=== PATIENT | female | born 1950 | race Caucasian/White ===

== ENCOUNTER 2017-07-24 08:18 | Inpatient (IN) | payer MEDICARE ==
[2017-07-24] VITALS (13 sets, daily range): BP systolic 90–169; BP diastolic 48–93; PULSE 117–124; RESP 18–31; TEMP 97.5–97.9; O2SAT 90–97
[~2017-07-24] VITALS: Ht 167.6 cm; Wt 93.0 kg
--- NOTE | 2017-07-24 08:54 | PD ---
HPI Chief Complaint: Respiratory Symptoms Time Seen by Provider: 08:43 Travel History International Travel<30 days: No Contact w/Intl Traveler<30days: No Traveled to known affect area: No History of Present Illness HPI 67-year-old female presents with shortness of breath. She states that she had a cold with cough and congestion last week but those symptoms have gone away and now she feels worsening shortness of breath. She denies any fever or other concurrent complaints. She states she has been around a grandson with similar symptoms Of cough and congestion. Quality is hard to catch breath. Severity is progressive. She feels worse when she moves around. She denies other modifying factors. Duration is about the past week. She denies recurrent history of this. [facility] Past Medical History Kidney Stones: Yes Influenza Vaccination: No ?: Not Past Surgical History Section: Yes (X3) Genitourinary Surgery: Yes (REMOVAL OF KIDNEY STONES) Hysterectomy: Yes Social History Alcohol Use: Yes (OCCAS) Tobacco Use: No (quit 3 days ago) Substance Use: No Allergies-Medications (Allergen,Severity, Reaction): Coded Allergies: morphine (Verified Allergy, Intermediate, HIVES, 07/24/17) Reported Meds & Prescriptions Reported Meds & Active Scripts Active No Active Prescriptions or Reported Medications Review of Systems Except as stated in HPI: all other systems reviewed are Neg Physical Exam Narrative GENERAL: 67-year-old female in no apparent distress SKIN: Focused skin assessment warm/dry. HEAD: Atraumatic. Normocephalic. EYES: No scleral icterus. No injection or drainage. ENT: No nasal bleeding or discharge. Mucous membranes pink and moist. NECK: Trachea midline. CARDIOVASCULAR: Tachycardic rate and regular rhythm RESPIRATORY: No accessory muscle use. Clear to auscultation. Breath sounds equal bilaterally. GASTROINTESTINAL: Abdomen soft, non-tender, nondistended. MUSCULOSKELETAL: No obvious deformities. No clubbing. No cyanosis. No edema. NEUROLOGICAL: Awake and alert. No obvious cranial nerve deficits. Motor grossly within normal limits. Normal speech. Data Data Last Documented VS Vital Signs Date Time Temp Pulse Resp B/P (MAP) Pulse Ox O2 Delivery O2 Flow Rate FiO2 07/24/17 11:13 122 18 108/72 (84) 94 Room Air 07/24/17 08:26 97.6 Orders Orders Complete Blood Count With Diff (07/24/17 08:42) Comprehensive Metabolic Panel (07/24/17 08:42) B-Type Natriuretic Peptide (07/24/17 08:42) Act Partial Throm Time (Ptt) (07/24/17 08:42) Prothrombin Time / Inr (Pt) (07/24/17 08:42) Magnesium (Mg) (07/24/17 08:42) Ckmb (Isoenzyme) Profile (07/24/17 08:42) Troponin I (07/24/17 08:42) Iv Access Insert/Monitor (07/24/17 08:42) Electrocardiogram (07/24/17 08:42) Ecg Monitoring (07/24/17 08:42) Oximetry (07/24/17 08:42) Chest, Single Ap (07/24/17 08:42) Sodium Chloride 0.9% Flush (Ns Flush) (07/24/17 08:45) Lactic Acid (07/24/17 08:42) Influenzae A/B Antigen (07/24/17 08:49) Blood Culture (07/24/17 08:49) Sodium Chlor 0.9% 1000 Ml Inj (Ns 1000 M (07/24/17 09:15) Ceftriaxone Inj (Rocephin Inj) (07/24/17 09:45) Azithromycin Inj (Zithromax Inj) (07/24/17 09:45) Sodium Chlor 0.9% 1000 Ml Inj (Ns 1000 M (07/24/17 09:45) Sodium Chlor 0.9% 1000 Ml Inj (Ns 1000 M (07/24/17 10:15) Acetaminophen (Tylenol) (07/24/17 11:30) Admit Order (Ed Use Only) (07/24/17 11:26) Labs Laboratory Tests Test 07/24/17 09:01 07/24/17 09:05 Lactic Acid Level 5.6 mmol/L White Blood Count 15.7 TH/MM3 Red Blood Count 5.33 MIL/MM3 Hemoglobin 15.4 GM/DL Hematocrit 45.4 % Mean Corpuscular Volume 85.2 FL Mean Corpuscular Hemoglobin 28.9 PG Mean Corpuscular Hemoglobin Concent 33.9 % Red Cell Distribution Width 13.3 % Platelet Count 509 TH/MM3 Mean Platelet Volume 8.3 FL Neutrophils (%) (Auto) 85.5 % Lymphocytes (%) (Auto) 8.1 % Monocytes (%) (Auto) 5.6 % Eosinophils (%) (Auto) 0.3 % Basophils (%) (Auto) 0.5 % Neutrophils # (Auto) 13.4 TH/MM3 Lymphocytes # (Auto) 1.3 TH/MM3 Monocytes # (Auto) 0.9 TH/MM3 Eosinophils # (Auto) 0.0 TH/MM3 Basophils # (Auto) 0.1 TH/MM3 CBC Comment DIFF FINAL Differential Comment Prothrombin Time 11.7 SEC Prothromb Time International Ratio 1.2 RATIO Activated Partial Thromboplast Time 25.9 SEC Blood Urea Nitrogen 19 MG/DL Creatinine 1.10 MG/DL Random Glucose 178 MG/DL Total Protein 7.6 GM/DL Albumin 3.6 GM/DL Calcium Level 9.2 MG/DL Magnesium Level 2.2 MG/DL Alkaline Phosphatase 138 U/L Aspartate Amino Transf (AST/SGOT) 22 U/L Alanine Aminotransferase (ALT/SGPT) 21 U/L Total Bilirubin 0.9 MG/DL Sodium Level 138 MEQ/L Potassium Level 3.6 MEQ/L Chloride Level 102 MEQ/L Carbon Dioxide Level 22.3 MEQ/L Anion Gap 14 MEQ/L Estimat Glomerular Filtration Rate 49 ML/MIN Total Creatine Kinase 35 U/L Troponin I LESS THAN 0.02 NG/ML MDM Medical Decision Making Medical Screen Exam Complete: Yes Emergency Medical Condition: Yes Medical Record Reviewed: Yes (past history confirmed) Interpretation(s) CBC & BMP Diagram 07/24/17 09:05 Total Protein 7.6, Albumin 3.6, Calcium Level 9.2, Magnesium Level 2.2, Alkaline Phosphatase 138 H, Aspartate Amino Transf (AST/SGOT) 22, Alanine Aminotransferase (ALT/SGPT) 21, Total Bilirubin 0.9 Last 24 hours Impressions Chest X-Ray 07/24/17 0842 Signed Impressions: Service Date/Time: Monday, July 24, 2017 08:54 - CONCLUSION: 1. Patchy opacities within the right mid and lower lung field consistent with possible pneumonia. 2. Small right pleural effusion. 3. Cardiomegaly. 4. Minimal scattered increased interstitial markings within the left lung. Ke Valentine MD Differential Diagnosis Pneumonia, URI, anemia, renal failure,, PE Narrative Course Will check blood work, EKG, chest x-ray and reevaluate. ED workup shows significantly elevated lactate and patient's x-ray has concerning findings of pneumonia. She is also flu a positive. She'll need to be watched closely with the importer or exporter. Currently she is on room air and not hypotensive that she has signs of septic shock given her vitals and lactate with concurrent infection. She was updated and agrees to close monitoring in the ICU. Critical Care Narrative Aggregate critical care time was 31 minutes. Time to perform other separately billable procedures was not included in the critical care time. My time did not include minutes spent treating any other patients simultaneously or on activities that did not directly contribute to the patient's treatment. The services I provided to this patient were to treat and/or prevent clinically significant deterioration that could result in: Worsening septic shock, hypotension, I provided critical care services requiring my management, as noted below: Chart data review, documentation time, medication orders and management, vital sign assessments/reviewing monitor data, ordering and reviewing lab tests, ordering and interpreting/reviewing x-rays and diagnostic studies, care of the patient and discussion of the patient with the admitting physicians. Sepsis Criteria SIRS Criteria (2 or more): Heart rate over 90, WBC > 86810, < 4000 or > 10% bands Sepsis Criteria (SIRS+source): Infect source susp/known Severe Sepsis (+one): Lactate >2 Septic Shock Criteria: Lactic acid >=4 Criteria Outcome: Meets septic shock criteria Physician Communication Physician Communication dr ruelas states to admit to [facility] under him, he will order ct chest dr ruelas called back and states can stay in [facility] Diagnosis Primary Impression: Septic shock Additional Impressions: Pneumonia Qualified Codes: J18.9 - Pneumonia, unspecified organism Influenza A Admitting Information Admitting Physician Requests: Admit Scripts No Active Prescriptions or Reported Meds Lakeshia Thomas MD Jul 24, 2017 08:54
[2017-07-24] MEDS ORDERED: SODIUM CHLOR 0.9% 1000 ML INJ 1,000 ML IV ONE ×3 (09:15→10:15)
[2017-07-24 09:21] LABS: AUTOMATED NEUTROPHIL # 13.4 TH/MM3 (1.8-7.7); BASOPHIL # 0.1 TH/MM3 (0-0.2); BASOPHIL % 0.5 % (0.0-2.0); EOSINOPHIL % 0.3 % (0.0-4.0); HEMATOCRIT 45.4 % (35.0-46.0); HEMOGLOBIN 15.4 GM/DL (11.6-15.3); LYMPH % 8.1 % (9.0-44.0); LYMPHOCYTE # 1.3 TH/MM3 (1.0-4.8); MEAN CELL VOLUME 85.2 FL (80.0-100.0); MEAN CORPUSCULAR HEMOGLOBIN 28.9 PG (27.0-34.0); MEAN CORPUSCULAR HGB CONC 33.9 % (32.0-36.0); MEAN PLATELET VOLUME 8.3 FL (7.0-11.0); MONO % 5.6 % (0.0-8.0); MONOCYTE # 0.9 TH/MM3 (0-0.9); NEUT % 85.5 % (16.0-70.0); PLATELET COUNT 509 TH/MM3 (150-450); RED BLOOD COUNT 5.33 MIL/MM3 (4.00-5.30); RED CELL DISTRIBUTION WIDTH 13.3 % (11.6-17.2); WHITE BLOOD COUNT 15.7 TH/MM3 (4.0-11.0)
--- NOTE | 2017-07-24 09:24 | RADRPT ---
EXAM DATE/TIME: 07/24/2017 08:54 [facility] COMPARISON: No previous studies available for comparison. INDICATIONS : Short of breath MEDICAL HISTORY : None. SURGICAL HISTORY : None. ENCOUNTER: Initial ACUITY: 1 day PAIN SCORE: 5/10 LOCATION: Bilateral chest FINDINGS: A small right pleural effusion is noted. Patchy opacities within the right mid and lower lung content s with possible pneumonia. The heart is enlarged. Minimal scattered increased interstitial markings a re noted within the left lung. CONCLUSION: 1. Patchy opacities within the right mid and lower lung field consistent with possible pneumonia. 2. Small right pleural effusion. 3. Cardiomegaly. 4. Minimal scattered increased interstitial markings within the left lung. Ke Valentine MD on July 24, 2017 at 9:20 Board Certified Radiologist. This report was verified electronically.
[2017-07-24 09:30] LABS: INTERNATIONAL NORMALIZED RATIO 1.2 RATIO; PROTHROMBIN TIME - PATIENT 11.7 SEC (9.8-11.6)
[2017-07-24] MEDS ORDERED: AZITHROMYCIN INJ 500 MG in SODIUM CHLOR 0.9% 250 ML INJ 250 ML IV ONE (09:45)
[2017-07-24] MEDS ORDERED: cefTRIAXone INJ 1,000 MG in SODIUM CHLORIDE 0.9% INJ 100 ML IV ONE (09:45)
[2017-07-24 09:53] LABS: CALCIUM 9.2 MG/DL (8.5-10.1)
[2017-07-24 09:54] LABS: ALBUMIN 3.6 GM/DL (3.4-5.0); BICARBONATE 22.3 MEQ/L (21.0-32.0); GLUCOSE,RANDOM 178 MG/DL (74-106)
[2017-07-24 09:55] LABS: MAGNESIUM 2.2 MG/DL (1.5-2.5)
[2017-07-24 09:57] LABS: GLOMERULAR FILTRATION RATE 49 ML/MIN (>89)
[2017-07-24 09:59] LABS: TOTAL PROTEIN 7.6 GM/DL (6.4-8.2)
[2017-07-24 10:01] LABS: ALKALINE PHOSPHATASE 138 U/L (45-117)
[2017-07-24 10:02] LABS: CHLORIDE 102 MEQ/L (98-107); SODIUM (NA) 138 MEQ/L (136-145)
[2017-07-24 10:03] LABS: TROPONIN I LESS THAN 0.02 NG/ML (0.02-0.05)
[2017-07-24 10:05] LABS: ALT (GPT) 21 U/L (10-53)
[2017-07-24 10:11] LABS: AST (GOT) 22 U/L (15-37); BLOOD UREA NITROGEN 19 MG/DL (7-18)
[2017-07-24 10:18] LABS: TOTAL BILIRUBIN ADULT 0.9 MG/DL (0.2-1.0)
--- NOTE | 2017-07-24 11:12 | EKG ---
Date Performed: 07/24/2017 Time Performed: 09:03:05 PTAGE: 67 years EKG: SINUS TACHYCARDIA BORDERLINE RIGHT AXIS DEVIATION ABNORMAL RHYTHM ECG NO PREVIOUS TRACING DOCTOR: Zelalem Mariee Interpretating Date/Time 07/24/2017 11:08:05
[2017-07-24] MEDS ORDERED: ACETAMINOPHEN 325 MG TAB PO ONE (11:30)
[2017-07-24] MEDS ORDERED: RESP: ALBUTEROL 2.5 MG/IPRATROPIUM 0.5 MG NEB (PRN) INH (12:00)
[2017-07-24] MEDS ORDERED: CHLORHEXIDINE GLUCONATE 2 % 1 PACK (2 CLOTHS) TOP PRN (12:00)
[2017-07-24] MEDS ORDERED: GLUCAGON 1 MG/ML VIAL OTHER PRN (12:00)
[2017-07-24] MEDS ORDERED: BISACODYL 10 MG SUPP RECTAL PRN (12:00)
[2017-07-24] MEDS ORDERED: LACTULOSE SYRUP 20 GM/30 ML CUP PO PRN (12:00)
[2017-07-24] MEDS ORDERED: DEXTROSE 50% IN WATER 50 ML VIAL(D50) IV PUSH PRN (12:00)
[2017-07-24] MEDS ORDERED: SENNOSIDES 8.6 MG TAB PO PRN (12:00)
[2017-07-24] MEDS ORDERED: MAGNESIUM HYDROXIDE SUSP 30 ML CUP PO PRN (12:00)
[2017-07-24] MEDS ORDERED: MISCELLANEOUS NURSING INFORMATION XX SCH (12:00)
[2017-07-24] MEDS: RESP: ALBUTEROL 2.5 MG/IPRATROPIUM 0.5 MG NEB (SCH) INH ×4 (12:12→23:37)
[2017-07-24] MEDS ORDERED: HEPARIN SODIUM - SQ 10,000 UNITS/ML VIAL SQ SCH (13:00)
[2017-07-24] MEDS: OSELTAMIVIR PHOSPHATE 75 MG CAP PO SCH ×2 (13:09→22:07)
[2017-07-24] MEDS: SODIUM CHLOR 0.9% 1000 ML INJ 1,000 ML IV SCH ×3 (13:09→22:06)
[2017-07-24] MEDS: PIPERACIL-TAZO 4.5 GM PREMIX 100 ML IV SCH ×3 (13:10→23:29)
[2017-07-24] MEDS: INSULIN NovoLIN REGULAR SUPPLEMENTAL SCALE SQ SCH ×2 (13:19→17:58)
--- NOTE | 2017-07-24 13:24 | RADRPT ---
EXAM DATE/TIME: 07/24/2017 12:52 [facility] COMPARISON: No previous studies available for comparison. INDICATIONS : Cough and congestion. Short of breath. Right chest pain. RADIATION DOSE: 11.78 CTDIvol (mGy) MEDICAL HISTORY : Renal calculi. SURGICAL HISTORY : Hysterectomy. section. ENCOUNTER: Initial ACUITY: 3 days PAIN SCALE: 5/10 LOCATION: Right chest TECHNIQUE: Volumetric scanning of the chest was performed. Using automated exposure control and adjustment of t he mA and/or kV according to patient size, radiation dose was kept as low as reasonably achievable to obtain optimal diagnostic quality images. DICOM format image data is available electronically for r eview and comparison. Follow-up recommendations for detected pulmonary nodules are based at a minimum on nodule size and pa tient risk factors according to Fleischner Society Guidelines. FINDINGS: Imaging through the pulmonary parenchyma demonstrates a moderate size right-sided pleural effusion an d consolidative change/atelectasis in the right middle and lower lobe. Examination of the left lung demonstrates 2 pulmonary nodules. The largest is in the superior segment of the left lower lobe and measures 1.1 x 1.7 CM. The second nodule is in the left lung base and christy sures 0.4 x 1.2 CM. Both of these are nonspecific in appearance. The heart is normal in size however, there is a very large pericardial effusion. The examination demo nstrates a 2.9 x 2.9 cm middle mediastinal node. There are several enlarged nodes identified in the p revascular [place] chain. The largest measures 1.3 x 1.7 cm. There is a 1.6 x 1.8 cm right axillary nod e as well. The limited portions of upper abdomen visualized are unremarkable. The visualized osseous structures are intact. CONCLUSION: 1. Sizable pericardial effusion. 2. Scattered, enlarged nodes evident in the prevascular [place] chain. The largest measures 1.3 x 1.7 c m. The exam also demonstrates a 1.6 x 1.8 cm right axillary node. There is mediastinal adenopathy as well with at least one node measuring 2.9 x 2.9 cm. The exam is concerning for malignancy. 3. Atherosclerotic plaquing in the coronary arteries. 4. There are 2 pulmonary nodules on the left. The largest measures 1.1 x 1.7 cm. 5. Moderate size right pericardial effusion. David Baez MD on July 24, 2017 at 13:17 Board Certified Radiologist. This report was verified electronically.
[2017-07-24] MEDS: VANCOMYCIN INJ 1,000 MG in SODIUM CHLOR 0.9% 250 ML INJ 250 ML IV SCH (14:00)
[2017-07-24] MEDS ORDERED: LIDOCAINE 1%/EPINEPHrine 1:100,000 SOLN 50 ML VIAL ONE (14:34)
[2017-07-24] MEDS ORDERED: MIDAZOLAM HCL 2 MG/2 ML VIAL ONE ×2 (15:16→15:41)
[2017-07-24] MEDS ORDERED: ONDANSETRON HCL 4 MG/2 ML VIAL ONE (16:16)
--- NOTE | 2017-07-24 16:25 | PD.RAD ---
Post Procedure Progress Note Pre Procedure Diagnosis: (1) Pericardial effusion with cardiac tamponade (2) Septic shock (3) Pneumonia Post Procedure Diagnosis: (1) Pericardial effusion with cardiac tamponade (2) Influenza A (3) Pneumonia (4) Septic shock Procedure Date: Jul 24, 2017 Supervising Radiologist: David Baez Estimated blood loss: 2cc Anesthesia: Local, Conscious Sedation Plan of Activity Patient to Unit: Critical Care Patient Condition: Fair Additional Comments: [address] guidance 450-500 cc of hemorrhagic fluid removed. 6 uruguayan drain left in place Pt. responded well pt is now resting comfortably and normotensive See PACS Report for procedural detail/treatment David Baez MD Jul 24, 2017 16:25
--- NOTE | 2017-07-24 17:02 | RADRPT ---
EXAM DATE/TIME: 07/24/2017 15:12 [facility] COMPARISON: CT THORAX W/O CONTRAST, July 24, 2017, 12:52. INDICATIONS : Pericardial effusion. SEDATION TIME: 60 minutes MEDICATION(S): 1.) 2 mg midazolam (Versed) IV 2.) 100 mcg fentanyl (Sublimaze) IV DEVICE(S): 1.) 6 Fr Skater FLUID: Total volume of 400 cc of red fluid was removed. Fluid was sent for laboratory ordered studies. MEDICAL HISTORY : None. SURGICAL HISTORY : Hysterectomy. ENCOUNTER: Initial ACUITY: 1 day PAIN SCORE: 0/10 LOCATION: chest PROCEDURE: 1.) Conscious sedation with continuous EKG and oximetry monitoring. PROCEDURE : CT guided pericardial drain placement.. The risks, benefits and alternatives to the procedure were explained and verbal and written consent w as obtained. Using automated exposure control and adjustment of the mA and/or kV according to patien t size, radiation dose was kept as low as reasonably achievable to obtain optimal diagnostic quality images. The site was prepped in sterile fashion. Full sterile technique was used, including cap, ma sk, sterile gloves and gown and a large sterile sheet. Hand hygiene and 2% chlorhexidine and/or beta dine/alcohol prep was utilized per protocol for cutaneous antisepsis. The skin and subcutaneous tiss ues were infiltrated with local anesthetic solution. DICOM format image data is available electronic ally for review and comparison. A suitable site was localized. The skin was incised with 10 cc 1% lidocaine. 22 gauge needle was adva nced down into the pericardial effusion on the left. A 6 Stateless skater catheter was advanced over the wire. Approximately 100 cc of hemorrhagic fluid was removed. The patient felt significantly better f ollowing this however there was still a large volume of fluid evident along the inferior aspect of th e pericardium. A second site was localized inferiorly along the right side of the pericardium. Using an oblique appr [facility], a 22 gauge needle was advanced into the collection. A 0.035 wire was advanced into the pericard ial sac versus 6 Stateless drain was advanced over this. A total of approximately 400 cc of hemorrhagic fluid was removed. Followup CT imaging demonstrated complete resolution of the pericardial effusion. A 6 Stateless drainage catheter was left in placed to BRANDAN suction. CONCLUSION: Uncomplicated pericardial drainage as above. A total of about 500 cc of hemorrhagic f luid was removed. The patient's vitals stabilized following the pericardial drainage. David Baez MD on July 24, 2017 at 16:57 Board Certified Radiologist. This report was verified electronically.
--- NOTE | 2017-07-24 17:14 | RADRPT ---
EXAM DATE/TIME: 07/24/2017 16:18 [facility] COMPARISON: CHEST EXPIRATION ONLY, July 24, 2017, 16:57. INDICATIONS : Right pleural effusion. MEDICAL HISTORY : Kidney stones. SURGICAL HISTORY : Hysterectomy. section. ENCOUNTER: Initial ACUITY: 1 week PAIN SCORE: 3/10 LOCATION: Right chest FLUID: Total volume of 1100 cc of clear, yellow fluid was removed. Fluid was sent to lab for ordered studies. TECHNIQUE: 1. Ultrasound guidance for thoracentesis. 2. Thoracentesis. The risks, benefits, and alternatives to ultrasound guided thoracentesis were explained to the patien t in lay simple terms, including the risk of bleeding and infection. Written and verbal informed con sent was obtained. Appropriate area for thoracentesis was marked under ultrasound guidance with the patient in the uprig ht position. Overlying skin was prepped and draped in the usual sterile fashion and with local anest hetic, a dermatotomy was made with an 11 blade scalpel. A 6 Austrian thoracentesis catheter was placed in the pleural space and fluid was removed. Catheter was then removed and a sterile dressing applie d. There were no immediate complications. The patient tolerated the procedure well and the left the ultrasound suite in stable condition. Chest radiograph is to be obtained. CONCLUSION: Uncomplicated ultrasound guided thoracentesis. David Baez MD on July 24, 2017 at 17:12 Board Certified Radiologist. This report was verified electronically.
--- NOTE | 2017-07-24 17:16 | RADRPT ---
EXAM DATE/TIME: 07/24/2017 16:57 [facility] COMPARISON: CHEST SINGLE AP, July 24, 2017, 8:54. INDICATIONS : Evaluate for pneumothorax, post thoracentesis. MEDICAL HISTORY : Renal calculi. SURGICAL HISTORY : Hysterectomy. ENCOUNTER: Initial ACUITY: 1 day PAIN SCORE: 0/10 LOCATION: Right chest FINDINGS: The patient is post right-sided thoracentesis. There's been complete removal of the patient's right p leural effusion. The patient's known pulmonary masses are not visible by plain film. The lungs do dem onstrate chronic appearing interstitial changes with a small area of atelectasis at the left base. The heart is now normal in size. There is a small pericardial drain in place. The bony structures are intact. CONCLUSION: 1. Complete removal of the patient's right pleural effusion. There is significant improvement in the chest. There is no pneumothorax. David Baez MD on July 24, 2017 at 17:13 Board Certified Radiologist. This report was verified electronically.
[2017-07-24] MEDS ORDERED: LORazepam 2 MG/ML VIAL IV PUSH ONE (17:30)
[2017-07-24 17:53] LABS: TOTAL PROTEIN,PLEURAL FLUID 3.4 GM/DL
[2017-07-24 18:36] LABS: PLEURAL FLUID LYMPHS 100 %; PLEURAL FLUID POLYS (SEGS) 0 %; PLEURAL FLUID RBC 2486 /MM3 (0-0)
[2017-07-24 18:37] LABS: PLEURAL FLUID WBC 2915 /MM3 (0-10)
[2017-07-24 18:38] LABS: PERICARDIAL WBC 15897 /MM3 (0-10)
[2017-07-24 18:39] LABS: PERICARDIAL EOS 2 %; PERICARDIAL LYMPHS 64 %; PERICARDIAL MESOTHELIAL 3 %; PERICARDIAL POLYS(SEGS) 31 %; PERICARDIAL RBC 1044277 /MM3 (0-0)
--- NOTE | 2017-07-24 18:47 | MH ---
cc: Eunice Dos Santos MD DATE OF ADMISSION: 07/24/2017 HISTORY OF PRESENT ILLNESS: The patient is a 67-year-old female without a past medical history who presented to [place] ED for shortness of breath that gradually worsened in the last 3 days and not feeling well overall. She had cold-like symptoms a month ago. She denies any associated symptoms of chest pain, orthopnea, PND or edema of lower extremities. In addition, she denies any nausea, vomiting, abdominal pain. On arrival to the ED, she was tachycardic and borderline blood pressure with a systolic pressure in the 90s. She received approximately 2 liters of crystalloids in the ED. Her laboratory data was significant for leukocytosis with a WBC of 15.7 and lactic acidemia with a lactic acid level of 5.6. Her nasal aspirate in the ED was positive for flu A antigen. A chest x-ray in the ED showed patchy opacities within the right mid and lower lung ochoa. Subsequently, the patient underwent CT scan of the chest which showed a large pericardial effusion, large right-sided pleural effusion, mediastinal adenopathy with 1 node measuring at least 2.9 x 2.9 cm and enlarged nodes in the prevascular [place] chain, largest measures 1.3 x 1.7 cm. In the ED, she was given ceftriaxone, azithromycin and IV fluids. The patient subsequently was transferred to the Radiology Department at [facility] where she underwent a CT guided pericardiocentesis with removal of 500 mL of hemorrhagic fluid, a pericardial drain in place. Also, she underwent ultrasound-guided thoracentesis with removal of 1100 mL of clear yellow pleural fluid. The patient's hemodynamics overall improved with current blood pressure of 169/80 with a pulse of 119, and saturation 95% on 2 liters oxygen. She feels better overall. The patient states that she has not seen a physician for over 10 years. She is an active smoker with a [id number] history of smoking. She denies any history of pulmonary lung disease or malignancy. PAST MEDICAL HISTORY: Significant for renal stones. PAST SURGICAL HISTORY: x3, previous hysterectomy, bladder uplift, previous surgery for nephrolithiasis. FAMILY HISTORY: No history of malignancy. ALLERGIES: MORPHINE SIDE EFFECTS SWELLING. MEDICATIONS AT HOME: Tylenol p.r.n. REVIEW OF SYSTEMS: As per HPI. Rest of review of systems is unremarkable. PHYSICAL EXAMINATION: GENERAL: A 67-year-old female lying in bed in no acute respiratory distress. VITAL SIGNS: Afebrile, pulse of 119, blood pressure 169/80, saturation 95% on 2 liter oxygen. HEENT: Atraumatic, normocephalic. Pupils are equal, round, reactive to accommodation. Extraocular muscles intact. Conjunctivae pink Nonicteric sclerae. Oral mucosa within normal limits. NECK: Supple. No JVD, adenopathy, thyromegaly. Trachea in the midline. HEART: Tachycardic. Normal S1, S2. No murmurs, rubs or gallops noted. LUNGS: Bilateral equal air entry, diminished in the bases. ABDOMEN: Soft, obese, nontender. No distention. Positive bowel sounds. EXTREMITIES: No cyanosis, clubbing or edema. NEUROLOGIC: No focal sensory deficit. LABORATORY DATA: Sodium 138, potassium 3.6, chloride 102, CO2 22, BUN 19, creatinine 1.19, glucose 178, lactic acid 5.6 and on repeat 7.0. Troponin less than 0.02. BNP 72. WBC 15.7, hemoglobin 15.4, hematocrit 45, platelet count 509. INR 1.2. PT 11.7, PTT 25.9. RADIOGRAPHIC STUDIES: A CT chest showed large pericardial effusion, right-sided pleural effusion, mediastinal adenopathy, pulmonary nodules on the left. The largest measures 1.1 x 1.7 cm. IMPRESSION: 1. Respiratory insufficiency. 2. Positive for influenza. 3. Leukocytosis. 4. Lactic acidemia. 5. Large pericardial effusion status post pericardiocentesis with removal of 500 mL of hemorrhagic pericardial fluid. 6. Right-sided pleural effusion, status post ultrasound-guided thoracentesis with removal of 1100 mL of pleural fluid. 7. Pulmonary nodules with mediastinal adenopathy, rule out malignancy. 8. Active tobacco use. 9. Obesity. RECOMMENDATIONS: 1. Monitor neuro status closely and avoid any sedatives. 2. Continue with oxygen to maintain sats above 92%. 3. Bronchodilators in the form of DuoNeb q. 6 plus q. 2 hours p.r.n. for shortness of breath. 4. Noninvasive positive pressure ventilation p.r.n. for respiratory distress. 5. The patient status post ultrasound CT-guided right thoracentesis with removal of 1100 mL of pleural fluid. Followup on pleural fluid analysis, culture and cytology. 6. Consult pulmonary service. Case discussed with Dr. Reeves. If cytology is negative for malignancy. The patient might be a candidate for endobronchial ultrasound of the mediastinal adenopathy to rule out a bronchogenic carcinoma. 7. Monitor heart rate and blood pressure closely, maintain MAP greater than 65 mmHg. 8. Serial lactic acid monitoring until clear. 9. We will obtain 2D echo to evaluate LV function. She underwent CT guided pericardiocentesis with removal of 500 mL of hemorrhagic fluid. Monitor pericardial drain output. In addition, cardiothoracic surgery was consulted by the ED. 10. Followup on pericardial fluid analysis and cytology. 11. Monitor renal function, I's and O's and electrolyte replacement per protocol. placed NS at 75 mL an hour. 12. Start p.o. heart healthy diet and place on Pepcid for gastrointestinal prophylaxis. 13. Place on broad spectrum antibiotics in the form of vancomycin, Zosyn and Tamiflu 75 mg b.i.d. Monitor for signs of infection which include fever and WBC. Followup on blood cultures. A nasal aspirate was positive for influenza as stated above. 14. Sliding scale insulin with Accu-Cheks for glycemic control. 15. Monitor CBC. 16. Gastrointestinal prophylaxis with Pepcid and DVT prophylaxis with SCDs. We will hold off on chemical anticoagulation prophylaxis for now given the patient just underwent a pericardiocentesis and thoracentesis. Further recommendations will be based on hospital course. MD JAI George/REINA , 05:49 PM , 06:45 PM
[2017-07-24 18:53] LABS: HEMATOCRIT 40.9 % (35.0-46.0); HEMOGLOBIN 14.3 GM/DL (11.6-15.3); MEAN CELL VOLUME 86.2 FL (80.0-100.0); MEAN CORPUSCULAR HEMOGLOBIN 30.2 PG (27.0-34.0); MEAN PLATELET VOLUME 8.1 FL (7.0-11.0); PLATELET COUNT 313 TH/MM3 (150-450); RED BLOOD COUNT 4.75 MIL/MM3 (4.00-5.30); RED CELL DISTRIBUTION WIDTH 13.9 % (11.6-17.2); WHITE BLOOD COUNT 17.3 TH/MM3 (4.0-11.0)
[2017-07-24 19:20] LABS: INTERNATIONAL NORMALIZED RATIO 1.3 RATIO; PROTHROMBIN TIME - PATIENT 12.7 SEC (9.8-11.6)
[2017-07-24] MEDS: ACETAMINOPHEN 325 MG TAB PO PRN (21:35)
[2017-07-24] MEDS: FAMOTIDINE 20 MG/2 ML VIAL IV PUSH SCH (22:06)
[2017-07-24] MEDS: DOCUSATE SODIUM 50 MG/SENNA 8.6 MG TAB PO SCH (22:07)
[2017-07-25] VITALS (15 sets, daily range): BP systolic 89–124; BP diastolic 52–63; PULSE 109–119; RESP 16–44; TEMP 97.7–99.6; O2SAT 92–95
[2017-07-25] MEDS: ACETAMINOPHEN 325 MG TAB PO PRN ×5 (01:45→23:24)
[2017-07-25] MEDS: VANCOMYCIN INJ 1,000 MG in SODIUM CHLOR 0.9% 250 ML INJ 250 ML IV SCH ×2 (02:45→13:38)
[2017-07-25] MEDS: CHLORHEXIDINE GLUCONATE 2 % 1 PACK (2 CLOTHS) TOP SCH (02:46)
[2017-07-25] MEDS: RESP: ALBUTEROL 2.5 MG/IPRATROPIUM 0.5 MG NEB (SCH) INH ×5 (04:00→19:50)
[2017-07-25 04:09] LABS: AUTOMATED NEUTROPHIL # 13.6 TH/MM3 (1.8-7.7); BASOPHIL # 0.1 TH/MM3 (0-0.2); BASOPHIL % 0.4 % (0.0-2.0); EOSINOPHIL % 0.3 % (0.0-4.0); HEMATOCRIT 39.3 % (35.0-46.0); HEMOGLOBIN 13.3 GM/DL (11.6-15.3); LYMPH % 8.4 % (9.0-44.0); LYMPHOCYTE # 1.4 TH/MM3 (1.0-4.8); MEAN CORPUSCULAR HEMOGLOBIN 28.8 PG (27.0-34.0); MEAN CORPUSCULAR HGB CONC 33.9 % (32.0-36.0); MONO % 9.4 % (0.0-8.0); MONOCYTE # 1.6 TH/MM3 (0-0.9); NEUT % 81.5 % (16.0-70.0); PLATELET COUNT 327 TH/MM3 (150-450); RED BLOOD COUNT 4.62 MIL/MM3 (4.00-5.30); RED CELL DISTRIBUTION WIDTH 13.7 % (11.6-17.2); WHITE BLOOD COUNT 16.7 TH/MM3 (4.0-11.0)
[2017-07-25] MEDS: SODIUM CHLOR 0.9% 1000 ML INJ 1,000 ML IV SCH ×5 (04:22→20:25)
[2017-07-25 04:40] LABS: ALBUMIN 2.6 GM/DL (3.4-5.0); ALKALINE PHOSPHATASE 99 U/L (45-117); ALT (GPT) 139 U/L (10-53); AST (GOT) 155 U/L (15-37); BICARBONATE 25.1 MEQ/L (21.0-32.0); BLOOD UREA NITROGEN 14 MG/DL (7-18); CHLORIDE 106 MEQ/L (98-107); CREATININE 0.65 MG/DL (0.50-1.00); GLOMERULAR FILTRATION RATE 91 ML/MIN (>89); GLUCOSE,RANDOM 112 MG/DL (74-106); MAGNESIUM 1.8 MG/DL (1.5-2.5); SODIUM (NA) 140 MEQ/L (136-145); TOTAL BILIRUBIN ADULT 0.9 MG/DL (0.2-1.0); TOTAL PROTEIN 5.5 GM/DL (6.4-8.2)
[2017-07-25] MEDS: PIPERACIL-TAZO 4.5 GM PREMIX 100 ML IV SCH ×4 (05:13→23:24)
[2017-07-25] MEDS: INSULIN NovoLIN REGULAR SUPPLEMENTAL SCALE SQ SCH ×5 (05:13→23:27)
[2017-07-25] MEDS: DOCUSATE SODIUM 50 MG/SENNA 8.6 MG TAB PO SCH ×2 (08:04→20:25)
[2017-07-25] MEDS: OSELTAMIVIR PHOSPHATE 75 MG CAP PO SCH ×2 (08:05→20:26)
[2017-07-25] MEDS: FAMOTIDINE 20 MG/2 ML VIAL IV PUSH SCH ×2 (08:05→20:25)
--- NOTE | 2017-07-25 14:32 | HHI.CCPN ---
Subjective Remarks/Hospital Course The patient is a 67-year-old female without a past medical history who presented to [place] ED for shortness of breath that gradually worsened in the last 3 days and was not feeling well overall. She had cold-like symptoms a month ago she denies any associated symptoms of chest pain, orthopnea, PND or edema of the lower extremities. In addition, she denies any nausea, vomiting, abdominal pain. On arrival to the ED, she was tachycardic M borderline blood pressure with a systolic pressure in the 90s. She received approximately 2 L of crystalloids in the ED. Her laboratory data was significant for leukocytosis with a WBC of 15.7 and lactic acidemia with a lactic acid level of 5.6. Her nasal aspirate in the ED was positive for influenza A antigen. Extreme ED show patchy opacities within the right mid and lower lung ochoa. Subsequently, the patient underwent CT scan of the chest which showed a large pericardial effusion, large right-sided pleural effusion, mediastinal adenopathy with one node measuring at least 2.92.9 cm and enlarged nodes in the pre-vascular [place]ia [place] chain, largest measuring 1.3 x 1.7 cm.. In the ED, she was given ceftriaxone, azithromycin and IV fluids. The patient subsequently was transferred to the radiology Department at [facility] where she underwent a CT-guided pericardiocentesis with removal of 500 cc of hemorrhagic fluid, a pericardial drain in place. Also she underwent ultrasound-guided thoracentesis with removal of 1100 cc of clear yellow pleural fluid. Since hemodynamics overall improved with current blood pressure of 169/80 with a pulse of 119, and saturation 95% on 2 L oxygen. She feels better overall. The patient states that she has not seen a physician for over 10 years. She is an active smoker with a [id number] history of smoking. She denies any history of pulmonary lung disease or malignancy. Subjective: 07/25: No acute events overnight. The patient remains in sinus tachycardia 114- 117. Remains on O2 at 2 L O2 saturation 93-94 %. Leukocytosis slightly improved. Pericardial drain in situ, minimal drainage 20 cc since admission. Objective Vital Signs Date Time Temp Pulse Resp B/P (MAP) Pulse Ox O2 Delivery O2 Flow Rate FiO2 07/25/17 14:00 113 07/25/17 12:00 98.3 44 93/54 (67) 93 07/25/17 09:52 Nasal Cannula 3.00 07/24/17 12:15 21 Intake and Output 07/25/17 07/25/17 07/25/17 07:59 15:59 23:59 Intake Total 590 ml Output Total 20 ml Balance 570 ml Result Diagram: 07/25/17 0342 07/25/17 0342 Other Results Microbiology Date/Time Source Procedure Growth Status 07/24/17 09:01 Nasal Aspirate Influenza Types A,B Antigen (SHILPI) - Final Positive For Flu A Antigen Complete Imaging Last Impressions Pericardiocentesis 07/24/17 1640 Signed Impressions: Service Date/Time: Monday, July 24, 2017 15:12 - CONCLUSION: Uncomplicated pericardial drainage as above. A total of about 500 cc of hemorrhagic fluid was removed. The patient's vitals stabilized following the pericardial drainage. David Baez MD Chest X-Ray 07/24/17 0842 Signed Impressions: Service Date/Time: Monday, July 24, 2017 08:54 - CONCLUSION: 1. Patchy opacities within the right mid and lower lung field consistent with possible pneumonia. 2. Small right pleural effusion. 3. Cardiomegaly. 4. Minimal scattered increased interstitial markings within the left lung. Ke Valentine MD Thoracentesis Ultrasound 07/24/17 0000 Signed Impressions: Service Date/Time: Monday, July 24, 2017 16:18 - CONCLUSION: Uncomplicated ultrasound guided thoracentesis. David Baez MD Chest CT 07/24/17 0000 Signed Impressions: Service Date/Time: Monday, July 24, 2017 12:52 - CONCLUSION: 1. Sizable pericardial effusion. 2. Scattered, enlarged nodes evident in the prevascular [place] chain. The largest measures 1.3 x 1.7 cm. The exam also demonstrates a 1.6 x 1.8 cm right axillary node. There is mediastinal adenopathy as well with at least one node measuring 2.9 x 2.9 cm. The exam is concerning for malignancy. 3. Atherosclerotic plaquing in the coronary arteries. 4. There are 2 pulmonary nodules on the left. The largest measures 1.1 x 1.7 cm. 5. Moderate size right pericardial effusion. David Baez MD Objective Remarks GENERAL: This is a well-developed well-nourished female currently in no apparent distress on nasal cannula SKIN: Warm and dry. HEAD: Atraumatic. Normocephalic. EYES: Pupils equal and round. No scleral icterus. No injection or drainage. ENT: No nasal bleeding or discharge. Mucous membranes pink and moist. NECK: Trachea midline. No JVD. CARDIOVASCULAR: Normal rate, regular rhythm. Pericardial drain secued, dressing C/D/I RESPIRATORY: No accessory muscle use. Clear to auscultation. Breath sounds equal bilaterally. Nasal cannula currently at 2 L/m GASTROINTESTINAL: Abdomen soft, non-tender, nondistended. No guarding. MUSCULOSKELETAL: Extremities without clubbing, cyanosis, or edema. No obvious deformities. NEUROLOGICAL: Awake and alert. RASS 0. No gross focal/sensory deficits. Follows commands in all 4 extremities. A/P Assessment and Plan Assessment 1. Respiratory insufficiency 2. Influenza A antigen positive 3. Leukocytosis 4. Lactic acidemia 5. Large pericardial effusion status post pericardiocentesis with removal of 500 cc of hemorrhagic pericardial fluid 07/24 6. Right-sided pleural effusion status post ultrasound-guided thoracentesis with removal of 1100 cc of pleural fluid 07/24 7. Pulmonary nodules with mediastinal adenopathy, R/O malignancy 8. Tobaccoism 9. Obesity 10. Electrolyte derangement Plan 1. Monitor neuro status avoid any sedatives 2. Continue with oxygen to maintain O2 saturation greater than 92% 3. Bronchodilators duo nebs every 6 hours scheduled plus every 2 hours when necessary for wheezing/shortness of breath 4. BiPAP / NIPPV when necessary 5. Status post ultrasound CT-guided right thoracentesis with removal of 1100 cc of pleural fluid. F/U analysis, culture and cytology 6. Pulmonary following-Dr. piña. If cytology is negative for malignancy she may be a candidate for endobronchial ultrasound of the mediastinal adenopathy to rule out a bronchogenic carcinoma. 7. Maintain MAP greater than 65mmHg 8. Monitor lactic acid until cleared 9. Follow up 2-D echo to evaluate LV function. Patient is status post CT- guided pericardiocentesis with removal of 500 cc of hemorrhagic fluid. Monitor pericardial drain output. Follow up CT surgery recommendations 10. Follow-up pericardial fluid analysis, culture and cytology 11. Strict I&O, monitor BMP. Electrolyte replacement per ICU protocol. Continue normal saline at 75/hour 12. Healthy diet, Pepcid for GI prophylaxis 13. Place and placed on empiric antibiotics vancomycin, Zosyn, and Tamiflu 75 mg twice a day (day 2). Follow-up blood cultures 14. Glucose monitoring, low dose insulin regimen 15. Monitor CBC 16. GI prophylaxis with Pepcid and DVT prophylaxis with SCDs. We will hold off on chemical DVT prophylaxis given the patient just underwent pericardiocentesis and thoracentesis Dispo: Level 3 Discussed with ROLL BUCKER at bedside Physician Georgina Zayas MD Jul 25, 2017 14:32
[2017-07-25] MEDS ORDERED: ICU - POTASSIUM PHOSPHATE 30 MMOL/NS 250 ML IV ONE ×2 (18:00)
[2017-07-26] VITALS (14 sets, daily range): BP systolic 117–144; BP diastolic 59–79; PULSE 105–120; RESP 16–28; TEMP 97.8–98.2; O2SAT 94–99
[2017-07-26] MEDS: RESP: ALBUTEROL 2.5 MG/IPRATROPIUM 0.5 MG NEB (SCH) INH ×6 (00:03→20:29)
[2017-07-26] MEDS: CHLORHEXIDINE GLUCONATE 2 % 1 PACK (2 CLOTHS) TOP SCH (03:17)
[2017-07-26] MEDS: VANCOMYCIN INJ 1,000 MG in SODIUM CHLOR 0.9% 250 ML INJ 250 ML IV SCH ×2 (03:17→13:49)
[2017-07-26] MEDS: SODIUM CHLOR 0.9% 1000 ML INJ 1,000 ML IV SCH ×4 (03:19→22:13)
[2017-07-26] MEDS: PIPERACIL-TAZO 4.5 GM PREMIX 100 ML IV SCH ×3 (05:35→17:43)
[2017-07-26] MEDS: ACETAMINOPHEN 325 MG TAB PO PRN ×2 (05:36→10:48)
[2017-07-26] MEDS: INSULIN NovoLIN REGULAR SUPPLEMENTAL SCALE SQ SCH ×3 (05:44→17:44)
--- NOTE | 2017-07-26 06:16 | RADRPT ---
EXAM DATE/TIME: 07/26/2017 04:15 [facility] COMPARISON: CHEST SINGLE AP, July 24, 2017, 8:54. INDICATIONS : Shortness of breath, possible pulmonary disease. MEDICAL HISTORY : Renal calculi. SURGICAL HISTORY : Hysterectomy. Thoracentesis ENCOUNTER: Subsequent ACUITY: 3 days PAIN SCORE: 0/10 LOCATION: Bilateral chest FINDINGS: A single view of the chest demonstrates stable airspace disease and volume loss in the right hemithor ax. Developing left basilar consolidation/effusion. CONCLUSION: 1. Stable volume loss with airspace disease in the right hemithorax. 2. Developing atelectasis/effusion in the left base. Deion Marin MD on July 26, 2017 at 6:13 Board Certified Radiologist. This report was verified electronically.
[2017-07-26 06:17] LABS: BASOPHIL # 0.1 TH/MM3 (0-0.2); BASOPHIL % 1.2 % (0.0-2.0); EOSINOPHIL # 0.1 TH/MM3 (0-0.4); EOSINOPHIL % 1.2 % (0.0-4.0); HEMATOCRIT 37.6 % (35.0-46.0); HEMOGLOBIN 12.5 GM/DL (11.6-15.3); LYMPH % 9.5 % (9.0-44.0); LYMPHOCYTE # 1.1 TH/MM3 (1.0-4.8); MEAN CELL VOLUME 84.9 FL (80.0-100.0); MEAN CORPUSCULAR HEMOGLOBIN 28.3 PG (27.0-34.0); MEAN CORPUSCULAR HGB CONC 33.4 % (32.0-36.0); MEAN PLATELET VOLUME 8.2 FL (7.0-11.0); MONO % 10.2 % (0.0-8.0); MONOCYTE # 1.2 TH/MM3 (0-0.9); NEUT % 77.9 % (16.0-70.0); PLATELET COUNT 306 TH/MM3 (150-450); RED BLOOD COUNT 4.43 MIL/MM3 (4.00-5.30); RED CELL DISTRIBUTION WIDTH 13.8 % (11.6-17.2); WHITE BLOOD COUNT 11.5 TH/MM3 (4.0-11.0)
[2017-07-26 06:20] LABS: INTERNATIONAL NORMALIZED RATIO 1.1 RATIO; PROTHROMBIN TIME - PATIENT 11.5 SEC (9.8-11.6)
[2017-07-26 06:37] LABS: ALBUMIN 2.6 GM/DL (3.4-5.0); AST (GOT) 42 U/L (15-37); BICARBONATE 24.3 MEQ/L (21.0-32.0); BLOOD UREA NITROGEN 9 MG/DL (7-18); CALCIUM 8.1 MG/DL (8.5-10.1); CHLORIDE 109 MEQ/L (98-107); CREATININE 0.57 MG/DL (0.50-1.00); GLOMERULAR FILTRATION RATE 105 ML/MIN (>89); GLUCOSE,RANDOM 116 MG/DL (74-106); SODIUM (NA) 142 MEQ/L (136-145)
[2017-07-26 06:39] LABS: ALT (GPT) 89 U/L (10-53)
[2017-07-26 06:41] LABS: ALKALINE PHOSPHATASE 105 U/L (45-117); TOTAL BILIRUBIN ADULT 0.7 MG/DL (0.2-1.0); TOTAL PROTEIN 5.5 GM/DL (6.4-8.2)
[2017-07-26] MEDS: FAMOTIDINE 20 MG/2 ML VIAL IV PUSH SCH ×2 (08:56→20:39)
[2017-07-26] MEDS: DOCUSATE SODIUM 50 MG/SENNA 8.6 MG TAB PO SCH ×2 (08:57→20:39)
[2017-07-26] MEDS: OSELTAMIVIR PHOSPHATE 75 MG CAP PO SCH ×2 (08:57→20:39)
--- NOTE | 2017-07-26 10:58 | MB ---
cc: Beatriz Reeves MD DATE OF CONSULT: HISTORY OF PRESENT ILLNESS: Ms. Castorena is a 67-year-old white female, previously in very good health with no chronic medical problems who presented to the ER at [facility] with a 1-2 week history of vague discomfort, shortness of breath, feeling ill. Some of these symptoms may have actually preceded this, but it became more acute at the time of admission. Initial evaluation included a positive assay for influenza A. But in addition to that, she had an abnormal chest x-ray followed by a very abnormal chest CT revealing a sizable pericardial effusion, scattered mediastinal lymph nodes as well as 2 pulmonary nodules roughly 1-2 cm. She also had a pleural effusion. Hemodynamically, she was compromised so she went to interventional radiology where she had a pericardiocentesis of about 500 mL of bloody fluid and then removal of a clear serous fluid from the pleural space on the right. She was admitted to the Intensive Care Unit, received fluids, antibiotics and Tamiflu and when I saw her yesterday, she was feeling considerably better. She was also on aerosol therapy. She has been a chronic smoker her entire adult life about 50 pack years and continued to smoke up to the time of admission. She had no purulent sputum or hemoptysis. She was not aware of fever and has been afebrile in the hospital. There is no significant prior pulmonary history. May have had pneumonia once in the past, not hospitalized, but no recurrent bronchitis. Denies significant shortness of breath or chronic cough. No chronic edema. No prior cardiovascular history. She has had a previous problem with kidney stones, one was removed surgically, she has had a hysterectomy and 2 prior episodes of Lyme disease in the distant past 15 or more years ago while living in [place]. Had rheumatic problems at that time, but apparently no chronic residual that she is aware of. She has also had 3 prior C-sections, bladder surgery. FAMILY HISTORY: Negative for malignancy. ALLERGIES: MORPHINE, WHICH CAUSED SWELLING AND DIFFICULTY BREATHING. REGULAR PRESCRIPTION MEDICATIONS: None. REVIEW OF SYSTEMS: Otherwise, negative. She has had no recent gastrointestinal symptoms. No loss of appetite or weight loss. PHYSICAL EXAMINATION: VITAL SIGNS: 98 degrees, 114/56, pulse is 100 to 110, respirations are 18, nonlabored and sat on 3 liters is 95%. HEENT: Sclerae anicteric. NECK: No adenopathy palpable in the neck or supraclavicular region. CHEST: Diminished but clear. No congestion or wheezing. No basilar rales. HEART: Regular rhythm. No audible S3. She has a catheter in place in the pericardial space. ABDOMEN: Soft, nontender, no palpable organomegaly. EXTREMITIES: No peripheral edema or calf tenderness. LABORATORY DATA: Cultures to date including blood, pleural fluid and pericardial fluid have been negative. Cytologies are pending. White count is down from 17,000 to 11,000. PT/INR is normal. BUN and creatinine are normal. She had an elevated lactic acid on presentation and it has normalized. Liver functions were elevated. They are coming down. ASSESSMENT AND DISCUSSION: Ms. Castorena presents with a flu-like illness. In fact, she is positive for influenza A, but with significant pericardial effusion which is hemorrhagic and a pleural effusion on the right. Question whether or not this was a primary pulmonary event or secondary to the pericardial effusion. She also has mediastinal adenopathy and 2 pulmonary nodules and in light of the prior smoking history malignancy is of great concern. She is currently being treated for her initial infectious process. Once that is stabilized and we have the results of cytologies from both the pericardial fluid and the pleural fluid we can see if further diagnostic studies are warranted. The mediastinal adenopathy could be possibly biopsied with ultrasound if that became necessary. I have reviewed this plan with the patient and her daughter. I will see her back early next week to followup on those results. Current management is being done by critical care medicine. R. Juan Diego Reeves MD RSW/TL , 09:48 AM , 10:57 AM
[2017-07-26] MEDS ORDERED: POTASSIUM CHLORIDE 25 MEQ EFFERVESCENT TAB PO ONE (12:15)
[2017-07-26] MEDS ORDERED: ZOLPIDEM TARTRATE 10 MG TAB PO PRN (12:30)
[2017-07-26] MEDS: ALPRAZolam 0.25 MG TAB PO PRN ×2 (13:53→22:13)
--- NOTE | 2017-07-26 16:29 | RADRPT ---
EXAM DATE/TIME: 07/26/2017 15:58 [facility] COMPARISON: CHEST SINGLE AP, July 26, 2017, 4:15. INDICATIONS : Short of breath. MEDICAL HISTORY : Renal calculi. SURGICAL HISTORY : Hysterectomy. Thoracentesis ENCOUNTER: Subsequent ACUITY: 4 - 6 days PAIN SCORE: 0/10 LOCATION: Bilateral chest FINDINGS: A single view of the chest demonstrates bilateral mostly basilar airspace disease and pleural effusio ns. Heart size mildly enlarged. No pneumothorax. CONCLUSION: 1. Mild edema pattern with bilateral effusions. Findings are similar to exam from earlier today. Fei Ortiz MD on July 26, 2017 at 16:25 Board Certified Radiologist. This report was verified electronically.
--- NOTE | 2017-07-26 18:22 | HHI.CCPN ---
Subjective Remarks/Hospital Course The patient is a 67-year-old female without a past medical history who presented to [facility] ED for shortness of breath that gradually worsened in the last 3 days and was not feeling well overall. She had cold-like symptoms a month ago she denies any associated symptoms of chest pain, orthopnea, PND or edema of the lower extremities. In addition, she denies any nausea, vomiting, abdominal pain. On arrival to the ED, she was tachycardic M borderline blood pressure with a systolic pressure in the 90s. She received approximately 2 L of crystalloids in the ED. Her laboratory data was significant for leukocytosis with a WBC of 15.7 and lactic acidemia with a lactic acid level of 5.6. Her nasal aspirate in the ED was positive for influenza A antigen. [facility] ED show patchy opacities within the right mid and lower lung ochoa. Subsequently, the patient underwent CT scan of the chest which showed a large pericardial effusion, large right-sided pleural effusion, mediastinal adenopathy with one node measuring at least 2.92.9 cm and enlarged nodes in the pre-vascular [place] chain, largest measuring 1.3 x 1.7 cm.. In the ED, she was given ceftriaxone, azithromycin and IV fluids. The patient subsequently was transferred to the radiology Department at [facility] where she underwent a CT-guided pericardiocentesis with removal of 500 cc of hemorrhagic fluid, a pericardial drain in place. Also she underwent ultrasound-guided thoracentesis with removal of 1100 cc of clear yellow pleural fluid. Since hemodynamics overall improved with current blood pressure of 169/80 with a pulse of 119, and saturation 95% on 2 L oxygen. She feels better overall. The patient states that she has not seen a physician for over 10 years. She is an active smoker with a [id number] history of smoking. She denies any history of pulmonary lung disease or malignancy. Subjective: 07/25: No acute events overnight. The patient remains in sinus tachycardia 114- 117. Remains on O2 at 2 L O2 saturation 93-94 %. Leukocytosis slightly improved. Pericardial drain in situ, minimal drainage 20 cc since admission. 07/26: Late entry note. Approximately 30 cc drainage from pericardial drain in the last 24 hours. O2 at 2 L nasal cannula the patient continues to be in sinus tach 112-114. Patient complained of anxiety, Xanax 0.25 q 6 PRN ordered. IV fluids discontinued at 9 AM. Objective Vital Signs Date Time Temp Pulse Resp B/P (MAP) Pulse Ox O2 Delivery O2 Flow Rate FiO2 07/26/17 16:00 97.9 115 26 139/79 (99) 99 07/26/17 10:05 Nasal Cannula 3.00 07/24/17 12:15 21 Intake and Output 07/26/17 07/26/17 07/27/17 08:00 16:00 00:00 Intake Total 690 ml Output Total 0 ml Balance 690 ml Result Diagram: 07/26/17 0547 07/26/17 0547 Other Results Microbiology Date/Time Source Procedure Growth Status 07/24/17 09:01 Nasal Aspirate Influenza Types A,B Antigen (SHILPI) - Final Positive For Flu A Antigen Complete Imaging Last Impressions Pericardiocentesis 07/24/17 1640 Signed Impressions: Service Date/Time: Monday, July 24, 2017 15:12 - CONCLUSION: Uncomplicated pericardial drainage as above. A total of about 500 cc of hemorrhagic fluid was removed. The patient's vitals stabilized following the pericardial drainage. David Baez MD Chest X-Ray 07/24/17 0842 Signed Impressions: Service Date/Time: Monday, July 24, 2017 08:54 - CONCLUSION: 1. Patchy opacities within the right mid and lower lung field consistent with possible pneumonia. 2. Small right pleural effusion. 3. Cardiomegaly. 4. Minimal scattered increased interstitial markings within the left lung. Ke Valentine MD Thoracentesis Ultrasound 07/24/17 0000 Signed Impressions: Service Date/Time: Monday, July 24, 2017 16:18 - CONCLUSION: Uncomplicated ultrasound guided thoracentesis. David Baez MD Chest CT 07/24/17 0000 Signed Impressions: Service Date/Time: Monday, July 24, 2017 12:52 - CONCLUSION: 1. Sizable pericardial effusion. 2. Scattered, enlarged nodes evident in the prevascular [place] chain. The largest measures 1.3 x 1.7 cm. The exam also demonstrates a 1.6 x 1.8 cm right axillary node. There is mediastinal adenopathy as well with at least one node measuring 2.9 x 2.9 cm. The exam is concerning for malignancy. 3. Atherosclerotic plaquing in the coronary arteries. 4. There are 2 pulmonary nodules on the left. The largest measures 1.1 x 1.7 cm. 5. Moderate size right pericardial effusion. David Baez MD Objective Remarks GENERAL: This is a well-developed well-nourished female currently in no apparent distress on nasal cannula SKIN: Warm and dry. HEAD: Atraumatic. Normocephalic. EYES: Pupils equal and round. No scleral icterus. No injection or drainage. ENT: No nasal bleeding or discharge. Mucous membranes pink and moist. NECK: Trachea midline. No JVD. CARDIOVASCULAR: Normal rate, regular rhythm. Pericardial drain secued, dressing C/D/I RESPIRATORY: No accessory muscle use. Clear to auscultation. Breath sounds equal bilaterally. Nasal cannula currently at 2 L/m GASTROINTESTINAL: Abdomen soft, non-tender, nondistended. No guarding. MUSCULOSKELETAL: Extremities without clubbing, cyanosis, or edema. No obvious deformities. NEUROLOGICAL: Awake and alert. RASS 0. No gross focal/sensory deficits. Follows commands in all 4 extremities. A/P Assessment and Plan Assessment 1. Respiratory insufficiency- 2/2 pneumonia and bilateral pleural effusions 2. Influenza A antigen positive 3. Leukocytosis 4. Lactic acidemia 5. Large pericardial effusion status post pericardiocentesis with removal of 500 cc of hemorrhagic pericardial fluid 07/24 6. Right-sided pleural effusion status post ultrasound-guided thoracentesis with removal of 1100 cc of pleural fluid 07/24 7. Pulmonary nodules with mediastinal adenopathy, R/O malignancy 8. Tobaccoism 9. Obesity 10. Electrolyte derangement Plan 1. Monitor neuro status avoid any sedatives 2. Continue with oxygen to maintain O2 saturation greater than 92% 3. Bronchodilators duo nebs every 6 hours scheduled plus every 2 hours when necessary for wheezing/shortness of breath 4. BiPAP / NIPPV when necessary 5. Status post ultrasound CT-guided right thoracentesis with removal of 1100 cc of pleural fluid. F/U analysis, culture and cytology 6. Pulmonary following-Dr. piña. If cytology is negative for malignancy she may be a candidate for endobronchial ultrasound of the mediastinal adenopathy to rule out a bronchogenic carcinoma. 7. Maintain MAP greater than 65mmHg 8. Monitor lactic acid until cleared 9. Follow up 2-D echo to evaluate LV function. Patient is status post CT- guided pericardiocentesis with removal of 500 cc of hemorrhagic fluid. Monitor pericardial drain output. Follow up CT surgery recommendations 10. Follow-up pericardial fluid analysis, culture and cytology 11. Strict I&O, monitor BMP. Electrolyte replacement per ICU protocol. Continue normal saline at 75/hour 12. Healthy diet, Pepcid for GI prophylaxis 13. Place and placed on empiric antibiotics vancomycin, Zosyn, and Tamiflu 75 mg twice a day (day 2). Follow-up blood cultures 14. Glucose monitoring, low dose insulin regimen 15. Monitor CBC 16. GI prophylaxis with Pepcid and DVT prophylaxis with SCDs. We will hold off on chemical DVT prophylaxis given the patient just underwent pericardiocentesis and thoracentesis Dispo: Level 3 Discussed with TERRITORY DEVELOPMENT MANAGER at bedside (Ngozi) Physician Georgina Zayas MD Jul 26, 2017 18:22
[2017-07-27] VITALS (21 sets, daily range): BP systolic 117–146; BP diastolic 64–83; PULSE 104–120; RESP 17–45; TEMP 98.1–98.8; O2SAT 88–99
[2017-07-27] MEDS: RESP: ALBUTEROL 2.5 MG/IPRATROPIUM 0.5 MG NEB (SCH) INH ×6 (01:05→21:01)
[2017-07-27] MEDS: PIPERACIL-TAZO 4.5 GM PREMIX 100 ML IV SCH ×5 (01:51→23:37)
[2017-07-27] MEDS: VANCOMYCIN INJ 1,000 MG in SODIUM CHLOR 0.9% 250 ML INJ 250 ML IV SCH ×2 (03:17→14:44)
[2017-07-27] MEDS: CHLORHEXIDINE GLUCONATE 2 % 1 PACK (2 CLOTHS) TOP SCH ×2 (03:17→22:39)
[2017-07-27 03:44] LABS: HEMATOCRIT 40.2 % (35.0-46.0); HEMOGLOBIN 13.2 GM/DL (11.6-15.3); MEAN CELL VOLUME 86.1 FL (80.0-100.0); MEAN CORPUSCULAR HEMOGLOBIN 28.2 PG (27.0-34.0); MEAN CORPUSCULAR HGB CONC 32.8 % (32.0-36.0); MEAN PLATELET VOLUME 8.1 FL (7.0-11.0); PLATELET COUNT 313 TH/MM3 (150-450); RED BLOOD COUNT 4.68 MIL/MM3 (4.00-5.30); WHITE BLOOD COUNT 13.3 TH/MM3 (4.0-11.0)
[2017-07-27 04:08] LABS: BICARBONATE 25.1 MEQ/L (21.0-32.0); CALCIUM 8.2 MG/DL (8.5-10.1); CREATININE 0.44 MG/DL (0.50-1.00)
[2017-07-27] MEDS: INSULIN NovoLIN REGULAR SUPPLEMENTAL SCALE SQ SCH ×5 (05:40→23:37)
[2017-07-27] MEDS: ACETAMINOPHEN 325 MG TAB PO PRN ×3 (05:42→21:50)
--- NOTE | 2017-07-27 07:14 | RADRPT ---
EXAM DATE/TIME: 07/27/2017 04:31 [facility] COMPARISON: CHEST EXPIRATION ONLY, July 24, 2017, 16:57. CHEST SINGLE AP, July 26, 2017, 15:58. INDICATIONS : Shortness of breath, possible pulmonary disease. MEDICAL HISTORY : Renal calculi. SURGICAL HISTORY : Hysterectomy. Thoracentesis ENCOUNTER: Subsequent ACUITY: 1 week PAIN SCORE: 0/10 LOCATION: Bilateral chest FINDINGS: Bilateral hazy opacities in the mid lower chest characteristic of pleural effusions. There is also p rominent consolidation in the right perihilar and infrahilar region. Heart is upper limits normal si ze. CONCLUSION: Right mid and lower lung consolidation and bilateral pleural effusions, stable. Darrell Ritchie MD on July 27, 2017 at 7:12 Board Certified Radiologist. This report was verified electronically.
[2017-07-27] MEDS: DOCUSATE SODIUM 50 MG/SENNA 8.6 MG TAB PO SCH ×2 (09:00→20:04)
[2017-07-27] MEDS: OSELTAMIVIR PHOSPHATE 75 MG CAP PO SCH ×2 (09:29→20:04)
[2017-07-27] MEDS: FAMOTIDINE 20 MG/2 ML VIAL IV PUSH SCH ×2 (09:30→20:04)
[2017-07-27] MEDS: SODIUM CHLOR 0.9% 1000 ML INJ 1,000 ML IV SCH (12:39)
[2017-07-27] MEDS: methylPREDNISolone SOD SUCC 40 MG/1 ML VIAL IV PUSH SCH ×2 (14:45→21:50)
--- NOTE | 2017-07-27 14:54 | HHI.CCPN ---
Subjective Remarks/Hospital Course The patient is a 67-year-old female without a past medical history who presented to [facility] for shortness of breath that gradually worsened in the last 3 days and was not feeling well overall. She had cold-like symptoms a month ago she denies any associated symptoms of chest pain, orthopnea, PND or edema of the lower extremities. In addition, she denies any nausea, vomiting, abdominal pain. On arrival to the ED, she was tachycardic M borderline blood pressure with a systolic pressure in the 90s. She received approximately 2 L of crystalloids in the ED. Her laboratory data was significant for leukocytosis with a WBC of 15.7 and lactic acidemia with a lactic acid level of 5.6. Her nasal aspirate in the ED was positive for influenza A antigen. Extreme ED show patchy opacities within the right mid and lower lung ochoa. Subsequently, the patient underwent CT scan of the chest which showed a large pericardial effusion, large right-sided pleural effusion, mediastinal adenopathy with one node measuring at least 2.92.9 cm and enlarged nodes in the pre-vascular [place] chain, largest measuring 1.3 x 1.7 cm.. In the ED, she was given ceftriaxone, azithromycin and IV fluids. The patient subsequently was transferred to the radiology Department at [facility] where she underwent a CT-guided pericardiocentesis with removal of 500 cc of hemorrhagic fluid, a pericardial drain in place. Also she underwent ultrasound-guided thoracentesis with removal of 1100 cc of clear yellow pleural fluid. Since hemodynamics overall improved with current blood pressure of 169/80 with a pulse of 119, and saturation 95% on 2 L oxygen. She feels better overall. The patient states that she has not seen a physician for over 10 years. She is an active smoker with a [id number] history of smoking. She denies any history of pulmonary lung disease or malignancy. Subjective: 07/25: No acute events overnight. The patient remains in sinus tachycardia 114- 117. Remains on O2 at 2 L O2 saturation 93-94 %. Leukocytosis slightly improved. Pericardial drain in situ, minimal drainage 20 cc since admission. 07/26: Late entry note. Approximately 30 cc drainage from pericardial drain in the last 24 hours. O2 at 2 L nasal cannula the patient continues to be in sinus tach 112-114. Patient complained of anxiety, Xanax 0.25 q 6 PRN ordered. IV fluids discontinued at 9 AM. 07/27: Afebrile. During the late evening patient received Ambien as well as Xanax and had an idiosyncratic reaction, remained confused for a period of time , pulling out IVs, with subsequent resolution. Pericardial drain approximately 100 cc overnight. Objective Vital Signs Date Time Temp Pulse Resp B/P (MAP) Pulse Ox O2 Delivery O2 Flow Rate FiO2 07/27/17 09:24 95 Nasal Cannula 3.50 07/27/17 06:42 16 07/27/17 06:00 109 07/27/17 04:00 98.4 127/65 (85) 07/24/17 12:15 21 Intake and Output 07/27/17 07/27/17 07/28/17 08:00 16:00 00:00 Intake Total 690 ml Output Total 0 ml Balance 690 ml Result Diagram: 07/27/17 0312 07/27/17 0312 Other Results Microbiology Date/Time Source Procedure Growth Status 07/24/17 16:50 Fluid Pleural Fluid Gram Stain - Final Complete 07/24/17 16:50 Fluid Pleural Fluid Body Fluid Culture - Final NO GROWTH IN 72 HRS.--AEROBICALLY OR ... Complete 07/24/17 15:30 Fluid Pericardial Fluid Gram Stain - Final Complete 07/24/17 15:30 Fluid Pericardial Fluid Body Fluid Culture - Final NO GROWTH IN 72 HRS.--AEROBICALLY OR ... Complete Imaging Last Impressions Chest X-Ray 07/27/17 0600 Signed Impressions: Service Date/Time: Thursday, July 27, 2017 04:31 - CONCLUSION: Right mid and lower lung consolidation and bilateral pleural effusions, stable. Darrell Ritchie MD Pericardiocentesis 07/24/17 1640 Signed Impressions: Service Date/Time: Monday, July 24, 2017 15:12 - CONCLUSION: Uncomplicated pericardial drainage as above. A total of about 500 cc of hemorrhagic fluid was removed. The patient's vitals stabilized following the pericardial drainage. David Baez MD Thoracentesis Ultrasound 07/24/17 0000 Signed Impressions: Service Date/Time: Monday, July 24, 2017 16:18 - CONCLUSION: Uncomplicated ultrasound guided thoracentesis. David Baez MD Chest CT 07/24/17 0000 Signed Impressions: Service Date/Time: Monday, July 24, 2017 12:52 - CONCLUSION: 1. Sizable pericardial effusion. 2. Scattered, enlarged nodes evident in the prevascular [place] chain. The largest measures 1.3 x 1.7 cm. The exam also demonstrates a 1.6 x 1.8 cm right axillary node. There is mediastinal adenopathy as well with at least one node measuring 2.9 x 2.9 cm. The exam is concerning for malignancy. 3. Atherosclerotic plaquing in the coronary arteries. 4. There are 2 pulmonary nodules on the left. The largest measures 1.1 x 1.7 cm. 5. Moderate size right pericardial effusion. David Baez MD Last Impressions Pericardiocentesis 07/24/17 1640 Signed Impressions: Service Date/Time: Monday, July 24, 2017 15:12 - CONCLUSION: Uncomplicated pericardial drainage as above. A total of about 500 cc of hemorrhagic fluid was removed. The patient's vitals stabilized following the pericardial drainage. David Baez MD Chest X-Ray 07/24/17 0842 Signed Impressions: Service Date/Time: Monday, July 24, 2017 08:54 - CONCLUSION: 1. Patchy opacities within the right mid and lower lung field consistent with possible pneumonia. 2. Small right pleural effusion. 3. Cardiomegaly. 4. Minimal scattered increased interstitial markings within the left lung. Ke Valentine MD Thoracentesis Ultrasound 07/24/17 0000 Signed Impressions: Service Date/Time: Monday, July 24, 2017 16:18 - CONCLUSION: Uncomplicated ultrasound guided thoracentesis. David Baez MD Chest CT 07/24/17 0000 Signed Impressions: Service Date/Time: Monday, July 24, 2017 12:52 - CONCLUSION: 1. Sizable pericardial effusion. 2. Scattered, enlarged nodes evident in the prevascular [place]. The largest measures 1.3 x 1.7 cm. The exam also demonstrates a 1.6 x 1.8 cm right axillary node. There is mediastinal adenopathy as well with at least one node measuring 2.9 x 2.9 cm. The exam is concerning for malignancy. 3. Atherosclerotic plaquing in the coronary arteries. 4. There are 2 pulmonary nodules on the left. The largest measures 1.1 x 1.7 cm. 5. Moderate size right pericardial effusion. David Baez MD Objective Remarks GENERAL: This is a well-developed well-nourished female currently in no apparent distress on nasal cannula SKIN: Warm and dry. HEAD: Atraumatic. Normocephalic. EYES: Pupils equal and round. No scleral icterus. No injection or drainage. ENT: No nasal bleeding or discharge. Mucous membranes pink and moist. NECK: Trachea midline. No JVD. CARDIOVASCULAR: Normal rate, regular rhythm. Pericardial drain secued, dressing C/D/I RESPIRATORY: No accessory muscle use. Clear to auscultation. Breath sounds equal bilaterally. Nasal cannula currently at 2 L/m GASTROINTESTINAL: Abdomen soft, non-tender, nondistended. No guarding. MUSCULOSKELETAL: Extremities without clubbing, cyanosis, or edema. No obvious deformities. NEUROLOGICAL: Awake and alert. RASS 0. No gross focal/sensory deficits. Follows commands in all 4 extremities. A/P Assessment and Plan Assessment 1. Respiratory insufficiency 2/2 pneumonia, and pleural effusions 2. Influenza A antigen positive 3. Leukocytosis 4. Lactic acidemia 5. Large pericardial effusion status post pericardiocentesis with removal of 500 cc of hemorrhagic pericardial fluid 07/24 6. Right-sided pleural effusion status post ultrasound-guided thoracentesis with removal of 1100 cc of pleural fluid 07/24 7. Pulmonary nodules with mediastinal adenopathy, R/O malignancy 8. Tobaccoism 9. Obesity 10. Electrolyte derangement Plan 1. Monitor neuro status avoid any sedatives 2. Continue with oxygen to maintain O2 saturation greater than 92% 3. Bronchodilators duo nebs every 6 hours scheduled plus every 2 hours when necessary for wheezing/shortness of breath 4. BiPAP / NIPPV when necessary-07/27-chest x-ray. Right mid and lower lobe lung consolidations stable 5. Status post ultrasound CT-guided right thoracentesis 07/23 with removal of 1100 cc of pleural fluid. F/U analysis, culture and cytology 6. Pulmonary following-Dr. Reeves. If cytology is negative for malignancy she may be a candidate for endobronchial ultrasound of the mediastinal adenopathy to rule out a bronchogenic carcinoma. 7. Maintain MAP greater than 65mmHg 8. Monitor lactic acid until cleared 9. Follow up 2-D echo to evaluate LV function. Patient is status post CT- guided pericardiocentesis with removal of 500 cc of hemorrhagic fluid. Monitor pericardial drain output. Follow up CT surgery recommendations 10. Follow-up pericardial fluid analysis, culture and cytology 11. Strict I&O, monitor BMP. Electrolyte replacement per ICU protocol. NS IVF discontinued 07/26 12. Healthy diet, Pepcid for GI prophylaxis 13. Place and placed on empiric antibiotics vancomycin, Zosyn, and Tamiflu 75 mg twice a day (day 3). Follow-up blood cultures 14. Glucose monitoring, low dose insulin regimen 15. Monitor CBC 16. GI prophylaxis with Pepcid and DVT prophylaxis with SCDs. We will hold off on chemical DVT prophylaxis given the patient just underwent pericardiocentesis and thoracentesis Dispo: Level 3 Discussed with SECOND RIDE FARE COLLECTOR at bedside (Av ) Physician Georgina Zayas MD Jul 27, 2017 14:54
[2017-07-27] MEDS ORDERED: POTASSIUM CHLORIDE 25 MEQ EFFERVESCENT TAB PO ONE (16:15)
[2017-07-27] MEDS: MELATONIN 5 MG TAB PO PRN (21:50)
[2017-07-28] VITALS (15 sets, daily range): BP systolic 140–169; BP diastolic 67–82; PULSE 108–126; RESP 15–48; TEMP 98.6–99; O2SAT 88–95
[2017-07-28] MEDS: RESP: ALBUTEROL 2.5 MG/IPRATROPIUM 0.5 MG NEB (SCH) INH ×6 (00:01→21:59)
[2017-07-28] MEDS: VANCOMYCIN INJ 1,000 MG in SODIUM CHLOR 0.9% 250 ML INJ 250 ML IV SCH ×2 (01:19→12:45)
[2017-07-28] MEDS: INSULIN NovoLIN REGULAR SUPPLEMENTAL SCALE SQ SCH ×3 (06:00→17:28)
[2017-07-28 06:11] LABS: AUTOMATED NEUTROPHIL # 9.1 TH/MM3 (1.8-7.7); BASOPHIL % 0.1 % (0.0-2.0); HEMOGLOBIN 14.6 GM/DL (11.6-15.3); LYMPH % 4.4 % (9.0-44.0); LYMPHOCYTE # 0.4 TH/MM3 (1.0-4.8); MEAN CELL VOLUME 85.5 FL (80.0-100.0); MEAN CORPUSCULAR HEMOGLOBIN 28.9 PG (27.0-34.0); MEAN CORPUSCULAR HGB CONC 33.8 % (32.0-36.0); MEAN PLATELET VOLUME 7.8 FL (7.0-11.0); MONO % 2.1 % (0.0-8.0); MONOCYTE # 0.2 TH/MM3 (0-0.9); NEUT % 93.4 % (16.0-70.0); PLATELET COUNT 379 TH/MM3 (150-450); RED BLOOD COUNT 5.03 MIL/MM3 (4.00-5.30); RED CELL DISTRIBUTION WIDTH 13.9 % (11.6-17.2); WHITE BLOOD COUNT 9.7 TH/MM3 (4.0-11.0)
[2017-07-28] MEDS: methylPREDNISolone SOD SUCC 40 MG/1 ML VIAL IV PUSH SCH ×4 (06:17→22:14)
[2017-07-28] MEDS: PIPERACIL-TAZO 4.5 GM PREMIX 100 ML IV SCH ×4 (06:17→23:28)
[2017-07-28 06:19] LABS: BICARBONATE 29.7 MEQ/L (21.0-32.0); CALCIUM 8.6 MG/DL (8.5-10.1); CREATININE 0.47 MG/DL (0.50-1.00)
[2017-07-28] MEDS: ACETAMINOPHEN 325 MG TAB PO PRN ×2 (07:59→20:29)
[2017-07-28] MEDS: FAMOTIDINE 20 MG/2 ML VIAL IV PUSH SCH ×2 (07:59→20:30)
[2017-07-28] MEDS: DOCUSATE SODIUM 50 MG/SENNA 8.6 MG TAB PO SCH ×2 (07:59→20:30)
[2017-07-28] MEDS: OSELTAMIVIR PHOSPHATE 75 MG CAP PO SCH ×2 (07:59→20:29)
[2017-07-28] MEDS ORDERED: POTASSIUM CHLORIDE 25 MEQ EFFERVESCENT TAB PO ONE (09:30)
--- NOTE | 2017-07-28 12:04 | PD.CONS ---
HPI Travel History International Travel<30 Days: No Contact w/Intl Traveler<30Days: No Known Affected Area: No Allergies-Medications (Allergen,Severity, Reaction): Coded Allergies: morphine (Verified Allergy, Intermediate, HIVES, 07/24/17) Home Meds No Active Prescriptions or Reported Meds Physical Exam Vital Signs Date Time Temp Pulse Resp B/P (MAP) Pulse Ox O2 Delivery O2 Flow Rate FiO2 07/28/17 08:42 90 Nasal Cannula 4.00 07/28/17 04:00 112 07/28/17 04:00 99.0 112 30 169/74 (105) 91 07/28/17 00:00 108 07/28/17 00:00 98.6 108 15 158/78 (104) 92 07/27/17 21:05 94 Nasal Cannula 2.00 07/27/17 20:00 98.8 120 45 146/66 (92) 95 07/27/17 20:00 120 07/27/17 18:00 119 33 136/83 (100) 88 07/27/17 18:00 119 07/27/17 17:00 115 31 97 07/27/17 16:00 109 07/27/17 16:00 98.6 109 18 123/68 (86) 95 07/27/17 15:59 94 Nasal Cannula 4.00 07/27/17 15:18 18 07/27/17 15:00 117 35 94 07/27/17 14:00 115 33 127/64 (85) 95 07/27/17 14:00 115 07/27/17 13:00 115 26 99 Narrative GENERAL: Well-nourished, well-developed patient. SKIN: Warm and dry. HEAD: Normocephalic and atraumatic. EYES: No scleral icterus. No injection or drainage. ENT: No nasal drainage noted. Mucous membranes pink. Airway patent. NECK: Supple, trachea midline. No JVD. CARDIOVASCULAR: Regular rate and rhythm without murmurs, gallops, or rubs. RESPIRATORY: Breath sounds equal bilaterally. No accessory muscle use. BREASTS: Bilateral exam showed no masses , no retractions, no nipple discharge. ABDOMEN/GI: Abdomen soft, non-tender, bowel sounds present, no rebound, no guarding Gravid to [-] weeks size Fundal Height: [-] GENITOURINARY: External Genitalia: intact and normal in appearance BUS glands: [-] Cervix: [-] Dilatation: [-] Effacement: [-] Station: [-] Presentation: [-] Membranes: [intact or ruptured] Uterine Contractions: [-] FHT's: Category: [-] Baseline: [-] Reactive: [-] Variability: [-] Decels: [-] EXTREMITIES: No cyanosis or edema. BACK: Nontender without obvious deformity. No CVA tenderness. NEUROLOGICAL: Awake and alert. Motor and sensory grossly within normal limits. Five out of 5 muscle strength in all muscle groups. Normal speech. Data Data Orders Orders Albuterol-Ipratropium Neb (Duoneb Neb) (07/27/17 16:00) Complete Blood Count With Diff (07/28/17 06:00) Basic Metabolic Panel (Bmp) (07/28/17 06:00) Potassium Chloride Eff (K-Lyte Cl Eff) (07/27/17 16:15) Consult Hospitalist (07/27/17 ) Patient Transfer (07/27/17 ) Consult Gynecology (07/27/17 ) (Hub Use Only)Inp Phy Cons/Ref (07/27/17 ) Physician Name Changes (07/28/17 ) Patient Transfer (07/28/17 ) Potassium Chloride Eff (K-Lyte Cl Eff) (07/28/17 09:30) Labs Laboratory Tests Test 07/28/17 04:51 07/28/17 04:57 Blood Urea Nitrogen 7 Creatinine 0.47 Random Glucose 149 Calcium Level 8.6 Sodium Level 142 Potassium Level 3.4 Chloride Level 103 Carbon Dioxide Level 29.7 Anion Gap 9 Estimat Glomerular Filtration Rate 132 White Blood Count 9.7 Red Blood Count 5.03 Hemoglobin 14.6 Hematocrit 43.0 Mean Corpuscular Volume 85.5 Mean Corpuscular Hemoglobin 28.9 Mean Corpuscular Hemoglobin Concent 33.8 Red Cell Distribution Width 13.9 Platelet Count 379 Mean Platelet Volume 7.8 Neutrophils (%) (Auto) 93.4 Lymphocytes (%) (Auto) 4.4 Monocytes (%) (Auto) 2.1 Eosinophils (%) (Auto) 0.0 Basophils (%) (Auto) 0.1 Neutrophils # (Auto) 9.1 Lymphocytes # (Auto) 0.4 Monocytes # (Auto) 0.2 Eosinophils # (Auto) 0.0 Basophils # (Auto) 0.0 CBC Comment DIFF FINAL Differential Comment Date/Time Source Procedure Growth Status 07/24/17 09:10 Blood Peripheral Aerobic Blood Culture - Preliminary NO GROWTH IN 4 DAYS Resulted 07/24/17 09:10 Blood Peripheral Anaerobic Blood Culture - Preliminary NO GROWTH IN 4 DAYS Resulted 07/24/17 16:50 Fluid Pleural Fluid Fungal Smear - Final NO FUNGAL ELEMENTS SEEN. Resulted 07/24/17 16:50 Fluid Pleural Fluid Fungal Culture Pending Resulted 07/24/17 09:01 Nasal Aspirate Influenza Types A,B Antigen (SHILPI) - Final Positive For Flu A Antigen Complete MDM Admitting diagnosis: sepsis Scripts No Active Prescriptions or Reported Meds Andreina Charles MD Jul 28, 2017 12:04
--- NOTE | 2017-07-28 12:06 | PD.CONS ---
History & Physical H&P The patient is a 67-year-old female with no significant past medical history who is currently being treated for influenza and pneumonia as well as being worked up for lung disease/malignancy. EMISSIONS REPAIR TECHNICIAN consult was called due to vaginal itching. Patient has been on multiple broad-spectrum antibiotics and states that in the last few days, she has been experiencing vaginal dryness and a slight burn when she urinates. She has not seen a physician for over 10 years. She is an active smoker with a [id number] history of smoking. PAST MEDICAL HISTORY: Significant for renal stones. PAST SURGICAL HISTORY: x3, previous hysterectomy, bladder uplift, previous surgery for nephrolithiasis. FAMILY HISTORY: No history of malignancy. SOCIAL HISTORY: 50 pack year of smoking ALLERGIES: Morphine, causes swelling and difficulty with breathing OBJECTIVE Vital Signs Date Time Temp Pulse Resp B/P (MAP) Pulse Ox O2 Delivery O2 Flow Rate FiO2 07/28/17 08:42 90 Nasal Cannula 4.00 07/28/17 04:00 112 07/28/17 04:00 99.0 30 169/74 (105) 07/24/17 12:15 21 Objective Remarks GENERAL: This is a well-developed, well-developed female in NAD SKIN: Erythema of the vestibule, labia majora, labia minora and the surrounding skin of the inner thigh; no abnormal discharge seen HEAD: Atraumatic. Normocephalic. EYES: Pupils equal and round. No scleral icterus. No injection or drainage. ENT: No nasal bleeding or discharge. Mucous membranes pink and moist. NECK: Trachea midline. No JVD. CARDIOVASCULAR: Normal rate, regular rhythm. Pericardial drain removed, dressing C/D/I RESPIRATORY: No accessory muscle use. No increased work of breathing GASTROINTESTINAL: Abdomen soft, nondistended. GENITOURINARY: Unable to tolerate a speculum exam, limited exam did not show any abnormal discharge. Vaginal wall appears intact MUSCULOSKELETAL: Extremities without clubbing, cyanosis, or edema. No obvious deformities. NEUROLOGICAL: Awake and alert. No gross focal/sensory deficits. Moves all 4 extremities. Laboratory Tests Test 07/24/17 09:05 07/24/17 15:30 07/24/17 16:50 07/24/17 18:00 Total Creatine Kinase 35 U/L Troponin I LESS THAN 0.02 NG/ML B-Type Natriuretic Peptide 72 PG/ML Pericardial Fluid WBC 65135 /MM3 Pericardial Fluid RBC 6084739 /MM3 Pericardial Fluid Neutrophils 31 % Pericardial Fluid Lymphocytes 64 % Pericardial Fluid Eosinophils 2 % Pericardial Fluid Mesothelial Cells 3 % Pericardial Fluid LDH 1583 U/L Pericardial Fluid Glucose 76 MG/DL Pleural Fluid pH 7.5 Pleural Fluid WBC 2915 /MM3 Pleural Fluid RBC 2486 /MM3 Pleural Fluid Neutrophils 0 % Pleural Fluid Lymphocytes 100 % Pleural Fluid Total Protein 3.4 GM/DL Pleural Fluid LDH 233 U/L Pleural Fluid Glucose 154 MG/DL Nasal Screen MRSA (PCR) MRSA NOT DETECTED Test 07/24/17 18:32 07/25/17 03:42 07/26/17 05:47 07/28/17 04:51 Activated Partial Thromboplast Time 25.7 SEC Blood Urea Nitrogen 14 MG/DL 9 MG/DL 7 MG/DL Creatinine 0.65 MG/DL 0.57 MG/DL 0.47 MG/DL Random Glucose 112 MG/DL 116 MG/DL 149 MG/DL Total Protein 5.5 GM/DL 5.5 GM/DL Albumin 2.6 GM/DL 2.6 GM/DL Calcium Level 8.0 MG/DL 8.1 MG/DL 8.6 MG/DL Phosphorus Level 2.0 MG/DL Magnesium Level 1.8 MG/DL Alkaline Phosphatase 99 U/L 105 U/L Aspartate Amino Transf (AST/SGOT) 155 U/L 42 U/L Alanine Aminotransferase (ALT/SGPT) 139 U/L 89 U/L Total Bilirubin 0.9 MG/DL 0.7 MG/DL Sodium Level 140 MEQ/L 142 MEQ/L 142 MEQ/L Potassium Level 2.9 MEQ/L 3.1 MEQ/L 3.4 MEQ/L Chloride Level 106 MEQ/L 109 MEQ/L 103 MEQ/L Carbon Dioxide Level 25.1 MEQ/L 24.3 MEQ/L 29.7 MEQ/L Prothrombin Time 11.5 SEC Prothromb Time International Ratio 1.1 RATIO Lactic Acid Level 1.3 mmol/L Anion Gap 9 MEQ/L Estimat Glomerular Filtration Rate 132 ML/MIN Test 07/28/17 04:57 White Blood Count 9.7 TH/MM3 Red Blood Count 5.03 MIL/MM3 Hemoglobin 14.6 GM/DL Hematocrit 43.0 % Mean Corpuscular Volume 85.5 FL Mean Corpuscular Hemoglobin 28.9 PG Mean Corpuscular Hemoglobin Concent 33.8 % Red Cell Distribution Width 13.9 % Platelet Count 379 TH/MM3 Mean Platelet Volume 7.8 FL Neutrophils (%) (Auto) 93.4 % Lymphocytes (%) (Auto) 4.4 % Monocytes (%) (Auto) 2.1 % Eosinophils (%) (Auto) 0.0 % Basophils (%) (Auto) 0.1 % Neutrophils # (Auto) 9.1 TH/MM3 Lymphocytes # (Auto) 0.4 TH/MM3 Monocytes # (Auto) 0.2 TH/MM3 Eosinophils # (Auto) 0.0 TH/MM3 Basophils # (Auto) 0.0 TH/MM3 CBC Comment DIFF FINAL Differential Comment A/P Assessment and Plan Vulvovaginal Candidiasis Plan -Fluconazole 150mg PO x1 -Nystatin powder for external application TID -Will follow Thank you inviting us to see this patient Examined with COMMERCIAL SALES CONSULTANT at bedside (Av) Discussed with OB hospitalist Andreina Jack MD Jul 28, 2017 12:05
--- NOTE | 2017-07-28 12:46 | HHI.PR ---
Subjective Remarks Follow-up respiratory failure/pericardial effusion/influenza A 07/28/17-patient seen and examined him a report some improvement of shortness of breath, positive for heart palpitations and afebrile Objective Vitals Vital Signs Date Time Temp Pulse Resp B/P (MAP) Pulse Ox O2 Delivery O2 Flow Rate FiO2 07/28/17 08:42 90 Nasal Cannula 4.00 07/28/17 04:00 112 07/28/17 04:00 99.0 112 30 169/74 (105) 91 07/28/17 00:00 108 07/28/17 00:00 98.6 108 15 158/78 (104) 92 07/27/17 21:05 94 Nasal Cannula 2.00 07/27/17 20:00 98.8 120 45 146/66 (92) 95 07/27/17 20:00 120 07/27/17 18:00 119 33 136/83 (100) 88 07/27/17 18:00 119 07/27/17 17:00 115 31 97 07/27/17 16:00 109 07/27/17 16:00 98.6 109 18 123/68 (86) 95 07/27/17 15:59 94 Nasal Cannula 4.00 07/27/17 15:18 18 07/27/17 15:00 117 35 94 07/27/17 14:00 115 33 127/64 (85) 95 07/27/17 14:00 115 07/27/17 13:00 115 26 99 I/O 07/27/17 07/27/17 07/27/17 07/28/17 07/28/17 07/28/17 07:00 15:00 23:00 07:00 15:00 23:00 Intake Total 690 ml 450 ml 590 ml 100 ml Output Total 0 ml 350 ml 950 ml Balance 690 ml 100 ml -360 ml 100 ml Intake Oral 240 ml 350 ml 240 ml IV Total 450 ml 100 ml 350 ml 100 ml Output Urine Total 350 ml 950 ml Drainage Total 0 ml # Voids 3 3 # Bowel Movements 0 2 0 Result Diagram: 07/28/17 0457 07/28/17 0451 Imaging Last Impressions Chest X-Ray 07/27/17 0600 Signed Impressions: Service Date/Time: Thursday, July 27, 2017 04:31 - CONCLUSION: Right mid and lower lung consolidation and bilateral pleural effusions, stable. Darrell Ritchie MD Pericardiocentesis 07/24/17 1640 Signed Impressions: Service Date/Time: Monday, July 24, 2017 15:12 - CONCLUSION: Uncomplicated pericardial drainage as above. A total of about 500 cc of hemorrhagic fluid was removed. The patient's vitals stabilized following the pericardial drainage. David Baez MD Thoracentesis Ultrasound 07/24/17 0000 Signed Impressions: Service Date/Time: Monday, July 24, 2017 16:18 - CONCLUSION: Uncomplicated ultrasound guided thoracentesis. David Baez MD Chest CT 07/24/17 0000 Signed Impressions: Service Date/Time: Monday, July 24, 2017 12:52 - CONCLUSION: 1. Sizable pericardial effusion. 2. Scattered, enlarged nodes evident in the prevascular [place]. The largest measures 1.3 x 1.7 cm. The exam also demonstrates a 1.6 x 1.8 cm right axillary node. There is mediastinal adenopathy as well with at least one node measuring 2.9 x 2.9 cm. The exam is concerning for malignancy. 3. Atherosclerotic plaquing in the coronary arteries. 4. There are 2 pulmonary nodules on the left. The largest measures 1.1 x 1.7 cm. 5. Moderate size right pericardial effusion. David Baez MD Objective Remarks GENERAL: NAD SKIN: Warm and dry. HEAD: Normocephalic. EYES: No scleral icterus. No injection or drainage. NECK: Supple, trachea midline. No JVD or lymphadenopathy. CARDIOVASCULAR: Regular rate and rhythm without murmurs, gallops, or rubs. Pericardial drain in place RESPIRATORY: Breath sounds equal bilaterally. No accessory muscle use. GASTROINTESTINAL: Abdomen soft, non-tender, nondistended. MUSCULOSKELETAL: No cyanosis, or edema. BACK: Nontender without obvious deformity. No CVA tenderness. A/P Problem List: (1) Influenza A ICD Code: J10.1 - Influenza due to other identified influenza virus with other respiratory manifestations Status: Acute (2) Septic shock ICD Code: A41.9 - Sepsis, unspecified organism; R65.21 - Severe sepsis with septic shock Status: Acute (3) Pneumonia ICD Code: J18.9 - Pneumonia, unspecified organism Status: Acute (4) Pericardial effusion with cardiac tamponade ICD Code: I31.3 - Pericardial effusion (noninflammatory); I31.4 - Cardiac tamponade Assessment and Plan 67-year-old female with 1. Respiratory insufficiency 2/2 pneumonia, and pleural effusions 2. Influenza A antigen positive 3. Leukocytosis 4. Lactic acidemia-resolved 5. Large pericardial effusion status post pericardiocentesis with removal of 500 cc of hemorrhagic pericardial fluid 07/24 6. Right-sided pleural effusion status post ultrasound-guided thoracentesis with removal of 1100 cc of pleural fluid 07/24 7. Pulmonary nodules with mediastinal adenopathy, R/O malignancy 8. Tobaccoism 9. Obesity 10. Electrolyte derangement Plan 1. Bronchodilators duo nebs every 6 hours scheduled plus every 2 hours when necessary for wheezing/shortness of breath 2. Status post ultrasound CT-guided right thoracentesis 07/23 with removal of 1100 cc of pleural fluid. F/U analysis, culture and cytology 3. Pulmonary following-Dr. Reeves. If cytology is negative for malignancy she may be a candidate for endobronchial ultrasound of the mediastinal adenopathy to rule out a bronchogenic carcinoma. Continue with Solu-Medrol 40 mg IV every 8 hour maintain oxygen saturation above 92% 4. Patient is status post CT-guided pericardiocentesis with removal of 500 cc of hemorrhagic fluid. Plan to d/c pericardial drain 07/28. Follow up CT surgery recommendations 5. On empiric antibiotics vancomycin, Zosyn, and Tamiflu 75 mg twice a day ( day 4). Follow-up blood cultures 6. GI prophylaxis with Pepcid and DVT prophylaxis with SCDs. Problem Qualifiers (1) Pneumonia: Qualified Codes: J18.9 - Pneumonia, unspecified organism Bartolo Soto MD Jul 28, 2017 12:46
[2017-07-28] MEDS ORDERED: POTASSIUM CHLORIDE 10 MEQ CONTROLLED RELEASE TAB PO ONE (13:45)
[2017-07-28] MEDS: NYSTATIN 100,000 U/GM PWD 15 GM BTL TOPICAL SCH ×2 (15:00→22:00)
[2017-07-28] MEDS ORDERED: FLUCONAZOLE 100 MG TAB PO ONE (15:00)
[2017-07-28] MEDS: MELATONIN 5 MG TAB PO PRN (20:29)
[2017-07-28] MEDS ORDERED: NYSTATIN 100,000 U/GM OINT 15 GM TUBE TOPICAL SCH (22:00)
[2017-07-28] MEDS: CHLORHEXIDINE GLUCONATE 2 % 1 PACK (2 CLOTHS) TOP SCH (23:23)
[2017-07-29] VITALS (16 sets, daily range): BP systolic 131–153; BP diastolic 61–91; PULSE 102–133; RESP 17–24; TEMP 97.4–99.3; O2SAT 84–93
[2017-07-29] MEDS: VANCOMYCIN INJ 1,000 MG in SODIUM CHLOR 0.9% 250 ML INJ 250 ML IV SCH ×2 (01:19→13:46)
[2017-07-29] MEDS: ACETAMINOPHEN 325 MG TAB PO PRN ×3 (02:04→22:10)
[2017-07-29] MEDS: RESP: ALBUTEROL 2.5 MG/IPRATROPIUM 0.5 MG NEB (SCH) INH ×2 (02:18→06:09)
[2017-07-29] MEDS: NYSTATIN 100,000 U/GM PWD 15 GM BTL TOPICAL SCH ×3 (05:34→22:05)
[2017-07-29] MEDS: methylPREDNISolone SOD SUCC 40 MG/1 ML VIAL IV PUSH SCH ×2 (05:34→17:00)
[2017-07-29] MEDS: PIPERACIL-TAZO 4.5 GM PREMIX 100 ML IV SCH ×4 (05:34→23:52)
[2017-07-29] MEDS: INSULIN NovoLIN REGULAR SUPPLEMENTAL SCALE SQ SCH ×5 (06:00→23:51)
[2017-07-29] MEDS: OSELTAMIVIR PHOSPHATE 75 MG CAP PO SCH ×2 (07:42→22:05)
[2017-07-29] MEDS: SODIUM CHLORIDE 0.9% FLUSH 10 ML FLUSH IVF PRN (07:42)
[2017-07-29] MEDS: DOCUSATE SODIUM 50 MG/SENNA 8.6 MG TAB PO SCH ×2 (07:43→21:00)
[2017-07-29] MEDS: FAMOTIDINE 20 MG/2 ML VIAL IV PUSH SCH ×2 (07:43→22:04)
[2017-07-29] MEDS: RESP: ALBUTEROL 1.25 MG/3 ML NEB (SCH) NEB ×3 (09:06→21:51)
[2017-07-29] MEDS: RESP: IPRATROPIUM 0.5 MG/2.5 ML NEB NEB SCH ×3 (09:06→21:51)
--- NOTE | 2017-07-29 09:10 | HHI.PR ---
Subjective Remarks [facility] Attending The patient was seen and evaluated with the resident. She reports her vaginal itching and vulvar/intertrigo itching has improved with the vaginal cream/ ointment. Patient should continue the vaginal treatment for 1 week and the intertrigo therapy until resolved. She is pleased with the results. Will sign off, please call for any other medical assistant ob gyn needs. Objective Vital Signs Date Time Temp Pulse Resp B/P (MAP) Pulse Ox O2 Delivery O2 Flow Rate FiO2 07/29/17 08:39 92 Nasal Cannula 4.00 07/29/17 04:00 116 07/29/17 04:00 99.3 116 18 152/73 (99) 93 07/29/17 00:00 99.0 112 146/68 (94) 93 07/29/17 00:00 112 07/28/17 22:00 94 Nasal Cannula 4.00 07/28/17 20:00 122 07/28/17 20:00 98.7 122 30 160/72 (101) 91 07/28/17 17:09 95 Nasal Cannula 3.00 07/28/17 16:00 117 07/28/17 16:00 98.9 117 47 150/70 (96) 91 07/28/17 15:00 126 30 90 07/28/17 14:00 124 29 145/74 (97) 89 07/28/17 14:00 124 07/28/17 13:00 124 44 89 07/28/17 12:00 99.0 125 48 140/67 (91) 88 07/28/17 12:00 125 07/28/17 11:00 122 25 89 07/28/17 10:00 125 07/28/17 10:00 125 40 156/69 (98) 88 I/O 07/28/17 07/28/17 07/28/17 07/29/17 07/29/17 07/29/17 07:00 15:00 23:00 07:00 15:00 23:00 Intake Total 590 ml 100 ml 930 ml Output Total 950 ml 1100 ml 800 ml Balance -360 ml 100 ml -1100 ml 130 ml Intake Oral 240 ml 480 ml IV Total 350 ml 100 ml 450 ml Output Urine Total 950 ml 1100 ml 800 ml # Bowel Movements 0 2 0 Result Diagram: 07/28/17 0457 07/28/17 0451 Mary Jo Valdez MD Jul 29, 2017 09:10
--- NOTE | 2017-07-29 12:01 | HHI.PR ---
Subjective Remarks Follow-up respiratory failure/pericardial effusion/influenza A 07/28/17-patient seen and examined him a report some improvement of shortness of breath, positive for heart palpitations and afebrile 07/29/17-patient seen and examined, pericardial drain was removed yesterday. Patient reports some improvement of shortness of breath. She is requesting a letter be written stating that she will needs help to take care of her sister who has Cerebral Palsy Objective Vitals Vital Signs Date Time Temp Pulse Resp B/P (MAP) Pulse Ox O2 Delivery O2 Flow Rate FiO2 07/29/17 09:07 92 Nasal Cannula 4.00 07/29/17 09:07 18 07/29/17 08:39 92 Nasal Cannula 4.00 07/29/17 04:00 116 07/29/17 04:00 99.3 116 18 152/73 (99) 93 07/29/17 00:00 99.0 112 146/68 (94) 93 07/29/17 00:00 112 07/28/17 22:00 94 Nasal Cannula 4.00 07/28/17 20:00 122 07/28/17 20:00 98.7 122 30 160/72 (101) 91 07/28/17 17:09 95 Nasal Cannula 3.00 07/28/17 16:00 117 07/28/17 16:00 98.9 117 47 150/70 (96) 91 07/28/17 15:00 126 30 90 07/28/17 14:00 124 29 145/74 (97) 89 07/28/17 14:00 124 07/28/17 13:00 124 44 89 07/28/17 12:00 99.0 125 48 140/67 (91) 88 07/28/17 12:00 125 I/O 07/28/17 07/28/17 07/28/17 07/29/17 07/29/17 07/29/17 07:00 15:00 23:00 07:00 15:00 23:00 Intake Total 590 ml 100 ml 930 ml Output Total 950 ml 1100 ml 800 ml Balance -360 ml 100 ml -1100 ml 130 ml Intake Oral 240 ml 480 ml IV Total 350 ml 100 ml 450 ml Output Urine Total 950 ml 1100 ml 800 ml # Bowel Movements 0 2 0 Result Diagram: 07/28/177 07/28/17 0451 Imaging Last Impressions Chest X-Ray 07/27/17 0600 Signed Impressions: Service Date/Time: Thursday, July 27, 2017 04:31 - CONCLUSION: Right mid and lower lung consolidation and bilateral pleural effusions, stable. Darrell Ritchie MD Pericardiocentesis 07/24/17 1640 Signed Impressions: Service Date/Time: Monday, July 24, 2017 15:12 - CONCLUSION: Uncomplicated pericardial drainage as above. A total of about 500 cc of hemorrhagic fluid was removed. The patient's vitals stabilized following the pericardial drainage. David Baez MD Thoracentesis Ultrasound 07/24/17 0000 Signed Impressions: Service Date/Time: Monday, July 24, 2017 16:18 - CONCLUSION: Uncomplicated ultrasound guided thoracentesis. David Baez MD Chest CT 07/24/17 0000 Signed Impressions: Service Date/Time: Monday, July 24, 2017 12:52 - CONCLUSION: 1. Sizable pericardial effusion. 2. Scattered, enlarged nodes evident in the prevascular [place] chain. The largest measures 1.3 x 1.7 cm. The exam also demonstrates a 1.6 x 1.8 cm right axillary node. There is mediastinal adenopathy as well with at least one node measuring 2.9 x 2.9 cm. The exam is concerning for malignancy. 3. Atherosclerotic plaquing in the coronary arteries. 4. There are 2 pulmonary nodules on the left. The largest measures 1.1 x 1.7 cm. 5. Moderate size right pericardial effusion. David Baez MD Objective Remarks GENERAL: NAD SKIN: Warm and dry. HEAD: Normocephalic. EYES: No scleral icterus. No injection or drainage. NECK: Supple, trachea midline. No JVD or lymphadenopathy. CARDIOVASCULAR: Regular rate and rhythm without murmurs, gallops, or rubs. RESPIRATORY: Breath sounds equal bilaterally. No accessory muscle use. GASTROINTESTINAL: Abdomen soft, non-tender, nondistended. MUSCULOSKELETAL: No cyanosis, or edema. BACK: Nontender without obvious deformity. No CVA tenderness. A/P Problem List: (1) Influenza A ICD Code: J10.1 - Influenza due to other identified influenza virus with other respiratory manifestations Status: Acute (2) Septic shock ICD Code: A41.9 - Sepsis, unspecified organism; R65.21 - Severe sepsis with septic shock Status: Acute (3) Pneumonia ICD Code: J18.9 - Pneumonia, unspecified organism Status: Acute (4) Pericardial effusion with cardiac tamponade ICD Code: I31.3 - Pericardial effusion (noninflammatory); I31.4 - Cardiac tamponade (5) Vulvovaginitis due to yeast ICD Code: B37.3 - Candidiasis of vulva and vagina Assessment and Plan 67-year-old female with 1. Respiratory insufficiency 2/2 pneumonia, and pleural effusions 2. Influenza A antigen positive 3. Leukocytosis 4. Lactic acidemia-resolved 5. Large pericardial effusion status post pericardiocentesis with removal of 500 cc of hemorrhagic pericardial fluid 07/24 6. Right-sided pleural effusion status post ultrasound-guided thoracentesis with removal of 1100 cc of pleural fluid 07/24 7. Pulmonary nodules with mediastinal adenopathy, R/O malignancy 8. Tobaccoism 9. Obesity 10. Electrolyte derangement 11. Vulvovaginitis Plan 1. Bronchodilators duo nebs every 6 hours scheduled plus every 2 hours when necessary for wheezing/shortness of breath 2. Status post ultrasound CT-guided right thoracentesis 07/23 with removal of 1100 cc of pleural fluid. F/U analysis, culture and cytology 3. Pulmonary following-Dr. Reeves. If cytology is negative for malignancy she may be a candidate for endobronchial ultrasound of the mediastinal adenopathy to rule out a bronchogenic carcinoma. Continue with Solu-Medrol 40 mg IV every 12 hour and maintain oxygen saturation above 92% 4. Patient is status post CT-guided pericardiocentesis with removal of 500 cc of hemorrhagic fluid. pericardial drain hold 07/28. Follow up CT surgery recommendations 5. On empiric antibiotics vancomycin, Zosyn, and Tamiflu 75 mg twice a day ( day 5). End date of antibiotics 07/30/17. Follow-up blood cultures 6. GI prophylaxis with Pepcid and DVT prophylaxis with SCDs. 7. Appreciate input from gynecology, continue with nystatin Problem Qualifiers (1) Pneumonia: Qualified Codes: J18.9 - Pneumonia, unspecified organism Bartolo Soto MD Jul 29, 2017 12:01
--- NOTE | 2017-07-29 20:53 | EKG ---
Date Performed: 07/28/2017 Time Performed: 14:02:42 PTAGE: 67 years EKG: SINUS TACHYCARDIA ABNORMAL RHYTHM ECG PREVIOUS TRACING : 07/24/2017 09.03 Since the previous tracing, no significant change noted DOCTOR: Luis Underwood Interpretating Date/Time 07/29/2017 20:52:03
[2017-07-29] MEDS: MELATONIN 5 MG TAB PO PRN (22:10)
[2017-07-29] MEDS: CHLORHEXIDINE GLUCONATE 2 % 1 PACK (2 CLOTHS) TOP SCH (23:51)
[2017-07-30] VITALS (9 sets, daily range): BP systolic 144–164; BP diastolic 70–96; PULSE 112–122; RESP 19–20; TEMP 96.2–98.3; O2SAT 90–94
[2017-07-30] MEDS: RESP: IPRATROPIUM 0.5 MG/2.5 ML NEB NEB SCH ×4 (04:00→20:39)
[2017-07-30] MEDS: RESP: ALBUTEROL 1.25 MG/3 ML NEB (SCH) NEB ×4 (04:00→20:39)
[2017-07-30] MEDS: NYSTATIN 100,000 U/GM PWD 15 GM BTL TOPICAL SCH ×3 (05:25→20:19)
[2017-07-30] MEDS: INSULIN NovoLIN REGULAR SUPPLEMENTAL SCALE SQ SCH ×3 (05:25→18:00)
[2017-07-30] MEDS: methylPREDNISolone SOD SUCC 40 MG/1 ML VIAL IV PUSH SCH (05:26)
[2017-07-30] MEDS: FAMOTIDINE 20 MG/2 ML VIAL IV PUSH SCH ×2 (09:00→20:16)
[2017-07-30] MEDS: DOCUSATE SODIUM 50 MG/SENNA 8.6 MG TAB PO SCH ×2 (10:27→20:16)
[2017-07-30] MEDS: OSELTAMIVIR PHOSPHATE 75 MG CAP PO SCH (10:28)
--- NOTE | 2017-07-30 11:35 | HHI.PR ---
Subjective Remarks Follow-up respiratory failure/pericardial effusion/influenza A 07/28/17-patient seen and examined him a report some improvement of shortness of breath, positive for heart palpitations and afebrile 07/29/17-patient seen and examined, pericardial drain was removed yesterday. Patient reports some improvement of shortness of breath. She is requesting a letter be written stating that she will needs help to take care of her sister who has Cerebral Palsy 07/30/17-patient seen and examined, stable and no complaint. Pericardial fluid culture negative Objective Vitals Vital Signs Date Time Temp Pulse Resp B/P (MAP) Pulse Ox O2 Delivery O2 Flow Rate FiO2 07/30/17 08:35 92 Nasal Cannula 3.00 07/30/17 08:00 96.5 120 20 144/85 (104) 90 07/30/17 04:00 98.3 113 19 164/93 (116) 93 07/30/17 00:00 97.1 112 20 146/70 (95) 94 07/29/17 21:54 92 Nasal Cannula 3.00 07/29/17 20:00 116 07/29/17 18:00 97.4 123 24 148/72 (97) 91 07/29/17 16:00 98.9 102 18 153/78 (103) 93 07/29/17 16:00 102 07/29/17 12:00 117 07/29/17 12:00 98.2 117 131/61 (84) 92 I/O 07/29/17 07/29/17 07/29/17 07/30/17 07/30/17 07/30/17 07:00 15:00 23:00 07:00 15:00 23:00 Intake Total 930 ml 250 ml 800 ml 400 ml Output Total 800 ml 800 ml Balance 130 ml 250 ml 0 ml 400 ml Intake Oral 480 ml 800 ml 400 ml IV Total 450 ml 250 ml Output Urine Total 800 ml 800 ml # Voids 2 3 # Bowel Movements 0 Result Diagram: 07/28/17 0457 07/28/17 0451 Imaging Last Impressions Chest X-Ray 07/27/17 0600 Signed Impressions: Service Date/Time: Thursday, July 27, 2017 04:31 - CONCLUSION: Right mid and lower lung consolidation and bilateral pleural effusions, stable. Darrell Ritchie MD Pericardiocentesis 07/24/17 1640 Signed Impressions: Service Date/Time: Monday, July 24, 2017 15:12 - CONCLUSION: Uncomplicated pericardial drainage as above. A total of about 500 cc of hemorrhagic fluid was removed. The patient's vitals stabilized following the pericardial drainage. David Baez MD Thoracentesis Ultrasound 07/24/17 0000 Signed Impressions: Service Date/Time: Monday, July 24, 2017 16:18 - CONCLUSION: Uncomplicated ultrasound guided thoracentesis. David Baez MD Chest CT 07/24/17 0000 Signed Impressions: Service Date/Time: Monday, July 24, 2017 12:52 - CONCLUSION: 1. Sizable pericardial effusion. 2. Scattered, enlarged nodes evident in the prevascular [place]. The largest measures 1.3 x 1.7 cm. The exam also demonstrates a 1.6 x 1.8 cm right axillary node. There is mediastinal adenopathy as well with at least one node measuring 2.9 x 2.9 cm. The exam is concerning for malignancy. 3. Atherosclerotic plaquing in the coronary arteries. 4. There are 2 pulmonary nodules on the left. The largest measures 1.1 x 1.7 cm. 5. Moderate size right pericardial effusion. David Baez MD Objective Remarks GENERAL: NAD SKIN: Warm and dry. HEAD: Normocephalic. EYES: No scleral icterus. No injection or drainage. NECK: Supple, trachea midline. No JVD or lymphadenopathy. CARDIOVASCULAR: Regular rate and rhythm without murmurs, gallops, or rubs. RESPIRATORY: Breath sounds equal bilaterally. No accessory muscle use. GASTROINTESTINAL: Abdomen soft, non-tender, nondistended. MUSCULOSKELETAL: No cyanosis, or edema. BACK: Nontender without obvious deformity. No CVA tenderness. Procedures status post pericardiocentesis status post ultrasound-guided thoracentesis A/P Problem List: (1) Influenza A ICD Code: J10.1 - Influenza due to other identified influenza virus with other respiratory manifestations Status: Acute (2) Septic shock ICD Code: A41.9 - Sepsis, unspecified organism; R65.21 - Severe sepsis with septic shock Status: Acute (3) Pneumonia ICD Code: J18.9 - Pneumonia, unspecified organism Status: Acute (4) Pericardial effusion with cardiac tamponade ICD Code: I31.3 - Pericardial effusion (noninflammatory); I31.4 - Cardiac tamponade (5) Vulvovaginitis due to yeast ICD Code: B37.3 - Candidiasis of vulva and vagina (6) Non-small cell carcinoma of lung ICD Code: C34.90 - Malignant neoplasm of unspecified part of unspecified bronchus or lung Assessment and Plan 67-year-old female with 1. Respiratory insufficiency 2/2 pneumonia, and pleural effusions 2. Influenza A antigen positive 3. Leukocytosis 4. Lactic acidemia-resolved 5. Large pericardial effusion status post pericardiocentesis with removal of 500 cc of hemorrhagic pericardial fluid 07/24 6. Right-sided pleural effusion status post ultrasound-guided thoracentesis with removal of 1100 cc of pleural fluid 07/24 7. Pulmonary nodules with mediastinal adenopathy, R/O malignancy 8. Tobaccoism 9. Obesity 10. Electrolyte derangement 11. Vulvovaginitis 12. Non-small cell carcinoma Plan 1. Bronchodilators duo nebs every 6 hours scheduled plus every 2 hours when necessary for wheezing/shortness of breath 2. Status post ultrasound CT-guided right thoracentesis 07/23 with removal of 1100 cc of pleural fluid. F/U analysis, culture and cytology 3. Pulmonary following-Dr. Reeves. decrease Solu-Medrol to 20 mg IV every 12 hour and maintain oxygen saturation above 92% 4. Patient is status post CT-guided pericardiocentesis with removal of 500 cc of hemorrhagic fluid. pericardial drain hold 07/28. Follow up CT surgery recommendations 5. On empiric antibiotics vancomycin, Zosyn, and Tamiflu 75 mg twice a day ( day 5). End date of antibiotics today 07/30/17. 6. GI prophylaxis with Pepcid and DVT prophylaxis with SCDs. 7. Appreciate input from gynecology, continue with nystatin 8. Cytology of pericardial fluid positive for non-small cell carcinoma, therefore will consult medical oncology 07/30/17 Problem Qualifiers (1) Pneumonia: Qualified Codes: J18.9 - Pneumonia, unspecified organism Bartolo Soto MD Jul 30, 2017 11:35
[2017-07-30 13:34] LABS: CARCINOEMBRYONIC ANTIGEN 37.9 NG/ML (0.2-5.0)
[2017-07-30] MEDS ORDERED: methylPREDNISolone SOD SUCC 40 MG/1 ML VIAL IV PUSH SCH (17:00)
[2017-07-30] MEDS: ACETAMINOPHEN 325 MG TAB PO PRN (20:15)
[2017-07-30] MEDS: MELATONIN 5 MG TAB PO PRN (20:19)
[2017-07-31] VITALS (14 sets, daily range): BP systolic 120–158; BP diastolic 69–85; PULSE 92–115; RESP 16–19; TEMP 96.1–98.2; O2SAT 91–97
[2017-07-31] MEDS: RESP: IPRATROPIUM 0.5 MG/2.5 ML NEB NEB SCH ×4 (03:06→21:55)
[2017-07-31] MEDS: RESP: ALBUTEROL 1.25 MG/3 ML NEB (SCH) NEB ×4 (03:06→21:55)
[2017-07-31] MEDS: ACETAMINOPHEN 325 MG TAB PO PRN ×3 (03:36→21:09)
[2017-07-31] MEDS: CHLORHEXIDINE GLUCONATE 2 % 1 PACK (2 CLOTHS) TOP SCH (03:37)
[2017-07-31] MEDS: NYSTATIN 100,000 U/GM PWD 15 GM BTL TOPICAL SCH ×3 (05:19→22:00)
[2017-07-31] MEDS: INSULIN NovoLIN REGULAR SUPPLEMENTAL SCALE SQ SCH ×4 (05:19→17:55)
[2017-07-31] MEDS: SODIUM CHLOR 0.9% 1000 ML INJ 1,000 ML IV SCH (08:08)
[2017-07-31] MEDS: DOCUSATE SODIUM 50 MG/SENNA 8.6 MG TAB PO SCH ×2 (09:00→21:00)
--- NOTE | 2017-07-31 09:01 | MB ---
cc: Jorge Ruiz MD DATE: 07/31/2017 TIME OF CONSULTATION: 7:15 a.m. CONSULTED REQUESTED BY: The hospitalist service. REASON FOR CONSULTATION: Suspected metastatic lung carcinoma with immunohistochemical staining studies favoring adenocarcinoma. CHIEF COMPLAINT: Ms. Castorena reports a 2-week history of progressive difficulty breathing. She tells me she got to a point where she was unable to walk from one room to the other. She also reports a cough with pleuritic chest pain, mostly on the right side. HISTORY OF PRESENT ILLNESS: Ms. Castorena is a very pleasant 67-year-old female who is originally from [place]. She moved down to [place] about 15 years ago. She has 3 adult daughters and is . She lives at home with her disabled sister. Ms. 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 Ms. Castorena reports having been a 9-njlv-[id number]-day smoker since she was approximately 17 years old ([id number] history of smoking). She smoked right up until this hospitalization. Ms. Castorena reports having been unwell starting 03/2017. She reports having had a series of "respiratory tract infections," from which she never fully recovered. The past 2 weeks have been associated with worsening difficulty breathing, worsening cough and pleuritic chest pain. She presented to [facility] on 07/24/2017 with the above symptoms and underwent a CT of the chest without IV contrast. This revealed abnormal findings including a pericardial effusion, which was described as "sizable." She was also noted to have enlarged axillary lymph nodes, mediastinal lymph nodes, as well as pulmonary nodules on the right side. A right-sided pleural effusion was also identified. The patient underwent an emergent pericardiocentesis and also an emergent right-sided thoracentesis. She was observed in our medical intensive care unit for 3 days and then was transferred to the medical/surgical unit. She remains on oxygen supplementation. Fluid cytology from the pericardial fluid indicates findings consistent with non-small cell carcinoma with features suspicious for adenocarcinoma. The pleural fluid from the right thoracentesis revealed findings consistent with numerous lymphocytes, but no specific diagnostic material was submitted. The oncology service has been asked to see her for further workup and management. PAST MEDICAL HISTORY: 1. A [id number] history of smoking. 2. Renal stones. PAST SURGICAL HISTORY: 1. C-sections x 3. 2. Hysterectomy for endometriosis at the age of 25. GYNECOLOGIC HISTORY: 3, para 3. ALLERGIES: MORPHINE. FAMILY HISTORY: 1. Mother of complications of diabetes. 2. Father at the age of 82 of chronic illnesses. SOCIAL HISTORY: The patient is originally from [place]. 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 She was about 15 years ago. She currently lives at home with her sister. She has adult daughters who live in this area. HEALTH MAINTENANCE: She has not been seeing a PCP since she moved down to [place] close to 15 years ago. The patient had a colonoscopy more than 15 years ago, and her last mammogram was also more than 15 years ago. REVIEW OF SYSTEMS: GENERAL: She reports a general loss of appetite, fatigue, and weakness. She denies weight loss. HEENT: Reports feeling lightheaded and also reports as if her head "feels 100 pounds." She denies sinus complaints at this time but does report scratchiness in the throat and soreness in the throat. RESPIRATORY: Reports difficulty breathing with minimal exertion, cough producing phlegm and pleuritic chest pain with coughing. CARDIOVASCULAR: She reports palpitations. Denies PND, orthopnea and denies lower extremity swelling. GASTROINTESTINAL: No complaints of dysuria, hematuria, urinary incontinence. She denies hematuria. She denies nausea, vomiting, diarrhea, hematochezia, melena, abdominal distention or yellow jaundice. CENTRAL NERVOUS SYSTEM: No focal sensory or motor deficits reported. SKIN: No complaints. HEMATOLOGIC AND LYMPHATIC: She reports swollen "glands" in her neck. PHYSICAL EXAMINATION: VITAL SIGNS: Temperature 96.8 degrees Fahrenheit, heart rate 107 beats per minute. Blood pressure is 134/78, respiratory rate 16. O2 sats are 94% on 3 liters nasal cannula. GENERAL APPEARANCE: Ms. Castorena is a middle-age/elderly lady. She is sitting up in bed. She appears to be in no acute distress. She has a pleasant disposition. She coughs frequently through this interview. HEENT: Head atraumatic, normocephalic. Conjunctivae are mildly pale. Sclerae are anicteric. EOMI, PERRLA. Oral exam, no pharyngeal erythema. NECK: She has bilateral pathologically enlarged cervical lymph nodes. RESPIRATORY: Good air movement bilaterally with slightly decreased right basilar breath sounds. CARDIOVASCULAR: Regular. S1, S2, without any murmurs, rubs or gallops. ABDOMEN: Protuberant belly, soft, nontender, nondistended. No palpable organ enlargement. LOWER EXTREMITIES: No pretibial edema. No calf tenderness. MUSCULOSKELETAL: She has scoliosis of her spine but no other joint effusions or abnormal tender areas noted. CENTRAL NERVOUS SYSTEM: No focal sensory or motor deficits. LABORATORY FINDINGS: Blood work dated 07/28/2017: WBC count 9.7, hemoglobin 14.6 g/dL, hematocrit 43%, MCV 85.5, platelet count 379. Absolute neutrophil count is 9.1. Chemistries: Sodium 142, potassium 3.4, chloride 103, bicarb 29.7, BUN 7, creatinine 0.47. EGFR is 130. Random glucose is 149. Calcium 8.6. LDH is 316. CEA is 37.9. Alpha fetoprotein is 5.7. CA 19-9 is 6. PATHOLOGY: Pericardial fluid cytology dated 07/24/2017 indicates atypical cells consistent with non-small cell carcinoma. Immunohistochemical staining studies are positive for CK7 and Ori-EP4. Malignant cells were negative for CK20, TTF-1 and napsin A. Pleural fluid cytology dated 07/24/2017 reveals numerous lymphocytes and scattered mesothelial cells. IMAGING STUDIES: 1. CT scan of the thorax dated 07/24/2017 performed at 1 p.m. indicates a sizable pericardial effusion. 2. Moderate-sized right pleural effusion. 3. Scattered enlarged lymph nodes involving the mediastinum, with the largest of which measuring at least 2.9 x 2.9 cm. There are 2 pulmonary nodules on the left side, the largest of which measures 1.1 x 1.7 cm. ASSESSMENT: Ms. Castorena is a very pleasant 67-year-old female with a 50+ pack-year history of smoking. She reports having been unwell since March 2017 and describes having had "a series of respiratory tract infections," complicated by cough and difficulty breathing almost on a continuous basis. Her symptoms acutely worsened about 2 weeks ago. This culminated in an inability to walk from one room to another without needing to rest. The patient presented to the [facility] and underwent imaging studies including a CT scan of the thorax. She was found to have a pericardial effusion, right-sided pleural effusion, multiple mediastinal lymph nodes and axillary lymph nodes as well. Pleural nodules were also identified within the lungs. Pleural fluid and pericardial fluid was tapped. Cytology from the pericardial fluid indicated findings consistent with non-small cell carcinoma of the lung; immunohistochemical staining studies favored adenocarcinoma. Pleural fluid cytology was not sufficient to establish diagnosis. RECOMMENDATIONS: New diagnosis of non-small cell carcinoma of lung primary: She appears to have advanced disease. She has clearly palpable lymph nodes involving bilateral cervical lymph node chains. At this point, I would recommend completing the staging process with dedicated CT imaging of the abdomen and pelvis as well as imaging studies of the brain. I have also requested she undergo an image-guided biopsy of one of the representative phlebotomy services cervical lymph nodes. The tissue obtained from this sample will be submitted for molecular testing including PD-L1, EGFR mutation, ROS, ALK and RET as well as BRAF. I would advise our pathologists to first perform the PD-L1 testing, and should that be negative, proceed with additional mutational analyses to identify potential targets. The oncology service will follow along with you. MD BROOKLYNN Stewart/FAB , 08:08 AM , 09:00 AM TANIA
[2017-07-31] MEDS: predniSONE 10 MG TAB PO SCH (10:41)
[2017-07-31] MEDS: FAMOTIDINE 20 MG/2 ML VIAL IV PUSH SCH ×2 (10:42→21:00)
[2017-07-31] MEDS: SODIUM CHLORIDE 0.9% FLUSH 10 ML FLUSH IVF PRN ×2 (10:43→21:09)
--- NOTE | 2017-07-31 13:26 | HHI.PR ---
Subjective Remarks Follow-up respiratory failure/pericardial effusion/influenza A 07/28/17-patient seen and examined him a report some improvement of shortness of breath, positive for heart palpitations and afebrile 07/29/17-patient seen and examined, pericardial drain was removed yesterday. Patient reports some improvement of shortness of breath. She is requesting a letter be written stating that she will needs help to take care of her sister who has Cerebral Palsy 07/30/17-patient seen and examined, stable and no complaint. Pericardial fluid culture negative 07/31/17-patient seen and examined, she was seen by Oncology this AM, no chest pain or heart palpitation Objective Vitals Vital Signs Date Time Temp Pulse Resp B/P (MAP) Pulse Ox O2 Delivery O2 Flow Rate FiO2 07/31/17 12:00 96.7 92 18 158/70 (99) 92 07/31/17 10:54 97 Nasal Cannula 3.00 07/31/17 08:00 96.7 104 19 120/69 (86) 91 07/31/17 04:00 96.8 107 16 134/78 (96) 94 07/31/17 04:00 106 07/31/17 00:51 104 07/31/17 00:00 96.9 112 18 145/77 (99) 94 07/30/17 20:40 92 Nasal Cannula 3.00 07/30/17 20:10 97.8 115 20 161/96 (117) 93 07/30/17 20:00 117 07/30/17 16:00 97.8 115 20 160/88 (112) 94 I/O 07/30/17 07/30/17 07/30/17 07/31/17 07/31/17 07/31/17 07:00 15:00 23:00 07:00 15:00 23:00 Intake Total 400 ml 480 ml 480 ml Balance 400 ml 480 ml 480 ml Intake Oral 400 ml 480 ml 480 ml # Voids 3 2 3 # Bowel Movements 1 Result Diagram: 07/28/17 0457 07/28/17 0451 Imaging Last Impressions Chest X-Ray 07/27/17 0600 Signed Impressions: Service Date/Time: Thursday, July 27, 2017 04:31 - CONCLUSION: Right mid and lower lung consolidation and bilateral pleural effusions, stable. Darrell Ritchie MD Pericardiocentesis 3/16/18 1640 Signed Impressions: Service Date/Time: Monday, July 24, 2017 15:12 - CONCLUSION: Uncomplicated pericardial drainage as above. A total of about 500 cc of hemorrhagic fluid was removed. The patient's vitals stabilized following the pericardial drainage. David Baez MD Thoracentesis Ultrasound 07/24/17 0000 Signed Impressions: Service Date/Time: Monday, July 24, 2017 16:18 - CONCLUSION: Uncomplicated ultrasound guided thoracentesis. David Baez MD Chest CT 07/24/17 0000 Signed Impressions: Service Date/Time: Monday, July 24, 2017 12:52 - CONCLUSION: 1. Sizable pericardial effusion. 2. Scattered, enlarged nodes evident in the prevascular [place]. The largest measures 1.3 x 1.7 cm. The exam also demonstrates a 1.6 x 1.8 cm right axillary node. There is mediastinal adenopathy as well with at least one node measuring 2.9 x 2.9 cm. The exam is concerning for malignancy. 3. Atherosclerotic plaquing in the coronary arteries. 4. There are 2 pulmonary nodules on the left. The largest measures 1.1 x 1.7 cm. 5. Moderate size right pericardial effusion. David Baez MD Objective Remarks GENERAL: NAD SKIN: Warm and dry. HEAD: Normocephalic. EYES: No scleral icterus. No injection or drainage. NECK: Supple, trachea midline. No JVD or lymphadenopathy. CARDIOVASCULAR: Regular rate and rhythm without murmurs, gallops, or rubs. RESPIRATORY: Breath sounds equal bilaterally. No accessory muscle use. GASTROINTESTINAL: Abdomen soft, non-tender, nondistended. MUSCULOSKELETAL: No cyanosis, or edema. BACK: Nontender without obvious deformity. No CVA tenderness. Procedures status post pericardiocentesis status post ultrasound-guided thoracentesis A/P Problem List: (1) Influenza A ICD Code: J10.1 - Influenza due to other identified influenza virus with other respiratory manifestations Status: Acute (2) Septic shock ICD Code: A41.9 - Sepsis, unspecified organism; R65.21 - Severe sepsis with septic shock Status: Acute (3) Pneumonia ICD Code: J18.9 - Pneumonia, unspecified organism Status: Acute (4) Pericardial effusion with cardiac tamponade ICD Code: I31.3 - Pericardial effusion (noninflammatory); I31.4 - Cardiac tamponade (5) Vulvovaginitis due to yeast ICD Code: B37.3 - Candidiasis of vulva and vagina (6) Non-small cell carcinoma of lung ICD Code: C34.90 - Malignant neoplasm of unspecified part of unspecified bronchus or lung Assessment and Plan 67-year-old female with 1. Respiratory insufficiency 2/2 pneumonia, and pleural effusions 2. Influenza A antigen positive 3. Leukocytosis 4. Lactic acidemia-resolved 5. Large pericardial effusion status post pericardiocentesis with removal of 500 cc of hemorrhagic pericardial fluid 07/24 6. Right-sided pleural effusion status post ultrasound-guided thoracentesis with removal of 1100 cc of pleural fluid 07/24 7. Pulmonary nodules with mediastinal adenopathy, R/O malignancy 8. Tobaccoism 9. Obesity 10. Electrolyte derangement 11. Vulvovaginitis 12. Non-small cell carcinoma Plan 1. Bronchodilators duo nebs every 6 hours scheduled plus every 2 hours when necessary for wheezing/shortness of breath 2. Status post ultrasound CT-guided right thoracentesis 07/23 with removal of 1100 cc of pleural fluid. F/U analysis, culture and cytology 3. Pulmonary following-Dr. Reeves. Continue Solu-Medrol 20 mg IV every 12 hour and maintain oxygen saturation above 92% 4. Patient is status post CT-guided pericardiocentesis with removal of 500 cc of hemorrhagic fluid. pericardial drain hold 07/28. Follow up CT surgery recommendations 5. s/p empiric antibiotics vancomycin, Zosyn, and Tamiflu 75 mg twice a day ( day 5).- 07/30/17. 6. GI prophylaxis with Pepcid and DVT prophylaxis with SCDs. 7. Appreciate input from gynecology, continue with nystatin 8. Cytology of pericardial fluid positive for non-small cell carcinoma Appreciate input from medical oncology Plan for CT guided biopsy of cervical lymph node Problem Qualifiers (1) Pneumonia: Qualified Codes: J18.9 - Pneumonia, unspecified organism Bartolo Soto MD Jul 31, 2017 13:26
[2017-07-31] MEDS ORDERED: LIDOCAINE HCL 1% 20 ML VIAL ONE (15:41)
--- NOTE | 2017-07-31 16:24 | RADRPT ---
EXAM DATE/TIME: 07/31/2017 10:24 [facility] COMPARISON: No previous studies available for comparison. INDICATIONS : Enlarged lymph node right neck. Vancomycin within 2 hrs of procedure, Ancef (or alternative) within 1 hr of procedure start. MEDICAL HISTORY : Kidney stones. Lung cancer. SURGICAL HISTORY : Hysterectomy. section. ENCOUNTER: Initial ACUITY: 1 day PAIN SCORE: 2/10 LOCATION: Right neck ORGAN: Right lymph node SPECIMENS: Two core specimen(s) submitted for pathologic evaluation. DEVICE: 18 gauge Temno needle Post procedure scanning reveals no hematoma or other complication. The possibility does exist that the tissue obtained will be non-diagnostic. If the sample is non-amy gnostic a repeat biopsy or surgical biopsy may need to be performed. TECHNIQUE: 1. Ultrasound guidance for needle biopsy. 2. Needle biopsy. The risks, benefits and alternatives to the procedure were explained and verbal and written consent w as obtained. The site was prepped in sterile fashion. Full sterile technique was used, including ca p, mask, sterile gloves and gown and a large sterile sheet. Hand hygiene and 2% chlorhexidine and/or betadine/alcohol prep was utilized per protocol for cutaneous antisepsis. The skin and subcutaneous tissues were infiltrated with local anesthetic solution. Sterile gel and sterile probe cover were u tilized for ultrasound guidance. With the patient on the ultrasound table, images were obtained. A needle was advanced into the identified target and the number of specimens as above obtained and tran bmitted for pathologic evaluation. The patient tolerated the procedure well and left the ultrasound suite in stable condition. CONCLUSION: Uncomplicated ultrasound guided needle biopsy of enlarged lymph node in the right neck. Bartolo Rowland MD on July 31, 2017 at 16:20 Board Certified Radiologist. This report was verified electronically.
[2017-07-31 18:05] LABS: AUTOMATED NEUTROPHIL # 14.9 TH/MM3 (1.8-7.7); BASOPHIL % 0.1 % (0.0-2.0); EOSINOPHIL % 0.3 % (0.0-4.0); HEMOGLOBIN 14.9 GM/DL (11.6-15.3); LYMPH % 4.2 % (9.0-44.0); LYMPHOCYTE # 0.7 TH/MM3 (1.0-4.8); MEAN CELL VOLUME 85.1 FL (80.0-100.0); MEAN CORPUSCULAR HEMOGLOBIN 28.2 PG (27.0-34.0); MEAN CORPUSCULAR HGB CONC 33.1 % (32.0-36.0); MEAN PLATELET VOLUME 8.5 FL (7.0-11.0); MONO % 5.7 % (0.0-8.0); NEUT % 89.7 % (16.0-70.0); PLATELET COUNT 461 TH/MM3 (150-450); RED BLOOD COUNT 5.29 MIL/MM3 (4.00-5.30); RED CELL DISTRIBUTION WIDTH 13.8 % (11.6-17.2); WHITE BLOOD COUNT 16.6 TH/MM3 (4.0-11.0)
[2017-07-31] MEDS: MELATONIN 5 MG TAB PO PRN (21:09)
[2017-08-01] VITALS (11 sets, daily range): BP systolic 108–134; BP diastolic 58–77; PULSE 84–119; RESP 17–19; TEMP 96.6–97.4; O2SAT 93–94
[2017-08-01] MEDS: ACETAMINOPHEN 325 MG TAB PO PRN ×4 (02:47→21:31)
[2017-08-01] MEDS: CHLORHEXIDINE GLUCONATE 2 % 1 PACK (2 CLOTHS) TOP SCH (03:58)
[2017-08-01] MEDS: RESP: IPRATROPIUM 0.5 MG/2.5 ML NEB NEB SCH ×4 (04:38→21:44)
[2017-08-01] MEDS: RESP: ALBUTEROL 1.25 MG/3 ML NEB (SCH) NEB ×4 (04:38→21:44)
[2017-08-01] MEDS: INSULIN NovoLIN REGULAR SUPPLEMENTAL SCALE SQ SCH ×4 (06:00→17:22)
[2017-08-01] MEDS: NYSTATIN 100,000 U/GM PWD 15 GM BTL TOPICAL SCH ×3 (06:00→22:00)
[2017-08-01] MEDS: SODIUM CHLOR 0.9% 1000 ML INJ 1,000 ML IV SCH (08:08)
[2017-08-01] MEDS: DOCUSATE SODIUM 50 MG/SENNA 8.6 MG TAB PO SCH ×2 (09:00→21:00)
[2017-08-01] MEDS: FAMOTIDINE 20 MG/2 ML VIAL IV PUSH SCH ×2 (09:00→21:32)
[2017-08-01] MEDS: predniSONE 10 MG TAB PO SCH (09:17)
--- NOTE | 2017-08-01 12:02 | HHI.PR ---
Subjective Remarks Patient reports she is feeling okay. Breathing status is stable. She wants to shower. Objective Vitals Vital Signs Date Time Temp Pulse Resp B/P (MAP) Pulse Ox O2 Delivery O2 Flow Rate FiO2 08/01/17 11:19 08/01/17 10:45 08/01/17 10:45 84 08/01/17 10:20 94 Nasal Cannula 3.00 08/01/17 08:00 96.6 112 19 108/69 (82) 94 08/01/17 04:39 105 08/01/17 03:38 97.4 104 18 115/65 (82) 94 07/31/17 23:37 96.1 109 17 122/76 (91) 94 07/31/17 21:57 96 Nasal Cannula 3.00 07/31/17 20:00 97.5 115 17 122/75 (91) 93 07/31/17 18:00 97.5 106 19 134/79 (97) 93 07/31/17 16:00 97.4 106 19 129/76 (93) 94 07/31/17 12:22 98.2 113 16 150/77 (101) 93 07/31/17 12:05 97.8 112 16 140/84 (102) 92 I/O 07/31/17 07/31/17 07/31/17 08/01/17 08/01/17 08/01/17 07:00 15:00 23:00 07:00 15:00 23:00 Intake Total 480 ml 480 ml 600 ml Balance 480 ml 480 ml 600 ml Intake Oral 480 ml 480 ml 600 ml # Voids 3 1 5 6 # Bowel Movements 0 0 Result Diagram: 07/31/17 1640 07/28/17 0451 Objective Remarks GENERAL: Elderly female in no acute distress. CARDIOVASCULAR: Normal rate and regular rhythm without murmurs, gallops, or rubs. RESPIRATORY: Diminished breath sounds at the bases bilaterally, otherwise clear to auscultation bilaterally. GASTROINTESTINAL: Abdomen soft, non-tender, non-distended. Normal active bowel sounds MUSCULOSKELETAL: Extremities without cyanosis, or edema. NEURO: Alert & Oriented x4 to person, place, time, situation. Moves all ext x4 PSYCH: Appropriate mood and affect. Procedures status post pericardiocentesis status post ultrasound-guided thoracentesis A/P Problem List: (1) Influenza A ICD Code: J10.1 - Influenza due to other identified influenza virus with other respiratory manifestations Status: Acute (2) Septic shock ICD Code: A41.9 - Sepsis, unspecified organism; R65.21 - Severe sepsis with septic shock Status: Acute (3) Pneumonia ICD Code: J18.9 - Pneumonia, unspecified organism Status: Acute (4) Pericardial effusion with cardiac tamponade ICD Code: I31.3 - Pericardial effusion (noninflammatory); I31.4 - Cardiac tamponade (5) Vulvovaginitis due to yeast ICD Code: B37.3 - Candidiasis of vulva and vagina (6) Non-small cell carcinoma of lung ICD Code: C34.90 - Malignant neoplasm of unspecified part of unspecified bronchus or lung Assessment and Plan 67-year-old female with 1. Respiratory insufficiency 2/2 pneumonia, and pleural effusions 2. Influenza A antigen positive 3. Leukocytosis 4. Lactic acidemia-resolved 5. Large pericardial effusion status post pericardiocentesis with removal of 500 cc of hemorrhagic pericardial fluid 07/24 6. Right-sided pleural effusion status post ultrasound-guided thoracentesis with removal of 1100 cc of pleural fluid 07/24 7. Pulmonary nodules with mediastinal adenopathy, R/O malignancy 8. Tobaccoism 9. Obesity 10. Electrolyte derangement 11. Vulvovaginitis 12. Non-small cell carcinoma Plan 1. Bronchodilators duo nebs every 6 hours scheduled plus every 2 hours when necessary for wheezing/shortness of breath 2. Status post ultrasound CT-guided right thoracentesis 07/23 with removal of 1100 cc of pleural fluid. Cytology consistent with non-small cell carcinoma 3. Pulmonary following-Dr. Reeves. Transition to oral steroids 4. Status post CT-guided biopsy of the cervical lymph node. 5. s/p empiric antibiotics vancomycin, Zosyn, and Tamiflu 75 mg twice a day ( day 5).- 07/30/17. 6. GI prophylaxis with Pepcid and DVT prophylaxis with SCDs. 7. Appreciate input from gynecology, continue with nystatin 8. Cytology of pericardial fluid positive for non-small cell carcinoma Appreciate input from medical oncology Plan for staging with abdominal/pelvis CT scan and brain imaging. Problem Qualifiers (1) Pneumonia: Qualified Codes: J18.9 - Pneumonia, unspecified organism Kameron Mack MD Aug 01, 2017 12:02
--- NOTE | 2017-08-01 18:08 | PD.ONC.PN ---
Subjective Subjective Remarks Afebrile Patient reports her breathing is somewhat improved Is very adamant that her cancer diagnosis is not discussed around her family until lymph node biopsy comes back Objective Data Date Time Temp Pulse Resp B/P (MAP) Pulse Ox O2 Delivery O2 Flow Rate FiO2 08/01/17 16:40 114 08/01/17 15:10 08/01/17 12:06 84 08/01/17 12:00 97.3 114 19 120/58 (78) 94 08/01/17 11:19 08/01/17 10:45 08/01/17 10:45 84 08/01/17 10:20 94 Nasal Cannula 3.00 08/01/17 08:00 96.6 112 19 108/69 (82) 94 08/01/17 04:39 105 08/01/17 03:38 97.4 104 18 115/65 (82) 94 07/31/17 23:37 96.1 109 17 122/76 (91) 94 07/31/17 21:57 96 Nasal Cannula 3.00 07/31/17 20:00 97.5 115 17 122/75 (91) 93 07/31/17 18:00 97.5 106 19 134/79 (97) 93 08/01/17 08/01/17 08/01/17 07:00 15:00 23:00 Intake Total 600 ml Balance 600 ml Result Diagram: 07/31/17 1640 07/28/17 0451 Administered Medications Medications (Trade) Dose Ordered Sig/Jerrell Route PRN Reason Start Time Stop Time Status Last Admin Dose Admin Sodium Chloride (NS Flush) 2 ml UNSCH PRN IVF FLUSH AFTER USING IV ACCESS 07/24/17 08:45 07/31/17 21:09 Famotidine (Pepcid Inj) 20 mg Q12HR IV PUSH 07/24/17 21:00 08/01/17 09:00 Albuterol/ Ipratropium (Duoneb Neb) 1 ampule Q2HR NEB PRN INH WHEEZING 07/24/17 12:00 07/31/17 10:49 Miscellaneous Information 1 Q361D XX 07/24/17 12:00 07/24/17 12:00 Chlorhexidine Gluconate (Chlorhexidine 2% Cloth) Taper DAILY@04 TOP 07/25/17 04:00 07/21/18 03:59 07/28/17 23:23 Senna/Docusate Sodium (Danae-Colace) 1 tab BID PO 07/24/17 21:00 07/30/17 10:27 Insulin Human Regular (NovoLIN R SUPPLEMENTAL SCALE) 1 Q6H SQ 07/24/17 12:00 08/01/17 12:00 Acetaminophen (Tylenol) 650 mg Q4H PRN PO PAIN 07/24/17 21:30 08/01/17 03:57 Melatonin (Melatonin) 5 mg HS PRN PO INSOMNIA 07/26/17 12:30 07/31/17 21:09 Nystatin (Mycostatin Powder) 1 applic Q8HR TOPICAL 07/28/17 15:00 07/31/17 05:19 Albuterol Sulfate (Albuterol Neb) 1.25 mg Q6HR NEB NEB 07/29/17 10:00 08/01/17 16:00 Ipratropium Evans (Atrovent Neb) 0.5 mg Q6HR NEB NEB 07/29/17 10:00 08/01/17 16:00 Prednisone (Deltasone) 30 mg DAILY PO 07/31/17 09:00 08/01/17 09:17 Objective Remarks GENERAL: Older female sitting up in bed in no obvious distress SKIN: Warm and dry. HEAD: Normocephalic. EYES: No injection or drainage. NECK: Supple, trachea midline. Mild puffiness on the right side of the neck around site of biopsy CARDIOVASCULAR: Regular rate and rhythm without murmurs. RESPIRATORY: Lung sounds diminished anteriorly. On 3 L nasal cannula. Breathing unlabored at rest. GASTROINTESTINAL: Abdomen soft, non-tender, nondistended. EXTREMITIES: No cyanosis, or edema. MUSCULOSKELETAL: Adequate muscle tone. NEUROLOGICAL: No obvious focal deficit. Awake, alert, and oriented x3. Assessment/Plan Problem List: (1) Non-small cell carcinoma of lung ICD Codes: C34.90 - Malignant neoplasm of unspecified part of unspecified bronchus or lung Plan: --Patient has a [id number] smoking history --Fluid from pericardial effusion shows Non-small cell carcinoma with features suspicious for adenocarcinoma --CT of the chest shows scattered enlarged nodes in the prevascular [place]. There is also noted mediastinal adenopathy with one node measuring 2.9 x 2.9 cm. --Right neck lymph node biopsy done on 07/31 Assessment 67-year-old female with new diagnosis of non-small cell lung cancer Plan 1. Patient has made it very clear that she does not wish for her cancer diagnosis to be discussed around her family members at this time 2. Await pathology from lymph node biopsy 3. Supportive care Attending Statement The exam, history, and the medical decision-making described in the above note were completed with the assistance of the mid-level provider. I reviewed and agree with the findings presented. I attest that I had a [id number] encounter with the patient on the same day, and personally performed and documented my assessment and findings in the medical record. Findings suspicious for advanced NSCLC with malignant cells present in pericardial fluid and cervical adenopathy--s/p biopsy with results pending. Will order CT abdomen/ pelvis and MRI brain to complete staging. Once results return she will discuss further management and treatment options with Dr. Ruiz. Lilibeth Ramos Aug 01, 2017 18:08 Aicha Robles MD Aug 01, 2017 19:36
[2017-08-01] MEDS ORDERED: DIATRIZOATE MEGLUM/DIATRIZOATE SOD 9 ML CUP PO ONE (20:15)
[2017-08-01] MEDS: MELATONIN 5 MG TAB PO PRN (21:30)
[2017-08-02] VITALS (9 sets, daily range): BP systolic 96–127; BP diastolic 53–66; PULSE 98–115; RESP 16–22; TEMP 96.2–98.3; O2SAT 92–96
[2017-08-02] MEDS: RESP: ALBUTEROL 1.25 MG/3 ML NEB (SCH) NEB ×2 (03:48→09:35)
[2017-08-02] MEDS: RESP: IPRATROPIUM 0.5 MG/2.5 ML NEB NEB SCH ×4 (03:48→21:23)
[2017-08-02] MEDS: CHLORHEXIDINE GLUCONATE 2 % 1 PACK (2 CLOTHS) TOP SCH (04:00)
[2017-08-02] MEDS: ACETAMINOPHEN 325 MG TAB PO PRN ×2 (05:11→21:00)
[2017-08-02] MEDS ORDERED: DIATRIZOATE MEGLUM/DIATRIZOATE SOD 9 ML CUP PO ONE (05:19)
[2017-08-02] MEDS: INSULIN NovoLIN REGULAR SUPPLEMENTAL SCALE SQ SCH ×5 (06:00→23:48)
[2017-08-02] MEDS: NYSTATIN 100,000 U/GM PWD 15 GM BTL TOPICAL SCH ×3 (06:00→20:58)
[2017-08-02] MEDS: DOCUSATE SODIUM 50 MG/SENNA 8.6 MG TAB PO SCH ×2 (09:00→20:57)
[2017-08-02] MEDS: FAMOTIDINE 20 MG/2 ML VIAL IV PUSH SCH ×2 (09:29→21:00)
[2017-08-02] MEDS: predniSONE 10 MG TAB PO SCH (09:29)
[2017-08-02] MEDS ORDERED: IOHEXOL 350 MG/ML 10 ML VIAL (for RAD DIAG) IVCONTRAST ONE (13:06)
--- NOTE | 2017-08-02 13:21 | RADRPT ---
EXAM DATE/TIME: 08/02/2017 12:56 [facility] COMPARISON: No previous studies available for comparison. INDICATIONS : Staging for NSCLC,sepsis. IV CONTRAST: 90 cc Omnipaque 350 (iohexol) IV ORAL CONTRAST: Prescribed oral contrast ingested. RADIATION DOSE: 16.28 CTDIvol (mGy) MEDICAL HISTORY : None SURGICAL HISTORY : Hysterectomy. Kidney stones removed. ENCOUNTER: Initial ACUITY: 2 days PAIN SCALE: 0/10 LOCATION: abdominal TECHNIQUE: Volumetric scanning of the abdomen and pelvis was performed. Using automated exposure control and ad justment of the mA and/or kV according to patient size, radiation dose was kept as low as reasonably achievable to obtain optimal diagnostic quality images. DICOM format image data is available electro nically for review and comparison. FINDINGS: LOWER LUNGS: There are bilateral pleural effusions being moderate on the left and mild on the right. There is acco mpanying atelectasis or consolidation at the posterior lung bases. LIVER: Homogeneous density without lesion. There is no dilation of the biliary tree. There are gallstones p resent. SPLEEN: Normal size without lesion. PANCREAS: Within normal limits. KIDNEYS: There is a staghorn like stone seen in the inferior aspect of the right collecting system and extendi ng into the right renal pelvis measuring approximately 4.1 x 2.9 x 2.8 cm. There is moderate to sever e dilatation of the superior and mid right collecting system. Both kidneys enhance symmetrically. The left kidney appears normal. ADRENAL GLANDS: Within normal limits. VASCULAR: There is no aortic aneurysm. Arterial calcifications are seen. BOWEL/MESENTERY: There are scattered sigmoid colon diverticula. ABDOMINAL WALL: Within normal limits. RETROPERITONEUM: There is no lymphadenopathy. BLADDER: No wall thickening or mass. REPRODUCTIVE: The patient is status post hysterectomy. INGUINAL: There is a prominent 1.8 cm soft tissue density at the medial right inguinal region likely related to a prominent lymph node. This is nonspecific. MUSCULOSKELETAL: There is degenerative change in the lumbar spine. There is a small focal sclerosis of the posterior l eft iliac bone. This is nonspecific. It could represent a bone island versus other causes for a scler otic lesion. CONCLUSION: 1. Staghorn like stone in the inferior right collecting system extending into the right renal pelvis causing moderate to severe dilatation of the superior and mid right collecting system. 2. Gallstones 3. Scattered colonic diverticula without inflammatory change. 4. Bilateral pleural effusions being moderate on the left and mild on the right with accompanying are as of atelectasis or consolidation. 5. Nonspecific 1.8 cm lymph node in the right inguinal region. 6. Solitary small sclerotic area in the left ilium likely related to a bone island although other cau ses for sclerotic lesions cannot be excluded. 7. Degenerative change in the lumbar spine. Anupam Glover MD on August 02, 2017 at 13:05 Board Certified Radiologist. This report was verified electronically.
--- NOTE | 2017-08-02 14:15 | PD.ONC.PN ---
Subjective Subjective Remarks Resting comfortably in bed in no distress. Objective Data Date Time Temp Pulse Resp B/P (MAP) Pulse Ox O2 Delivery O2 Flow Rate FiO2 08/02/17 09:35 94 Nasal Cannula 2.00 08/02/17 08:00 96.4 109 22 127/59 (81) 93 08/02/17 08:00 106 08/02/17 04:00 96.2 103 16 116/62 (80) 92 08/02/17 00:00 97.0 109 16 113/55 (74) 93 08/01/17 21:46 94 Nasal Cannula 2.00 08/01/17 20:00 96.9 119 17 119/64 (82) 93 08/01/17 16:40 114 08/01/17 16:00 97.3 117 19 134/77 (96) 94 08/01/17 15:10 08/02/17 08/02/17 08/02/17 07:00 15:00 23:00 Intake Total 800 ml Balance 800 ml Result Diagram: 07/31/17 1640 Administered Medications Medications (Trade) Dose Ordered Sig/Jerrell Route PRN Reason Start Time Stop Time Status Last Admin Dose Admin Sodium Chloride (NS Flush) 2 ml UNSCH PRN IVF FLUSH AFTER USING IV ACCESS 07/24/17 08:45 07/31/17 21:09 Famotidine (Pepcid Inj) 20 mg Q12HR IV PUSH 07/24/17 21:00 08/02/17 09:29 Albuterol/ Ipratropium (Duoneb Neb) 1 ampule Q2HR NEB PRN INH WHEEZING 07/24/17 12:00 07/31/17 10:49 Miscellaneous Information 1 Q361D XX 07/24/17 12:00 07/24/17 12:00 Chlorhexidine Gluconate (Chlorhexidine 2% Cloth) Taper DAILY@04 TOP 07/25/17 04:00 07/21/18 03:59 07/28/17 23:23 Senna/Docusate Sodium (Danae-Colace) 1 tab BID PO 07/24/17 21:00 07/30/17 10:27 Insulin Human Regular (NovoLIN R SUPPLEMENTAL SCALE) 1 Q6H SQ 07/24/17 12:00 08/01/17 12:00 Acetaminophen (Tylenol) 650 mg Q4H PRN PO PAIN 07/24/17 21:30 08/02/17 05:11 Melatonin (Melatonin) 5 mg HS PRN PO INSOMNIA 07/26/17 12:30 08/01/17 21:30 Nystatin (Mycostatin Powder) 1 applic Q8HR TOPICAL 07/28/17 15:00 07/31/17 05:19 Ipratropium Edmondson (Atrovent Neb) 0.5 mg Q6HR NEB NEB 07/29/17 10:00 08/02/17 09:35 Prednisone (Deltasone) 30 mg DAILY PO 07/31/17 09:00 08/02/17 09:29 Objective Remarks GENERAL: Well-nourished, well-developed patient. SKIN: Warm and dry. HEAD: Normocephalic. EYES: No scleral icterus. RESPIRATORY: No accessory muscle use. NEUROLOGICAL: No obvious focal deficit. Awake, alert, and oriented x3. PSYCHIATRIC: Appropriate mood and affect; insight and judgment normal. Assessment/Plan Problem List: (1) Non-small cell carcinoma of lung ICD Codes: C34.90 - Malignant neoplasm of unspecified part of unspecified bronchus or lung Plan: --Patient has a [id number] smoking history --Fluid from pericardial effusion shows Non-small cell carcinoma with features suspicious for adenocarcinoma --CT of the chest shows scattered enlarged nodes in the prevascular [place]. There is also noted mediastinal adenopathy with one node measuring 2.9 x 2.9 cm. --Right neck lymph node biopsy done on 07/31 Assessment 67-year-old female with new diagnosis of non-small cell lung cancer Plan 1. NSCLC, advanced stage: pathology from cervical lymph node pending. Will have ROS1, ALK, EGFR and PDL1 testing performed on this specimen. Will order MRI brain to complete staging. 2. Right sided staghorn stone with dilation of collecting system: patient with history of nephrolithiasis. Will consult urology for further evaluation and management. Aicha Robles MD Aug 02, 2017 14:15
--- NOTE | 2017-08-02 16:44 | HHI.PR ---
Subjective Remarks Patient seen earlier around noon. She is upset because she is still waiting to have CAT scan. Otherwise no new complaints. Objective Vitals Vital Signs Date Time Temp Pulse Resp B/P (MAP) Pulse Ox O2 Delivery O2 Flow Rate FiO2 08/02/17 16:21 108 08/02/17 12:00 97.2 98 20 120/66 (84) 93 08/02/17 12:00 110 08/02/17 09:35 94 Nasal Cannula 2.00 08/02/17 08:00 96.4 109 22 127/59 (81) 93 08/02/17 08:00 106 08/02/17 04:00 96.2 103 16 116/62 (80) 92 08/02/17 00:00 97.0 109 16 113/55 (74) 93 08/01/17 21:46 94 Nasal Cannula 2.00 08/01/17 20:00 96.9 119 17 119/64 (82) 93 I/O 08/01/17 08/01/17 08/01/17 08/02/17 08/02/17 08/02/17 07:00 15:00 23:00 07:00 15:00 23:00 Intake Total 600 ml 1200 ml 800 ml Balance 600 ml 1200 ml 800 ml Intake Oral 600 ml 1200 ml 800 ml IV Total 0 ml # Voids 6 6 7 # Bowel Movements 0 1 Result Diagram: 07/31/17 1640 Objective Remarks GENERAL: Elderly female in no acute distress. CARDIOVASCULAR: Normal rate and regular rhythm without murmurs, gallops, or rubs. RESPIRATORY: Diminished breath sounds at the bases bilaterally, otherwise clear to auscultation bilaterally. GASTROINTESTINAL: Abdomen soft, non-tender, non-distended. Normal active bowel sounds MUSCULOSKELETAL: Extremities without cyanosis, or edema. NEURO: Alert & Oriented x4 to person, place, time, situation. Moves all ext x4 PSYCH: Appropriate mood and affect. Procedures status post pericardiocentesis status post ultrasound-guided thoracentesis A/P Problem List: (1) Influenza A ICD Code: J10.1 - Influenza due to other identified influenza virus with other respiratory manifestations Status: Acute (2) Septic shock ICD Code: A41.9 - Sepsis, unspecified organism; R65.21 - Severe sepsis with septic shock Status: Acute (3) Pneumonia ICD Code: J18.9 - Pneumonia, unspecified organism Status: Acute (4) Pericardial effusion with cardiac tamponade ICD Code: I31.3 - Pericardial effusion (noninflammatory); I31.4 - Cardiac tamponade (5) Vulvovaginitis due to yeast ICD Code: B37.3 - Candidiasis of vulva and vagina (6) Non-small cell carcinoma of lung ICD Code: C34.90 - Malignant neoplasm of unspecified part of unspecified bronchus or lung Assessment and Plan 67-year-old female with 1. Respiratory insufficiency 2/2 pneumonia, and pleural effusions 2. Influenza A antigen positive 3. Leukocytosis 4. Lactic acidemia-resolved 5. Large pericardial effusion status post pericardiocentesis with removal of 500 cc of hemorrhagic pericardial fluid 07/24 6. Right-sided pleural effusion status post ultrasound-guided thoracentesis with removal of 1100 cc of pleural fluid 07/24 7. Pulmonary nodules with mediastinal adenopathy, R/O malignancy 8. Tobaccoism 9. Obesity 10. Electrolyte derangement 11. Vulvovaginitis 12. Non-small cell carcinoma Plan 1. Bronchodilators duo nebs every 6 hours scheduled plus every 2 hours when necessary for wheezing/shortness of breath 2. Status post ultrasound CT-guided right thoracentesis 07/23 with removal of 1100 cc of pleural fluid. Cytology consistent with non-small cell carcinoma 3. Pulmonary following-Dr. Reeves. Transition to oral steroids 4. Status post CT-guided biopsy of the cervical lymph node. 5. s/p empiric antibiotics vancomycin, Zosyn, and Tamiflu 75 mg twice a day ( day 5).- 07/30/17. 6. GI prophylaxis with Pepcid and DVT prophylaxis with SCDs. 7. Appreciate input from gynecology, continue with nystatin 8. Cytology of pericardial fluid positive for non-small cell carcinoma Appreciate input from medical oncology Plan for staging with abdominal/pelvis CT scan. Order MRI of the brain as recommended by oncology. Problem Qualifiers (1) Pneumonia: Qualified Codes: J18.9 - Pneumonia, unspecified organism Kameron Mack MD Aug 02, 2017 16:43
[2017-08-02] MEDS: MELATONIN 5 MG TAB PO PRN (21:00)
[2017-08-02] MEDS: SODIUM CHLOR 0.9% 1000 ML INJ 1,000 ML IV SCH (21:03)
[2017-08-03] VITALS: BP 129/76; PULSE 110; RESP 16; TEMP 96.7; O2SAT 93
[2017-08-03] MEDS: ACETAMINOPHEN 325 MG TAB PO PRN ×2 (03:26→14:46)
[2017-08-03] MEDS: CHLORHEXIDINE GLUCONATE 2 % 1 PACK (2 CLOTHS) TOP SCH (03:26)
[2017-08-03 04:00] VITALS: BP 136/69; PULSE 106; RESP 16; TEMP 96.4; O2SAT 92
[2017-08-03] MEDS: RESP: IPRATROPIUM 0.5 MG/2.5 ML NEB NEB SCH ×3 (04:19→15:43)
[2017-08-03] MEDS: NYSTATIN 100,000 U/GM PWD 15 GM BTL TOPICAL SCH ×2 (05:40→14:00)
[2017-08-03] MEDS: INSULIN NovoLIN REGULAR SUPPLEMENTAL SCALE SQ SCH ×2 (05:40→12:00)
[2017-08-03 08:00] VITALS: BP 122/58; PULSE 113; RESP 20; TEMP 97.6; O2SAT 95
--- NOTE | 2017-08-03 08:22 | PD.ONC.PN ---
Subjective Subjective Remarks Patient seen and examined, vital signs, labs, medications and imaging studies including CT abdomen and pelvis performed over the weekend were reviewed. Subjectively; the patient reports having tolerated her ultrasound-guided right cervical lymph node biopsy performed on 07/31/2017 without difficulties. She tells me she does have an increase feeling of breathlessness and "drowning" she is beginning to feel much like she did before she came into the hospital. She is concerned she may rapidly progress to the point where she is short of breath with minimal exertion. She was also evaluated earlier today by Dr. Brooke of urology who recommended the patient undergo workup for lung carcinoma before he performs any interventions for her staghorn right kidney calculus identified on CT abdomen and pelvis. Objective Data Date Time Temp Pulse Resp B/P (MAP) Pulse Ox O2 Delivery O2 Flow Rate FiO2 08/03/17 04:00 96.4 106 16 136/69 (91) 92 08/03/17 00:00 96.7 110 16 129/76 (93) 93 08/02/17 21:23 96 Nasal Cannula 3.00 08/02/17 20:00 98.3 115 16 101/58 (72) 92 08/02/17 20:00 111 08/02/17 16:21 108 08/02/17 16:00 97.7 98 20 96/53 (67) 93 08/02/17 12:00 97.2 98 20 120/66 (84) 93 08/02/17 12:00 110 08/02/17 09:35 94 Nasal Cannula 2.00 08/03/17 08/03/17 08/03/17 07:00 15:00 23:00 Intake Total 740 ml Balance 740 ml Result Diagram: 07/31/17 1640 Administered Medications Medications (Trade) Dose Ordered Sig/Jerrell Route PRN Reason Start Time Stop Time Status Last Admin Dose Admin Sodium Chloride (NS Flush) 2 ml UNSCH PRN IVF FLUSH AFTER USING IV ACCESS 07/24/17 08:45 07/31/17 21:09 Famotidine (Pepcid Inj) 20 mg Q12HR IV PUSH 07/24/17 21:00 08/02/17 21:00 Albuterol/ Ipratropium (Duoneb Neb) 1 ampule Q2HR NEB PRN INH WHEEZING 07/24/17 12:00 07/31/17 10:49 Miscellaneous Information 1 Q361D XX 07/24/17 12:00 07/24/17 12:00 Chlorhexidine Gluconate (Chlorhexidine 2% Cloth) Taper DAILY@04 TOP 07/25/17 04:00 07/21/18 03:59 07/28/17 23:23 Senna/Docusate Sodium (Danae-Colace) 1 tab BID PO 07/24/17 21:00 07/30/17 10:27 Insulin Human Regular (NovoLIN R SUPPLEMENTAL SCALE) 1 Q6H SQ 07/24/17 12:00 08/02/17 18:00 Acetaminophen (Tylenol) 650 mg Q4H PRN PO PAIN 07/24/17 21:30 08/03/17 03:26 Melatonin (Melatonin) 5 mg HS PRN PO INSOMNIA 07/26/17 12:30 08/02/17 21:00 Nystatin (Mycostatin Powder) 1 applic Q8HR TOPICAL 07/28/17 15:00 07/31/17 05:19 Ipratropium [place] (Atrovent Neb) 0.5 mg Q6HR NEB NEB 07/29/17 10:00 08/03/17 04:19 Prednisone (Deltasone) 30 mg DAILY PO 07/31/17 09:00 08/02/17 09:29 Objective Remarks GENERAL APPEARANCE: Ms. Castorena is a middle-age/elderly lady. She is sitting up in bed. She appears to be in no acute distress. She has a pleasant disposition. She coughs frequently through this interview. HEENT: Head atraumatic, normocephalic. Conjunctivae are mildly pale. Sclerae are anicteric. EOMI, PERRLA. Oral exam, no pharyngeal erythema. NECK: She has bilateral pathologically enlarged cervical lymph nodes. RESPIRATORY: Good air movement bilaterally over the upper and middle lung zones. Decreased bibasilar breath sounds and bibasilar dullness to percussion noted. CARDIOVASCULAR: Regular. S1, S2, without any murmurs, rubs or gallops. ABDOMEN: Protuberant belly, soft, nontender, nondistended. No palpable organ enlargement. LOWER EXTREMITIES: No pretibial edema. No calf tenderness. MUSCULOSKELETAL: She has scoliosis of her spine but no other joint effusions or abnormal tender areas noted. CENTRAL NERVOUS SYSTEM: No focal sensory or motor deficits. Assessment/Plan Problem List: (1) Non-small cell carcinoma of lung ICD Codes: C34.90 - Malignant neoplasm of unspecified part of unspecified bronchus or lung Plan: --Patient has a [id number] smoking history --Fluid from pericardial effusion shows Non-small cell carcinoma with features suspicious for adenocarcinoma --CT of the chest shows scattered enlarged nodes in the prevascular [employer] [place] [employer]. There is also noted mediastinal adenopathy with one node measuring 2.9 x 2.9 cm. --Right neck lymph node biopsy done on 07/31 Assessment 67-year-old female with new diagnosis of non-small cell lung cancer Plan 1. NSCLC, advanced stage: pathology from cervical lymph node pending. Will have ROS1, ALK, EGFR and PDL1 testing performed on this specimen. Will order MRI brain to complete staging. 2. Right sided staghorn stone with dilation of collecting system: patient with history of nephrolithiasis. Will consult urology for further evaluation and management. 3. Bilateral pleural effusion; now with a new left-sided pleural effusion which was not present on initial CT imaging. I will request ultrasound guided left-sided thoracentesis. Fluid does not need to be sent for cytology. This will be purely therapeutic. Jorge Ruiz MD Aug 03, 2017 08:22
[2017-08-03 08:56] VITALS: O2SAT 95
[2017-08-03] MEDS: DOCUSATE SODIUM 50 MG/SENNA 8.6 MG TAB PO SCH (09:00)
--- NOTE | 2017-08-03 09:20 | MB ---
cc: Ward Santana MD DATE: 08/03/2017 REASON FOR CONSULTATION: Right staghorn renal calculus. HISTORY OF PRESENT ILLNESS: The patient is a 67-year-old female with a longstanding history of kidney stones, who presented to [facility] approximately 10 days ago with shortness of breath over the last 3 days. In the ED, she was found to be hypotensive with a white count of 15,000 and a lactic acid of 5.6. Chest x-ray at that time showed patchy opacities within the right mid lower lung ochoa. She subsequently underwent a CT scan of the chest that showed a large pericardial effusion, mediastinal adenopathy with the node measuring 3 cm. She subsequently underwent a CT guided pericardiocentesis with removal of 500 mL of hemorrhagic fluid and a drain was placed. She also underwent ultrasound-guided thoracentesis with over 1 liter of clear urine returned. During that time, she was also found to have a lung mass. During this admission, she was subsequently diagnosed with non-small cell cancer of the lung. She underwent a staging CT of the abdomen and pelvis without contrast done which showed retroperitoneal lymphadenopathy, but also a 4.6 cm staghorn renal calculus of her right kidney. Urology was consulted for these findings. Currently, the patient denies any right flank pain, nausea, vomiting, fevers or chills. She did have a percutaneous nephrolithotomy in the past, back in 1982 in [place] on the right side. Her last stone episode was approximately 10 years ago. She denies hematuria or a family history of kidney stones. She currently would like to have these issues treated first prior to treating her kidney stone. PAST MEDICAL HISTORY: Significant for kidney stones. PAST SURGICAL HISTORY: x 3, hysterectomy, right percutaneous nephrolithotomy. ALLERGIES: MORPHINE. FAMILY HISTORY: Denies urolithiasis or genitourinary malignancies. Mother of complications of diabetes. SOCIAL HISTORY: The patient is originally from [place]. She has been a for about 15 years. She lives at home with her sister. She has a 50 pack year history of smoking. Occasional alcohol. Denies illicit drugs. HOME MEDICATIONS: None. REVIEW OF SYSTEMS: See HPI, otherwise all systems reviewed are otherwise negative. PHYSICAL EXAM: VITAL SIGNS: Temperature 96.4, pulse 106, respiratory rate 16, blood pressure 136/69, saturating 92% on 3 liters nasal cannula. GENERAL: She is alert and oriented x 3, in no apparent distress, pleasant and cooperative lady who appears her stated age. HEAD: Head is normocephalic, atraumatic. LUNGS: Clear to auscultation bilaterally. No wheeze, rales or rhonchi. HEART: Regular rate and rhythm. No murmurs, gallops, or rubs. ABDOMEN: Soft, nontender, nondistended, positive bowel sounds. GENITOURINARY: No CVA tenderness bilaterally. PELVIC: Exam not indicated at this time. EXTREMITIES: Nontender. No clubbing, cyanosis or edema. NECK: Supple. Trachea is midline. No JVD. EYES: No scleral icterus. Extraocular muscles intact. EARS: External auditory canals normal. NOSE: External nares normal. NEUROLOGIC: Cranial nerves 2-12 intact. Strength 5/5 all 4 extremities. LABORATORY DATA: White count 16.6, hemoglobin 15.9, hematocrit 45.0, platelet count 461. Chemistry: Sodium 142, potassium 3.4, chloride 103, bicarbonate 29.7, creatinine 0.7, BUN 7, glucose 149. IMAGING STUDIES: CT abdomen and pelvis with and without contrast images reviewed. Agree with radiologist report, the patient has a staghorn calculus approximately 4.5 cm in her right lower pole extending to her renal pelvis. ASSESSMENT AND PLAN: The patient is a 67-year-old female with newly diagnosed, non-small cell carcinoma of the lung, possible metastatic non-small cell carcinoma of the lung with a right renal staghorn calculus. PLAN: The patient will eventually need a right percutaneous nephrolithotomy due to the size of that stone which can be done as an outpatient, For now, I would just recommend conservative treatment. The patient understands the above plan. She agrees that she will eventually need treatment of this stone which can be done on an outpatient basis. Thank you for this consult. Please call with any questions. I will be available as needed. Ward Santana MD EMF/DL , 08:26 AM , 09:19 AM
[2017-08-03 09:22] VITALS: PULSE 110
[2017-08-03] MEDS: predniSONE 10 MG TAB PO SCH (09:24)
[2017-08-03] MEDS: FAMOTIDINE 20 MG/2 ML VIAL IV PUSH SCH (09:25)
--- NOTE | 2017-08-03 11:17 | PD.RAD ---
Post US Procedure Prog Note Pre Procedure Diagnosis: (1) Recurrent right pleural effusion (2) Pneumonia (3) Non-small cell carcinoma of lung Post Procedure Diagnosis: (1) Recurrent right pleural effusion (2) Pneumonia (3) Non-small cell carcinoma of lung Procedure Date: Aug 03, 2017 Supervising Radiologist: Mich Clarke Anesthesia: Local Plan of Activity Patient to Unit: Nursing Unit Patient Condition: Good See PACS Report for procedural detail/treatment Drainage Procedure Procedure 1 Imaging Guidance: Ultrasound Side: Right Procedure Type: Thoracentesis Procedure: Removal Drainage: Suction Fluid Description: Mich Pelayo MD Aug 03, 2017 11:17
--- NOTE | 2017-08-03 11:30 | RADRPT ---
EXAM DATE/TIME: 08/03/2017 11:01 [facility] COMPARISON: CHEST EXPIRATION ONLY, July 24, 2017, 16:57. INDICATIONS : Post left thoracentesis. MEDICAL HISTORY : Kidney stones. Lung cancer SURGICAL HISTORY : section. Hysterectomy. Kidney stones removed. ENCOUNTER: Subsequent ACUITY: 1 day PAIN SCORE: 0/10 LOCATION: Left chest FINDINGS: A single frontal expiratory view of the chest was performed. The left lung remains well-expanded without pneumothorax. Subsegmental airspace disease is seen in th e left base. Patchy airspace disease is seen in the right lung. Heart and mediastinal structures are stable. CONCLUSION: No evidence of pneumothorax following thoracentesis. Mild bilateral airspace disease. Mich Clarke MD on August 03, 2017 at 11:24 Board Certified Radiologist. This report was verified electronically.
[2017-08-03] MEDS ORDERED: LIDOCAINE HCL 1% 20 ML VIAL ONE (11:57)
--- NOTE | 2017-08-03 12:04 | RADRPT ---
EXAM DATE/TIME: 08/03/2017 11:05 [facility] COMPARISON: No previous studies available for comparison. INDICATIONS : Left pleural effusion. MEDICAL HISTORY : Renal calculi. Pleural effusion. SURGICAL HISTORY : Hysterectomy. section. ENCOUNTER: Initial ACUITY: 3 days PAIN SCORE: 3/10 LOCATION: Left chest FLUID: Total volume of 800 cc of clear, red fluid was removed. Fluid was discarded. Thoracentesis was therapeutic only. TECHNIQUE: 1. Ultrasound guidance for thoracentesis. 2. Thoracentesis. The risks, benefits, and alternatives to ultrasound guided thoracentesis were explained to the patien t in lay simple terms, including the risk of bleeding and infection. Written and verbal informed con sent was obtained. Appropriate area for thoracentesis was marked under ultrasound guidance with the patient in the uprig ht position. Overlying skin was prepped and draped in the usual sterile fashion and with local anest hetic, a dermatotomy was made with an 11 blade scalpel. A 6 [place] thoracentesis catheter was placed in the pleural space and fluid was removed. Catheter was then removed and a sterile dressing applie d. There were no immediate complications. The patient tolerated the procedure well and the left the ultrasound suite in stable condition. Chest radiograph is to be obtained. CONCLUSION: Uncomplicated ultrasound guided thoracentesis. Mich Clarke MD on August 03, 2017 at 12:01 Board Certified Radiologist. This report was verified electronically.
[2017-08-03] MEDS ORDERED: GADODIAMIDE PF 287 MG/ML 5 ML VIAL (for RAD MRI) IVCONTRAST ONE (13:52)
--- NOTE | 2017-08-03 14:51 | HHI.FF ---
Face to Face Verification Diagnosis: (1) Bilateral pleural effusion (2) Non-small cell carcinoma of lung (3) Influenza A Physical Therapy Order: Evaluate and Treat Home Health Nursing Order: Signs/symptoms of disease process Oxygen administration education Nursing assessment with vital signs I have seen patient Sameera Castorena on 08/03/17. My clinical findings support the need for the requested home health care services because: Patient has SOB I certify that my clinical findings support that this patient is homebound because: Unsafe to leave home unassisted Enrrique Stewart MD Aug 03, 2017 14:51
[2017-08-03] MEDS ORDERED: Nystatin Powder TOPICAL (14:55)
[2017-08-03] MEDS ORDERED: PRED10 PO (14:55)
[2017-08-03] MEDS ORDERED: ALBUAER3 INH (14:57)
--- NOTE | 2017-08-03 14:58 | RADRPT ---
EXAM DATE/TIME: 08/03/2017 13:41 [facility] COMPARISON: No previous studies available for comparison. INDICATIONS : Metastatic disease. CONTRAST: 19 cc Omniscan (gadodiamide) IV MEDICAL HISTORY : Renal calculi. SURGICAL HISTORY : section. Hysterectomy. ENCOUNTER: Initial ACUITY: 4-6 days PAIN SCORE: 0/10 LOCATION: Head TECHNIQUE: Multiplanar, multisequence MRI of the brain was performed both prior to and following the administrat ion of paramagnetic contrast. FINDINGS: CEREBRUM: The ventricles are normal for age. No evidence of midline shift, mass lesion, hemorrhage or acute in farction. No extraaxial fluid collections are seen. The pituitary gland and suprasellar cistern are normal in configuration. WHITE MATTER: Scattered punctate areas of white matter T2 prolongation which may be microvascular ischemic. POSTERIOR FOSSA: The cerebellum and brainstem are intact. The 4th ventricle is midline. The cerebellopontine angle is unremarkable. The cerebellar tonsils are normal in position. DIFFUSION IMAGING: No focal areas of restricted diffusion are seen. No evidence of acute infarction. EXTRACRANIAL: The visualized portions of the orbits and paranasal sinuses are unremarkable. POST-CONTRAST: No abnormal areas of parenchymal or dural enhancement. No evidence of blood-brain barrier breakdown. CONCLUSION: Mild patchy white matter disease. Nothing to suggest metastatic disease. Aunpam Dee MD on August 03, 2017 at 14:49 Board Certified Radiologist. This report was verified electronically.
[2017-08-03 16:00] VITALS: BP 134/63; PULSE 105; RESP 20; TEMP 97.5; O2SAT 93
--- NOTE | 2017-08-03 16:47 | HHI.DS ---
Discharge Summary Admission Date Jul 24, 2017 at 11:27 Discharge Date: Aug 03, 2017 Admitting Diagnosis sepsis (1) Influenza A ICD Code: J10.1 - Influenza due to other identified influenza virus with other respiratory manifestations Status: Acute (2) Septic shock ICD Code: A41.9 - Sepsis, unspecified organism; R65.21 - Severe sepsis with septic shock Status: Acute (3) Pneumonia ICD Code: J18.9 - Pneumonia, unspecified organism Status: Acute (4) Pericardial effusion with cardiac tamponade ICD Code: I31.3 - Pericardial effusion (noninflammatory); I31.4 - Cardiac tamponade (5) Vulvovaginitis due to yeast ICD Code: B37.3 - Candidiasis of vulva and vagina (6) Non-small cell carcinoma of lung ICD Code: C34.90 - Malignant neoplasm of unspecified part of unspecified bronchus or lung Procedures pericardiocentesis ultrasound-guided thoracentesis right neck lymph node bx Brief History - From Admission The patient is a 67-year-old female without a past medical history who presented to [place] ED for shortness of breath that gradually worsened in the last 3 days and not feeling well overall. She had cold-like symptoms a month ago. She denies any associated symptoms of chest pain, orthopnea, PND or edema of lower extremities. In addition, she denies any nausea, vomiting, abdominal pain. On arrival to the ED, she was tachycardic and borderline blood pressure with a systolic pressure in the 90s. She received approximately 2 liters of crystalloids in the ED. Her laboratory data was significant for leukocytosis with a WBC of 15.7 and lactic acidemia with a lactic acid level of 5.6. Her nasal aspirate in the ED was positive for flu A antigen. A chest x-ray in the ED showed patchy opacities within the right mid and lower lung ochoa. Subsequently, the patient underwent CT scan of the chest which showed a large pericardial effusion, large right-sided pleural effusion, mediastinal adenopathy with 1 node measuring at least 2.9 x 2.9 cm and enlarged nodes in the prevascular [place], largest measures 1.3 x 1.7 cm. In the ED, she was given ceftriaxone, azithromycin and IV fluids. The patient subsequently was transferred to the Radiology Department at [facility] where she underwent a CT guided pericardiocentesis with removal of 500 mL of hemorrhagic fluid, a pericardial drain in place. Also, she underwent ultrasound-guided thoracentesis with removal of 1100 mL of clear yellow pleural fluid. The patient's hemodynamics overall improved with current blood pressure of 169/80 with a pulse of 119, and saturation 95% on 2 liters oxygen. She feels better overall. The patient states that she has not seen a physician for over 10 years. She is an active smoker with a [id number] history of smoking. She denies any history of pulmonary lung disease or malignancy. CBC/BMP: 07/31/17 1640 Imaging Last Impressions Abdomen/Pelvis CT 08/02/17 0000 Signed Impressions: Service Date/Time: Wednesday, August 02, 2017 12:56 - CONCLUSION: 1. Staghorn like stone in the inferior right collecting system extending into the right renal pelvis causing moderate to severe dilatation of the superior and mid right collecting system. 2. Gallstones 3. Scattered colonic diverticula without inflammatory change. 4. Bilateral pleural effusions being moderate on the left and mild on the right with accompanying areas of atelectasis or consolidation. 5. Nonspecific 1.8 cm lymph node in the right inguinal region. 6. Solitary small sclerotic area in the left ilium likely related to a bone island although other causes for sclerotic lesions cannot be excluded. 7. Degenerative change in the lumbar spine. Anupam Glover MD Lymph Node Biopsy Ultrasound 07/31/17 0000 Signed Impressions: Service Date/Time: Monday, July 31, 2017 10:24 - CONCLUSION: Uncomplicated ultrasound guided needle biopsy of enlarged lymph node in the right neck. Bartolo Rowland MD Chest X-Ray 07/27/17 0600 Signed Impressions: Service Date/Time: Thursday, July 27, 2017 04:31 - CONCLUSION: Right mid and lower lung consolidation and bilateral pleural effusions, stable. Darrell Ritchie MD Pericardiocentesis 07/24/17 1640 Signed Impressions: Service Date/Time: Monday, July 24, 2017 15:12 - CONCLUSION: Uncomplicated pericardial drainage as above. A total of about 500 cc of hemorrhagic fluid was removed. The patient's vitals stabilized following the pericardial drainage. David Baez MD Thoracentesis Ultrasound 07/24/17 0000 Signed Impressions: Service Date/Time: Monday, July 24, 2017 16:18 - CONCLUSION: Uncomplicated ultrasound guided thoracentesis. David Baez MD Chest CT 07/24/17 0000 Signed Impressions: Service Date/Time: Monday, July 24, 2017 12:52 - CONCLUSION: 1. Sizable pericardial effusion. 2. Scattered, enlarged nodes evident in the prevascular [place]. The largest measures 1.3 x 1.7 cm. The exam also demonstrates a 1.6 x 1.8 cm right axillary node. There is mediastinal adenopathy as well with at least one node measuring 2.9 x 2.9 cm. The exam is concerning for malignancy. 3. Atherosclerotic plaquing in the coronary arteries. 4. There are 2 pulmonary nodules on the left. The largest measures 1.1 x 1.7 cm. 5. Moderate size right pericardial effusion. David Baez MD PE at Discharge Very mild crackles in bilateral bases, slightly diminished breath sounds at the bases, greater aeration on the left compared to the right, very minimally labored breathing with no cyanosis, doing well on room air ambulating down the hallway with aspiratory therapy Pt update on day of discharge Patient has significantly improved shortness of breath after her thoracentesis. Hospital Course Patient was admitted with respiratory distress, started on antibiotics Tamiflu. She had a pericardial drain placed with significant improvement in her symptoms and blood pressure. Oncology was consulted given the patient's history of suspected cancer. Patient underwent left-sided thoracentesis with significant improvement. Her pericardial effusion studies showed cells concerning for adenocarcinoma. 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 She remained afebrile throughout the latter half of her hospitalization and blood cultures were negative. Urology had also been consulted for a right staghorn calculi which they deemed more appropriate for outpatient management given her acute issues. Patient passed her walk test and was deemed stable for discharge per oncology with close follow-up. Patient has met maximal benefit from hospitalization is clinically stable for discharge with a steroid taper. Patient was informed that she could have possible reaccumulation of her pleural fluid and that she should consider being evaluated for a chest tube and pleurodesis procedure in future. Pt Condition on Discharge: Stable Discharge Disposition: Disch w/ Home Health Serv Discharge Time: <= 30 minutes Discharge Instructions DIET: Follow Instructions for: As Tolerated, No Restrictions Activities you can perform: Weight Bearing as Osmani Follow up Referrals: Oncology - 10 Days with Jorge Ruiz MD PCP Follow-up - 1 Week Pulmonology - 2 Weeks with Beatriz Reeves MD New Medications: Albuterol 8.5 GM Inh (Proair Hfa 8.5 GM Inh) 90 Mcg/Act Aer 2 PUFF INH Q4-6H PRN for SHORTNESS OF BREATH, #1 INHALER 0 Refills 108 mcg/actuation Prednisone (Prednisone) 10 Mg Tab 10 MG PO DIRECTED for copd, #30 TAB 0 Refills 30 mg for 4 d, then 20 mg for 4 d, then 10 mg daily [Nystatin Powder] () 15 APPLIC/15 GM POWD 1 APPLIC TOPICAL Q8HR, #1 BOTTLE Enrrique Stewart MD Aug 03, 2017 16:46
[2017-08-03] MEDS ORDERED: FAMOTIDINE 20 MG TAB PO SCH (21:00)
== END 2017-08-03 16:55 | disposition home or self-care (01) | DRG 853 ==
LOC: PHED 08:18 → PHEDA 11:27 → HIMW 17:20 → HOCA 07-29 12:35
PROVIDERS: ADMIT Hospitalist; ATTEND Hospitalist
PROC: 0W9D30Z Drainage of Pericardial Cavity with Drainage Device, Percutaneous Approach (ICD-10-PCS; 2017-07-24)
PROC: 0W993ZX Drainage of Right Pleural Cavity, Percutaneous Approach, Diagnostic (ICD-10-PCS; 2017-07-24)
PROC: 07B13ZX Excision of Right Neck Lymphatic, Percutaneous Approach, Diagnostic (ICD-10-PCS; principal; 2017-07-31)
PROC: 0W9B3ZZ Drainage of Left Pleural Cavity, Percutaneous Approach (ICD-10-PCS; 2017-08-03)
DX: A41.9 Sepsis, unspecified organism (principal); J10.00 Influenza due to other identified influenza virus with unspecified type of pneumonia; I31.4 Cardiac tamponade; R65.21 Severe sepsis with septic shock; I31.2 Hemopericardium, not elsewhere classified; E87.2 Acidosis; J90 Pleural effusion, not elsewhere classified; C34.90 Malignant neoplasm of unspecified part of unspecified bronchus or lung; C77.0 Secondary and unspecified malignant neoplasm of lymph nodes of head, face and neck; B37.3 Candidiasis of vulva and vagina; C79.89 Secondary malignant neoplasm of other specified sites; Z87.442 Personal history of urinary calculi; R00.0 Tachycardia, unspecified; R59.0 Localized enlarged lymph nodes; R06.89 Other abnormalities of breathing; E66.9 Obesity, unspecified; Z68.33 Body mass index [BMI] 33.0-33.9, adult; F41.9 Anxiety disorder, unspecified; F17.210 Nicotine dependence, cigarettes, uncomplicated; Z86.19 Personal history of other infectious and parasitic diseases; Z83.3 Family history of diabetes mellitus; N20.0 Calculus of kidney
CPT/HCPCS: 32555; 33010; 38505; 70553; 71045; 71250; 74177; 76937; 76942; 77012; 80048; 80053; 82105; 82378; 82550; 82945; 82948; 83605; 83615; 83735; 83880; 83986; 84100; 84157; 84484; 85025; 85027; 85610; 85730; 86301; 87040; 87070; 87102; 87205; 87206; 87641; 87804; 88112; 88184; 88185; 88305; 88341; 88342; 89051; 93005; 94150; 94618; 94640; 94664; 94667; 94668; 96361; 96365; A9579; C1729; C1769; J0456; J0696; J1644; J2250; J2405; J2543; J2920; J3010; J3370; J7030; J7050; J7512; J7613; J7644; Q9963; Q9967

== ENCOUNTER 2017-08-09 08:57 | Inpatient (IN) | payer MEDICARE ==
[~2017-08-09] VITALS: Ht 167.6 cm; Wt 106.5 kg
[2017-08-09] VITALS (16 sets, daily range): BP systolic 104–163; BP diastolic 53–84; PULSE 110–119; RESP 16–26; TEMP 97.5–98.3; O2SAT 0–100
[~2017-08-09 08:57] MED LIST: ALBUAER3 INH; Nystatin Powder TOPICAL; PRED10 PO
[2017-08-09] MEDS ORDERED: SODIUM CHLOR 0.9% 1000 ML INJ 1,000 ML IV ONE (09:27)
[2017-08-09] MEDS ORDERED: SODIUM CHLORIDE 0.9% FLUSH 10 ML FLUSH IVF PRN (09:30)
--- NOTE | 2017-08-09 10:04 | PD ---
HPI Chief Complaint: Respiratory Symptoms Time Seen by Provider: 09:13 Travel History International Travel<30 days: No Contact w/Intl Traveler<30days: No Traveled to known affect area: No History of Present Illness HPI 67-year-old female admitted to the hospital in July for sepsis, was found to have bilateral pleural effusions and had thoracentesis as well as a pleural effusion requiring pericardiocentesis, cytology showed nonspecific adenocarcinoma, here for evaluation of shortness of breath. Patient reports feeling short of breath at rest for the last 2 days which has been worsening, and is worse with exertion. She feels that her symptoms are similar to when she was admitted in July. She has had subjective fevers. She has also had a nonproductive cough. No hemoptysis. PFSH Past Medical History Arthritis: No Cancer: Yes (ADENOCARCINOMA ) Cardiovascular Problems: Yes (pericardial effusion ) Cerebrovascular Accident: No Diminished Hearing: No Endocrine: No Immune Disorder: No Kidney Stones: Yes Musculoskeletal: No Neurologic: No Psychiatric: No Reproductive: No Respiratory: Yes (Pleural Effusion ) Immunizations Current: Yes Migraines: No Seizures: No Tetanus Vaccination: Never Vaccinated Influenza Vaccination: No Past Surgical History Abdominal Surgery: No Cardiac Surgery: No Section: Yes (X3) Ear Surgery: No Endocrine Surgery: No Eye Surgery: No Genitourinary Surgery: Yes (REMOVAL OF KIDNEY STONES) Gynecologic Surgery: Yes (C-sections ) Hysterectomy: Yes Oral Surgery: No Thoracic Surgery: No Social History Alcohol Use: Yes (OCCAS) Tobacco Use: No (quit 2 weeks ago ) Substance Use: No Allergies-Medications (Allergen,Severity, Reaction): Coded Allergies: morphine (Verified Allergy, Intermediate, HIVES, 08/09/17) Reported Meds & Prescriptions Reported Meds & Active Scripts Active Proair Hfa 8.5 GM Inh (Albuterol Sulfate) 90 Mcg/Act Aer 2 Puff INH Q4-6H PRN 108 mcg/actuation [Nystatin Powder] 15 APPLIC/15 GM Powd 1 Applic TOPICAL Q8HR Prednisone 10 Mg Tab 10 Mg PO DIRECTED 30 mg for 4 d, then 20 mg for 4 d, then 10 mg daily Review of Systems Except as stated in HPI: all other systems reviewed are Neg Physical Exam Narrative GENERAL: Pleasant, well-developed, well-nourished, comfortable, no apparent distress. SKIN: Focused skin assessment warm/dry. HEAD: Atraumatic. Normocephalic. EYES: Pupils equal and round. No scleral icterus. No injection or drainage. ENT: Mucous membranes pink and moist. NECK: Trachea midline. No JVD. CARDIOVASCULAR: Tachycardic, rate 120, regular. RESPIRATORY: No accessory muscle use. Clear to auscultation. Breath sounds equal bilaterally. GASTROINTESTINAL: Abdomen soft, non-tender, nondistended. MUSCULOSKELETAL: No obvious deformities. No clubbing. No cyanosis. No edema. NEUROLOGICAL: Awake and alert. No obvious cranial nerve deficits. Motor grossly within normal limits. Normal speech. PSYCHIATRIC: Appropriate mood and affect; insight and judgment normal. Data Data Last Documented VS Vital Signs Date Time Temp Pulse Resp B/P (MAP) Pulse Ox O2 Delivery O2 Flow Rate FiO2 08/09/17 12:00 114 26 96 Room Air 08/09/17 11:00 2.00 08/09/17 09:02 98.3 Orders Orders Complete Blood Count With Diff (08/09/17:) Comprehensive Metabolic Panel (08/09/17:27) Act Partial Throm Time (Ptt) (08/09/17 09:27) Prothrombin Time / Inr (Pt) (08/09/17 09:27) Ckmb (Isoenzyme) Profile (08/09/17:27) Troponin I (08/09/17:27) Iv Access Insert/Monitor (08/09/17 09:27) Electrocardiogram (08/09/17:27) Ecg Monitoring (08/09/17:27) Oximetry (08/09/17 09:27) Oxygen Administration (08/09/17 09:27) Chest, Single Ap (08/09/17 09:27) Sodium Chloride 0.9% Flush (Ns Flush) (08/09/17 09:30) Lactic Acid Sepsis Protocol (08/09/17 09:27) Blood Culture (08/09/17 09:27) Sodium Chlor 0.9% 1000 Ml Inj (Ns 1000 M (08/09/17 09:27) Cefepime Inj (Maxipime Inj) (08/09/17 10:45) Azithromycin Inj (Zithromax Inj) (08/09/17 10:45) Ct Pulmonary Angiogram (08/09/17 ) Iohexol 350 Inj (Omnipaque 350 Inj) (08/09/17 11:23) Labs Laboratory Tests Test 08/09/17 09:20 08/09/17 09:49 White Blood Count 21.5 TH/MM3 Red Blood Count 5.23 MIL/MM3 Hemoglobin 15.0 GM/DL Hematocrit 45.2 % Mean Corpuscular Volume 86.3 FL Mean Corpuscular Hemoglobin 28.6 PG Mean Corpuscular Hemoglobin Concent 33.2 % Red Cell Distribution Width 14.3 % Platelet Count 408 TH/MM3 Mean Platelet Volume 8.8 FL Neutrophils (%) (Auto) 84.9 % Lymphocytes (%) (Auto) 7.8 % Monocytes (%) (Auto) 6.8 % Eosinophils (%) (Auto) 0.2 % Basophils (%) (Auto) 0.3 % Neutrophils # (Auto) 18.3 TH/MM3 Lymphocytes # (Auto) 1.7 TH/MM3 Monocytes # (Auto) 1.5 TH/MM3 Eosinophils # (Auto) 0.0 TH/MM3 Basophils # (Auto) 0.1 TH/MM3 CBC Comment DIFF FINAL Differential Comment Prothrombin Time 11.1 SEC Prothromb Time International Ratio 1.1 RATIO Activated Partial Thromboplast Time 23.6 SEC Blood Urea Nitrogen 19 MG/DL Creatinine 0.79 MG/DL Random Glucose 133 MG/DL Total Protein 7.0 GM/DL Albumin 2.8 GM/DL Calcium Level 8.8 MG/DL Alkaline Phosphatase 105 U/L Aspartate Amino Transf (AST/SGOT) 18 U/L Alanine Aminotransferase (ALT/SGPT) 15 U/L Total Bilirubin 1.0 MG/DL Sodium Level 141 MEQ/L Potassium Level 3.4 MEQ/L Chloride Level 104 MEQ/L Carbon Dioxide Level 25.9 MEQ/L Anion Gap 11 MEQ/L Estimat Glomerular Filtration Rate 72 ML/MIN Total Creatine Kinase 45 U/L Troponin I LESS THAN 0.02 NG/ML Lactic Acid Level 3.4 mmol/L MDM Medical Decision Making Medical Screen Exam Complete: Yes Emergency Medical Condition: Yes Differential Diagnosis Pericardial effusion, pleural effusion, PE, ACS, pneumonia Narrative Course Vital signs reviewed. CBC is remarkable for WBC 21.5 with 85% neutrophils. CMP is essentially unremarkable. Lactic acid is 3.4. Cardiac enzymes are negative. CT pulmonary angiogram: CONCLUSION: 1. No evidence of pulmonary emboli. 2. Moderate bilateral pleural effusions which are increased from the prior study. 3. Mediastinal adenopathy without significant change. 4. Consolidation in the right anterior lung base. 5. Multiple pulmonary nodules and nodular area of consolidative opacity in the left lower lobe. 6. Prominent lymph nodes in both axillary regions right greater than left. There are postsurgical changes noted on the left. 7. Small pericardial effusion which is decreased from the prior study. Patient was made aware of all findings. She was started on cefepime and azithromycin as well as given normal saline IV. She remains tachycardic with a heart rate of 119. She feels short of breath, however does not appear to be any respiratory distress. Her shortness of breath is definitely made worse with exertion. She will be admitted for further treatment and evaluation of sepsis, pneumonia, bilateral pleural effusions, dyspnea. Case discussed with the medical residents and the patient will be admitted to their service under Dr. Rg. Diagnosis Primary Impression: Sepsis Qualified Codes: A41.9 - Sepsis, unspecified organism Additional Impressions: Pneumonia Qualified Codes: J18.1 - Lobar pneumonia, unspecified organism Bilateral pleural effusion Respiratory distress Admitting Information Admitting Physician Requests: Admit Kiko Pennington MD Aug 09, 2017 10:04
[2017-08-09 10:11] LABS: AUTOMATED NEUTROPHIL # 18.3 TH/MM3 (1.8-7.7); BASOPHIL # 0.1 TH/MM3 (0-0.2); BASOPHIL % 0.3 % (0.0-2.0); EOSINOPHIL % 0.2 % (0.0-4.0); HEMATOCRIT 45.2 % (35.0-46.0); LYMPH % 7.8 % (9.0-44.0); LYMPHOCYTE # 1.7 TH/MM3 (1.0-4.8); MEAN CELL VOLUME 86.3 FL (80.0-100.0); MEAN CORPUSCULAR HEMOGLOBIN 28.6 PG (27.0-34.0); MEAN CORPUSCULAR HGB CONC 33.2 % (32.0-36.0); MEAN PLATELET VOLUME 8.8 FL (7.0-11.0); MONO % 6.8 % (0.0-8.0); MONOCYTE # 1.5 TH/MM3 (0-0.9); NEUT % 84.9 % (16.0-70.0); PLATELET COUNT 408 TH/MM3 (150-450); RED BLOOD COUNT 5.23 MIL/MM3 (4.00-5.30); RED CELL DISTRIBUTION WIDTH 14.3 % (11.6-17.2); WHITE BLOOD COUNT 21.5 TH/MM3 (4.0-11.0)
[2017-08-09 10:14] LABS: INTERNATIONAL NORMALIZED RATIO 1.1 RATIO; PROTHROMBIN TIME - PATIENT 11.1 SEC (9.8-11.6)
--- NOTE | 2017-08-09 10:17 | RADRPT ---
EXAM DATE/TIME: 08/09/2017 09:53 [facility] COMPARISON: CHEST SINGLE AP, July 27, 2017, 4:31. INDICATIONS : Short of Breath pleural effusions. Status post thoracentesis MEDICAL HISTORY : Kidney stones. Lung cancer SURGICAL HISTORY : section. Hysterectomy. Kidney stones removed. ENCOUNTER: Initial ACUITY: 1 day PAIN SCORE: 0/10 LOCATION: chest FINDINGS: 2 AP erect views of the chest were obtained and demonstrate blunting of the right costophrenic angle. There is mild volume loss right hemithorax with mediastinal shift to the right. Hazy opacity remains in both lung bases. There is moderate cardiomegaly. The patient is mildly rotated to the right. Mult iple overlying retrocardiac region present. There is no evidence of pneumothorax. CONCLUSION: 1. The right costophrenic angle is now blunted and there is hazy opacity in both lung bases most cons istent with infiltrates and effusions. 2. The patient is mildly rotated to the right however there is volume loss in the right hemithorax wi th shift to the right. 3. Moderate cardiomegaly. Gerson Juárez MD on August 09, 2017 at 10:13 Board Certified Radiologist. This report was verified electronically.
[2017-08-09 10:37] LABS: ALBUMIN 2.8 GM/DL (3.4-5.0); AST (GOT) 18 U/L (15-37); BICARBONATE 25.9 MEQ/L (21.0-32.0); BLOOD UREA NITROGEN 19 MG/DL (7-18); CALCIUM 8.8 MG/DL (8.5-10.1); CHLORIDE 104 MEQ/L (98-107); CREATININE 0.79 MG/DL (0.50-1.00); GLOMERULAR FILTRATION RATE 72 ML/MIN (>89); GLUCOSE,RANDOM 133 MG/DL (74-106); SODIUM (NA) 141 MEQ/L (136-145)
[2017-08-09 10:43] LABS: ALKALINE PHOSPHATASE 105 U/L (45-117); ALT (GPT) 15 U/L (10-53); TROPONIN I LESS THAN 0.02 NG/ML (0.02-0.05)
[2017-08-09 10:44] LABS: LACTIC ACID SEPSIS PROTOCOL 3.4 mmol/L (0.4-2.0)
[2017-08-09] MEDS ORDERED: AZITHROMYCIN INJ 500 MG in SODIUM CHLOR 0.9% 250 ML INJ 250 ML IV ONE (10:45)
[2017-08-09] MEDS ORDERED: CEFEPIME INJ 2,000 MG in SODIUM CHLORIDE 0.9% INJ 100 ML IV ONE (10:45)
[2017-08-09] MEDS ORDERED: IOHEXOL 350 MG/ML 10 ML VIAL (for RAD DIAG) IVCONTRAST ONE (11:23)
--- NOTE | 2017-08-09 11:52 | RADRPT ---
EXAM DATE/TIME: 08/09/2017 11:11 [facility] COMPARISON: CT THORAX W/O CONTRAST, July 24, 2017, 12:52. CHEST SINGLE AP, August 09, 2017, 9:53. INDICATIONS : Shortness of breath for three days. Abnormal chest x-ray exam with minimal opacity and volume loss in the right hemithorax. IV CONTRAST: 66 cc Omnipaque 350 (iohexol) IV RADIATION DOSE: 17.17 CTDIvol (mGy) MEDICAL HISTORY : adenocarcinoma SURGICAL HISTORY : Hysterectomy. ENCOUNTER: Initial ACUITY: 1 day PAIN SCALE: 0/10 LOCATION: Bilateral chest TECHNIQUE: Volumetric scanning of the chest was performed using a pulmonary embolism protocol MIP images were re constructed. Using automated exposure control and adjustment of the mA and/or kV according to patien t size, radiation dose was kept as low as reasonably achievable to obtain optimal diagnostic quality images. DICOM format image data is available electronically for review and comparison. Follow-up recommendations for detected pulmonary nodules are based at a minimum on nodule size and pa tient risk factors according to Fleischner Society Guidelines. FINDINGS: PULMONARY ARTERIES: No filling defects are seen in the pulmonary arteries through the segmental level. LUNGS: There is no pneumothorax . Consolidation is noted in the anterior right lung base. There are several small ill-defined pulmonary nodules again noted in the right lower lobe. There is a nodular area of o pacity again noted left lower lobe which is not significantly changed and best visualized on image #5 3. No concerning pulmonary nodule is visualized. PLEURAE: Moderate-sized bilateral pleural effusions are noted which are increased in size from the prior study . MEDIASTINUM: Mediastinal adenopathy is again noted in the trachea. Regions. Not significantly changed right. There is a small amount of pericardial fluid present which is decreased from the prior study. There is bor derline adenopathy in both axillary regions right greater than left. Postsurgical changes are noted i n the right axilla. MUSCULOSKELETAL: Within normal limits for patient age. MISCELLANEOUS: The visualized upper abdominal organs demonstrate no acute abnormality. CONCLUSION: 1. No evidence of pulmonary emboli. 2. Moderate bilateral pleural effusions which are increased from the prior study. 3. Mediastinal adenopathy without significant change. 4. Consolidation in the right anterior lung base. 5. Multiple pulmonary nodules and nodular area of consolidative opacity in the left lower lobe. 6. Prominent lymph nodes in both axillary regions right greater than left. There are postsurgical eriberto nges noted on the left. 7. Small pericardial effusion which is decreased from the prior study. Gerson Juárez MD on August 09, 2017 at 11:43 Board Certified Radiologist. This report was verified electronically.
--- NOTE | 2017-08-09 12:12 | HHI.HP ---
[facility] Service Family Medicine Primary Care Physician Diane Srivastava MD Admission Diagnosis Diagnoses: International Travel<30 Days: No Contact w/Intl Traveler<30days: No Known Affected Area: No History of Present Illness 67 y/o F, comes in with chief complaint of shortness of breath. She came into the hospital in July for pneumonia and septic shock, and was diagnosed with cancer. She left the hospital Thursday and she began to feel the SOB by Thursday. She was given steroids and an inhaler for her sx, but her breathing has been progressively worse since her day of discharge. Over the day today her breathing is getting progressively worse and it is getting hard for her to speak. She is also breaking out in sweats intermittently over the last 2 weeks. She denies any chest pain or chest pressure. She denies any dizzyness. She has not seen any of her doctors since her discharge on Thursday. Review of Systems Constitutional: DENIES: Fatigue, Fever, Chills Endocrine: DENIES: Polydipsia, Polyuria Ears, nose, mouth, throat: DENIES: Vertigo, Nasal discharge Respiratory: DENIES: Sputum production Cardiovascular: COMPLAINS OF: Palpitations, DENIES: Chest pain, Orthopnea Gastrointestinal: DENIES: Constipation, Diarrhea, Nausea, Vomiting Integumentary: DENIES: Pruritus, Rash Hematologic/lymphatic: DENIES: Bruising Neurologic: DENIES: Localized weakness, Seizures Psychiatric: DENIES: Mood changes, Depression Past Family Social History Past Medical History renal stones Past Surgical History x3, previous hysterectomy, bladder uplift, previous surgery for nephrolithiasis. Allergies: Coded Allergies: morphine (Verified Allergy, Intermediate, HIVES, 08/09/17) Family History Brother - Leukemia Social History Smoking x 50 years, 2packs/day Denies alcohol Physical Exam Vital Signs Vital Signs Date Time Temp Pulse Resp B/P (MAP) Pulse Ox O2 Delivery O2 Flow Rate FiO2 08/09/17 12:00 114 26 96 Room Air 08/09/17 11:00 112 104/53 (70) 0 Nasal Cannula 2.00 08/09/17 10:00 116 24 114/70 (85) 95 Nasal Cannula 2.00 08/09/17 09:18 121 23 114/70 (85) 94 Room Air 08/09/17 09:18 94 Nasal Cannula 2.00 08/09/17 09:16 Nasal Cannula 08/09/17 09:02 98.3 119 18 163/60 (94 94 Physical Exam GENERAL: This is a well-nourished, well-developed patient, mildly labored breathing, uncomfortable when sitting up SKIN: No rashes, ecchymoses or lesions. Cool and dry. HEAD: Atraumatic. Normocephalic. No temporal or scalp tenderness. EYES: Pupils equal round and reactive. Extraocular motions intact. No scleral icterus. No injection or drainage. ENT: Nose without bleeding, purulent drainage or septal hematoma. Throat without erythema, tonsillar hypertrophy or exudate. Uvula midline. Airway patent. NECK: Trachea midline. No JVD or lymphadenopathy. Supple, nontender, no meningeal signs. CARDIOVASCULAR: Regular rate and rhythm without murmurs, gallops, or rubs. RESPIRATORY: Clear to auscultation. Breath sounds equal bilaterally. No wheezes , rales, or rhonchi. GASTROINTESTINAL: Abdomen soft, non-tender, nondistended. No hepato-splenomegaly , or palpable masses. No guarding. MUSCULOSKELETAL: Extremities without clubbing, cyanosis, or edema. No joint tenderness, effusion, or edema noted. No calf tenderness. Negative Homans sign bilaterally. NEUROLOGICAL: Awake and alert. Cranial nerves II through XII intact. Motor and sensory grossly within normal limits. Five out of 5 muscle strength in all muscle groups. Normal speech. Laboratory Laboratory Tests Test 08/09/17 09:20 08/09/17 09:49 White Blood Count 21.5 Red Blood Count 5.23 Hemoglobin 15.0 Hematocrit 45.2 Mean Corpuscular Volume 86.3 Mean Corpuscular Hemoglobin 28.6 Mean Corpuscular Hemoglobin Concent 33.2 Red Cell Distribution Width 14.3 Platelet Count 408 Mean Platelet Volume 8.8 Neutrophils (%) (Auto) 84.9 Lymphocytes (%) (Auto) 7.8 Monocytes (%) (Auto) 6.8 Eosinophils (%) (Auto) 0.2 Basophils (%) (Auto) 0.3 Neutrophils # (Auto) 18.3 Lymphocytes # (Auto) 1.7 Monocytes # (Auto) 1.5 Eosinophils # (Auto) 0.0 Basophils # (Auto) 0.1 CBC Comment DIFF FINAL Differential Comment Prothrombin Time 11.1 Prothromb Time International Ratio 1.1 Activated Partial Thromboplast Time 23.6 Blood Urea Nitrogen 19 Creatinine 0.79 Random Glucose 133 Total Protein 7.0 Albumin 2.8 Calcium Level 8.8 Alkaline Phosphatase 105 Aspartate Amino Transf (AST/SGOT) 18 Alanine Aminotransferase (ALT/SGPT) 15 Total Bilirubin 1.0 Sodium Level 141 Potassium Level 3.4 Chloride Level 104 Carbon Dioxide Level 25.9 Anion Gap 11 Estimat Glomerular Filtration Rate 72 Total Creatine Kinase 45 Troponin I LESS THAN 0.02 Lactic Acid Level 3.4 Date/Time Source Procedure Growth Status 08/09/17 09:45 Blood Peripheral Aerobic Blood Culture Pending Received 08/09/17 09:45 Blood Peripheral Anaerobic Blood Culture Pending Received Result Diagram: 08/09/1791908/09/17919 Caprinyaneth VTE Risk Assessment Garcia VTE Risk Assessment: No/Low Risk (score <= 1) Emanuelrini Risk Assessment Model Point Value = 1 Point Value = 2 Point Value = 3 Point Value = 5 Age 41-60 Minor surgery BMI > 25 kg/m2 Swollen legs Varicose veins or History of unexplained or recurrent spontaneous Oral contraceptives or hormone replacement Sepsis (< 1 month) Serious lung disease, including pneumonia (< 1 month) Abnormal pulmonary function Acute myocardial infarction Congestive heart failure (< 1 month) History of inflammatory bowel disease Medical patient at bed rest Age 61-74 Arthroscopic surgery Major open surgery (> 45 min) Laparoscopic surgery (> 45 min) Malignancy Confined to bed (> 72 hours) Immobilizing plaster cast Central venous access Age >= 75 History of VTE Family history of VTE Factor V Leiden Prothrombin [id number] Lupus anticoagulant Anticardiolipin antibodies Elevated serum homocysteine Heparin-induced thrombocytopenia Other congenital or acquired thrombophilia Stroke (< 1 month) Elective arthroplasty Hip, pelvis, or leg fracture Acute spinal cord injury (< 1 month) Prophylaxis Regimen Total Risk Factor Score Risk Level Prophylaxis Regimen 0-1 Low Early ambulation 2 Moderate Order ONE of the following: *Sequential Compression Device (SCD) *Heparin 5000 units SQ BID 3-4 Higher Order ONE of the following medications: *Heparin 5000 units SQ TID *Enoxaparin/Lovenox 40 mg SQ daily (WT < 150 kg, CrCl > 30 mL/min) *Enoxaparin/Lovenox 30 mg SQ daily (WT < 150 kg, CrCl > 10-29 mL/min) *Enoxaparin/Lovenox 30 mg SQ BID (WT < 150 kg, CrCl > 30 mL/min) AND/OR *Sequential Compression Device (SCD) 5 or more Highest Order ONE of the following medications: *Heparin 5000 units SQ TID (Preferred with Epidurals) *Enoxaparin/Lovenox 40 mg SQ daily (WT < 150 kg, CrCl > 30 mL/min) *Enoxaparin/Lovenox 30 mg SQ daily (WT < 150 kg, CrCl > 10-29 mL/min) *Enoxaparin/Lovenox 30 mg SQ BID (WT < 150 kg, CrCl > 30 mL/min) AND *Sequential Compression Device (SCD) Assessment and Plan Assessment and Plan 67 y/o F, recent diagnosis of metastatic non-small cell lung cancer and metastatic adenopathy, comes in with chief complaint of shortness of breath. History from prior admission as follows: Patient was admitted with respiratory distress, started on antibiotics Tamiflu. She had a pericardial drain placed with significant improvement in her symptoms and blood pressure. Oncology was consulted given the patient's history of suspected cancer. Patient underwent left-sided thoracentesis with significant improvement. Her pericardial effusion studies showed cells concerning for adenocarcinoma. 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 She remained afebrile throughout the latter half of her hospitalization and blood cultures were negative. Urology had also been consulted for a right staghorn calculi which they deemed more appropriate for outpatient management given her acute issues. Patient passed her walk test and was deemed stable for discharge per oncology with close follow-up. Patient has met maximal benefit from hospitalization is clinically stable for discharge with a steroid taper. Patient was informed that she could have possible reaccumulation of her pleural fluid and that she should consider being evaluated for a chest tube and pleurodesis procedure in future. Problem List: (1) Pneumonia ICD Codes: J18.9 - Pneumonia, unspecified organism Status: Acute Plan: Possible nosocomial pneumonia, meets SIRS criteria with tachycardia, tachypnea, high WBC count Chest x-ray revealing consolidations and lung bases as below, tachycardia with pulse 112-121, 2 With respiratory rate of 26, afebrile, WBC 21, Lactic acid 3.4 on admission Status post cefepime and azithromycin in the ED Continue cefepime, azithromycin, vancomycin (started 08/09) for empirical rx of nosocomial pneumonia f/u VS f/u CBC, BMP in AM No IV fluids at this time due to pleural effusions Ultrasound-guided thoracentesis ordered for her moderate pleural effusions Chest x-ray: Right costophrenic angle blunted, hazy opacity in both lung bases most consistent with infiltrates and effusions, moderate cardiomegaly (2) Non-small cell carcinoma of lung ICD Codes: C34.90 - Malignant neoplasm of unspecified part of unspecified bronchus or lung Status: Acute Plan: Metastatic non-small cell lung carcinoma with adenopathy, malignant pleural effusion and pericardial effusions Right thoracentesis on 07/24, 08/03 Oral fluid positive for adenocarcinoma Node biopsy positive for poorly differentiated adenocarcinoma as above Patient scheduled for follow-up appointments with oncology Follow-up with inpatient oncology consult Ultrasound-guided thoracentesis ordered (3) Bilateral pleural effusion ICD Codes: J90 - Pleural effusion, not elsewhere classified Status: Chronic Plan: Effusions causing respiratory difficulties Pain management with Tylenol, [place], morphine when necessary Solu-Medrol 20 mg IV push every 12 DuoNeb treatments every 6 hours with albuterol every 2 hours when necessary Ultrasound-guided thoracentesis ordered CTA: Negative for PE, moderate bilateral pleural effusions increased from prior study, mediastinal adenopathy, consolidation at right anterior lung base, multiple pulmonary nodules and area of consolidative opacity in left lower lobe , prominent lymph nodes, small pericardial effusion (4) Right kidney stone ICD Codes: N20.0 - Calculus of kidney Status: Chronic Plan: Staghorn calculus diagnosed, no current pain or concerns per the patient Outpatient follow-up with urology was recommended once current conditions have resolved (5) fen/ppx Status: Chronic Plan: Fluids: By mouth fluids Electrolytes: BMP within normal limits, replete as needed Nutrition: Due to severe tachypnea, swallow eval ordered, clear liquids after passed swallowing eval DVT prophylaxis: Held for now due to procedure tomorrow Prophylaxis: IV Pepcid due to recent ICU stay, and steroid addition Physician Certification 2 Midnight Certification Type: Admission for Inpatient Services Order for Inpatient Services The services are ordered in accordance with Medicare regulations or non- Medicare payer requirements, as applicable. In the case of services not specified as inpatient-only, they are appropriately provided as inpatient services in accordance with the 2-midnight benchmark. Estimated LOS (days): 2 days is the estimated time the patient will need to remain in the hospital, assuming treatment plan goals are met and no additional complications. Post-Hospital Plan: Home Problem Qualifiers (1) Pneumonia: Qualified Codes: J18.1 - Lobar pneumonia, unspecified organism Caity Gibson MD R2 Aug 09, 2017 12:12
--- NOTE | 2017-08-09 12:35 | EKG ---
Date Performed: 08/09/2017 Time Performed: 09:12:42 PTAGE: 67 years EKG: SINUS TACHYCARDIA ST DEVIATION AND MODERATE T-WAVE ABNORMALITY, CONSIDER ANTERIOR ISCHEMIA ABNORMAL ECG Compared to PREVIOUS TRACING , T-wave changes in the anterior leads are new. PREVIOUS TRACIN2017 14.02 DOCTOR: Charles Vivas Interpretating Date/Time 08/09/2017 12:34:16
[2017-08-09] MEDS ORDERED: RESP: ALBUTEROL 2.5 MG/3 ML NEB (PRN) INH (12:45)
[2017-08-09] MEDS: NYSTATIN 100,000 U/GM PWD 15 GM BTL TOPICAL SCH ×2 (14:00→20:32)
[2017-08-09 14:03] LABS: LACTIC ACID SEPSIS PROTOCOL 2.7 mmol/L (0.4-2.0)
[2017-08-09] MEDS: RESP: ALBUTEROL 2.5 MG/IPRATROPIUM 0.5 MG NEB (SCH) INH ×2 (15:47→21:44)
[2017-08-09] MEDS ORDERED: NALOXONE HCL 0.4 MG/ML AMP IV PUSH PRN (16:15)
[2017-08-09] MEDS ORDERED: MORPHINE SULFATE 2 MG/ML SYRINGE IV PUSH PRN (16:15)
[2017-08-09] MEDS ORDERED: ACETAMINOPHEN 325 MG TAB PO PRN (16:15)
--- NOTE | 2017-08-09 16:15 | MB ---
cc: Kale Vela MD DATE: 08/09/2017 CONSULTING PHYSICIAN: REASON FOR CONSULTATION: Oncology was consulted to render opinion regarding a patient with newly diagnosed lung cancer, presented with increased shortness of breath. HISTORY OF PRESENT ILLNESS: The patient is a very pleasant 67-year-old female, admitted to the hospital about 10 days ago with shortness of breath. She was found to have bilateral pleural effusion and pericardial effusion. She underwent pericardiocentesis and bilateral thoracentesis. Fluid cytology was positive for adenocarcinoma. She also had a biopsy of the right neck lymph node which showed moderate to poorly differentiated adenocarcinoma consistent with lung primary. She was just discharged from the hospital this past Thursday. She was supposed to see Dr. Ruiz in the clinic. She said that since she left the hospital, she has been having increasing shortness of breath that is progressively getting worse. She also has more chest pressure. Up to the point now she has become uncomfortable and she came back to the emergency room. She has decreased appetite. She is not sure if she is losing any weight. She denies significant cough or hemoptysis. Denies any nausea, vomiting, diarrhea, abdominal pain. Denies any headache, denies any visual changes, denies focal numbness or weakness. Denies any bone pain. PAST MEDICAL HISTORY: Metastatic non-small cell lung cancer, right renal stone, metastatic adenopathy. PAST SURGICAL HISTORY: , hysterectomy for endometriosis, pericardiocentesis, bilateral thoracentesis, biopsy of right neck lymph node. FAMILY HISTORY: Brother of leukemia. One sister had uterine cancer. Three daughters are healthy. SOCIAL HISTORY: A 85-ygkp-pron smoking history, recently quit. Denies alcohol use. ALLERGIES: MORPHINE. MEDICATIONS: DuoNeb. REVIEW OF SYSTEMS: CONSTITUTIONAL: As above. EYES: Negative. ENT: Negative. CARDIOVASCULAR: As stated above. RESPIRATORY: As above. GASTROINTESTINAL: Negative. GENITOURINARY: Negative. MUSCULOSKELETAL: Denies back pain or bone pain. HEMATOLOGIC: Negative. ENDOCRINE: Negative. HEMATOLOGIC: Negative. PSYCHIATRIC: Negative. NEUROLOGIC: Negative. PHYSICAL EXAMINATION: VITAL SIGNS: Temperature 98.3, blood pressure 104/53, O2 saturation 96% on 3 liter nasal cannula. GENERAL: She is alert, oriented x 3, in no acute distress. HEENT: Atraumatic, normocephalic. Pupils are equal, round, reactive to light. Extraocular muscles intact. No scleral icterus. Oropharynx dry mucosa. No lesion, No thrush or mucositis. NECK: No thyromegaly. There is a palpable right supraclavicular adenopathy. LYMPHATIC: Bilateral palpable axillary lymph node, more prominent on the left side. CARDIOVASCULAR: Regular S1, S2. No murmur. LUNGS: Decreased breath sounds bilaterally. No significant wheezing. ABDOMEN: Soft, nontender. Cannot palpate liver or spleen. EXTREMITIES: No cyanosis, no clubbing, no edema. BACK: No paravertebral tenderness. SKIN: No rash or petechiae. NEUROLOGIC: Nonfocal. LABORATORY DATA: Dated 08/09/2017 was reviewed. ASSESSMENT: 1. Metastatic non-small cell lung carcinoma with diffuse thoracic adenopathy, malignant pleural effusion and pericardial effusion. She first presented with shortness of breath about 10 days ago, she was found to have bilateral pleural effusion and pericardial effusion. She also had mediastinal adenopathy, axillary adenopathy as well as right supraclavicular adenopathy. She had a right thoracentesis 07/24/2017 with removal of 1100 mL of fluid. On 08/03/2017 she had left thoracentesis with removal of 800 mL of fluid. Fluid cytology was positive for adenocarcinoma. She also had a pericardiocentesis. She had a biopsy of the right supraclavicular lymph node which showed moderately to poorly differentiated adenocarcinoma consistent with lung primary. Mutation study is still pending. She is supposed to followup with Dr. Ruiz for treatment. She re-presented with shortness of breath. A CT angiogram did not show any pulmonary embolism; however, she had moderate sized bilateral pleural effusion, which has increased compared to her last scan. The mediastinal adenopathy and axillary adenopathy appeared to be stable. There is a consolidation in the right anterior lung base with multiple pulmonary nodules. There is only a small pericardial effusion noted at this time. She seems comfortable once started on oxygen. Arterial blood gas showed a pO2 of 61. I think she is going to need a thoracentesis again. Will consult radiology for ultrasound-guided therapeutic thoracentesis tomorrow. 2. Right-sided staghorn kidney stone. Renal function is normal. She has no symptoms at this time. RECOMMENDATIONS: 1. Consult radiology for ultrasound-guided therapeutic thoracentesis. 2. Continue supportive care. Thank you for asking me to see this patient. MD SIDDHARTHA Simons/KATHLEEN/maria luisa , 02:10 PM , 02:54 PM TANIA
[2017-08-09] MEDS ORDERED: Vancomycin Consult Pharmacy 1 EA OTHER SCH (16:30)
[2017-08-09] MEDS: FAMOTIDINE 20 MG/2 ML VIAL IV PUSH SCH (16:40)
[2017-08-09] MEDS: SODIUM CHLOR 0.9% 1000 ML INJ 1,000 ML IV SCH (17:03)
[2017-08-09] MEDS ORDERED: VANCOMYCIN INJ 2,000 MG in SODIUM CHLORID 0.9% 500 ML INJ 500 ML IV ONE (18:00)
[2017-08-09] MEDS: SODIUM CHLORIDE 0.9% FLUSH 10 ML FLUSH IV FLUSH SCH (20:29)
[2017-08-09] MEDS: ACETAMINOPHEN 325 MG TAB PO PRN (20:31)
[2017-08-09] MEDS: methylPREDNISolone SOD SUCC 40 MG/1 ML VIAL IV PUSH SCH (20:31)
[2017-08-09] MEDS: MELATONIN 5 MG TAB PO PRN (20:32)
[2017-08-09] MEDS: CEFEPIME INJ 2,000 MG in SODIUM CHLORIDE 0.9% INJ 100 ML IV SCH (23:05)
[2017-08-10] VITALS (17 sets, daily range): BP systolic 105–136; BP diastolic 68–88; PULSE 100–122; RESP 18–22; TEMP 97.6–97.9; O2SAT 91–98
[2017-08-10] MEDS: ACETAMINOPHEN 325 MG TAB PO PRN (00:31)
[2017-08-10 02:26] LABS: AUTOMATED NEUTROPHIL # 17.8 TH/MM3 (1.8-7.7); BASOPHIL # 0.2 TH/MM3 (0-0.2); LYMPH % 2.6 % (9.0-44.0); LYMPHOCYTE # 0.5 TH/MM3 (1.0-4.8); MEAN CELL VOLUME 85.9 FL (80.0-100.0); MEAN CORPUSCULAR HGB CONC 32.6 % (32.0-36.0); MEAN PLATELET VOLUME 8.5 FL (7.0-11.0); MONO % 2.2 % (0.0-8.0); MONOCYTE # 0.4 TH/MM3 (0-0.9); NEUT % 94.2 % (16.0-70.0); PLATELET COUNT 359 TH/MM3 (150-450); RED BLOOD COUNT 5.01 MIL/MM3 (4.00-5.30); RED CELL DISTRIBUTION WIDTH 14.4 % (11.6-17.2); WHITE BLOOD COUNT 18.9 TH/MM3 (4.0-11.0)
[2017-08-10 02:58] LABS: TROPONIN I LESS THAN 0.02 NG/ML (0.02-0.05)
[2017-08-10 03:02] LABS: BICARBONATE 24.8 MEQ/L (21.0-32.0); BLOOD UREA NITROGEN 18 MG/DL (7-18); CALCIUM 8.7 MG/DL (8.5-10.1); CHLORIDE 108 MEQ/L (98-107); GLOMERULAR FILTRATION RATE 99 ML/MIN (>89); GLUCOSE,RANDOM 152 MG/DL (74-106); SODIUM (NA) 143 MEQ/L (136-145)
[2017-08-10] MEDS: RESP: ALBUTEROL 2.5 MG/IPRATROPIUM 0.5 MG NEB (SCH) INH ×5 (03:36→21:03)
[2017-08-10] MEDS: SODIUM CHLOR 0.9% 1000 ML INJ 1,000 ML IV SCH ×2 (04:09→22:01)
[2017-08-10] MEDS: ACETAMINOPHEN/HYDROcodone 325 MG/5 MG TAB PO PRN (04:52)
[2017-08-10] MEDS: FAMOTIDINE 20 MG/2 ML VIAL IV PUSH SCH ×2 (04:58→16:06)
[2017-08-10] MEDS: NYSTATIN 100,000 U/GM PWD 15 GM BTL TOPICAL SCH ×3 (06:00→21:39)
[2017-08-10] MEDS: VANCOMYCIN INJ 1,250 MG in SODIUM CHLOR 0.9% 250 ML INJ 250 ML IV SCH ×2 (06:03→18:16)
[2017-08-10] MEDS ORDERED: DEXTROSE 50% IN WATER 50 ML VIAL(D50) IV PUSH PRN (06:45)
[2017-08-10] MEDS ORDERED: GLUCAGON 1 MG/ML VIAL OTHER PRN (06:45)
[2017-08-10] MEDS: INSULIN ASPART SUPPLEMENTAL SCALE SQ SCH ×4 (08:00→21:00)
--- NOTE | 2017-08-10 08:47 | EKG ---
Date Performed: 08/09/2017 Time Performed: 21:29:31 PTAGE: 67 years EKG: SINUS TACHYCARDIA NONSPECIFIC ST & T-WAVE ABNORMALITY ABNORMAL RHYTHM ECG PREVIOUS TRACING : 08/09/2017 15.34 Since the previous tracing, no significant change noted DOCTOR: Sully Spears Interpretating Date/Time 08/10/2017 08:46:29
[2017-08-10] MEDS: ACETAMINOPHEN/HYDROcodone 325 MG/7.5 MG TAB PO PRN ×3 (08:48→21:38)
[2017-08-10] MEDS: SODIUM CHLORIDE 0.9% FLUSH 10 ML FLUSH IV FLUSH SCH ×2 (08:48→21:39)
[2017-08-10] MEDS: methylPREDNISolone SOD SUCC 40 MG/1 ML VIAL IV PUSH SCH ×2 (08:49→21:39)
--- NOTE | 2017-08-10 09:01 | EKG ---
Date Performed: 08/09/2017 Time Performed: 15:34:17 PTAGE: 67 years EKG: SINUS TACHYCARDIA ST DEVIATION AND MODERATE T-WAVE ABNORMALITY, CONSIDER ANTERIOR ISCHEMIA ABNORMAL ECG PREVIOUS TRACING : 08/09/2017 09.12 Since the previous tracing, no significant change noted DOCTOR: Sully Spears Interpretating Date/Time 08/10/2017 09:00:41
[2017-08-10] MEDS ORDERED: LORazepam 2 MG/ML VIAL IV PUSH ONE (11:30)
[2017-08-10] MEDS: CEFEPIME INJ 2,000 MG in SODIUM CHLORIDE 0.9% INJ 100 ML IV SCH ×2 (11:49→22:10)
--- NOTE | 2017-08-10 12:07 | RADRPT ---
EXAM DATE/TIME: 08/10/2017 10:57 [facility] COMPARISON: CT PULMONARY ANGIOGRAM, August 09, 2017, 11:11. CHEST SINGLE AP, August 09, 2017, 9:53. INDICATIONS : Short of breath. MEDICAL HISTORY : Carcinoma, lung. adenocarcinoma, kidney stones SURGICAL HISTORY : section. Hysterectomy. ENCOUNTER: Subsequent ACUITY: 2 days PAIN SCORE: 0/10 LOCATION: Bilateral chest FINDINGS: The heart is enlarged, larger than on prior chest x-ray. On the lateral view, there is layering bila teral pleural effusions, moderate in size. There also some patchy areas of consolidation in the left lower lung and adjacent to the right minor fissure in the upper lobe. Moderate degenerative changes in the thoracic spine. CONCLUSION: Moderate-sized bilateral pleural effusions. Partially consolidated infiltrates left lower and right upper lobes. Darrell Ritchie MD on August 10, 2017 at 12:04 Board Certified Radiologist. This report was verified electronically.
[2017-08-10] MEDS: AZITHROMYCIN INJ 500 MG in SODIUM CHLOR 0.9% 250 ML INJ 250 ML IV SCH (13:14)
--- NOTE | 2017-08-10 14:48 | HHI.FPPN ---
Subjective Remarks Mrs. Castorena did not have a good night. She continued to have shortness of breath , and diffuse night sweats. She also is requesting a regular diet. He reports that her breathing has remained unchanged since being hospitalized. She currently denies any chest pain. (Ihsan Barrow MD, R3) Objective Vitals Vital Signs Date Time Temp Pulse Resp B/P (MAP) Pulse Ox O2 Delivery O2 Flow Rate FiO2 08/10/17 09:08 Nasal Cannula 2.00 08/10/17 08:55 97.6 114 22 136/75 (95) 94 08/10/17 06:00 110 08/10/17 05:52 16 08/10/17 05:02 97.6 113 18 136/74 (94) 95 08/10/17 05:00 100 08/10/17 04:03 114 08/10/17 03:00 110 08/10/17 02:00 112 08/10/17 01:30 16 08/10/17 01:00 112 08/09/17 23:54 110 08/09/17 23:07 98.1 112 16 134/84 (101) 95 08/09/17 23:00 110 08/09/17 22:00 110 08/09/17 21:44 100 Nasal Cannula 2.00 08/09/17 21:00 112 08/09/17 20:10 97.6 114 20 126/70 (88) 96 08/09/17 20:00 112 08/09/17 19:00 114 08/09/17 16:00 97.5 115 20 137/62 (87) 96 08/09/17 15:48 95 Nasal Cannula 2.00 I/O 08/09/17 08/09/17 08/09/17 08/10/17 08/10/17 08/10/17 06:59 14:59 22:59 06:59 14:59 22:59 Intake Total 100 ml 600 ml 480 ml Output Total 325 ml 200 ml Balance 100 ml 275 ml 280 ml Intake Oral 600 ml 480 ml IV Total 100 ml Output Urine Total 325 ml 200 ml (Ihsan Barrow MD, R3) Result Diagram: 08/10/17 0203 08/10/17 0203 Imaging Last 72 hours Impressions Chest X-Ray 08/10/17 0600 Signed Impressions: Service Date/Time: Thursday, August 10, 2017 10:57 - CONCLUSION: Moderate-sized bilateral pleural effusions. Partially consolidated infiltrates left lower and right upper lobes. Darrell Ritchie MD Chest X-Ray 08/09/17 0927 Signed Impressions: Service Date/Time: Wednesday, August 09, 2017 09:53 - CONCLUSION: 1. The right costophrenic angle is now blunted and there is hazy opacity in both lung bases most consistent with infiltrates and effusions. 2. The patient is mildly rotated to the right however there is volume loss in the right hemithorax with shift to the right. 3. Moderate cardiomegaly. Gerson Juárez MD CT Angiography 08/09/17 0000 Signed Impressions: Service Date/Time: Wednesday, August 09, 2017 11:11 - CONCLUSION: 1. No evidence of pulmonary emboli. 2. Moderate bilateral pleural effusions which are increased from the prior study. 3. Mediastinal adenopathy without significant change. 4. Consolidation in the right anterior lung base. 5. Multiple pulmonary nodules and nodular area of consolidative opacity in the left lower lobe. 6. Prominent lymph nodes in both axillary regions right greater than left. There are postsurgical changes noted on the left. 7. Small pericardial effusion which is decreased from the prior study. Gerson Juárez MD Objective Remarks GENERAL: Somewhat labored breathing, short fragmented entrances. Accessory muscle use including intercostals. SKIN: Cool, diaphoretic. EYES: No scleral icterus. No injection or drainage. PERRLA. EOMI. HENT: Normocephalic. Atraumatic. MMM. NECK: No visible JVD or lymphadenopathy. CARDIOVASCULAR: Warm and well perfused. Regular rate and rhythm, no murmurs appreciated. RESPIRATORY: As above, coarse breath sounds throughout all lung ochoa. GASTROINTESTINAL: Abdomen nondistended. MUSCULOSKELETAL: Strength grossly WNL. BACK: Without obvious deformity. NEURO/PSYCH: Afocal. Awake, alert, and oriented x3. (Sandy HookIhsan guadarrama MD, R3) A/P Assessment and Plan 67 y/o F, recent diagnosis of metastatic non-small cell lung cancer and metastatic adenopathy, comes in with chief complaint of shortness of breath. History from prior admission as follows: Patient was admitted with respiratory distress, started on antibiotics Tamiflu. She had a pericardial drain placed with significant improvement in her symptoms and blood pressure. Oncology was consulted given the patient's history of suspected cancer. Patient underwent left-sided thoracentesis with significant improvement. Her pericardial effusion studies showed cells concerning for adenocarcinoma. 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 She remained afebrile throughout the latter half of her hospitalization and blood cultures were negative. Urology had also been consulted for a right staghorn calculi which they deemed more appropriate for outpatient management given her acute issues. Patient passed her walk test and was deemed stable for discharge per oncology with close follow-up. Patient has met maximal benefit from hospitalization is clinically stable for discharge with a steroid taper. Patient was informed that she could have possible reaccumulation of her pleural fluid and that she should consider being evaluated for a chest tube and pleurodesis procedure in future. (Ihsan Barrow MD, R3) Attending Attestation A detailed discussion regarding patients admission was held this morning with Dr Barrow, Dr Gibson, Dr Velazquez and Dr munguia EMR reviewed Patient seen and examined with team Agree with above documentation See Orders (Sudhir Rg MD) Problem List: (1) Pneumonia ICD Codes: J18.9 - Pneumonia, unspecified organism Status: Acute Plan: Possible nosocomial pneumonia, meets SIRS criteria with tachycardia, tachypnea, high WBC count. Chest x-ray revealing consolidations and lung bases as below, tachycardia with pulse 112-121, 2 With respiratory rate of 26, afebrile, WBC 21, Lactic acid 3.4 on admission Status post cefepime and azithromycin in the ED Continue cefepime, azithromycin, vancomycin (started 08/09) for empirical rx of nosocomial pneumonia f/u VS f/u CBC, BMP in AM No IV fluids at this time due to pleural effusions Ultrasound-guided thoracentesis ordered for her moderate pleural effusions Chest x-ray: Right costophrenic angle blunted, hazy opacity in both lung bases most consistent with infiltrates and effusions, moderate cardiomegaly (2) Non-small cell carcinoma of lung ICD Codes: C34.90 - Malignant neoplasm of unspecified part of unspecified bronchus or lung Status: Acute Plan: Right thoracentesis on 07/24, 08/03 Node biopsy positive for poorly differentiated adenocarcinoma as above Ultrasound-guided thoracentesis be performed today 08/10/2017. Will monitor clinical status after this procedure. Anticipate marked improvement in her respiratory status. Continue with DuoNeb's every 6 hours, methylprednisolone 20 mg every 12, and broad-spectrum antibiotics as above. (3) Bilateral pleural effusion ICD Codes: J90 - Pleural effusion, not elsewhere classified Status: Chronic Plan: Effusions causing respiratory difficulties. Pain management with Tylenol, [place], morphine when necessary Solu-Medrol 20 mg IV push every 12 DuoNeb treatments every 6 hours with albuterol every 2 hours when necessary CTA: Negative for PE, moderate bilateral pleural effusions increased from prior study, mediastinal adenopathy, consolidation at right anterior lung base, multiple pulmonary nodules and area of consolidative opacity in left lower lobe , prominent lymph nodes, small pericardial effusion (4) Right kidney stone ICD Codes: N20.0 - Calculus of kidney Status: Chronic Plan: Staghorn calculus diagnosed, no current pain or concerns per the patient Outpatient follow-up with urology was recommended once current conditions have resolved (5) fen/ppx Status: Chronic Plan: Fluids: By mouth fluids Electrolytes: BMP within normal limits, replete as needed Nutrition: Passed bedside swallow eval per nursing, can advance to regular diet at this time after her pleuracentesis. DVT prophylaxis: Resume after pleuracentesis. High risk of the VTE given underlying malignancy. Prophylaxis: IV Pepcid due to recent ICU stay, and steroid addition. Seen and discussed with Dr. Rg, Dr. Gibson, Dr. Estrella. (Ihsan Barrow MD, R3) Problem Qualifiers (1) Pneumonia: Qualified Codes: J18.1 - Lobar pneumonia, unspecified organism Ihsan Barrow MD, R3 Aug 10, 2017 14:48 Sudhir Rg MD Aug 11, 2017 08:27
--- NOTE | 2017-08-10 15:05 | RADRPT ---
EXAM DATE/TIME: 08/10/2017 14:41 [facility] COMPARISON: CT PULMONARY ANGIOGRAM, August 09, 2017, 11:11. CHEST EXPIRATION ONLY, August 03, 2017, 11:01. INDICATIONS : Evaluate for pneumothorax. MEDICAL HISTORY : Carcinoma, lung. adenocarcinoma, kidney stones SURGICAL HISTORY : section. Hysterectomy ENCOUNTER: Subsequent ACUITY: 1 day PAIN SCORE: 0/10 LOCATION: Bilateral chest FINDINGS: Upright portable expiratory view of the chest demonstrates no evidence of pneumothorax. There is lynn vation of the left hemidiaphragm and patchy areas of consolidation in the left perihilar and infrahil ar region. A few patchy areas of infiltrate in the right lower lung. The heart is enlarged. CONCLUSION: No evidence of pneumothorax status post thoracentesis. Darrell Ritchie MD on August 10, 2017 at 15:02 Board Certified Radiologist. This report was verified electronically.
--- NOTE | 2017-08-10 15:25 | RADRPT ---
EXAM DATE/TIME: 08/10/2017 13:54 [facility] COMPARISON: US GUIDED THORACENTESIS RIGHT, July 24, 2017, 16:18. INDICATIONS : Right pleural effusion. MEDICAL HISTORY : Renal calculi. Pericardial effusion. Pleural effusions. Palpitations. Adenocarcinoma. SURGICAL HISTORY : section. Hysterectomy. Kidney stones removal. Blood transfusions. Thoracentesis. ENCOUNTER: Subsequent ACUITY: 2 weeks PAIN SCORE: 6/10 LOCATION: Right chest FLUID: Total volume of 900 cc of clear al. fluid was removed. Fluid was discarded. Thoracentesis was therapeutic only. TECHNIQUE: 1. Ultrasound guidance for thoracentesis. 2. Thoracentesis. The risks, benefits, and alternatives to ultrasound guided thoracentesis were explained to the patien t in lay simple terms, including the risk of bleeding and infection. Written and verbal informed con sent was obtained. Appropriate area for thoracentesis was marked under ultrasound guidance with the patient in the uprig ht position. Overlying skin was prepped and draped in the usual sterile fashion and with local anest hetic, a dermatotomy was made with an 11 blade scalpel. A 6 [place] thoracentesis catheter was placed in the pleural space and fluid was removed. Catheter was then removed and a sterile dressing applie d. There were no immediate complications. The patient tolerated the procedure well and the left the ultrasound suite in stable condition. Chest radiograph is to be obtained. CONCLUSION: Uncomplicated ultrasound guided thoracentesis. Deion Marin MD on August 10, 2017 at 15:23 Board Certified Radiologist. This report was verified electronically.
--- NOTE | 2017-08-10 16:07 | PD.ONC.PN ---
Subjective Subjective Remarks Afebrile Patient has just returned from having thoracentesis on the right Reports her breathing is much improved Daughter at bedside Objective Data Date Time Temp Pulse Resp B/P (MAP) Pulse Ox O2 Delivery O2 Flow Rate FiO2 08/10/17 15:15 111 20 133/88 (103) 92 08/10/17 15:00 97.8 115 20 127/79 (95) 91 08/10/17 14:13 97.6 122 18 135/79 (97) 96 08/10/17 09:08 Nasal Cannula 2.00 08/10/17 08:55 97.6 114 22 136/75 (95) 94 08/10/17 06:00 110 08/10/17 05:52 16 08/10/17 05:02 97.6 113 18 136/74 (94) 95 08/10/17 05:00 100 08/10/17 04:03 114 08/10/17 03:00 110 08/10/17 02:00 112 08/10/17 01:30 16 08/10/17 01:00 112 08/09/17 23:54 110 08/09/17 23:07 98.1 112 16 134/84 (101) 95 08/09/17 23:00 110 08/09/17 22:00 110 08/09/17 21:44 100 Nasal Cannula 2.00 08/09/17 21:00 112 08/09/17 20:10 97.6 114 20 126/70 (88) 96 08/09/17 20:00 112 08/09/17 19:00 114 08/09/17 16:00 97.5 115 20 137/62 (87) 96 08/10/17 08/10/17 08/10/17 07:00 15:00 23:00 Intake Total 480 ml Output Total 200 ml Balance 280 ml Result Diagram: 08/10/1720208/10/17 020 Laboratory Results Laboratory Tests Test 08/09/17 19:49 08/10/17 02:03 Lactic Acid Level 3.0 mmol/L Troponin I LESS THAN 0.02 NG/ML LESS THAN 0.02 NG/ML White Blood Count 18.9 TH/MM3 Red Blood Count 5.01 MIL/MM3 Hemoglobin 14.0 GM/DL Hematocrit 43.0 % Mean Corpuscular Volume 85.9 FL Mean Corpuscular Hemoglobin 28.0 PG Mean Corpuscular Hemoglobin Concent 32.6 % Red Cell Distribution Width 14.4 % Platelet Count 359 TH/MM3 Mean Platelet Volume 8.5 FL Neutrophils (%) (Auto) 94.2 % Lymphocytes (%) (Auto) 2.6 % Monocytes (%) (Auto) 2.2 % Eosinophils (%) (Auto) 0.0 % Basophils (%) (Auto) 1.0 % Neutrophils # (Auto) 17.8 TH/MM3 Lymphocytes # (Auto) 0.5 TH/MM3 Monocytes # (Auto) 0.4 TH/MM3 Eosinophils # (Auto) 0.0 TH/MM3 Basophils # (Auto) 0.2 TH/MM3 CBC Comment DIFF FINAL Differential Comment Blood Urea Nitrogen 18 MG/DL Creatinine 0.60 MG/DL Random Glucose 152 MG/DL Calcium Level 8.7 MG/DL Sodium Level 143 MEQ/L Potassium Level 3.8 MEQ/L Chloride Level 108 MEQ/L Carbon Dioxide Level 24.8 MEQ/L Anion Gap 10 MEQ/L Estimat Glomerular Filtration Rate 99 ML/MIN Culture Results Microbiology Date/Time Source Procedure Growth Status 08/09/17 09:45 Blood Peripheral Aerobic Blood Culture - Preliminary NO GROWTH IN 1 DAY Resulted 08/09/17 09:45 Blood Peripheral Anaerobic Blood Culture - Preliminary NO GROWTH IN 1 DAY Resulted 08/09/17 09:35 Blood Peripheral Aerobic Blood Culture - Preliminary NO GROWTH IN 1 DAY Resulted 08/09/17 09:35 Blood Peripheral Anaerobic Blood Culture - Preliminary NO GROWTH IN 1 DAY Resulted Imaging Studies Last 24 hours Impressions Thoracentesis Ultrasound 08/10/17 0600 Signed Impressions: Service Date/Time: Thursday, August 10, 2017 13:54 - CONCLUSION: Uncomplicated ultrasound guided thoracentesis. Deion Marin MD Chest X-Ray 08/10/17 0600 Signed Impressions: Service Date/Time: Thursday, August 10, 2017 10:57 - CONCLUSION: Moderate-sized bilateral pleural effusions. Partially consolidated infiltrates left lower and right upper lobes. Darrell Ritchie MD Chest X-Ray 08/10/17 0000 Signed Impressions: Service Date/Time: Thursday, August 10, 2017 14:41 - CONCLUSION: No evidence of pneumothorax status post thoracentesis. Darrell Ritchie MD Administered Medications Medications (Trade) Dose Ordered Sig/Jerrell Route PRN Reason Start Time Stop Time Status Last Admin Dose Admin Sodium Chloride (NS Flush) 2 ml BID IV FLUSH 08/09/17 21:00 08/10/17 08:48 Albuterol/ Ipratropium (Duoneb Neb) 1 ampule Q6HR NEB INH 08/09/17 12:45 08/10/17 08:59 Acetaminophen/ Hydrocodone Bitart ([place] 5-325 Mg) 1 tab Q4H PRN PO PAIN SCALE 3 TO 5 08/09/17 16:15 08/10/17 04:52 Acetaminophen/ Hydrocodone Bitart ([place] 7.5-325 Mg) 1 tab Q4H PRN PO PAIN SCALE 6 TO 10 08/09/17 16:15 08/10/17 08:48 Melatonin (Melatonin) 5 mg HS PRN PO INSOMNIA 08/09/17 16:15 08/09/17 20:32 Famotidine (Pepcid Inj) 20 mg Q12H IV PUSH 08/09/17 16:15 08/10/17 04:58 Methylprednisolone Sodium Succinate (SoluMEDROL INJ) 20 mg Q12HR IV PUSH 08/09/17 21:00 08/10/17 08:49 Sodium Chloride 1,000 ml @ 75 mls/hr [id number] IV 08/09/17 16:30 08/10/17 04:09 Azithromycin 500 mg/Sodium Chloride 250 ml @ 250 mls/hr Q24H IV 08/10/17 11:00 08/10/17 13:14 Cefepime HCl 2000 mg/Sodium Chloride 100 ml @ 200 mls/hr Q12H IV 08/09/17 23:00 08/10/17 11:49 Vancomycin HCl 1250 mg/Sodium Chloride 262.5 ml @ 250 mls/hr Q12H IV 08/10/17 06:00 08/10/17 06:03 Acetaminophen (Tylenol) 650 mg Q4HR PRN PO PAIN SCALE 1 TO 2 08/09/17 20:30 08/10/17 00:31 Objective Remarks GENERAL: Older female resting in bed in no obvious distress. Breathing somewhat labored with talking SKIN: Warm and dry. HEAD: Normocephalic. EYES: No injection or drainage. NECK: Supple, trachea midline. CARDIOVASCULAR: Regular rate and rhythm without murmurs. RESPIRATORY: Scattered rhonchi anteriorly. On 2 L nasal cannula. GASTROINTESTINAL: Abdomen soft, non-tender, nondistended. EXTREMITIES: No cyanosis, or edema. MUSCULOSKELETAL: Adequate muscle tone. NEUROLOGICAL: No obvious focal deficit. Awake, alert, and oriented x3. Assessment/Plan Problem List: (1) Non-small cell carcinoma of lung ICD Codes: C34.90 - Malignant neoplasm of unspecified part of unspecified bronchus or lung Status: Acute Plan: --Plan for follow-up as outpatient Hx/Workup: Patient originally presented approximately 11 days ago with shortness of breath was found to have bilateral pleural effusion with pericardial effusion. She was also found to have mediastinal adenopathy, axillary adenopathy as well as right supraclavicular adenopathy. Thoracentesis with fluid cytology was positive for adenocarcinoma. A biopsy of the right supraclavicular lymph node showed moderately to poorly differentiated adenocarcinoma consistent with lung primary. Mutation studies are pending. She was originally supposed to follow-up as outpatient however she presented with progressive shortness of breath. Chest x-ray showed reaccumulated pleural effusions Assessment 67-year-old female with newly diagnosed non-small cell lung cancer admitted for recurrent pleural effusions Plan 1. Plan for thoracentesis on the left side tomorrow 2. Continue antibiotics for pulmonary consolidation noted in the left lung base 3. Once discharged follow-up as outpatient; patient will likely need PET scan. 4. Patient will be given palliative intent chemotherapy. Await mutational studies to evaluate for possible targeted therapy Lilibeth Ramos Aug 10, 2017 16:07
[2017-08-10] MEDS ORDERED: LIDOCAINE HCL 1% PF 30 ML VIAL ONE (16:10)
[2017-08-10] MEDS: ENOXAPARIN SODIUM 40 MG/0.4 ML SYRINGE SQ SCH (20:00)
[2017-08-11] VITALS (16 sets, daily range): BP systolic 107–140; BP diastolic 60–78; PULSE 78–121; RESP 17–20; TEMP 97.2–98.2; O2SAT 92–97
[2017-08-11] MEDS: ACETAMINOPHEN/HYDROcodone 325 MG/7.5 MG TAB PO PRN ×5 (02:07→20:46)
[2017-08-11] MEDS: RESP: ALBUTEROL 2.5 MG/IPRATROPIUM 0.5 MG NEB (SCH) INH ×4 (04:27→21:27)
[2017-08-11] MEDS: FAMOTIDINE 20 MG/2 ML VIAL IV PUSH SCH (05:17)
[2017-08-11] MEDS ORDERED: PHARMACY ORDERED LAB ONE (05:45)
[2017-08-11 05:49] LABS: HEMATOCRIT 40.1 % (35.0-46.0); HEMOGLOBIN 13.1 GM/DL (11.6-15.3); MEAN CELL VOLUME 86.5 FL (80.0-100.0); MEAN CORPUSCULAR HEMOGLOBIN 28.2 PG (27.0-34.0); MEAN CORPUSCULAR HGB CONC 32.6 % (32.0-36.0); MEAN PLATELET VOLUME 8.5 FL (7.0-11.0); NEUT % 92.3 % (16.0-70.0); PLATELET COUNT 344 TH/MM3 (150-450); RED BLOOD COUNT 4.63 MIL/MM3 (4.00-5.30); RED CELL DISTRIBUTION WIDTH 14.2 % (11.6-17.2); WHITE BLOOD COUNT 24.5 TH/MM3 (4.0-11.0)
[2017-08-11 05:50] LABS: AUTOMATED NEUTROPHIL # 22.6 TH/MM3 (1.8-7.7); BASOPHIL % 0.2 % (0.0-2.0); LYMPH % 3.1 % (9.0-44.0); LYMPHOCYTE # 0.8 TH/MM3 (1.0-4.8); MONO % 4.4 % (0.0-8.0); MONOCYTE # 1.1 TH/MM3 (0-0.9)
[2017-08-11] MEDS: NYSTATIN 100,000 U/GM PWD 15 GM BTL TOPICAL SCH ×3 (06:00→20:47)
[2017-08-11] MEDS: VANCOMYCIN INJ 1,250 MG in SODIUM CHLOR 0.9% 250 ML INJ 250 ML IV SCH (06:07)
[2017-08-11 06:23] LABS: ALBUMIN 2.4 GM/DL (3.4-5.0); ALT (GPT) 12 U/L (10-53); AST (GOT) 11 U/L (15-37); BICARBONATE 23.8 MEQ/L (21.0-32.0); BLOOD UREA NITROGEN 18 MG/DL (7-18); CALCIUM 8.6 MG/DL (8.5-10.1); CHLORIDE 108 MEQ/L (98-107); CREATININE 0.57 MG/DL (0.50-1.00); GLOMERULAR FILTRATION RATE 105 ML/MIN (>89); GLUCOSE,RANDOM 138 MG/DL (74-106); SODIUM (NA) 142 MEQ/L (136-145)
[2017-08-11 06:26] LABS: ALKALINE PHOSPHATASE 95 U/L (45-117); TOTAL BILIRUBIN ADULT 0.7 MG/DL (0.2-1.0); TOTAL PROTEIN 6.3 GM/DL (6.4-8.2)
[2017-08-11] MEDS: INSULIN ASPART SUPPLEMENTAL SCALE SQ SCH ×4 (08:00→20:37)
--- NOTE | 2017-08-11 08:29 | PD.ONC.PN ---
Subjective Subjective Remarks Pt seen and examined, she reports difficulty breathing and feels her heart racing. She reports her breathing was slightly improved after right-sided thoracentesis yesterday. She tells me she feels pain in the substernal area and also anxiety especially when she gets short of breath. Her daughter is at that site today. Objective Data Date Time Temp Pulse Resp B/P (MAP) Pulse Ox O2 Delivery O2 Flow Rate FiO2 08/11/17 05:06 98.2 112 17 108/67 (81) 94 08/11/17 04:00 110 08/11/17 00:50 97.4 114 17 135/78 (97) 92 08/11/17 00:00 120 08/10/17 21:30 97.9 117 18 105/68 (80) 95 08/10/17 21:05 98 Nasal Cannula 2.00 08/10/17 20:00 119 08/10/17 17:35 112 08/10/17 15:15 111 20 133/88 (103) 92 08/10/17 15:00 97.8 115 20 127/79 (95) 91 08/10/17 14:13 97.6 122 18 135/79 (97) 96 08/10/17 12:40 117 08/10/17 09:08 Nasal Cannula 2.00 08/10/17 08:55 97.6 114 22 136/75 (95) 94 08/10/17 08:30 114 Result Diagram: 08/11/17 0520 08/11/17 0520 Laboratory Results Laboratory Tests Test 08/11/17 05:20 White Blood Count 24.5 TH/MM3 Red Blood Count 4.63 MIL/MM3 Hemoglobin 13.1 GM/DL Hematocrit 40.1 % Mean Corpuscular Volume 86.5 FL Mean Corpuscular Hemoglobin 28.2 PG Mean Corpuscular Hemoglobin Concent 32.6 % Red Cell Distribution Width 14.2 % Platelet Count 344 TH/MM3 Mean Platelet Volume 8.5 FL Neutrophils (%) (Auto) 92.3 % Lymphocytes (%) (Auto) 3.1 % Monocytes (%) (Auto) 4.4 % Eosinophils (%) (Auto) 0.0 % Basophils (%) (Auto) 0.2 % Neutrophils # (Auto) 22.6 TH/MM3 Lymphocytes # (Auto) 0.8 TH/MM3 Monocytes # (Auto) 1.1 TH/MM3 Eosinophils # (Auto) 0.0 TH/MM3 Basophils # (Auto) 0.0 TH/MM3 CBC Comment DIFF FINAL Differential Comment Blood Urea Nitrogen 18 MG/DL Creatinine 0.57 MG/DL Random Glucose 138 MG/DL Total Protein 6.3 GM/DL Albumin 2.4 GM/DL Calcium Level 8.6 MG/DL Alkaline Phosphatase 95 U/L Aspartate Amino Transf (AST/SGOT) 11 U/L Alanine Aminotransferase (ALT/SGPT) 12 U/L Total Bilirubin 0.7 MG/DL Sodium Level 142 MEQ/L Potassium Level 3.8 MEQ/L Chloride Level 108 MEQ/L Carbon Dioxide Level 23.8 MEQ/L Anion Gap 10 MEQ/L Estimat Glomerular Filtration Rate 105 ML/MIN Vancomycin Level Trough 13.1 MCG/ML Culture Results Microbiology Date/Time Source Procedure Growth Status 08/09/17 09:45 Blood Peripheral Aerobic Blood Culture - Preliminary NO GROWTH IN 1 DAY Resulted 08/09/17 09:45 Blood Peripheral Anaerobic Blood Culture - Preliminary NO GROWTH IN 1 DAY Resulted 08/09/17 09:35 Blood Peripheral Aerobic Blood Culture - Preliminary NO GROWTH IN 1 DAY Resulted 08/09/17 09:35 Blood Peripheral Anaerobic Blood Culture - Preliminary NO GROWTH IN 1 DAY Resulted Administered Medications Medications (Trade) Dose Ordered Sig/Jerrell Route PRN Reason Start Time Stop Time Status Last Admin Dose Admin Sodium Chloride (NS Flush) 2 ml BID IV FLUSH 08/09/17 21:00 08/10/17 21:39 Albuterol/ Ipratropium (Duoneb Neb) 1 ampule Q6HR NEB INH 08/09/17 12:45 08/10/17 21:03 Acetaminophen/ Hydrocodone Bitart ([place] 5-325 Mg) 1 tab Q4H PRN PO PAIN SCALE 3 TO 5 08/09/17 16:15 08/10/17 04:52 Acetaminophen/ Hydrocodone Bitart ([place] 7.5-325 Mg) 1 tab Q4H PRN PO PAIN SCALE 6 TO 10 08/09/17 16:15 08/11/17 07:52 Melatonin (Melatonin) 5 mg HS PRN PO INSOMNIA 08/09/17 16:15 08/09/17 20:32 Famotidine (Pepcid Inj) 20 mg Q12H IV PUSH 08/09/17 16:15 08/11/17 05:17 Methylprednisolone Sodium Succinate (SoluMEDROL INJ) 20 mg Q12HR IV PUSH 08/09/17 21:00 08/10/17 21:39 Sodium Chloride 1,000 ml @ 75 mls/hr [id number] IV 08/09/17 16:30 08/10/17 22:01 Azithromycin 500 mg/Sodium Chloride 250 ml @ 250 mls/hr Q24H IV 08/10/17 11:00 08/10/17 13:14 Cefepime HCl 2000 mg/Sodium Chloride 100 ml @ 200 mls/hr Q12H IV 08/09/17 23:00 08/10/17 22:10 Vancomycin HCl 1250 mg/Sodium Chloride 262.5 ml @ 250 mls/hr Q12H IV 08/10/17 06:00 08/11/17 06:07 Acetaminophen (Tylenol) 650 mg Q4HR PRN PO PAIN SCALE 1 TO 2 08/09/17 20:30 08/10/17 00:31 Objective Remarks GENERAL: Middle-aged female sitting up in bed, she has a towel on her for head skin is moist and clammy. She appears moderately short of breath, she is able to speak almost full sentences. But she is in apparent respiratory difficulty. SKIN: Warm and dry. HEAD: Normocephalic. EYES: No scleral icterus. No injection or drainage. NECK: Supple, trachea midline. No JVD right supraclavicular lymphadenopathy. LYMPHATIC: No adenopathy. Right supraclavicular lymphadenopathy. CARDIOVASCULAR: Regular, tachycardic. RESPIRATORY: Tachypneic, shallow breathing, decreased bibasilar breath sounds breath sounds more decreased on the left side as compared to the right. Dullness to percussion on the left side/base. GASTROINTESTINAL: Abdomen soft, non-tender, nondistended. EXTREMITIES: No cyanosis, or edema. MUSCULOSKELETAL: Adequate muscle mass and tone. NEUROLOGICAL: No obvious focal deficit. Awake, alert, and oriented x3. PSYCHIATRIC: Appropriate mood and affect; insight and judgment normal. Appears somewhat anxious. Assessment/Plan Problem List: (1) Non-small cell carcinoma of lung ICD Codes: C34.90 - Malignant neoplasm of unspecified part of unspecified bronchus or lung Status: Acute Plan: --Plan for follow-up as outpatient Hx/Workup: Patient originally presented approximately 11 days ago with shortness of breath was found to have bilateral pleural effusion with pericardial effusion. She was also found to have mediastinal adenopathy, axillary adenopathy as well as right supraclavicular adenopathy. Thoracentesis with fluid cytology was positive for adenocarcinoma. A biopsy of the right supraclavicular lymph node showed moderately to poorly differentiated adenocarcinoma consistent with lung primary. Mutation studies are pending. She was originally supposed to follow-up as outpatient however she presented with progressive shortness of breath. Chest x-ray showed reaccumulated pleural effusions Assessment 67-year-old female with newly diagnosed non-small cell lung cancer admitted for recurrent pleural effusions, also with pericardial effusion. Persistent difficulty breathing and tachycardia. Plan 1. Malignant pleural effusions: Awake left-sided thoracentesis today. In my opinion her difficulty breathing and tachycardia is out of proportion to the volume of her pleural effusions. I'm concerned she may have cardiac tamonade due to the pericardial effusion. If there is recurrent/reaccumulated pericardial effusion she may require thoracic surgery evaluation for pericardial window creation. 2. Continue antibiotics for pulmonary consolidation noted in the left lung base 3. Once discharged follow-up as outpatient; patient will likely need PET scan. 4. Initiate Ativan 0.5 mg by mouth every 6 hours needed for anxiety, patient tells me this helps her breathing. 5. I talked to the patient briefly about the possibility of starting her on inpatient chemotherapy as we await the results of the mutational analysis on the biopsy. Jorge Ruiz MD Aug 11, 2017 08:29
[2017-08-11] MEDS ORDERED: LORazepam 2 MG/ML VIAL IV PUSH ONE (08:30)
[2017-08-11] MEDS: SODIUM CHLORIDE 0.9% FLUSH 10 ML FLUSH IV FLUSH SCH ×2 (08:32→20:45)
[2017-08-11] MEDS ORDERED: LIDOCAINE HCL 1% PF 10 ML VIAL ONE (09:52)
--- NOTE | 2017-08-11 10:40 | RADRPT ---
EXAM DATE/TIME: 08/11/2017 09:56 [facility] COMPARISON: CHEST EXPIRATION ONLY, August 10, 2017, 14:41. INDICATIONS : Status post left thoracentesis. MEDICAL HISTORY : Carcinoma, lung. SURGICAL HISTORY : Hysterectomy. section. Percutaneous kidney stone removal. ENCOUNTER: Initial ACUITY: 3 days PAIN SCORE: 8/10 LOCATION: Left chest FINDINGS: The heart is mildly enlarged. There are bilateral effusions. There is diffuse bibasilar infiltrate mo re significant on the left than the right. The overall appearance of the chest is similar to the prev ious dated 08/10/17. The visualized bony structures are grossly intact. CONCLUSION: 1. Cardiomegaly. 2. Small bilateral effusions and by basilar infiltrate/consolidation similar to previous of 08/10/17 David Baez MD on August 11, 2017 at 10:27 Board Certified Radiologist. This report was verified electronically.
[2017-08-11] MEDS: methylPREDNISolone SOD SUCC 40 MG/1 ML VIAL IV PUSH SCH ×2 (11:21→20:45)
[2017-08-11] MEDS: LORazepam 0.5 MG TAB PO PRN ×2 (12:01→17:57)
[2017-08-11] MEDS: CEFEPIME INJ 2,000 MG in SODIUM CHLORIDE 0.9% INJ 100 ML IV SCH ×2 (12:02→23:24)
[2017-08-11] MEDS: AZITHROMYCIN INJ 500 MG in SODIUM CHLOR 0.9% 250 ML INJ 250 ML IV SCH (13:15)
--- NOTE | 2017-08-11 16:03 | RADRPT ---
EXAM DATE/TIME: 08/11/2017 10:22 [facility] COMPARISON: US GUIDED THORACENTESIS LEFT, August 03, 2017, 11:05. INDICATIONS : Left pleural effusion. MEDICAL HISTORY : Renal calculi. Pericardial effusion. Blood transfusions. Pleural effusions. Palpitations. Adenocarcin rodrigue. SURGICAL HISTORY : section. Hysterectomy. Kidney stones removal. Thoracentesis. ENCOUNTER: [facility]ela ACUITY: 1 day PAIN SCORE: 3/10 LOCATION: Left chest FLUID: Total volume of 1300 cc of clear, red fluid was removed. Fluid was discarded. Thoracentesis was therapeutic only. Post procedure scanning reveals no hematoma or other complication. TECHNIQUE: 1. Ultrasound guidance for thoracentesis. 2. Thoracentesis. The risks, benefits, and alternatives to ultrasound guided thoracentesis were explained to the patien t in lay simple terms, including the risk of bleeding and infection. Written and verbal informed con sent was obtained. Appropriate area for thoracentesis was marked under ultrasound guidance with the patient in the uprig ht position. Overlying skin was prepped and draped in the usual sterile fashion and with local anest hetic, a dermatotomy was made with an 11 blade scalpel. A 6 Arabic thoracentesis catheter was placed in the pleural space and fluid was removed. Catheter was then removed and a sterile dressing applie d. There were no immediate complications. The patient tolerated the procedure well and the left the ultrasound suite in stable condition. Chest radiograph is to be obtained. CONCLUSION: Uncomplicated ultrasound guided thoracentesis. Bartolo Lopez MD on August 11, 2017 at 10:11 Board Certified Radiologist. This report was verified electronically.
--- NOTE | 2017-08-11 16:41 | ECHRPT ---
Indication: Shortness of Breath CONCLUSIONS Very technically difficult study. The left ventricular systolic function is normal with an estimated ejection fraction in the range of 55-60%. Doppler parameters are consistent with impaired left ventricular relaxtion (grade 1 diastolic dysfun ction). Trace mitral valve regurgitation. There is mild tricuspid valve regurgitation. There is a moderate pericardial effusion present. No hemodynamically significant echocardiographic features were observed (no pre-tamponade physiology). BP: 108 / 67 HR: 112 Rhythm: Sinus MEASUREMENTS (Male / Female) Normal Values Technical Quality:Very technically difficult study 2D ECHO LV Diastolic Diameter PLAX 4.4 cm 4.2 - 5.9 / 3.9 - 5.3 cm LV Systolic Diameter PLAX 3.3 cm IVS Diastolic Thickness 1.1 cm 0.6 - 1.0 / 0.6 - 0.9 cm LVPW Diastolic Thickness 1.1 cm 0.6 - 1.0 / 0.6 - 0.9 cm LV Relative Wall Thickness 0.5 RV Internal Dim ED PLAX 3.2 cm LA Systolic Diameter LX 2.5 cm 3.0 - 4.0 / 2.7 - 3.8 cm M-MODE Aortic Root Diameter MM 2.6 cm LA Systolic Diameter MM 3.5 cm LA Ao Ratio MM 1.3 AV Cusp Separation MM 1.9 cm DOPPLER AV Peak Velocity 146.0 cm/s AV Peak Gradient 8.5 mmHg LVOT Peak Velocity 81.0 cm/s LVOT Peak Gradient 2.6 mmHg MV Area PHT 4.1 cm Mitral E Point Velocity 58.3 cm/s Mitral A Point Velocity 73.7 cm/s Mitral E to A Ratio 0.8 TR Peak Velocity 270.0 cm/s TR Peak Gradient 29.2 mmHg Right Atrial Pressure 10.0 mmHg Pulmonary Artery Systolic Pressu 39.2 mmHg Right Ventricular Systolic Press 39.2 mmHg FINDINGS LEFT VENTRICLE The left ventricular systolic function is normal with an estimated ejection fraction in the range of 55-60%. There was limited left ventricular wall motion assessment due to poor endocardial visualization. Doppler parameters are consistent with impaired left ventricular relaxtion (grade 1 diastolic dysfun ction). RIGHT VENTRICLE The right ventricle was not well visualized. LEFT ATRIUM The left atrium was not well visualized. RIGHT ATRIUM The right atrium is not well visualized. ATRIAL SEPTUM Normal atrial septal thickness AORTA The aortic root and proximal ascending aorta are not well visualized. MITRAL VALVE Grossly normal mitral valve No mitral valve stenosis. Trace mitral valve regurgitation. AORTIC VALVE The aortic valve is not well visualized. No aortic valve regurgitation. No aortic valve stenosis. TRICUSPID VALVE Grossly normal tricuspid valve. There is mild tricuspid valve regurgitation. The estimated pulmonary arterial pressure is 39 mmHg. PULMONARY VALVE The pulmonary valve is not well visualized. VESSELS The inferior vena cava is normal in size. PERICARDIUM There is a moderate pericardial effusion present. No hemodynamically significant echocardiographic features were observed (no pre-tamponade physiology). Raymundo Hernandez DO (Electronically Signed) Final Date:11 August 2017 16:40
--- NOTE | 2017-08-11 17:46 | HHI.FPPN ---
Subjective Remarks Patient was seen and evaluated this afternoon, following a left-sided thoracentesis. She feels much better; her shortness of breath and chest pain have subsided. She reports some moderate discomfort at the thoracentesis site. Patient denies nausea, vomiting, diarrhea and constipation. Patient's code status was discussed at length. She desires chest compressions and medication but does not desire prolonged resuscitation and does not want to be intubated. All questions were answered. Objective Vitals Vital Signs Date Time Temp Pulse Resp B/P (MAP) Pulse Ox O2 Delivery O2 Flow Rate FiO2 08/11/17 12:00 97.5 111 18 113/76 (88) 96 08/11/17 11:50 97 Nasal Cannula 3.00 08/11/17 10:36 95 19 115/74 (88) 94 08/11/17 10:21 97.7 113 20 132/73 (92) 93 08/11/17 08:00 97.5 112 18 140/77 (98) 94 08/11/17 05:06 98.2 112 17 108/67 (81) 94 08/11/17 04:00 110 08/11/17 00:50 97.4 114 17 135/78 (97) 92 08/11/17 00:00 120 08/10/17 21:30 97.9 117 18 105/68 (80) 95 08/10/17 21:05 98 Nasal Cannula 2.00 08/10/17 20:00 119 08/10/17 17:35 112 I/O 08/10/17 08/10/17 08/10/17 08/11/17 08/11/17 08/11/17 07:00 15:00 23:00 07:00 15:00 23:00 Intake Total 480 ml 100 ml 800 ml Output Total 200 ml 250 ml Balance 280 ml 100 ml 550 ml Intake Oral 480 ml 200 ml IV Total 100 ml 600 ml Output Urine Total 200 ml 250 ml Result Diagram: 08/11/17 0520 08/11/17 0520 Imaging Last 72 hours Impressions Thoracentesis Ultrasound 08/11/17 0000 Signed Impressions: Service Date/Time: Friday, August 11, 2017 10:22 - CONCLUSION: Uncomplicated ultrasound guided thoracentesis. Bartolo Lopez MD Chest X-Ray 08/11/17 0000 Signed Impressions: Service Date/Time: Friday, August 11, 2017 09:56 - CONCLUSION: 1. Cardiomegaly. 2. Small bilateral effusions and by basilar infiltrate/consolidation similar to previous of 08/10/17 David Baez MD Thoracentesis Ultrasound 08/10/17 0600 Signed Impressions: Service Date/Time: Thursday, August 10, 2017 13:54 - CONCLUSION: Uncomplicated ultrasound guided thoracentesis. Deion Marin MD Chest X-Ray 08/10/17 06 Signed Impressions: Service Date/Time: Thursday, August 10, 2017 10:57 - CONCLUSION: Moderate-sized bilateral pleural effusions. Partially consolidated infiltrates left lower and right upper lobes. Darrell Ritchie MD Chest X-Ray 08/10/17 0000 Signed Impressions: Service Date/Time: Thursday, August 10, 2017 14:41 - CONCLUSION: No evidence of pneumothorax status post thoracentesis. Darrell Ritchie MD Chest X-Ray [id number] Signed Impressions: Service Date/Time: Wednesday, August 09, 2017 09:53 - CONCLUSION: 1. The right costophrenic angle is now blunted and there is hazy opacity in both lung bases most consistent with infiltrates and effusions. 2. The patient is mildly rotated to the right however there is volume loss in the right hemithorax with shift to the right. 3. Moderate cardiomegaly. Gerson Juárez MD CT Angiography 08/09/17 0000 Signed Impressions: Service Date/Time: Wednesday, August 09, 2017 11:11 - CONCLUSION: 1. No evidence of pulmonary emboli. 2. Moderate bilateral pleural effusions which are increased from the prior study. 3. Mediastinal adenopathy without significant change. 4. Consolidation in the right anterior lung base. 5. Multiple pulmonary nodules and nodular area of consolidative opacity in the left lower lobe. 6. Prominent lymph nodes in both axillary regions right greater than left. There are postsurgical changes noted on the left. 7. Small pericardial effusion which is decreased from the prior study. Gerson Juárez MD Objective Remarks GENERAL: Well-nourished, well-developed, obese female. Breathing comfortably. SKIN: Warm and dry. EYES: No scleral icterus. No injection or drainage. EOMI. HENT: Normocephalic. Atraumatic. NECK: No visible JVD or lymphadenopathy. CARDIOVASCULAR: Warm and well perfused. Regular rate and rhythm, no murmurs appreciated. RESPIRATORY: Clear to auscultation in anterior lung ochoa. GASTROINTESTINAL: Positive bowel sounds. Abdomen nondistended. MUSCULOSKELETAL: Strength grossly WNL. BACK: Without obvious deformity. NEURO/PSYCH: Afocal. Awake, alert, and oriented x3. Procedures ECHO 2D COMP with Doppler FINDINGS: LEFT VENTRICLE The left ventricular systolic function is normal with an estimated ejection fraction in the range of 55-60%. There was limited left ventricular wall motion assessment due to poor endocardial visualization. Doppler parameters are consistent with impaired left ventricular relaxation ( grade 1 diastolic dysfunction). RIGHT VENTRICLE The right ventricle was not well visualized. LEFT ATRIUM The left atrium was not well visualized. RIGHT ATRIUM The right atrium is not well visualized. ATRIAL SEPTUM Normal atrial septal thickness AORTA The aortic root and proximal ascending aorta are not well visualized. MITRAL VALVE Grossly normal mitral valve No mitral valve stenosis. Trace mitral valve regurgitation. AORTIC VALVE The aortic valve is not well visualized. No aortic valve regurgitation. No aortic valve stenosis. TRICUSPID VALVE Grossly normal tricuspid valve. There is mild tricuspid valve regurgitation. The estimated pulmonary arterial pressure is 39 mmHg. PULMONARY VALVE The pulmonary valve is not well visualized. VESSELS The inferior vena cava is normal in size. PERICARDIUM There is a moderate pericardial effusion present. No hemodynamically significant echocardiographic features were observed (no pre -tamponade physiology). Medications and IVs Current Medications Medications (Trade) Dose Ordered Sig/Jerrell Route Start Time Stop Time Status Last Admin (Mycostatin Powder) 1 applic Q8HR TOPICAL 08/09/17 14:00 (NS Flush) 2 ml BID IV FLUSH 08/09/17 21:00 08/11/17 08:32 (NS Flush) 2 ml UNSCH PRN IV FLUSH 08/09/17 12:45 (Duoneb Neb) 1 ampule Q6HR NEB INH 08/09/17 12:45 08/11/17 15:08 (Albuterol Neb) 2.5 mg Q2HR NEB PRN INH 08/09/17 12:45 ([place] 5-325 Mg) 1 tab Q4H PRN PO 08/09/17 16:15 08/10/17 04:52 ([place] 7.5-325 Mg) 1 tab Q4H PRN PO 08/09/17 16:15 08/11/17 16:20 (Morphine Inj) 2 mg Q3H PRN IV PUSH 08/09/17 16:15 (Narcan Inj) 0.4 mg UNSCH PRN IV PUSH 08/09/17 16:15 (Melatonin) 5 mg HS PRN PO 08/09/17 16:15 08/09/17 20:32 (SoluMEDROL INJ) 20 mg Q12HR IV PUSH 08/09/17 21:00 08/11/17 11:21 Sodium Chloride 1,000 ml @ 75 mls/hr [id number] IV 08/09/17 16:30 08/10/17 22:01 Azithromycin 500 mg/Sodium Chloride 250 ml @ 250 mls/hr Q24H IV 08/10/17 11:00 08/11/17 13:15 Cefepime HCl 2000 mg/Sodium Chloride 100 ml @ 200 mls/hr Q12H IV 08/09/17 23:00 08/11/17 12:02 Pharmacy Profile Note 0 ml @ 0 mls/hr UNSCH OTHER 08/09/17 16:30 (Tylenol) 650 mg Q4HR PRN PO 08/09/17 20:30 08/10/17 00:31 (D50w (Vial) Inj) 50 ml UNSCH PRN IV PUSH 08/10/17 06:45 (Glucagon Inj) 1 mg UNSCH PRN OTHER 08/10/17 06:45 (NovoLOG SUPPLEMENTAL SCALE) 1 ACHS SLIDING SCALE SQ 08/10/17 08:00 (Lovenox Inj) 40 mg Q24H SQ 08/10/17 20:00 (Ativan) 0.5 mg Q6H PRN PO 08/11/17 08:30 08/11/17 12:01 Vancomycin HCl 1500 mg/Sodium Chloride 515 ml @ 250 mls/hr Q12H IV 08/11/17 18:00 Miscellaneous Information SPECIFIC LAB TO BE DRAWN:VANCOMYCIN TROUGH DATE TO... ONCE ONCE .XX 08/13/17 05:45 08/13/17 05:46 (Pepcid) 20 mg BID PO 08/11/17 21:00 Urinary Catheter: No Vascular Central Line Catheter: No A/P Assessment and Plan 67 y/o female with a recent diagnosis of metastatic non-small cell lung cancer and metastatic adenopathy, who presents to the ED with shortness of breath. Admitted for evaluation and management of the respiratory distress. History from prior admission as follows: Patient was admitted with respiratory distress, started on antibiotics and Tamiflu. She had a pericardial drain placed with significant improvement in her symptoms and blood pressure. Oncology was consulted given the patient's history of suspected cancer. Patient underwent left-sided thoracentesis with significant improvement. Her pericardial effusion studies showed cells concerning for adenocarcinoma. 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 She remained afebrile throughout the latter half of her hospitalization and blood cultures were negative. Urology had also been consulted for a right staghorn calculi, which they deemed more appropriate for outpatient management given her acute issues. Patient passed her walk test and was deemed stable for discharge per oncology with close follow-up. Problem List: (1) Pneumonia ICD Codes: J18.9 - Pneumonia, unspecified organism Status: Acute Plan: Possible nosocomial pneumonia. On admission: * Met SIRS criteria with tachycardia, tachypnea, high WBC count. * Afebrile. * Tachycardia with pulse 112-121. * Respiratory rate of 26. * WBC 21, Lactic acid 3.4. * Chest x-ray: Right costophrenic angle blunted, hazy opacity in both lung bases most consistent with infiltrates and effusions, moderate cardiomegaly. Status post cefepime and azithromycin in the ED. Continue cefepime, azithromycin, vancomycin (started 08/09) for empirical treatment of nosocomial pneumonia. No IV fluids at this time due to pleural effusions. Ultrasound-guided thoracentesis ordered for moderate pleural effusions. Right- sided thoracentesis performed 4/2; left-sided thoracentesis performed 4/3. Respiratory status much improved. (2) Non-small cell carcinoma of lung ICD Codes: C34.90 - Malignant neoplasm of unspecified part of unspecified bronchus or lung Status: Acute Plan: Patient with recent diagnosis of non-small cell carcinoma of lung with metastasis. Oncology following. Ultrasound-guided thoracentesis ordered for moderate pleural effusions. Right- sided thoracentesis performed 4/2; left-sided thoracentesis performed 4/3. Respiratory status much improved. Continue with DuoNeb q6hr and albuterol q2hr as needed, methylprednisolone 20 mg q12hr, and broad-spectrum antibiotics as above. (3) Bilateral pleural effusion ICD Codes: J90 - Pleural effusion, not elsewhere classified Status: Chronic Plan: Effusions causing respiratory difficulties. On admission: * CTA: Negative for PE, moderate bilateral pleural effusions increased from prior study, mediastinal adenopathy, consolidation at right anterior lung base, multiple pulmonary nodules and area of consolidative opacity in left lower lobe , prominent lymph nodes, small pericardial effusion. Solu-Medrol 20 mg IV push q12hr. DuoNeb q6hr with albuterol q2hr as needed. Pain management with Tylenol, norco, morphine as needed. (4) Right kidney stone ICD Codes: N20.0 - Calculus of kidney Status: Chronic Plan: Staghorn calculus diagnosed, no current pain or concerns per the patient. Outpatient follow-up with urology was recommended once current conditions have resolved. (5) fen/ppx Status: Chronic Plan: Fluids: By mouth fluids. Electrolytes: BMP within normal limits, replete as needed. Nutrition: Passed bedside swallow eval per nursing, can advance to regular diet. DVT prophylaxis: SCDs. Resume chemical prophylaxis after thoracentesis. High risk of the VTE given underlying malignancy. Prophylaxis: IV Pepcid due to recent ICU stay, and steroid addition. Problem Qualifiers (1) Pneumonia: Qualified Codes: J18.1 - Lobar pneumonia, unspecified organism Corrina Reynolds MD R1 Aug 11, 2017 17:46
[2017-08-11] MEDS: VANCOMYCIN INJ 1,500 MG in SODIUM CHLORID 0.9% 500 ML INJ 500 ML IV SCH (17:57)
[2017-08-11] MEDS: SODIUM CHLOR 0.9% 1000 ML INJ 1,000 ML IV SCH (20:38)
[2017-08-11] MEDS: FAMOTIDINE 20 MG TAB PO SCH (20:44)
[2017-08-11] MEDS: ENOXAPARIN SODIUM 40 MG/0.4 ML SYRINGE SQ SCH (20:45)
[2017-08-12] VITALS (16 sets, daily range): BP systolic 112–154; BP diastolic 69–80; PULSE 94–123; RESP 18–20; TEMP 97.4–98.4; O2SAT 92–97
[2017-08-12] MEDS: ACETAMINOPHEN/HYDROcodone 325 MG/7.5 MG TAB PO PRN ×4 (02:14→16:20)
[2017-08-12] MEDS: RESP: ALBUTEROL 2.5 MG/IPRATROPIUM 0.5 MG NEB (SCH) INH ×3 (03:08→20:00)
[2017-08-12] MEDS: VANCOMYCIN INJ 1,500 MG in SODIUM CHLORID 0.9% 500 ML INJ 500 ML IV SCH ×2 (06:12→23:00)
[2017-08-12] MEDS: NYSTATIN 100,000 U/GM PWD 15 GM BTL TOPICAL SCH ×3 (06:12→21:01)
--- NOTE | 2017-08-12 07:39 | PD.ONC.PN ---
Subjective Subjective Remarks Pt seen and examined. VS, Labs, medications, procedure notes reviewed. Subjectively, the pt reports her breathing is much improved following L sided thoracentesis performed on 08/11 (1300cc removed). ECHO results reviewed, there was no evidence of cardiac tamponade physiology noted, a moderate sized pericardial effusion was noted. I spoke to the pt about palliative chemotherapy this AM, she understands and is willing to proceed. She is concerned about the rapidly enlarging masses on both sides of her neck and the rapidly reaccumulating pleural effusions. Objective Data Date Time Temp Pulse Resp B/P (MAP) Pulse Ox O2 Delivery O2 Flow Rate FiO2 08/12/17 04:43 97.4 122 18 112/69 (83) 94 08/12/17 04:00 114 08/12/17 00:08 112 08/11/17 23:23 97.6 114 19 107/71 (83) 94 08/11/17 21:30 97 Nasal Cannula 3.00 08/11/17 20:31 98.0 121 19 126/60 (82) 94 08/11/17 20:00 114 08/11/17 16:00 97.2 115 18 109/74 (86) 96 08/11/17 15:00 78 08/11/17 12:00 97.5 111 18 113/76 (88) 96 08/11/17 11:50 97 Nasal Cannula 3.00 08/11/17 10:36 95 19 115/74 (88) 94 08/11/17 10:21 97.7 113 20 132/73 (92) 93 08/11/17 08:00 97.5 112 18 140/77 (98) 94 08/12/17 08/12/17 08/12/17 07:00 15:00 23:00 Output Total 200 ml Balance -200 ml Result Diagram: 08/11/17 0520 08/11/17 0520 Culture Results Microbiology Date/Time Source Procedure Growth Status 08/09/17 09:45 Blood Peripheral Aerobic Blood Culture - Preliminary NO GROWTH IN 2 DAYS Resulted 08/09/17 09:45 Blood Peripheral Anaerobic Blood Culture - Preliminary NO GROWTH IN 2 DAYS Resulted 08/09/17 09:35 Blood Peripheral Aerobic Blood Culture - Preliminary NO GROWTH IN 2 DAYS Resulted 08/09/17 09:35 Blood Peripheral Anaerobic Blood Culture - Preliminary NO GROWTH IN 2 DAYS Resulted Administered Medications Medications (Trade) Dose Ordered Sig/Jerrell Route PRN Reason Start Time Stop Time Status Last Admin Dose Admin Sodium Chloride (NS Flush) 2 ml BID IV FLUSH 08/09/17 21:00 08/11/17 08:32 Albuterol/ Ipratropium (Duoneb Neb) 1 ampule Q6HR NEB INH 08/09/17 12:45 08/12/17 03:08 Acetaminophen/ Hydrocodone Bitart ([place] 5-325 Mg) 1 tab Q4H PRN PO PAIN SCALE 3 TO 5 08/09/17 16:15 08/10/17 04:52 Acetaminophen/ Hydrocodone Bitart ([place] 7.5-325 Mg) 1 tab Q4H PRN PO PAIN SCALE 6 TO 10 08/09/17 16:15 08/12/17 06:17 Melatonin (Melatonin) 5 mg HS PRN PO INSOMNIA 08/09/17 16:15 08/09/17 20:32 Methylprednisolone Sodium Succinate (SoluMEDROL INJ) 20 mg Q12HR IV PUSH 08/09/17 21:00 08/11/17 20:45 Sodium Chloride 1,000 ml @ 75 mls/hr [id number] IV 08/09/17 16:30 08/11/17 20:38 Azithromycin 500 mg/Sodium Chloride 250 ml @ 250 mls/hr Q24H IV 08/10/17 11:00 08/11/17 13:15 Cefepime HCl 2000 mg/Sodium Chloride 100 ml @ 200 mls/hr Q12H IV 08/09/17 23:00 08/11/17 23:24 Acetaminophen (Tylenol) 650 mg Q4HR PRN PO PAIN SCALE 1 TO 2 08/09/17 20:30 08/10/17 00:31 Enoxaparin Sodium (Lovenox Inj) 40 mg Q24H SQ 08/10/17 20:00 08/11/17 20:45 Lorazepam (Ativan) 0.5 mg Q6H PRN PO ANXIETY 08/11/17 08:30 08/11/17 17:57 Vancomycin HCl 1500 mg/Sodium Chloride 515 ml @ 250 mls/hr Q12H IV 08/11/17 18:00 08/12/17 06:12 Famotidine (Pepcid) 20 mg BID PO 08/11/17 21:00 08/11/17 20:44 Objective Remarks GENERAL: Middle-aged female sitting up in bed, she has a towel on her for head skin is moist and clammy. She appears moderately short of breath, she is able to speak almost full sentences. But she is in apparent respiratory difficulty. She appears more comfortable and calm today. SKIN: Warm and dry. HEAD: Normocephalic. EYES: No scleral icterus. No injection or drainage. NECK: Supple, trachea midline. No JVD right supraclavicular lymphadenopathy and enlarging bilateral cervical LAD. LYMPHATIC: No adenopathy. Right supraclavicular lymphadenopathy. CARDIOVASCULAR: Regular, tachycardic. RESPIRATORY: Improved breath sounds over bilateral bases. GASTROINTESTINAL: Abdomen soft, non-tender, nondistended. EXTREMITIES: No cyanosis, or edema. MUSCULOSKELETAL: Adequate muscle mass and tone. NEUROLOGICAL: No obvious focal deficit. Awake, alert, and oriented x3. PSYCHIATRIC: Appropriate mood and affect; insight and judgment normal. Appears somewhat anxious. Assessment/Plan Problem List: (1) Non-small cell carcinoma of lung ICD Codes: C34.90 - Malignant neoplasm of unspecified part of unspecified bronchus or lung Status: Acute Plan: --Plan for follow-up as outpatient Hx/Workup: Patient originally presented approximately 11 days ago with shortness of breath was found to have bilateral pleural effusion with pericardial effusion. She was also found to have mediastinal adenopathy, axillary adenopathy as well as right supraclavicular adenopathy. Thoracentesis with fluid cytology was positive for adenocarcinoma. A biopsy of the right supraclavicular lymph node showed moderately to poorly differentiated adenocarcinoma consistent with lung primary. Mutation studies are pending. She was originally supposed to follow-up as outpatient however she presented with progressive shortness of breath. Chest x-ray showed reaccumulated pleural effusions Assessment 67-year-old female with newly diagnosed non-small cell lung cancer admitted for recurrent pleural effusions, also with pericardial effusion. Persistent difficulty breathing and tachycardia. Plan 1. Metastatic adenocarcinoma of lung primary associated with bilateral pleural effusions and a malignant pericardial effusion, metastatic supraclavicular and cervical LAD: Initiate palliative systemic chemotherapy with Carboplatin/Taxol today. We are awaiting the results of PDL-1 testing and EGFR mutation analysis. 2. Pleural effusions: If she rapidly re-accumulates she will need evaluation for a pleurodesis. 3. Anxiety / panic attacks: Continue Ativan 0.5 mg by mouth every 6 hours needed for anxiety, patient tells me this helps her breathing. Jorge Ruiz MD Aug 12, 2017 07:39
[2017-08-12] MEDS: INSULIN ASPART SUPPLEMENTAL SCALE SQ SCH ×4 (08:00→21:13)
[2017-08-12] MEDS: methylPREDNISolone SOD SUCC 40 MG/1 ML VIAL IV PUSH SCH (08:58)
[2017-08-12] MEDS: FAMOTIDINE 20 MG TAB PO SCH ×2 (09:01→20:59)
[2017-08-12] MEDS: SODIUM CHLORIDE 0.9% FLUSH 10 ML FLUSH IV FLUSH SCH ×2 (09:01→20:58)
--- NOTE | 2017-08-12 09:04 | PD.CONS ---
Consult Service Palliative Care . Consult Requested By Dr. Velazquez . Primary Care Physician Diane Srivastava MD . Reason for Consultation a. To assist with evaluation and management of symptoms including: pain, dyspnea, anxiety b. To assist medical decision maker(s) with: better understanding of current medical conditions; weighing benefits/burdens of medical treatment options; making medical treatment decisions. . (Melissa Soliman) HPI History of Present Illness Ms. Castorena is a 67 yo female who was hospitalized in July, for pneumonia and septic shock, and was diagnosed metastatic non-small cell lung cancer with adenopathy. Ms. Castorena presented to [facility] ED on 08/09/2017 with complaints of progressively increased dyspnea that is exacerbated with minimal exertion. Patient reported her symptoms were similar to those she experienced during her recent hospitalization. She endorsed subjective fevers and nonproductive cough. Denied hemoptysis. Additional diagnostic data while in the ED: * Vital signs: Pulse 119, respirations 18, BP 163/60, oxygen saturation 94% on room air, oral temperature 98.3 * WBC: 21.5, hemoglobin 15.0, hematocrit 45.2, platelets 408, neutrophils 84.9% * Sodium: 141, potassium 3.4, chloride 104, carbon dioxide 25.9, glucose 133, calcium 8.8 * Lactic acid: 3.4 * BUN: 19, creatinine 0.79, GFR 72 * Total bilirubin: 1.0, AST 18, ALT 15, alkaline phosphatase 105 * Total creatine kinase: 45 * Troponin <0.02 * Total protein: 7.0, albumin 2.8 * PT: 11.1, INR 1.1, APTT 23.6 * Blood cultures showing no growth in 2 days * On chest x-ray, the right costophrenic angle is now blunted and there is hazy opacity in both lung bases most consistent with infiltrates and effusions. The patient is mildly rotated to the right however there is volume loss in the right hemithorax with shift to the right. Moderate cardiomegaly. * CTA showed no evidence of PE; moderate bilateral pleural effusions which are increased from prior to study; mediastinal adenopathy without significant change ; consolidation of the right anterior lung base; multiple pulmonary nodules and nodular area of consolidation opacity in the left lower lobe; prominent lymph nodes in both axillary regions right > left; small pericardial effusion which is decreased from the prior study. Patient was started on cefepime and azithromycin as well as IVF. She remained tachycardic with heart rate of 119. Patient did not appear to be in respiratory distress. However, she endorsed feeling short of breath which was exacerbated by minimal exertion. Patient was admitted for further treatment and further evaluation of sepsis, pneumonia, bilateral pleural effusions and dyspnea. Oncology was consulted. Patient was previously admitted on 07/24/2017 with similar complaints. She was found to have bilateral pleural effusions and a pericardial effusion. She also had mediastinal adenopathy, axillary adenopathy as well as right supraclavicular adenopathy. Patient underwent pericardiocentesis. Bilateral thoracentesis. Fluid cytology was positive for adenocarcinoma. Patient subsequently underwent a biopsy of the right lymph node which showed moderate to poorly differentiated adeno carcinoma consistent with lung primary. Mutation study is still pending. Patient was discharged on 08/03/2017 and was instructed to follow-up with Dr. Ruiz (oncology) outpatient. However, her symptoms progressively worsened and she came back to the ED for evaluation. Respiratory status improved s/p thoracentesis on 08/10/2017 for right-sided pleural effusion with 900ml clear, al fluid removed, and left-sided thoracentesis was completed yesterday 08/11/2017 with 1300ml of clear, red fluid removed. Patient remain on scheduled Duonebs, albuterol nebulizers PRN, Solu- Medrol and broad-spectrum antibiotics. Echocardiogram revealed a moderate pericardial effusion but no evidence of cardiac tamponade physiology. EF 55-60% . Patient was reporting tachycardia, some substernal pain and anxiety associated with her shortness of breath She was started lorazepam 0.5 mg PO q6 hours PRN which has also improved her symptom management. Plan to initiate palliative systemic chemotherapy with carboplatin/Taxol today . Awaiting results of mutational analysis on biopsy. Upon discharge, patient will follow up with oncology outpatient; she will likely need a PET scan. discussed CODE STATUS with patient at length. Patient desires chest compressions and medications but does not desire prolonged or less resuscitation and does not want to be intubated. CODE STATUS changed to ALTERNATE CODE with compressions and medications (NO SHOCK; NO INTUBATION). Palliative Care was consulted to assist with symptom management and to discuss with the patient/family the benefits and burdens of her current illnesses and the options regarding future care. Patient confirmed her status as and ALTERNATE CODE-compression/medications only during conversations with palliative care. Patient's daughter, brother and palliative care [employer] (Wanda Hedrick) were present during these conversations. . Function/Cognitive Trajectory Patient was diagnosed with metastatic non-small cell carcinoma with diffuse thoracic adenopathy July,. She has since had worsening shortness of breath with minimal exertion, some pain and anxiety. She reports her appetite has decreased, but she is unsure if she has lost any weight. Prior to her hospitalization in 07/2017 the patient was independent and helping to care for another family member. . (Melissa Soliman) Review of Systems Constitutional: COMPLAINS OF: Fever (Subjective), Change in appetite ( Decreased appetite), Pain Respiratory: COMPLAINS OF: Shortness of breath, DENIES: Hemoptysis Cardiovascular: COMPLAINS OF: Dyspnea on Exertion Gastrointestinal: DENIES: Constipation, Diarrhea, Nausea, Vomiting Hematologic/Lymphatics: COMPLAINS OF: Bruising Psychiatric: COMPLAINS OF: Anxiety (Melissa Soliman) Past Family Social History Coded Allergies: morphine (Verified Allergy, Intermediate, HIVES, 08/09/17) Past Medical History Metastatic non-small cell lung cancer Nephrolithiasis Metastatic adenopathy Endometriosis Recent hospitalization for influenza A, septic shock and pneumonia (07/2017) . Past Surgical History x 3 Hysterectomy Bladder lift Pericardiocentesis Bilateral thoracentesis Biopsy of the right neck lymph node . Reported Medications Proair Hfa 2 Puff INH Q4-6H PRN Nystatin Powder topical q8 hours15 Prednisone PO DIRECTED-titrating downward . Current Medications Medications (Trade) Dose Ordered Sig/Jerrell Route Start Time Stop Time Status Last Admin (Mycostatin Powder) 1 applic Q8HR TOPICAL 08/09/17 14:00 (NS Flush) 2 ml BID IV FLUSH 08/09/17 21:00 08/11/17 08:32 (NS Flush) 2 ml UNSCH PRN IV FLUSH 08/09/17 12:45 (Duoneb Neb) 1 ampule Q6HR NEB INH 08/09/17 12:45 08/12/17 03:08 (Albuterol Neb) 2.5 mg Q2HR NEB PRN INH 08/09/17 12:45 ([place] 5-325 Mg) 1 tab Q4H PRN PO 08/09/17 16:15 08/10/17 04:52 ([place] 7.5-325 Mg) 1 tab Q4H PRN PO 08/09/17 16:15 08/12/17 06:17 (Morphine Inj) 2 mg Q3H PRN IV PUSH 08/09/17 16:15 (Narcan Inj) 0.4 mg UNSCH PRN IV PUSH 08/09/17 16:15 (Melatonin) 5 mg HS PRN PO 08/09/17 16:15 08/09/17 20:32 (SoluMEDROL INJ) 20 mg Q12HR IV PUSH 08/09/17 21:00 08/11/17 20:45 Sodium Chloride 1,000 ml @ 75 mls/hr [id number] IV 08/09/17 16:30 08/11/17 20:38 Azithromycin 500 mg/Sodium Chloride 250 ml @ 250 mls/hr Q24H IV 08/10/17 11:00 08/11/17 13:15 Cefepime HCl 2000 mg/Sodium Chloride 100 ml @ 200 mls/hr Q12H IV 08/09/17 23:00 08/11/17 23:24 Pharmacy Profile Note 0 ml @ 0 mls/hr UNSCH OTHER 08/09/17 16:30 (Tylenol) 650 mg Q4HR PRN PO 08/09/17 20:30 08/10/17 00:31 (D50w (Vial) Inj) 50 ml UNSCH PRN IV PUSH 08/10/17 06:45 (Glucagon Inj) 1 mg UNSCH PRN OTHER 08/10/17 06:45 (NovoLOG SUPPLEMENTAL SCALE) 1 ACHS SLIDING SCALE SQ 08/10/17 08:00 (Lovenox Inj) 40 mg Q24H SQ 08/10/17 20:00 08/11/17 20:45 (Ativan) 0.5 mg Q6H PRN PO 08/11/17 08:30 08/11/17 17:57 Vancomycin HCl 1500 mg/Sodium Chloride 515 ml @ 250 mls/hr Q12H IV 08/11/17 18:00 08/12/17 06:12 Miscellaneous Information SPECIFIC LAB TO BE DRAWN:VANCOMYCIN TROUGH DATE TO... ONCE ONCE .XX 4/5/18 05:45 08/13/17 05:46 (Pepcid) 20 mg BID PO 08/11/17 21:00 08/11/17 20:44 , Family History Patient's brother from leukemia; sister had uterine cancer. . Substance Use Tobacco: Recently quit smoking; [id number] smoking history Alcohol: Patient denies alcohol consumption Prescription med abuse: None known Illicits: None known . Psychosocial History Patient is originally from [place]. 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 Patient moved to [place] approximately 15 years ago. Patient is . She has 3 adult children (Queenie, Carlita and Violeta) with him she is very close. She is also a grandmother and a great grandmother. Patient has one brother who from brain cancer. She has 2 brothers and one sister who are alive and well. . Spiritual/Cultural Factors [employer]reg[employer] davina . (Melissa Soliman) Documented care wishes: No written advanced directives have been completed; discussed with the patient and her family why completing written advanced directives may be beneficial. Palliative care will drop of "5 wishes" information at our next visit. . Today's verbally stated goals: Patient states she would want her 3 daughters to be her healthcare decision makers in the event that she was incapacitated or unable to verbalize her medical treatment goals. She states, "I need to sit down and talk to my girls altogether, but they know what I want. I don't like all that artificial stuff. " Patient states that she does not want extraordinary measures if they would only serve to prolong her suffering. . Family/friends goals: Patient's daughter, Queenie, was at bedside. She states that she loves and respects her mother and she will support all her decisions, even if she did not agree with those decisions. . (Melissa Soliman) Physical Exam Vital Signs Date Time Temp Pulse Resp B/P (MAP) Pulse Ox O2 Delivery O2 Flow Rate FiO2 08/12/17 04:43 97.4 122 18 112/69 (83) 94 08/12/17 04:00 114 08/12/17 00:08 112 08/11/17 23:23 97.6 114 19 107/71 (83) 94 08/11/17 21:30 97 Nasal Cannula 3.00 08/11/17 20:31 98.0 121 19 126/60 (82) 94 08/11/17 20:00 114 08/11/17 16:00 97.2 115 18 109/74 (86) 96 08/11/17 15:00 78 08/11/17 12:00 97.5 111 18 113/76 (88) 96 08/11/17 11:50 97 Nasal Cannula 3.00 08/11/17 10:36 95 19 115/74 (88) 94 08/11/17 10:21 97.7 113 20 132/73 (92) 93 Exam CONSTITUTIONAL/GENERAL: This is an adequately nourished patient, in no apparent distress. TUBES/LINES/DRAINS: PIV SKIN: No jaundice, rashes, or lesions. Ecchymoses on upper extremities. Skin temperature appropriate. Not diaphoretic. HEAD: Atraumatic. Normocephalic. EYES: Pupils equal and round and reactive. Extraocular motions intact. No scleral icterus. No injection or drainage. Fundi not examined. ENT: Hearing grossly normal. Nose without bleeding or purulent drainage. NECK: Trachea midline. Supple, nontender. No palpable thyroid enlargement or nodularity. CARDIOVASCULAR: Regular rate and rhythm without murmurs, gallops, or rubs. No JVD. Peripheral pulses symmetric. RESPIRATORY/CHEST: Symmetric, unlabored respirations. Clear to auscultation. Breath sounds equal bilaterally. No wheezes, rales, or rhonchi. GASTROINTESTINAL: Abdomen soft, non-tender, nondistended. No hepato-splenomegaly , or palpable masses. No guarding. Bowel sounds present. GENITOURINARY: Without palpable bladder distension. MUSCULOSKELETAL: Extremities without clubbing, cyanosis, or edema. No mottling or clubbing. LYMPHATICS: No palpable cervical or supraclavicular adenopathy. NEUROLOGICAL: Awake and alert. Follows commands. Cognitively sharp. Moves all extremities. PSYCHIATRIC: Anxious.. No apparent hallucinations or other psychotic thought process. . (Melissa Soliman) Diagnostic Tests Laboratory Laboratory Tests Test 08/09/17 09:20 08/09/17 09:49 08/09/17 13:13 08/09/17 13:37 White Blood Count 21.5 TH/MM3 (4.0-11.0) Red Blood Count 5.23 MIL/MM3 (4.00-5.30) Hemoglobin 15.0 GM/DL (11.6-15.3) Hematocrit 45.2 % (35.0-46.0) Mean Corpuscular Volume 86.3 FL (80.0-100.0) Mean Corpuscular Hemoglobin 28.6 PG (27.0-34.0) Mean Corpuscular Hemoglobin Concent 33.2 % (32.0-36.0) Red Cell Distribution Width 14.3 % (11.6-17.2) Platelet Count 408 TH/MM3 (150-450) Mean Platelet Volume 8.8 FL (7.0-11.0) Neutrophils (%) (Auto) 84.9 % (16.0-70.0) Lymphocytes (%) (Auto) 7.8 % (9.0-44.0) Monocytes (%) (Auto) 6.8 % (0.0-8.0) Eosinophils (%) (Auto) 0.2 % (0.0-4.0) Basophils (%) (Auto) 0.3 % (0.0-2.0) Neutrophils # (Auto) 18.3 TH/MM3 (1.8-7.7) Lymphocytes # (Auto) 1.7 TH/MM3 (1.0-4.8) Monocytes # (Auto) 1.5 TH/MM3 (0-0.9) Eosinophils # (Auto) 0.0 TH/MM3 (0-0.4) Basophils # (Auto) 0.1 TH/MM3 (0-0.2) CBC Comment DIFF FINAL Differential Comment Prothrombin Time 11.1 SEC (9.8-11.6) Prothromb Time International Ratio 1.1 RATIO Activated Partial Thromboplast Time 23.6 SEC (24.3-30.1) Blood Urea Nitrogen 19 MG/DL (7-18) Creatinine 0.79 MG/DL (0.50-1.00) Random Glucose 133 MG/DL (74-106) Total Protein 7.0 GM/DL (6.4-8.2) Albumin 2.8 GM/DL (3.4-5.0) Calcium Level 8.8 MG/DL (8.5-10.1) Alkaline Phosphatase 105 U/L (45-117) Aspartate Amino Transf (AST/SGOT) 18 U/L (15-37) Alanine Aminotransferase (ALT/SGPT) 15 U/L (10-53) Total Bilirubin 1.0 MG/DL (0.2-1.0) Sodium Level 141 MEQ/L (136-145) Potassium Level 3.4 MEQ/L (3.5-5.1) Chloride Level 104 MEQ/L (98-107) Carbon Dioxide Level 25.9 MEQ/L (21.0-32.0) Anion Gap 11 MEQ/L (5-15) Estimat Glomerular Filtration Rate 72 ML/MIN (>89) Total Creatine Kinase 45 U/L (26-192) Troponin I LESS THAN 0.02 NG/ML Lactic Acid Level 3.4 mmol/L (0.4-2.0) 2.7 mmol/L (0.4-2.0) Blood Gas Puncture Site RT RADIAL Blood Gas Patient Temperature 98.6 Blood Gas HCO3 25 mmol/L (22-26) Blood Gas Base Excess 1.8 mmol/L (-2-2) Blood Gas Oxygen Saturation 90 % (90-100) Arterial Blood pH 7.46 (7.380-7.420) Arterial Blood Partial Pressure CO2 36 mmHg (38-42) Arterial Blood Partial Pressure O2 61 mmHG (61-120) Arterial Blood Oxygen Content 18.4 Vol % (12.0-20.0) Arterial Blood Carboxyhemoglobin 1.5 % (0-4) Arterial Blood Methemoglobin 0.7 % (0-2) Blood Gas Hemoglobin 14.6 G/DL (12.0-16.0) Blood Gas Inspired Oxygen 21 % Test 08/09/17 19:49 08/10/17 02:03 08/11/17 05:20 Lactic Acid Level 3.0 mmol/L (0.4-2.0) Troponin I LESS THAN 0.02 NG/ML LESS THAN 0.02 NG/ML White Blood Count 18.9 TH/MM3 (4.0-11.0) 24.5 TH/MM3 (4.0-11.0) Red Blood Count 5.01 MIL/MM3 (4.00-5.30) 4.63 MIL/MM3 (4.00-5.30) Hemoglobin 14.0 GM/DL (11.6-15.3) 13.1 GM/DL (11.6-15.3) Hematocrit 43.0 % (35.0-46.0) 40.1 % (35.0-46.0) Mean Corpuscular Volume 85.9 FL (80.0-100.0) 86.5 FL (80.0-100.0) Mean Corpuscular Hemoglobin 28.0 PG (27.0-34.0) 28.2 PG (27.0-34.0) Mean Corpuscular Hemoglobin Concent 32.6 % (32.0-36.0) 32.6 % (32.0-36.0) Red Cell Distribution Width 14.4 % (11.6-17.2) 14.2 % (11.6-17.2) Platelet Count 359 TH/MM3 (150-450) 344 TH/MM3 (150-450) Mean Platelet Volume 8.5 FL (7.0-11.0) 8.5 FL (7.0-11.0) Neutrophils (%) (Auto) 94.2 % (16.0-70.0) 92.3 % (16.0-70.0) Lymphocytes (%) (Auto) 2.6 % (9.0-44.0) 3.1 % (9.0-44.0) Monocytes (%) (Auto) 2.2 % (0.0-8.0) 4.4 % (0.0-8.0) Eosinophils (%) (Auto) 0.0 % (0.0-4.0) 0.0 % (0.0-4.0) Basophils (%) (Auto) 1.0 % (0.0-2.0) 0.2 % (0.0-2.0) Neutrophils # (Auto) 17.8 TH/MM3 (1.8-7.7) 22.6 TH/MM3 (1.8-7.7) Lymphocytes # (Auto) 0.5 TH/MM3 (1.0-4.8) 0.8 TH/MM3 (1.0-4.8) Monocytes # (Auto) 0.4 TH/MM3 (0-0.9) 1.1 TH/MM3 (0-0.9) Eosinophils # (Auto) 0.0 TH/MM3 (0-0.4) 0.0 TH/MM3 (0-0.4) Basophils # (Auto) 0.2 TH/MM3 (0-0.2) 0.0 TH/MM3 (0-0.2) CBC Comment DIFF FINAL DIFF FINAL Differential Comment Blood Urea Nitrogen 18 MG/DL (7-18) 18 MG/DL (7-18) Creatinine 0.60 MG/DL (0.50-1.00) 0.57 MG/DL (0.50-1.00) Random Glucose 152 MG/DL (74-106) 138 MG/DL (74-106) Calcium Level 8.7 MG/DL (8.5-10.1) 8.6 MG/DL (8.5-10.1) Sodium Level 143 MEQ/L (136-145) 142 MEQ/L (136-145) Potassium Level 3.8 MEQ/L (3.5-5.1) 3.8 MEQ/L (3.5-5.1) Chloride Level 108 MEQ/L (98-107) 108 MEQ/L (98-107) Carbon Dioxide Level 24.8 MEQ/L (21.0-32.0) 23.8 MEQ/L (21.0-32.0) Anion Gap 10 MEQ/L (5-15) 10 MEQ/L (5-15) Estimat Glomerular Filtration Rate 99 ML/MIN (>89) 105 ML/MIN (>89) Total Protein 6.3 GM/DL (6.4-8.2) Albumin 2.4 GM/DL (3.4-5.0) Alkaline Phosphatase 95 U/L (45-117) Aspartate Amino Transf (AST/SGOT) 11 U/L (15-37) Alanine Aminotransferase (ALT/SGPT) 12 U/L (10-53) Total Bilirubin 0.7 MG/DL (0.2-1.0) Vancomycin Level Trough 13.1 MCG/ML (5.0-10.0) . (Melissa Soliman) Result Diagram: 08/11/1720 08/11/1720 Microbiology Microbiology Date/Time Source Procedure Growth Status 08/09/17 09:45 Blood Peripheral Aerobic Blood Culture - Preliminary NO GROWTH IN 2 DAYS Resulted 08/09/17 09:45 Blood Peripheral Anaerobic Blood Culture - Preliminary NO GROWTH IN 2 DAYS Resulted 08/09/17 09:35 Blood Peripheral Aerobic Blood Culture - Preliminary NO GROWTH IN 2 DAYS Resulted 08/09/17 09:35 Blood Peripheral Anaerobic Blood Culture - Preliminary NO GROWTH IN 2 DAYS Resulted Imaging Last 72 hours Impressions Thoracentesis Ultrasound 08/11/17 0000 Signed Impressions: Service Date/Time: Friday, August 11, 2017 10:22 - CONCLUSION: Uncomplicated ultrasound guided thoracentesis. Bartolo Lopez MD Chest X-Ray 08/11/17 0000 Signed Impressions: Service Date/Time: Friday, August 11, 2017 09:56 - CONCLUSION: 1. Cardiomegaly. 2. Small bilateral effusions and by basilar infiltrate/consolidation similar to previous of 08/10/17 David Baez MD . Procedures 08/10/17: right-sided thoracentesis 08/11/17: Left-sided thoracentesis . (Melissa Soliman) Patient/Family Conference Present at Family Conference: Met with patient, daughter (Queenie) and brother at bedside. . Family Conference Location: Bedside Issues Discussed: * Palliative care role, purpose, approach * Additional medical, psychosocial, and spiritual history * Patients general health, functional status, and cognitive changes in the months leading up to the current hospitalization * Patient/family understanding of the current medical problems * Patient/family understanding of prognosis * Patients goals of care as best understood from advance directives and/or conversations and/or values * Current medical treatment options and benefits/burdens of those options * Likely scenarios comparing ongoing aggressive care with a transition to comfort measures only * Questions answered to the best of my ability * Palliative care contact information provided . (Melissa Soliman) Assessment and Plan Disease Oriented Problem List: (1) Pneumonia (2) Right kidney stone (3) fen/ppx (4) Non-small cell carcinoma of lung (5) Recurrent right pleural effusion Symptom Scale: (1) Dyspnea (2) Pain (3) Anxiety Pertinent Non-Medical Issues Psychosocial:Patient is originally from [place]. 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 Patient moved to [place] approximately 15 years ago. Patient is . She has 3 adult children (Queenie, Carlita and Violeta) with him she is very close. She is also a grandmother and a great grandmother. Patient has one brother who from brain cancer. She has 2 brothers and one sister who are alive and well. Spiritual: [employer]regational davina Legal: Per [place] statutes, in the absence of written advanced directives healthcare proxy decision making would fall to the patient's 3 adult daughters. Patient confirms that in the event that she were incapacitated or unable to verbalize her medical treatment goals, she would want her 3 daughters (Carlita Jerome and Violeta) to act has her medical decision makers. Ethical issues impacting care: No known ethical is impacting care at this time. . Important Contacts Queenie Escamilla, daughter: [phone] or [phone] Debzita Gee, daughter: [phone] Violeta Castorena, daughter [phone] Blake Castorena, brother: [phone] Eryn Milan, sister: [phone] . Prognosis Patient recently diagnosed with metastatic non-small cell lung cancer in July,. She was discharged on 08/03/2017 and return to the ED on 08/09/2017 with worsening symptoms and recurrent pleural effusions and pericardial effusions. Plan to initiate palliative systemic chemotherapy with carboplatin/Taxol today . Patient is terminally ill. Currently medical treatment goals are aggressive but when/if the patient wishes to transition to comfort focused care , she would be hospice appropriate. . Code Status: Alternative Code (Compressions and medications only) Plan * ALTERNATE CODE-compressions and medications only. Patient does not desire shock or intubation. * Per [place] statutes, in the absence of written advanced directives healthcare proxy decision making would fall to the patient's 3 adult daughters ( Carlita Jerome and Violeta). * Plan to initiate palliative systemic chemotherapy with carboplatin/Taxol today 08/12/2017. Patient states she would want her 3 daughters to be her healthcare decision makers in the event that she was incapacitated or unable to verbalize her medical treatment goals. She states, "I need to sit down and talk to my girls altogether, but they know what I want. I don't like all that artificial stuff." Patient states that she does not want extraordinary measures if they would only serve to prolong her suffering. * No written advanced directives have been completed; discussed with the patient and her family why completing written advanced directives may be beneficial. Palliative care will drop of "5 wishes" information at our next visit. * Discussed patient with bedside nurse and [facility] (oncology) * Palliative care contact information provided to both patient and her daughter , Queenie. * SYMPTOM MANAGEMENT: = Pain: Multifactoral. Reporting pain in her chest and the left side of her abdomen status post recent thoracentesis. Pain is rated 6-8 out of 10 and described as aching/sore. Contributing factors include recently diagnosed metastatic non-small cell lung cancer, pneumonia, infiltrated IV sites, invasive lines, invasive procedures etc. Current orders for PRN acetaminophen, [place] 5-325 or 7-325mg q4 hours PRN and morphine 2mg IV for breakthrough pain. 24 hour PRN requirements = [place] 7.5-325mg x 5. Palliative care will monitor PRN and make recommendations as indicated. Patient may benefit from long acting medications at some point in the future. = Anxiety: Multifactoral. Contributing factors include newly diagnosed metastatic carcinoma, pain and progressively increased dyspnea. She was started lorazepam 0.5 mg PO q6 hours PRN which has also improved her symptom management. No recommendations at this time. = Dyspnea: Multifactoral. Contributing factors include newly diagnosed metastatic carcinoma, recurrent pleural effusions and pneumonia. s/p thoracentesis on 08/10/2017 for right-sided pleural effusion with 900ml clear, al fluid removed, and left-sided thoracentesis was completed yesterday 08/11/2017 with 1300ml of clear, red fluid removed. Patient remain on scheduled Duonebs, albuterol nebulizers PRN, Solu-Medrol and broad- spectrum antibiotics. * . (Melissa Soliman) Thank you for the opportunity to participate in the care of Ms. Castorena. . (Melissa Soliman) Collaborating MD Comments To help prompt me to consider important information that might be impacting today's encounter and assessment, information from prior notes written by myself or my colleagues may have been "brought forward" into today's note. My signature on this note, however, is an attestation that I personally performed the exam, history, and/or decision-making noted today, and, unless otherwise indicated, the interactions with patient, family, and staff as well as the review of records all occurred today. I also attest that the listed assessment and stated plan reflect my best clinical judgment today based on the combination of historical information, prior notes, and today's exam/ interactions. When time spent is documented, it refers only to time spent today by the signer, or if indicated, combined time spent today by collaborating physician/nurse practitioner. . (Melissa Soliman) Collaborating MD Comments Chart reviewed. Case discussed with palliative care DEPUTY CHIEF COUNSEL. Above DEPUTY CHIEF COUNSEL note reviewed and I concur. . (Konstantin Myers MD) Melissa Soliman Aug 12, 2017 09:04 Konstantin Myers MD Aug 17, 2017 05:49
[2017-08-12] MEDS: AZITHROMYCIN INJ 500 MG in SODIUM CHLOR 0.9% 250 ML INJ 250 ML IV SCH (10:25)
[2017-08-12] MEDS: SODIUM CHLOR 0.9% 1000 ML INJ 1,000 ML IV SCH (11:10)
[2017-08-12 11:56] LABS: AUTOMATED NEUTROPHIL # 24.9 TH/MM3 (1.8-7.7); BASOPHIL % 0.1 % (0.0-2.0); HEMATOCRIT 38.1 % (35.0-46.0); HEMOGLOBIN 12.5 GM/DL (11.6-15.3); LYMPH % 1.5 % (9.0-44.0); LYMPHOCYTE # 0.4 TH/MM3 (1.0-4.8); MEAN CELL VOLUME 86.1 FL (80.0-100.0); MEAN CORPUSCULAR HEMOGLOBIN 28.3 PG (27.0-34.0); MEAN CORPUSCULAR HGB CONC 32.8 % (32.0-36.0); MEAN PLATELET VOLUME 8.6 FL (7.0-11.0); MONO % 5.1 % (0.0-8.0); MONOCYTE # 1.4 TH/MM3 (0-0.9); NEUT % 93.3 % (16.0-70.0); PLATELET COUNT 291 TH/MM3 (150-450); RED BLOOD COUNT 4.42 MIL/MM3 (4.00-5.30); RED CELL DISTRIBUTION WIDTH 14.4 % (11.6-17.2); WHITE BLOOD COUNT 26.8 TH/MM3 (4.0-11.0)
[2017-08-12 12:20] LABS: ALBUMIN 2.4 GM/DL (3.4-5.0); AST (GOT) 13 U/L (15-37); BICARBONATE 23.1 MEQ/L (21.0-32.0); BLOOD UREA NITROGEN 16 MG/DL (7-18); CALCIUM 8.2 MG/DL (8.5-10.1); CHLORIDE 108 MEQ/L (98-107); CREATININE 0.61 MG/DL (0.50-1.00); GLOMERULAR FILTRATION RATE 98 ML/MIN (>89); GLUCOSE,RANDOM 162 MG/DL (74-106); SODIUM (NA) 140 MEQ/L (136-145)
[2017-08-12 12:22] LABS: ALT (GPT) 12 U/L (10-53)
[2017-08-12 12:24] LABS: ALKALINE PHOSPHATASE 93 U/L (45-117); TOTAL BILIRUBIN ADULT 0.6 MG/DL (0.2-1.0); TOTAL PROTEIN 5.7 GM/DL (6.4-8.2)
--- NOTE | 2017-08-12 12:40 | HHI.FPPN ---
Subjective Remarks Patient seen and examined bedside this morning. Patient has had improved shortness of breath since her second thoracentesis yesterday. She can feel the fluid starting to accumulate again. She is having her first treatment today. No fever/chills overnight. No acute events overnight. Objective Vitals Vital Signs Date Time Temp Pulse Resp B/P (MAP) Pulse Ox O2 Delivery O2 Flow Rate FiO2 08/12/17 09:35 93 Nasal Cannula 2.50 08/12/17 04:43 97.4 122 18 112/69 (83) 94 08/12/17 04:00 114 08/12/17 00:08 112 08/11/17 23:23 97.6 114 19 107/71 (83) 94 08/11/17 21:30 97 Nasal Cannula 3.00 08/11/17 20:31 98.0 121 19 126/60 (82) 94 08/11/17 20:00 114 08/11/17 16:00 97.2 115 18 109/74 (86) 96 08/11/17 15:00 78 I/O 08/11/17 08/11/17 08/11/17 08/12/17 08/12/17 08/12/17 07:00 15:00 23:00 07:00 15:00 23:00 Intake Total 800 ml 480 ml 1090 ml Output Total 250 ml 550 ml 200 ml Balance 550 ml -70 ml 890 ml Intake Oral 200 ml 480 ml 240 ml IV Total 600 ml 850 ml Output Urine Total 250 ml 550 ml 200 ml Result Diagram: 08/12/17 1126 08/12/17 1126 Objective Remarks GENERAL: Well-nourished, well-developed, obese female. Breathing comfortably. SKIN: Warm and dry. EYES: No scleral icterus. No injection or drainage. EOMI. HENT: Normocephalic. Atraumatic. NECK: No visible JVD or lymphadenopathy. CARDIOVASCULAR: Warm and well perfused. Regular rate and rhythm, no murmurs appreciated. RESPIRATORY: Clear to auscultation in anterior lung ochoa. GASTROINTESTINAL: Positive bowel sounds. Abdomen nondistended. MUSCULOSKELETAL: Strength grossly WNL. BACK: Without obvious deformity. NEURO/PSYCH: Afocal. Awake, alert, and oriented x3. Procedures ECHO 2D COMP with Doppler FINDINGS: LEFT VENTRICLE The left ventricular systolic function is normal with an estimated ejection fraction in the range of 55-60%. There was limited left ventricular wall motion assessment due to poor endocardial visualization. Doppler parameters are consistent with impaired left ventricular relaxation ( grade 1 diastolic dysfunction). RIGHT VENTRICLE The right ventricle was not well visualized. LEFT ATRIUM The left atrium was not well visualized. RIGHT ATRIUM The right atrium is not well visualized. ATRIAL SEPTUM Normal atrial septal thickness AORTA The aortic root and proximal ascending aorta are not well visualized. MITRAL VALVE Grossly normal mitral valve No mitral valve stenosis. Trace mitral valve regurgitation. AORTIC VALVE The aortic valve is not well visualized. No aortic valve regurgitation. No aortic valve stenosis. TRICUSPID VALVE Grossly normal tricuspid valve. There is mild tricuspid valve regurgitation. The estimated pulmonary arterial pressure is 39 mmHg. PULMONARY VALVE The pulmonary valve is not well visualized. VESSELS The inferior vena cava is normal in size. PERICARDIUM There is a moderate pericardial effusion present. No hemodynamically significant echocardiographic features were observed (no pre -tamponade physiology). A/P Assessment and Plan 67 y/o female with a recent diagnosis of metastatic non-small cell lung cancer and metastatic adenopathy, who presents to the ED with shortness of breath. Admitted for evaluation and management of the respiratory distress. History from prior admission as follows: Patient was admitted with respiratory distress, started on antibiotics and Tamiflu. She had a pericardial drain placed with significant improvement in her symptoms and blood pressure. Oncology was consulted given the patient's history of suspected cancer. Patient underwent left-sided thoracentesis with significant improvement. Her pericardial effusion studies showed cells concerning for adenocarcinoma. 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 She remained afebrile throughout the latter half of her hospitalization and blood cultures were negative. Urology had also been consulted for a right staghorn calculi, which they deemed more appropriate for outpatient management given her acute issues. Patient passed her walk test and was deemed stable for discharge per oncology with close follow-up. Problem List: (1) Pneumonia ICD Codes: J18.9 - Pneumonia, unspecified organism Status: Acute Plan: Possible nosocomial pneumonia, metastatic pleural effusions. On admission: * Met SIRS criteria with tachycardia, tachypnea, high WBC count. * Chest x-ray: Right costophrenic angle blunted, hazy opacity in both lung bases most consistent with infiltrates and effusions, moderate cardiomegaly. Continue cefepime, azithromycin, vancomycin (started 08/09) for empirical treatment of nosocomial pneumonia. No IV fluids at this time due to pleural effusions. Ultrasound-guided thoracentesis ordered for moderate pleural effusions. Right- sided thoracentesis performed 08/10; left-sided thoracentesis performed 08/11. Respiratory status much improved. Onc Plan as follows: Initiate palliative systemic chemotherapy with carboplatin/Taxol today. Pending results of PDL1 testing and EGFR mutation analysis Patient may need pleurodesis (2) Non-small cell carcinoma of lung ICD Codes: C34.90 - Malignant neoplasm of unspecified part of unspecified bronchus or lung Status: Acute Plan: Patient with recent diagnosis of non-small cell carcinoma of lung with metastasis. Oncology following. See plan above Follow-up with palliative care (3) Bilateral pleural effusion ICD Codes: J90 - Pleural effusion, not elsewhere classified Status: Chronic Plan: Effusions causing respiratory difficulties. On admission: * CTA: Negative for PE, moderate bilateral pleural effusions increased from prior study, mediastinal adenopathy, consolidation at right anterior lung base, multiple pulmonary nodules and area of consolidative opacity in left lower lobe , prominent lymph nodes, small pericardial effusion. Solu-Medrol 20 mg IV push q12hr. - we'll start weaning steroids to prednisone 40 mg by mouth daily due to chemotherapy treatment DuoNeb q6hr with albuterol q2hr as needed. Pain management with Tylenol, norco, morphine as needed. (4) Right kidney stone ICD Codes: N20.0 - Calculus of kidney Status: Chronic Plan: Staghorn calculus diagnosed, no current pain or concerns per the patient. Outpatient follow-up with urology was recommended once current conditions have resolved. (5) fen/ppx Status: Chronic Plan: Fluids: By mouth fluids. Electrolytes: BMP within normal limits, replete as needed. Nutrition: Passed bedside swallow eval per nursing, can advance to regular diet. DVT prophylaxis: SCDs. Resume chemical prophylaxis after thoracentesis. High risk of the VTE given underlying malignancy. Prophylaxis: IV Pepcid due to recent ICU stay, and steroid addition. Problem Qualifiers (1) Pneumonia: Qualified Codes: J18.1 - Lobar pneumonia, unspecified organism Caity Gibson MD R2 Aug 12, 2017 12:40
[2017-08-12] MEDS: LORazepam 0.5 MG TAB PO PRN ×2 (13:36→20:59)
[2017-08-12] MEDS: CEFEPIME INJ 2,000 MG in SODIUM CHLORIDE 0.9% INJ 100 ML IV SCH ×2 (13:36→22:37)
[2017-08-12] MEDS ORDERED: diphenhydrAMINE HCL 25 MG CAP PO ONE (17:00)
[2017-08-12] MEDS ORDERED: GRANISETRON HCL 1 MG/ML VIAL IV PUSH ONE (17:00)
[2017-08-12] MEDS ORDERED: DEXAMETHASONE INJ 20 MG in SODIUM CHLORIDE 0.9% INJ 50 ML IV ONE (17:00)
[2017-08-12] MEDS ORDERED: FAMOTIDINE 20 MG TAB PO ONE (17:00)
[2017-08-12] MEDS ORDERED: CARBOPLATIN IV ONE (18:00)
[2017-08-12] MEDS ORDERED: PACLITAXEL IV ONE (18:00)
[2017-08-12] MEDS ORDERED: SODIUM CHLOR 0.9% 250 ML INJ 250 ML IV ONE (18:00)
[2017-08-12] MEDS ORDERED: NS IV ONE (18:00)
[2017-08-12] MEDS ORDERED: SODIUM CHLOR 0.9% IV ONE (18:00)
[2017-08-12] MEDS: predniSONE 20 MG TAB PO SCH (20:59)
[2017-08-12] MEDS: ENOXAPARIN SODIUM 40 MG/0.4 ML SYRINGE SQ SCH (21:00)
[2017-08-12] MEDS: ACETAMINOPHEN 325 MG TAB PO PRN (23:18)
[2017-08-12] MEDS: MELATONIN 5 MG TAB PO PRN (23:18)
[2017-08-13] VITALS (26 sets, daily range): BP systolic 114–160; BP diastolic 76–90; PULSE 112–121; RESP 14–22; TEMP 96.2–98.1; O2SAT 92–95
[2017-08-13] MEDS: SODIUM CHLOR 0.9% 1000 ML INJ 1,000 ML IV SCH ×2 (00:30→13:50)
[2017-08-13] MEDS: NYSTATIN 100,000 U/GM PWD 15 GM BTL TOPICAL SCH ×3 (00:49→20:19)
[2017-08-13] MEDS: LORazepam 0.5 MG TAB PO PRN ×3 (02:06→15:26)
[2017-08-13 07:00] LABS: AUTOMATED NEUTROPHIL # 15.4 TH/MM3 (1.8-7.7); BASOPHIL % 0.1 % (0.0-2.0); HEMATOCRIT 39.8 % (35.0-46.0); HEMOGLOBIN 13.1 GM/DL (11.6-15.3); LYMPH % 1.9 % (9.0-44.0); LYMPHOCYTE # 0.3 TH/MM3 (1.0-4.8); MEAN CORPUSCULAR HEMOGLOBIN 28.3 PG (27.0-34.0); MEAN CORPUSCULAR HGB CONC 32.9 % (32.0-36.0); MONOCYTE # 0.7 TH/MM3 (0-0.9); PLATELET COUNT 294 TH/MM3 (150-450); RED BLOOD COUNT 4.63 MIL/MM3 (4.00-5.30); RED CELL DISTRIBUTION WIDTH 14.3 % (11.6-17.2); WHITE BLOOD COUNT 16.4 TH/MM3 (4.0-11.0)
[2017-08-13 07:26] LABS: ALBUMIN 2.5 GM/DL (3.4-5.0); AST (GOT) 17 U/L (15-37); BICARBONATE 23.1 MEQ/L (21.0-32.0); BLOOD UREA NITROGEN 15 MG/DL (7-18); CALCIUM 8.3 MG/DL (8.5-10.1); CHLORIDE 106 MEQ/L (98-107); CREATININE 0.46 MG/DL (0.50-1.00); GLOMERULAR FILTRATION RATE 135 ML/MIN (>89); GLUCOSE,RANDOM 133 MG/DL (74-106); SODIUM (NA) 139 MEQ/L (136-145)
[2017-08-13 07:29] LABS: ALKALINE PHOSPHATASE 103 U/L (45-117); ALT (GPT) 18 U/L (10-53); TOTAL BILIRUBIN ADULT 0.8 MG/DL (0.2-1.0); TOTAL PROTEIN 6.4 GM/DL (6.4-8.2)
[2017-08-13] MEDS: INSULIN ASPART SUPPLEMENTAL SCALE SQ SCH ×4 (07:42→20:25)
[2017-08-13] MEDS: SODIUM CHLORIDE 0.9% FLUSH 10 ML FLUSH IV FLUSH SCH ×2 (07:45→20:19)
[2017-08-13] MEDS: predniSONE 20 MG TAB PO SCH ×2 (07:45→20:19)
[2017-08-13] MEDS: FAMOTIDINE 20 MG TAB PO SCH ×2 (07:45→20:19)
--- NOTE | 2017-08-13 08:28 | PD.ONC.PN ---
Subjective Subjective Remarks Patient seen and examined, vital signs, labs, medications and chemotherapy administration orders reviewed. Subjectively she reports having some pain across the center of her chest and shortness of breath. She reports anxiety and double vision as well. Overall she tolerated chemotherapy without significant difficulty last night. Objective Data Date Time Temp Pulse Resp B/P (MAP) Pulse Ox O2 Delivery O2 Flow Rate FiO2 08/13/17 07:48 97.8 117 20 142/79 (100) 95 08/13/17 07:30 112 08/13/17 06:00 118 08/13/17 05:00 114 08/13/17 04:00 115 08/13/17 04:00 96.2 118 22 142/86 (104) 93 08/13/17 03:00 114 08/13/17 02:00 116 08/13/17 01:00 112 08/13/17 00:00 98.1 116 20 160/90 (113) 92 Automatic Cuff 08/13/17 00:00 116 08/12/17 23:00 116 08/12/17 22:00 120 08/12/17 21:14 97 Nasal Cannula 2.50 08/12/17 21:00 122 08/12/17 20:00 122 08/12/17 20:00 97.8 120 20 154/74 (100) 92 08/12/17 20:00 123 08/12/17 19:00 120 08/12/17 18:07 114 08/12/17 17:11 98.4 94 18 122/80 (94) 94 08/12/17 12:15 116 08/12/17 12:00 97.8 112 20 94 08/12/17 09:35 93 Nasal Cannula 2.50 08/13/17 08/13/17 08/13/17 06:59 14:59 22:59 Intake Total 300 ml Output Total 200 ml Balance 100 ml Result Diagram: 08/13/17 0608/13/17 06 Laboratory Results Laboratory Tests Test 08/12/17 11:26 08/13/17 06:01 White Blood Count 26.8 TH/MM3 16.4 TH/MM3 Red Blood Count 4.42 MIL/MM3 4.63 MIL/MM3 Hemoglobin 12.5 GM/DL 13.1 GM/DL Hematocrit 38.1 % 39.8 % Mean Corpuscular Volume 86.1 FL 86.0 FL Mean Corpuscular Hemoglobin 28.3 PG 28.3 PG Mean Corpuscular Hemoglobin Concent 32.8 % 32.9 % Red Cell Distribution Width 14.4 % 14.3 % Platelet Count 291 TH/MM3 294 TH/MM3 Mean Platelet Volume 8.6 FL 9.0 FL Neutrophils (%) (Auto) 93.3 % 94.0 % Lymphocytes (%) (Auto) 1.5 % 1.9 % Monocytes (%) (Auto) 5.1 % 4.0 % Eosinophils (%) (Auto) 0.0 % 0.0 % Basophils (%) (Auto) 0.1 % 0.1 % Neutrophils # (Auto) 24.9 TH/MM3 15.4 TH/MM3 Lymphocytes # (Auto) 0.4 TH/MM3 0.3 TH/MM3 Monocytes # (Auto) 1.4 TH/MM3 0.7 TH/MM3 Eosinophils # (Auto) 0.0 TH/MM3 0.0 TH/MM3 Basophils # (Auto) 0.0 TH/MM3 0.0 TH/MM3 CBC Comment DIFF FINAL DIFF FINAL Differential Comment Blood Urea Nitrogen 16 MG/DL 15 MG/DL Creatinine 0.61 MG/DL 0.46 MG/DL Random Glucose 162 MG/DL 133 MG/DL Total Protein 5.7 GM/DL 6.4 GM/DL Albumin 2.4 GM/DL 2.5 GM/DL Calcium Level 8.2 MG/DL 8.3 MG/DL Alkaline Phosphatase 93 U/L 103 U/L Aspartate Amino Transf (AST/SGOT) 13 U/L 17 U/L Alanine Aminotransferase (ALT/SGPT) 12 U/L 18 U/L Total Bilirubin 0.6 MG/DL 0.8 MG/DL Sodium Level 140 MEQ/L 139 MEQ/L Potassium Level 3.6 MEQ/L 4.0 MEQ/L Chloride Level 108 MEQ/L 106 MEQ/L Carbon Dioxide Level 23.1 MEQ/L 23.1 MEQ/L Anion Gap 9 MEQ/L 10 MEQ/L Estimat Glomerular Filtration Rate 98 ML/MIN 135 ML/MIN Administered Medications Medications (Trade) Dose Ordered Sig/Jerrell Route PRN Reason Start Time Stop Time Status Last Admin Dose Admin Nystatin (Mycostatin Powder) 1 applic Q8HR TOPICAL 08/09/17 14:00 08/12/17 13:36 Sodium Chloride (NS Flush) 2 ml BID IV FLUSH 4/1/18 21:00 08/13/17 07:45 Albuterol Sulfate (Albuterol Neb) 2.5 mg Q2HR NEB PRN INH SHORTNESS OF BREATH 08/09/17 12:45 08/13/17 04:03 Acetaminophen/ Hydrocodone Bitart ([place] 5-325 Mg) 1 tab Q4H PRN PO PAIN SCALE 3 TO 5 08/09/17 16:15 08/10/17 04:52 Acetaminophen/ Hydrocodone Bitart ([place] 7.5-325 Mg) 1 tab Q4H PRN PO PAIN SCALE 6 TO 10 08/09/17 16:15 08/12/17 16:20 Melatonin (Melatonin) 5 mg HS PRN PO INSOMNIA 08/09/17 16:15 08/12/17 23:18 Sodium Chloride 1,000 ml @ 75 mls/hr [id number] IV 08/09/17 16:30 08/11/17 20:38 Azithromycin 500 mg/Sodium Chloride 250 ml @ 250 mls/hr Q24H IV 08/10/17 11:00 08/12/17 10:25 Cefepime HCl 2000 mg/Sodium Chloride 100 ml @ 200 mls/hr Q12H IV 08/09/17 23:00 08/12/17 22:37 Acetaminophen (Tylenol) 650 mg Q4HR PRN PO PAIN SCALE 1 TO 2 08/09/17 20:30 08/12/17 23:18 Insulin Aspart (NovoLOG SUPPLEMENTAL SCALE) 1 ACHS SLIDING SCALE SQ 08/10/17 08:00 08/12/17 21:13 Enoxaparin Sodium (Lovenox Inj) 40 mg Q24H SQ 08/10/17 20:00 08/12/17 21:00 Lorazepam (Ativan) 0.5 mg Q6H PRN PO ANXIETY 08/11/17 08:30 08/13/17 08:07 Famotidine (Pepcid) 20 mg BID PO 08/11/17 21:00 08/13/17 07:45 Prednisone (Deltasone) 20 mg BID PO 08/12/17 21:00 08/13/17 07:45 Vancomycin HCl 1500 mg/Sodium Chloride 515 ml @ 250 mls/hr Q12H IV 08/12/17 23:00 4/4/18 23:00 Objective Remarks GENERAL: Middle-aged female sitting up in bed, she has a towel on her for head skin is moist and clammy. She appears moderately short of breath, she is able to speak almost full sentences. But she is in apparent respiratory difficulty. She appears more comfortable and calm today. SKIN: Warm and dry. HEAD: Normocephalic. EYES: No scleral icterus. No injection or drainage. NECK: Supple, trachea midline. No JVD right supraclavicular lymphadenopathy and enlarging bilateral cervical LAD. LYMPHATIC: No adenopathy. Right supraclavicular lymphadenopathy. CARDIOVASCULAR: Regular, tachycardic. RESPIRATORY: Improved breath sounds over bilateral bases. GASTROINTESTINAL: Abdomen soft, non-tender, nondistended. EXTREMITIES: No cyanosis, or edema. MUSCULOSKELETAL: Adequate muscle mass and tone. NEUROLOGICAL: No obvious focal deficit. Awake, alert, and oriented x3. PSYCHIATRIC: Appropriate mood and affect; insight and judgment normal. Appears somewhat anxious. Assessment/Plan Problem List: (1) Non-small cell carcinoma of lung ICD Codes: C34.90 - Malignant neoplasm of unspecified part of unspecified bronchus or lung Status: Acute Plan: --Plan for follow-up as outpatient Hx/Workup: Patient originally presented approximately 11 days ago with shortness of breath was found to have bilateral pleural effusion with pericardial effusion. She was also found to have mediastinal adenopathy, axillary adenopathy as well as right supraclavicular adenopathy. Thoracentesis with fluid cytology was positive for adenocarcinoma. A biopsy of the right supraclavicular lymph node showed moderately to poorly differentiated adenocarcinoma consistent with lung primary. Mutation studies are pending. She was originally supposed to follow-up as outpatient however she presented with progressive shortness of breath. Chest x-ray showed reaccumulated pleural effusions Assessment 67-year-old female with newly diagnosed non-small cell lung cancer admitted for recurrent pleural effusions, also with pericardial effusion. Persistent difficulty breathing and tachycardia. Plan 1. Metastatic adenocarcinoma of lung primary associated with bilateral pleural effusions and a malignant pericardial effusion, metastatic supraclavicular and cervical LAD: She was treated with Carboplatin and taxol on 08/12. Await PDL-1 studies. 2. Pleural effusions: If she rapidly re-accumulates she will need evaluation for a pleurodesis. CXR ordered for tomorrow AM. 3. Anxiety / panic attacks: Continue Ativan 0.5 mg by mouth every 6 hours needed for anxiety, patient tells me this helps her breathing. 4. Zofran 4mg po QID prn for nausea. Jorge Ruiz MD Aug 13, 2017 08:27
[2017-08-13] MEDS ORDERED: ONDANSETRON ODT 4 MG TAB PO PRN (08:30)
[2017-08-13] MEDS: RESP: ALBUTEROL 2.5 MG/IPRATROPIUM 0.5 MG NEB (SCH) INH ×3 (10:10→19:22)
[2017-08-13] MEDS ORDERED: PHARMACY ORDERED LAB ONE (10:45)
[2017-08-13] MEDS: ACETAMINOPHEN/HYDROcodone 325 MG/5 MG TAB PO PRN ×2 (11:19→17:14)
[2017-08-13] MEDS: CEFEPIME INJ 2,000 MG in SODIUM CHLORIDE 0.9% INJ 100 ML IV SCH ×2 (11:19→23:07)
[2017-08-13] MEDS: AZITHROMYCIN INJ 500 MG in SODIUM CHLOR 0.9% 250 ML INJ 250 ML IV SCH (12:21)
[2017-08-13] MEDS ORDERED: LORazepam 0.5 MG TAB PO PRN (13:30)
[2017-08-13] MEDS: VANCOMYCIN INJ 1,500 MG in SODIUM CHLORID 0.9% 500 ML INJ 500 ML IV SCH (13:31)
--- NOTE | 2017-08-13 15:24 | HHI.HCPN ---
Reason for visit a. To assist with evaluation and management of symptoms including: pain, dyspnea, anxiety b. To assist medical decision maker(s) with: better understanding of current medical conditions; weighing benefits/burdens of medical treatment options; making medical treatment decisions. . (Melissa Soliman) Subjective/Interval History Ms. Castorena originally presented to [facility] ED on 07/24/2017 with shortness of breath. She was found to have bilateral pleural effusion with pericardial effusion. She was also found to have mediastinal adenopathy, axillary adenopathy as well as right supraclavicular adenopathy. Thoracentesis with fluid cytology was positive for adenocarcinoma. A biopsy of the right supraclavicular lymph node showed moderately to poorly differentiated adenocarcinoma consistent with lung primary. Mutation studies are pending. She was originally supposed to follow-up as outpatient however she return to the ED on 08/09/17 with increased symptom burden of dyspnea. Chest x-ray showed reaccumulated pleural effusions and possible nosocomial pneumonia. Follow-up visit for symptom management and clarification of medical treatment goals. Patient seen and assessed in room 242. Wanda Hedrick (palliative JAVA PERFORMANCE ENGINEER) as well as the patient's daughter (Violeta) and other members of the family were at bedside. Patient began palliative chemotherapy on 08/12/2017, treated with Carboplatin and Taxol. Shortness of breath improved status post right and then left-sided thoracentesis Patient feels the fluid is already reaccumulating. She verbalizes concern that if her symptoms increase over the weekend she may be unable to have further procedures done. Plan for follow up chest x-ray tomorrow morning; may need to evaluate patient for pleurodesis. Patient is alert and oriented on exam. She reports ongoing intermittent pain and dyspnea but states her anxiety is most troublesome. PRN acetaminophen, [place] 5-325mg and 7.5-325mg as well as IV morphine are available for management of pain. 24 hour PRN requirements=[place] 7.5 - 325mg 1; [place] 5-325mg x 1. Patient tells me the PRN lorazepam also helps her breathing and pain, but she feels like she has to watch the clock to make sure she asks for the medication before her symptoms are exacerbated and states that makes her feel even more anxiety. Patient has used PRN Lorazepam to max over the past 24 hours. Changed PRN Lorazepam to scheduled around the clock - 5mg PO q6 hours. Discussed with Dr. Santos who was amenable to medication changes and requested that palliative care manage patient's symptoms moving forward. . Family/friend interactions See interval history . (Melissa Soliman) Advance Directives Advance Directive Specifics Documented care wishes: No written advanced directives have been completed at this time. "5 wishes" booklet given to patient/family yesterday 08/12/17 . (Melissa Soliman) Objective Vital Signs Date Time Temp Pulse Resp B/P (MAP) Pulse Ox O2 Delivery O2 Flow Rate FiO2 08/13/17 11:55 121 08/13/17 11:25 97.8 117 20 114/76 (89) 95 08/13/17 07:48 97.8 117 20 142/79 (100) 95 08/13/17 07:30 112 08/13/17 06:00 118 08/13/17 05:00 114 08/13/17 04:00 115 08/13/17 04:00 96.2 118 22 142/86 (104) 93 08/13/17 03:00 114 08/13/17 02:00 116 08/13/17 01:00 112 08/13/17 00:00 98.1 116 20 160/90 (113) 92 Automatic Cuff 08/13/17 00:00 116 08/12/17 23:00 116 08/12/17 22:00 120 08/12/17 21:14 97 Nasal Cannula 2.50 08/12/17 21:00 122 08/12/17 20:00 122 08/12/17 20:00 97.8 120 20 154/74 (100) 92 08/12/17 20:00 123 08/12/17 19:00 120 08/12/17 18:07 114 08/12/17 17:11 98.4 94 18 122/80 (94) 94 Intake & Output 08/13/17 08/13/17 07:00 19:00 Intake Total 1633.3333 ml Output Total 500 ml Balance 1133.3333 ml Intake Oral 440 ml IV Total 1193.3333 ml Output Urine Total 500 ml . Physical Exam CONSTITUTIONAL/GENERAL: This is an adequately nourished patient, in no apparent distress. TUBES/LINES/DRAINS: PIV SKIN: No jaundice, rashes, or lesions. Ecchymoses on upper extremities. No wounds seen anteriorly. Skin temperature appropriate. Not diaphoretic. HEAD: Atraumatic. Normocephalic. EYES: Pupils equal and round and reactive. Extraocular motions intact. No scleral icterus. No injection or drainage. Fundi not examined. ENT: Hearing grossly normal. Nose without bleeding or purulent drainage. Throat without visible erythema, exudates, masses, or lesions. NECK: Trachea midline. Supple, nontender. No palpable thyroid enlargement or nodularity. CARDIOVASCULAR: Regular rate and rhythm without murmurs, gallops, or rubs. No JVD. Peripheral pulses symmetric. RESPIRATORY/CHEST: Symmetric, unlabored respirations. Clear to auscultation. Breath sounds equal bilaterally. No wheezes, rales, or rhonchi. GASTROINTESTINAL: Abdomen soft, non-tender, nondistended. No hepato-splenomegaly , or palpable masses. No guarding. Bowel sounds present. GENITOURINARY: Without palpable bladder distension. MUSCULOSKELETAL: Extremities without clubbing, cyanosis, or edema. No mottling or clubbing. LYMPHATICS: No palpable cervical or supraclavicular adenopathy. NEUROLOGICAL: Awake and alert. Follows commands. Cognitively sharp. Moves all extremities. PSYCHIATRIC: + Anxiety. No apparent hallucinations or other psychotic thought process. . (Melissa Soliman) Diagnostic Tests Laboratory Laboratory Tests Test 08/11/17 05:20 08/12/17 06:00 08/12/17 11:26 08/13/17 06:01 White Blood Count 24.5 TH/MM3 (4.0-11.0) 26.8 TH/MM3 (4.0-11.0) 16.4 TH/MM3 (4.0-11.0) Red Blood Count 4.63 MIL/MM3 (4.00-5.30) 4.42 MIL/MM3 (4.00-5.30) 4.63 MIL/MM3 (4.00-5.30) Hemoglobin 13.1 GM/DL (11.6-15.3) 12.5 GM/DL (11.6-15.3) 13.1 GM/DL (11.6-15.3) Hematocrit 40.1 % (35.0-46.0) 38.1 % (35.0-46.0) 39.8 % (35.0-46.0) Mean Corpuscular Volume 86.5 FL (80.0-100.0) 86.1 FL (80.0-100.0) 86.0 FL (80.0-100.0) Mean Corpuscular Hemoglobin 28.2 PG (27.0-34.0) 28.3 PG (27.0-34.0) 28.3 PG (27.0-34.0) Mean Corpuscular Hemoglobin Concent 32.6 % (32.0-36.0) 32.8 % (32.0-36.0) 32.9 % (32.0-36.0) Red Cell Distribution Width 14.2 % (11.6-17.2) 14.4 % (11.6-17.2) 14.3 % (11.6-17.2) Platelet Count 344 TH/MM3 (150-450) 291 TH/MM3 (150-450) 294 TH/MM3 (150-450) Mean Platelet Volume 8.5 FL (7.0-11.0) 8.6 FL (7.0-11.0) 9.0 FL (7.0-11.0) Neutrophils (%) (Auto) 92.3 % (16.0-70.0) 93.3 % (16.0-70.0) 94.0 % (16.0-70.0) Lymphocytes (%) (Auto) 3.1 % (9.0-44.0) 1.5 % (9.0-44.0) 1.9 % (9.0-44.0) Monocytes (%) (Auto) 4.4 % (0.0-8.0) 5.1 % (0.0-8.0) 4.0 % (0.0-8.0) Eosinophils (%) (Auto) 0.0 % (0.0-4.0) 0.0 % (0.0-4.0) 0.0 % (0.0-4.0) Basophils (%) (Auto) 0.2 % (0.0-2.0) 0.1 % (0.0-2.0) 0.1 % (0.0-2.0) Neutrophils # (Auto) 22.6 TH/MM3 (1.8-7.7) 24.9 TH/MM3 (1.8-7.7) 15.4 TH/MM3 (1.8-7.7) Lymphocytes # (Auto) 0.8 TH/MM3 (1.0-4.8) 0.4 TH/MM3 (1.0-4.8) 0.3 TH/MM3 (1.0-4.8) Monocytes # (Auto) 1.1 TH/MM3 (0-0.9) 1.4 TH/MM3 (0-0.9) 0.7 TH/MM3 (0-0.9) Eosinophils # (Auto) 0.0 TH/MM3 (0-0.4) 0.0 TH/MM3 (0-0.4) 0.0 TH/MM3 (0-0.4) Basophils # (Auto) 0.0 TH/MM3 (0-0.2) 0.0 TH/MM3 (0-0.2) 0.0 TH/MM3 (0-0.2) CBC Comment DIFF FINAL DIFF FINAL DIFF FINAL Differential Comment Blood Urea Nitrogen 18 MG/DL (7-18) 16 MG/DL (7-18) 15 MG/DL (7-18) Creatinine 0.57 MG/DL (0.50-1.00) 0.61 MG/DL (0.50-1.00) 0.46 MG/DL (0.50-1.00) Random Glucose 138 MG/DL (74-106) 162 MG/DL (74-106) 133 MG/DL (74-106) Total Protein 6.3 GM/DL (6.4-8.2) 5.7 GM/DL (6.4-8.2) 6.4 GM/DL (6.4-8.2) Albumin 2.4 GM/DL (3.4-5.0) 2.4 GM/DL (3.4-5.0) 2.5 GM/DL (3.4-5.0) Calcium Level 8.6 MG/DL (8.5-10.1) 8.2 MG/DL (8.5-10.1) 8.3 MG/DL (8.5-10.1) Alkaline Phosphatase 95 U/L (45-117) 93 U/L (45-117) 103 U/L (45-117) Aspartate Amino Transf (AST/SGOT) 11 U/L (15-37) 13 U/L (15-37) 17 U/L (15-37) Alanine Aminotransferase (ALT/SGPT) 12 U/L (10-53) 12 U/L (10-53) 18 U/L (10-53) Total Bilirubin 0.7 MG/DL (0.2-1.0) 0.6 MG/DL (0.2-1.0) 0.8 MG/DL (0.2-1.0) Sodium Level 142 MEQ/L (136-145) 140 MEQ/L (136-145) 139 MEQ/L (136-145) Potassium Level 3.8 MEQ/L (3.5-5.1) 3.6 MEQ/L (3.5-5.1) 4.0 MEQ/L (3.5-5.1) Chloride Level 108 MEQ/L (98-107) 108 MEQ/L (98-107) 106 MEQ/L (98-107) Carbon Dioxide Level 23.8 MEQ/L (21.0-32.0) 23.1 MEQ/L (21.0-32.0) 23.1 MEQ/L (21.0-32.0) Anion Gap 10 MEQ/L (5-15) 9 MEQ/L (5-15) 10 MEQ/L (5-15) Estimat Glomerular Filtration Rate 105 ML/MIN (>89) 98 ML/MIN (>89) 135 ML/MIN (>89) Vancomycin Level Trough 13.1 MCG/ML (5.0-10.0) 18.4 MCG/ML (5.0-10.0) Lactic Acid Level 3.2 mmol/L (0.4-2.0) . (Melissa Soliman) Result Diagram: 08/13/17 0601 08/13/17 0601 Imaging Last 72 hours Impressions Thoracentesis Ultrasound 08/11/17 0000 Signed Impressions: Service Date/Time: Friday, August 11, 2017 10:22 - CONCLUSION: Uncomplicated ultrasound guided thoracentesis. Bartolo Lopez MD Chest X-Ray 4/3/18 0000 Signed Impressions: Service Date/Time: Friday, August 11, 2017 09:56 - CONCLUSION: 1. Cardiomegaly. 2. Small bilateral effusions and by basilar infiltrate/consolidation similar to previous of 08/10/17 David Baez MD . Procedures 08/10/17: Right-sided thoracentesis 08/11/17: Left-sided thoracentesis 08/12/17: Palliative chemotherapy treatment initiated with carboplatin and Taxol. . (Melissa Soliman) Assessment and Plan Disease Oriented Problem List: (1) Pneumonia (2) Right kidney stone (3) fen/ppx (4) Non-small cell carcinoma of lung (5) Recurrent right pleural effusion Symptom Scale: (1) Dyspnea (2) Pain (3) Anxiety Pertinent Non-Medical Issues Psychosocial:Patient is originally from [place]. 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 Patient moved to [place] approximately 15 years ago. Patient is . She has 3 adult children (Queenie, Carlita and Violeta) with him she is very close. She is also a grandmother and a great grandmother. Patient has one brother who from brain cancer. She has 2 brothers and one sister who are alive and well. Spiritual: Baptism davina Legal: Per [place] statutes, in the absence of written advanced directives healthcare proxy decision making would fall to the patient's 3 adult daughters. Patient confirms that in the event that she were incapacitated or unable to verbalize her medical treatment goals, she would want her 3 daughters (Queenie, Carlita and Violeta) to act has her medical decision makers. Ethical issues impacting care: No known ethical is impacting care at this time. . Important Contacts Queenie Andi, daughter: [phone] or [phone] Deb Gee, daughter: [phone] Violeta Castorena, daughter [phone] Blake Castorena, brother: [phone] Eryn Milan, sister: [phone] . Prognosis Patient recently diagnosed with metastatic non-small cell lung cancer in July,. She was discharged on 08/03/2017 and return to the ED on 08/09/2017 with worsening symptoms and recurrent pleural effusions and pericardial effusions. Plan to initiate palliative systemic chemotherapy with carboplatin/Taxol today . Patient is terminally ill. Currently medical treatment goals are aggressive but when/if the patient wishes to transition to comfort focused care , she would be hospice appropriate. . Code Status: Alternative Code (Compressions and medications only) Plan * ALTERNATE CODE-compressions and medications only. Patient does not desire shock or intubation. * Per [place] statutes, in the absence of written advanced directives healthcare proxy decision making would fall to the patient's 3 adult daughters ( Queenie, Carlita and Violeta). * "5 wishes" booklet given to patient/family yesterday 08/12/17 * Discussed patient with bedside nurse (Mariaelena). Discussed recommended medication changes with Dr. Santos who was in agreement; she requested that palliative care manage patient's symptoms moving forward. * SYMPTOM MANAGEMENT: = Pain: Multifactoral. Reporting pain in her chest and the left side of her abdomen status post recent thoracentesis. Pain is rated 6-8 out of 10 and described as aching/sore. Contributing factors include recently diagnosed metastatic non-small cell lung cancer, pneumonia, infiltrated IV sites, invasive lines, invasive procedures etc. PRN acetaminophen, [place] 5-325mg and 7.5-325mg as well as IV morphine are available for management of pain. 24 hour PRN requirements=[place] 7.5 - 325mg 1; [place] 5-325mg x 1. Patient tells me the PRN lorazepam also helps pain Palliative care will monitor PRN and make recommendations as indicated. Patient may benefit from long acting medications at some point in the future. = Anxiety: Multifactoral. Contributing factors include newly diagnosed metastatic carcinoma, pain and progressively increased dyspnea. She was started lorazepam 0.5 mg PO q6 hours PRN which has also improved her symptom management. Patient reports anxiety is most troubling symptom at this time; she feels like she has to watch the clock to make sure she asks for the medication before her symptoms are exacerbated and states that makes her feel even more anxiety. Patient has used PRN Lorazepam to max over the past 24 hours. Changed PRN Lorazepam to scheduled around the clock - 5mg PO q6 hours. = Dyspnea: Multifactoral. Contributing factors include newly diagnosed metastatic carcinoma, recurrent pleural effusions and pneumonia. s/p thoracentesis on 08/10/2017 for right-sided pleural effusion with 900ml clear, al fluid removed, and left-sided thoracentesis was completed yesterday 08/11/2017 with 1300ml of clear, red fluid removed. Patient remain on scheduled Duonebs, albuterol nebulizers PRN, Solu-Medrol and broad- spectrum antibiotics. Patient tells me Lorazepam helps with her breathing. * Palliative care will follow this patient throughout her hospitalization to establish trust, assist with symptom management and clarification of medical treatment goals. . (Melissa Soliman) Attestation To help prompt me to consider important information that might be impacting today's encounter and assessment, information from prior notes written by myself or my colleagues may have been "brought forward" into today's note. My signature on this note, however, is an attestation that I personally performed the exam, history, and/or decision-making noted today, and, unless otherwise indicated, the interactions with patient, family, and staff as well as the review of records all occurred today. I also attest that the listed assessment and stated plan reflect my best clinical judgment today based on the combination of historical information, prior notes, and today's exam/ interactions. When time spent is documented, it refers only to time spent today by the signer, or if indicated, combined time spent today by collaborating physician/nurse practitioner. . (Melissa Soliman) Collaborating MD Comments Chart reviewed. Case discussed with palliative care FREIGHT SORTER. Above FREIGHT SORTER note reviewed and I concur. . (Konstantin Myers MD) Melissa Soliman Aug 13, 2017 15:24 Konstantin Myers MD Aug 17, 2017 05:49
[2017-08-13] MEDS: LORazepam 0.5 MG TAB PO SCH ×2 (17:00→23:07)
[2017-08-13] MEDS: ENOXAPARIN SODIUM 40 MG/0.4 ML SYRINGE SQ SCH (20:18)
[2017-08-13] MEDS: MELATONIN 5 MG TAB PO PRN (20:19)
[2017-08-14] VITALS (18 sets, daily range): BP systolic 124–153; BP diastolic 65–95; PULSE 106–122; RESP 18–24; TEMP 97.8–98.4; O2SAT 90–94
[2017-08-14] MEDS: ACETAMINOPHEN/HYDROcodone 325 MG/7.5 MG TAB PO PRN ×2 (00:37→05:02)
[2017-08-14] MEDS: VANCOMYCIN INJ 1,500 MG in SODIUM CHLORID 0.9% 500 ML INJ 500 ML IV SCH ×3 (00:38→22:37)
--- NOTE | 2017-08-14 01:08 | HHI.FPPN ---
Subjective Remarks NOTE IN ERROR, THIS IS NOTE FOR 4 Patient seen and examined bedside today. Patient continues to complain of shortness of breath. She continues to say she is concerned that she will not get a thoracentesis over the weekend when people are gone. She is happy with her anxiety and pain medication. (Caity Gibson MD R2) Objective Vitals Vital Signs Date Time Temp Pulse Resp B/P (MAP) Pulse Ox O2 Delivery O2 Flow Rate FiO2 08/14/17 00:34 97.9 119 20 153/95 (114) 93 Manual Cuff/Auscultation 08/13/17 20:11 97.9 117 14 145/80 (101) 93 08/13/17 20:05 116 08/13/17 19:24 94 Nasal Cannula 3.00 08/13/17 16:37 98.0 118 20 143/89 (107) 94 08/13/17 16:27 119 08/13/17 16:23 119 08/13/17 16:00 116 08/13/17 15:00 114 08/13/17 14:00 116 08/13/17 13:00 116 08/13/17 11:55 121 08/13/17 11:25 97.8 117 20 114/76 (89) 95 08/13/17 10:00 120 08/13/17 09:00 114 08/13/17 07:48 97.8 117 20 142/79 (100) 95 08/13/17 07:30 112 08/13/17 06:00 118 08/13/17 05:00 114 08/13/17 04:00 115 08/13/17 04:00 96.2 118 22 142/86 (104) 93 08/13/17 03:00 114 08/13/17 02:00 116 I/O 08/13/17 08/13/17 08/13/17 08/14/17 08/14/17 08/14/17 07:00 15:00 23:00 07:00 15:00 23:00 Intake Total 300 ml 1090 ml Output Total 200 ml 600 ml Balance 100 ml 490 ml Intake Oral 200 ml 240 ml IV Total 100 ml 850 ml Output Urine Total 200 ml 600 ml (Caity Gibson MD R2) Result Diagram: 08/13/17 0601 08/13/17 06 Objective Remarks GENERAL: Well-nourished, well-developed, obese female. Breathing comfortably. SKIN: Warm and dry. EYES: No scleral icterus. No injection or drainage. EOMI. HENT: Normocephalic. Atraumatic. NECK: No visible JVD or lymphadenopathy. CARDIOVASCULAR: Warm and well perfused. Regular rate and rhythm, no murmurs appreciated. RESPIRATORY: Clear to auscultation in anterior lung ochoa. GASTROINTESTINAL: Positive bowel sounds. Abdomen nondistended. MUSCULOSKELETAL: Strength grossly WNL. BACK: Without obvious deformity. NEURO/PSYCH: Afocal. Awake, alert, and oriented x3. Procedures ECHO 2D COMP with Doppler FINDINGS: LEFT VENTRICLE The left ventricular systolic function is normal with an estimated ejection fraction in the range of 55-60%. There was limited left ventricular wall motion assessment due to poor endocardial visualization. Doppler parameters are consistent with impaired left ventricular relaxation ( grade 1 diastolic dysfunction). RIGHT VENTRICLE The right ventricle was not well visualized. LEFT ATRIUM The left atrium was not well visualized. RIGHT ATRIUM The right atrium is not well visualized. ATRIAL SEPTUM Normal atrial septal thickness AORTA The aortic root and proximal ascending aorta are not well visualized. MITRAL VALVE Grossly normal mitral valve No mitral valve stenosis. Trace mitral valve regurgitation. AORTIC VALVE The aortic valve is not well visualized. No aortic valve regurgitation. No aortic valve stenosis. TRICUSPID VALVE Grossly normal tricuspid valve. There is mild tricuspid valve regurgitation. The estimated pulmonary arterial pressure is 39 mmHg. PULMONARY VALVE The pulmonary valve is not well visualized. VESSELS The inferior vena cava is normal in size. PERICARDIUM There is a moderate pericardial effusion present. No hemodynamically significant echocardiographic features were observed (no pre -tamponade physiology). (Caity Gibson MD R2) A/P Assessment and Plan 67 y/o female with a recent diagnosis of metastatic non-small cell lung cancer and metastatic adenopathy, who presents to the ED with shortness of breath. Admitted for evaluation and management of the respiratory distress, under care of oncology for malignant pleural effusions. Began chemotherapy. History from prior admission as follows: Patient was admitted with respiratory distress, started on antibiotics and Tamiflu. She had a pericardial drain placed with significant improvement in her symptoms and blood pressure. Oncology was consulted given the patient's history of suspected cancer. Patient underwent left-sided thoracentesis with significant improvement. Her pericardial effusion studies showed cells concerning for adenocarcinoma. 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 She remained afebrile throughout the latter half of her hospitalization and blood cultures were negative. Urology had also been consulted for a right staghorn calculi, which they deemed more appropriate for outpatient management given her acute issues. Patient passed her walk test and was deemed stable for discharge per oncology with close follow-up. Discharge Planning Pending oncology plan (Caity Gibson MD R2) Attending Attestation Patient seen and examined, discussed with resident team. I agree with assessment and management as documented and discussed with me. Pt reports SOB, anxiety, and pain are under control today. She has family at bedside and all questions answered to the best of my abilities. Appreciate specialists involved in this complicated patient's care. (Elsie Abrams MD) Problem List: (1) Pneumonia ICD Codes: J18.9 - Pneumonia, unspecified organism Status: Acute Plan: Possible nosocomial pneumonia, metastatic pleural effusions. On admission: * Met SIRS criteria with tachycardia, tachypnea, high WBC count. * Chest x-ray: Right costophrenic angle blunted, hazy opacity in both lung bases most consistent with infiltrates and effusions, moderate cardiomegaly. Continue cefepime, azithromycin, vancomycin (started 08/09) for empirical treatment of nosocomial pneumonia. No IV fluids at this time due to pleural effusions. Ultrasound-guided thoracentesis ordered for moderate pleural effusions. Right- sided thoracentesis performed 08/10; left-sided thoracentesis performed 08/11. Respiratory status much improved. Onc Plan as follows: InitiateD palliative systemic chemotherapy with carboplatin/Taxol 08/12. Pending results of PDL1 testing and EGFR mutation analysis Patient may need pleurodesis (2) Non-small cell carcinoma of lung ICD Codes: C34.90 - Malignant neoplasm of unspecified part of unspecified bronchus or lung Status: Acute Plan: Patient with recent diagnosis of non-small cell carcinoma of lung with metastasis. Oncology following. See plan above Follow-up with palliative care (3) Bilateral pleural effusion ICD Codes: J90 - Pleural effusion, not elsewhere classified Status: Chronic Plan: Effusions causing respiratory difficulties. On admission: * CTA: Negative for PE, moderate bilateral pleural effusions increased from prior study, mediastinal adenopathy, consolidation at right anterior lung base, multiple pulmonary nodules and area of consolidative opacity in left lower lobe , prominent lymph nodes, small pericardial effusion. prednisone 40 mg by mouth daily DuoNeb q6hr with albuterol q2hr as needed. Pain management with Tylenol, norco, morphine as needed. (4) Right kidney stone ICD Codes: N20.0 - Calculus of kidney Status: Chronic Plan: Staghorn calculus diagnosed, no current pain or concerns per the patient. Outpatient follow-up with urology was recommended once current conditions have resolved. (5) fen/ppx Status: Chronic Plan: Fluids: By mouth fluids. Electrolytes: BMP within normal limits, replete as needed. Nutrition: Passed bedside swallow eval per nursing, can advance to regular diet. DVT prophylaxis: SCDs. Resume chemical prophylaxis after thoracentesis. High risk of the VTE given underlying malignancy. Prophylaxis: IV Pepcid due to recent ICU stay, and steroid addition. (Caity Gibson MD R2) Problem Qualifiers (1) Pneumonia: Qualified Codes: J18.1 - Lobar pneumonia, unspecified organism Caity Gibson MD R2 Aug 14, 2017 01:08 Elsie Abrams MD Aug 14, 2017 20:14
[2017-08-14] MEDS ORDERED: RESP: LEVALBUTEROL HYDROCHLORIDE 1.25 MG/3 ML NEB (PRN) NEB (01:30)
[2017-08-14] MEDS: SODIUM CHLOR 0.9% 1000 ML INJ 1,000 ML IV SCH (03:10)
[2017-08-14] MEDS: LORazepam 0.5 MG TAB PO PRN (03:13)
[2017-08-14] MEDS: NYSTATIN 100,000 U/GM PWD 15 GM BTL TOPICAL SCH ×3 (06:00→22:00)
[2017-08-14 06:55] LABS: HEMATOCRIT 39.8 % (35.0-46.0); HEMOGLOBIN 13.2 GM/DL (11.6-15.3); MEAN CELL VOLUME 85.8 FL (80.0-100.0); MEAN CORPUSCULAR HEMOGLOBIN 28.5 PG (27.0-34.0); MEAN CORPUSCULAR HGB CONC 33.2 % (32.0-36.0); MEAN PLATELET VOLUME 9.4 FL (7.0-11.0); PLATELET COUNT 249 TH/MM3 (150-450); RED BLOOD COUNT 4.64 MIL/MM3 (4.00-5.30); RED CELL DISTRIBUTION WIDTH 14.7 % (11.6-17.2); WHITE BLOOD COUNT 19.4 TH/MM3 (4.0-11.0)
[2017-08-14 07:22] LABS: ALBUMIN 2.4 GM/DL (3.4-5.0); AST (GOT) 18 U/L (15-37); BLOOD UREA NITROGEN 20 MG/DL (7-18); CALCIUM 8.4 MG/DL (8.5-10.1); CHLORIDE 104 MEQ/L (98-107); GLOMERULAR FILTRATION RATE 123 ML/MIN (>89); GLUCOSE,RANDOM 139 MG/DL (74-106); SODIUM (NA) 138 MEQ/L (136-145)
[2017-08-14 07:27] LABS: ALKALINE PHOSPHATASE 91 U/L (45-117); ALT (GPT) 17 U/L (10-53); TOTAL PROTEIN 5.9 GM/DL (6.4-8.2)
[2017-08-14] MEDS: INSULIN ASPART SUPPLEMENTAL SCALE SQ SCH ×4 (08:00→20:16)
[2017-08-14] MEDS: SODIUM CHLORIDE 0.9% FLUSH 10 ML FLUSH IV FLUSH SCH ×3 (08:16→20:17)
[2017-08-14] MEDS: FAMOTIDINE 20 MG TAB PO SCH ×2 (08:17→22:09)
[2017-08-14] MEDS: LORazepam 0.5 MG TAB PO SCH ×3 (08:17→18:00)
[2017-08-14] MEDS: predniSONE 20 MG TAB PO SCH ×2 (08:17→22:09)
[2017-08-14] MEDS: RESP: LEVALBUTEROL HYDROCHLORIDE 1.25 MG/3 ML NEB (SCH) NEB ×3 (10:18→22:39)
[2017-08-14] MEDS: CEFEPIME INJ 2,000 MG in SODIUM CHLORIDE 0.9% INJ 100 ML IV SCH ×2 (10:41→22:37)
[2017-08-14] MEDS ORDERED: PHARMACY ORDERED LAB ONE (10:45)
[2017-08-14] MEDS ORDERED: PHENYLEPHRINE HCL 10 MG/ML VIAL IV ONE (12:00)
[2017-08-14] MEDS ORDERED: LIDOCAINE HCL 1% PF 5 ML SYRINGE OTHER ONE (12:00)
[2017-08-14] MEDS ORDERED: PROPOFOL 200 MG/20 ML AMP IV ONE (12:00)
[2017-08-14] MEDS ORDERED: ROCURONIUM INJ 50 MG/5 ML SYRINGE IV PUSH ONE (12:00)
[2017-08-14] MEDS ORDERED: DEXAMETHASONE SOD PHOS 4 MG/ML VIAL IV ONE (12:00)
[2017-08-14] MEDS ORDERED: PHENYLEPH/NS 1000 MCG/10 ML SYR IV ONE (12:00)
[2017-08-14] MEDS ORDERED: SUCCINYLCHOLINE CHLORIDE 100 MG/5 ML SYRINGE IV PUSH ONE (12:00)
[2017-08-14] MEDS ORDERED: ePHEDrine/NS 25 MG/5 ML SYRINGE IV ONE (12:00)
[2017-08-14] MEDS ORDERED: ONDANSETRON HCL 4 MG/2 ML VIAL IV ONE (12:00)
[2017-08-14] MEDS ORDERED: LACTATED RINGER'S 1000 ML INJ 1,000 ML IV ONE ×2 (12:00→20:15)
--- NOTE | 2017-08-14 12:14 | RADRPT ---
EXAM DATE/TIME: 08/14/2017 09:39 [facility] COMPARISON: CHEST PA & LAT, August 10, 2017, 10:57. INDICATIONS : Short of breath. MEDICAL HISTORY : Carcinoma, lung. Recurrent pleural effusion. Thoracentesis. SURGICAL HISTORY : Hysterectomy. section. Percutaneous kidney stone removal. ENCOUNTER: Subsequent ACUITY: 4 - 6 days PAIN SCORE: 1/10 LOCATION: Bilateral chest FINDINGS: PA and lateral views of the chest shows significant cardiomegaly. Bilateral pleural effusions left la rger than right are stable. Increased density in the left hemithorax felt to be a combination of cons olidation and effusion. This is stable. Linear atelectasis within the right upper lobe. CONCLUSION: 1. Stable exam with combination of pleural fluid and consolidation generating an increased density of the left hemithorax. 2. Tiny right effusion. 3. Significant cardiomegaly. Darrell Hedrick Jr., MD on August 14, 2017 at 12:11 Board Certified Radiologist. This report was verified electronically.
--- NOTE | 2017-08-14 12:56 | PD.ONC.PN ---
Subjective Subjective Remarks Patient was seen and examined, vital signs, labs, medications including imaging studies were reviewed. Subjectively; she reports feeling short of breath and very anxious. Overnight her oxygen supplementation had to be increased from 3 L/min to 5 L/min. The patient was found to have stable appearing pleural effusions bilaterally left greater than right on chest x-ray performed earlier today. She tells me she has difficulty swallowing as well and her neck feels more swollen to. Objective Data Date Time Temp Pulse Resp B/P (MAP) Pulse Ox O2 Delivery O2 Flow Rate FiO2 08/14/17 10:18 92 Nasal Cannula 4.00 08/14/17 07:00 97.9 118 22 142/65 (90) 92 08/14/17 07:00 122 08/14/17 06:00 114 08/14/17 05:03 98.4 120 24 134/79 (97) 90 08/14/17 05:00 122 08/14/17 04:04 114 08/14/17 04:00 112 08/14/17 03:00 116 08/14/17 02:00 114 08/14/17 01:00 112 08/14/17 00:34 97.9 119 20 153/95 (114) 93 Manual Cuff/Auscultation 08/14/17 00:00 115 08/13/17 23:00 118 08/13/17 22:00 114 08/13/17 21:00 116 08/13/17 20:11 97.9 117 14 145/80 (101) 93 08/13/17 20:05 116 08/13/17 19:24 94 Nasal Cannula 3.00 08/13/17 16:37 98.0 118 20 143/89 (107) 94 08/13/17 16:27 119 08/13/17 16:23 119 08/13/17 16:00 116 08/13/17 15:00 114 08/13/17 14:00 116 08/13/17 13:00 116 08/14/17 08/14/17 08/14/17 07:00 15:00 23:00 Intake Total 1095 ml Output Total 550 ml Balance 545 ml Result Diagram: 08/14/17 0529 08/14/17 0529 Laboratory Results Laboratory Tests Test 08/14/17 05:29 White Blood Count 19.4 TH/MM3 Red Blood Count 4.64 MIL/MM3 Hemoglobin 13.2 GM/DL Hematocrit 39.8 % Mean Corpuscular Volume 85.8 FL Mean Corpuscular Hemoglobin 28.5 PG Mean Corpuscular Hemoglobin Concent 33.2 % Red Cell Distribution Width 14.7 % Platelet Count 249 TH/MM3 Mean Platelet Volume 9.4 FL Blood Urea Nitrogen 20 MG/DL Creatinine 0.50 MG/DL Random Glucose 139 MG/DL Total Protein 5.9 GM/DL Albumin 2.4 GM/DL Calcium Level 8.4 MG/DL Alkaline Phosphatase 91 U/L Aspartate Amino Transf (AST/SGOT) 18 U/L Alanine Aminotransferase (ALT/SGPT) 17 U/L Total Bilirubin 1.0 MG/DL Sodium Level 138 MEQ/L Potassium Level 3.6 MEQ/L Chloride Level 104 MEQ/L Carbon Dioxide Level 24.0 MEQ/L Anion Gap 10 MEQ/L Estimat Glomerular Filtration Rate 123 ML/MIN Imaging Studies Last 24 hours Impressions Chest X-Ray 08/14/17 0600 Signed Impressions: Service Date/Time: Monday, August 14, 2017 09:39 - CONCLUSION: 1. Stable exam with combination of pleural fluid and consolidation generating an increased density of the left hemithorax. 2. Tiny right effusion. 3. Significant cardiomegaly. Darrell Hedrick Jr., MD Administered Medications Medications (Trade) Dose Ordered Sig/Jerrell Route PRN Reason Start Time Stop Time Status Last Admin Dose Admin Nystatin (Mycostatin Powder) 1 applic Q8HR TOPICAL 08/09/17 14:00 08/12/17 13:36 Sodium Chloride (NS Flush) 2 ml BID IV FLUSH 08/09/17 21:00 08/13/17 20:19 Acetaminophen/ Hydrocodone Bitart ([place] 5-325 Mg) 1 tab Q4H PRN PO PAIN SCALE 3 TO 5 08/09/17 16:15 08/13/17 17:14 Acetaminophen/ Hydrocodone Bitart ([place] 7.5-325 Mg) 1 tab Q4H PRN PO PAIN SCALE 6 TO 10 08/09/17 16:15 08/14/17 05:02 Melatonin (Melatonin) 5 mg HS PRN PO INSOMNIA 08/09/17 16:15 08/13/17 20:19 Sodium Chloride 1,000 ml @ 75 mls/hr [id number] IV 08/09/17 16:30 4//18 20:38 Cefepime HCl 2000 mg/Sodium Chloride 100 ml @ 200 mls/hr Q12H IV 08/09/17 23:00 08/14/17 10:41 Acetaminophen (Tylenol) 650 mg Q4HR PRN PO PAIN SCALE 1 TO 2 08/09/17 20:30 08/12/17 23:18 Insulin Aspart (NovoLOG SUPPLEMENTAL SCALE) 1 ACHS SLIDING SCALE SQ 08/10/17 08:00 08/12/17 21:13 Enoxaparin Sodium (Lovenox Inj) 40 mg Q24H SQ 08/10/17 20:00 08/13/17 20:18 Famotidine (Pepcid) 20 mg BID PO 08/11/17 21:00 08/14/17 08:17 Prednisone (Deltasone) 20 mg BID PO 08/12/17 21:00 08/14/17 08:17 Vancomycin HCl 1500 mg/Sodium Chloride 515 ml @ 250 mls/hr Q12H IV 08/12/17 23:00 08/14/17 10:41 Ondansetron HCl (Zofran Odt) 4 mg Q6H PRN PO NAUSEA OR VOMITING 08/13/17 08:30 08/13/17 08:53 Azithromycin 500 mg/Sodium Chloride 250 ml @ 250 mls/hr Q24H IV 08/13/17 12:00 08/13/17 12:21 Lorazepam (Ativan) 0.5 mg Q6HR PO 08/13/17 18:00 08/14/17 08:17 Lorazepam (Ativan) 0.5 mg BID PRN PO ANXIETY 08/13/17 13:30 08/14/17 03:13 Levalbuterol HCl (Xopenex Neb) 1.25 mg Q6HR WHILE AWAKE NEB NEB 08/14/17 08:00 08/14/17 10:18 Objective Remarks GENERAL: Middle-aged female Laying in bed, she appears to be anxious, clearly tachypneic. Is able to speak full sentences. Daughter at bedside. SKIN: Warm and dry. HEAD: Normocephalic. EYES: No scleral icterus. No injection or drainage. NECK: Edema, large bilateral cervical lymph nodes are noted. These are unchanged compared to examination over the past 2 or 3 days. LYMPHATIC: No adenopathy. Right supraclavicular lymphadenopathy. CARDIOVASCULAR: Regular, tachycardic. RESPIRATORY: Tachypneic, mild respiratory distress, decreased bibasilar breath sounds and dullness to percussion over the lower one third on each side. GASTROINTESTINAL: Abdomen soft, non-tender, nondistended. EXTREMITIES: No cyanosis, or edema. MUSCULOSKELETAL: Adequate muscle mass and tone. NEUROLOGICAL: No obvious focal deficit. Awake, alert, and oriented x3. PSYCHIATRIC: Appropriate mood and affect; insight and judgment normal. Appears somewhat anxious. Assessment/Plan Problem List: (1) Non-small cell carcinoma of lung ICD Codes: C34.90 - Malignant neoplasm of unspecified part of unspecified bronchus or lung Status: Acute Plan: --Plan for follow-up as outpatient Hx/Workup: Patient originally presented approximately 11 days ago with shortness of breath was found to have bilateral pleural effusion with pericardial effusion. She was also found to have mediastinal adenopathy, axillary adenopathy as well as right supraclavicular adenopathy. Thoracentesis with fluid cytology was positive for adenocarcinoma. A biopsy of the right supraclavicular lymph node showed moderately to poorly differentiated adenocarcinoma consistent with lung primary. Mutation studies are pending. She was originally supposed to follow-up as outpatient however she presented with progressive shortness of breath. Chest x-ray showed reaccumulated pleural effusions Assessment 67-year-old female with newly diagnosed non-small cell lung cancer admitted for recurrent pleural effusions, also with pericardial effusion. Persistent difficulty breathing and tachycardia. Plan 1. Metastatic adenocarcinoma of lung primary associated with bilateral pleural effusions and a malignant pericardial effusion, metastatic supraclavicular and cervical LAD: She was treated with Carboplatin and taxol on 08/12. Await PDL-1 studies; pending as of the time of this note entry. 2. Pleural effusions and pericardial effusions: She continues to re- accumulate rapidly. She will likely need an indwelling drainage catheter vs. pleurodesis. Given the presence of the malignant pericardial effusion and re- accumulating pleural effusions, tachycardia, tachypnea and subjective dyspnea this lady in my assessment has cardiac tamponade. Because she has already undergone pericardiocentesis, I will request CT surgery evaluation for a pericardial window creation with possible placement of a L sided pleurex catheter at the same time. 3. Anxiety / panic attacks: Continue Ativan 0.5 mg by mouth every 6 hours needed for anxiety, patient tells me this helps her breathing. 4. Zofran 4mg po QID prn for nausea. Disposition: Request CT surgery evaluation for Pericardial Window creation and L pleurex catheter placement. Jorge Ruiz MD Aug 14, 2017 12:56
[2017-08-14] MEDS: AZITHROMYCIN INJ 500 MG in SODIUM CHLOR 0.9% 250 ML INJ 250 ML IV SCH (13:48)
[2017-08-14] MEDS ORDERED: EXPAREL PERI-ARTICULAR INJECTION (TOTAL VOL. 60 ML) P-ARTICULR SCH ×3 (15:00)
[2017-08-14 15:10] LABS: INTERNATIONAL NORMALIZED RATIO 1.2 RATIO; PROTHROMBIN TIME - PATIENT 11.9 SEC (9.8-11.6)
--- NOTE | 2017-08-14 15:45 | HHI.HCPN ---
F/u visit attempted but the patient was not in her room. Per review of notes patient was complaining of increasing shortness of breath and anxiety earlier today. Supplemental oxygen requirements increased from 3 L/min to 5 L/min overnight. Follow-up chest x-ray this morning showed stable appearing pleural effusions bilaterally left > right. Nursing reports CT surgery was consulted and the patient was taken to the OR for pericardial window creation and left Pleurx catheter placement. Palliative care will continue to follow this patient for symptom management and clarification of medical treatment goals. If anxiety persists over the weekend, may want to increase patient's PRN Lorazepam. . (Melissa Soliman) Chart reviewed. Case discussed with palliative care PANEL ASSEMBLER. Above PANEL ASSEMBLER note reviewed and I concur. . (Konstantin Myers MD) Melissa Soliman Aug 14, 2017 15:45 Konstantin Myers MD Aug 17, 2017 05:55
[2017-08-14] MEDS ORDERED: SUGAMMADEX SODIUM 200 MG/2 ML VIAL IV PUSH ONE (16:13)
[2017-08-14] MEDS ORDERED: ACETAMINOPHEN 1000 MG/100 ML 100 ML IV ONE (16:13)
[2017-08-14] MEDS ORDERED: SODIUM CHLORIDE 0.9% FLUSH 10 ML FLUSH IV FLUSH PRN (16:30)
[2017-08-14] MEDS ORDERED: Post-op Orders (for Pharmacy) OTHER ONE (16:30)
--- NOTE | 2017-08-14 16:35 | PD.OP ---
cc: Abril Mcarthur MD; Jorge Ruiz MD Operative Report Date of Surgery: Aug 14, 2017 Preoperative Diagnosis: Postoperative Diagnosis: Procedure: 1. Emergent Subxiphoid Pericardial Window. 2. Left Pleur X Catheter Placement 3. Drainage of Pleural Effusion. Surgeon: Abril Mcarthur Throw Out Clerk(s): Myah Duarte Operation and Findings: PREOPERATIVE DIAGNOSES 1. Moderate Pericardial Effusion . 2. Metastatic Lung Cancer 3. Recurrent Left Pleural Effusion 4. Respiratory Insufficiency POSTOPERATIVE DIAGNOSES 1. Moderate Pericardial Calcification and Thickening Without Effusion . 2. Metastatic Lung Cancer 3. Recurrent Left Pleural Effusion 4. Respiratory Insufficiency PROCEDURE 1. Emergent Subxiphoid Pericardial Window. 2. Left Pleur X Catheter Placement 3. Drainage of Pleural Effusion. KETTLE CLEANER Kourtney Duarte PA-C ANESTHESIA General endotracheal. ANESTHETISTS NOAM Wray MD PREPARATION ChloraPrep. NEEDLE, SPONGE, AND INSTRUMENT COUNTS Correct. DRAINS PleurX catheter COMPLICATIONS None. INDICATIONS The patient is a 67 year-old with metastatic lung cancer presenting with shortness of breath and recurrent effusions. The patient is being brought to the operating room for emergent drainage procedure. DESCRIPTION OF PROCEDURE The patient was brought to the operating room and placed supine on the OR table. Following the induction of adequate general endotracheal anesthesia and placement of appropriate monitoring devices, the chest and abdomen were then prepped and draped in a standard sterile fashion. Through an approximately 4 cm subxiphoid incision, the incision was carried down to the level of the endothoracic fascia which was divided, and the xiphoid process lifted off the pericardium. The prepericardial fat was dissected free, and the anterior surface of the pericardium identified. The pericardium was very scarred and calcified. The anterior pericardial space was entered, but no fluid was encountered. Instead, it was noted that the pericardium was densely adherent to the myocardium. With the chance of perforating the RV wall, no further dissection was performed. Intraoperative HÉCTOR did reveal no evidence of pericardial fluid with very thickened RV wall and possibly tumor or clot densely adherent to the wall. Strict hemostasis was assured. Incision was anesthetized with 0.5% Marcaine with epinephrine and the incision closed in 3 layers. Dermabond and sterile dressing were applied. Attention was then turned to the left chest wall. Percutaneous access to the left pleural effusion was obtained using a seeker needle in the 5th ICS, anterior axillary line. Using Sedlinger technique a PleurX catheter was tunnelled subcutaneously and advanced into the pleural space. Approximately 1600 mls of serosanguineous fluid was evacuated and the PleurX capped and anchored. Sterile dressing was applied and the patient was transferred to ICU in stable condition. Abril Mcarthur MD Aug 14, 2017 16:35
--- NOTE | 2017-08-14 16:49 | HHI.FPPN ---
Subjective Remarks Patient was seen and evaluated this morning. She was being prepped for transportation to radiology for a chest x-ray. She complained of worsening shortness of breath. She reports neck swelling, further hindering her breathing. Patient denies nausea, vomiting, diarrhea and constipation. All questions were answered. (Corrina Reynolds MD R1) Objective Vitals Vital Signs Date Time Temp Pulse Resp B/P (MAP) Pulse Ox O2 Delivery O2 Flow Rate FiO2 08/14/17 12:00 97.8 122 22 133/73 (93) 92 08/14/17 10:18 92 Nasal Cannula 4.00 08/14/17 07:00 97.9 118 22 142/65 (90) 92 08/14/17 07:00 122 08/14/17 06:00 114 08/14/17 05:03 98.4 120 24 134/79 (97) 90 08/14/17 05:00 122 08/14/17 04:04 114 08/14/17 04:00 112 08/14/17 03:00 116 08/14/17 02:00 114 08/14/17 01:00 112 08/14/17 00:34 97.9 119 20 153/95 (114) 93 Manual Cuff/Auscultation 08/14/17 00:00 115 08/13/17 23:00 118 08/13/17 22:00 114 08/13/17 21:00 116 08/13/17 20:11 97.9 117 14 145/80 (101) 93 08/13/17 20:05 116 08/13/17 19:24 94 Nasal Cannula 3.00 08/13/17 16:37 98.0 118 20 143/89 (107) 94 I/O 08/13/17 08/13/17 08/13/17 08/14/17 08/14/17 08/14/17 07:00 15:00 23:00 07:00 15:00 23:00 Intake Total 300 ml 1340 ml 1095 ml Output Total 200 ml 600 ml 550 ml Balance 100 ml 740 ml 545 ml Intake Oral 200 ml 240 ml 480 ml IV Total 100 ml 1100 ml 615 ml Output Urine Total 200 ml 600 ml 550 ml (Corrina Reynolds MD R1) Result Diagram: 08/14/17 0529 08/14/17 0529 Imaging Last 72 hours Impressions Chest X-Ray 08/14/17 0600 Signed Impressions: Service Date/Time: Monday, August 14, 2017 09:39 - CONCLUSION: 1. Stable exam with combination of pleural fluid and consolidation generating an increased density of the left hemithorax. 2. Tiny right effusion. 3. Significant cardiomegaly. Darrell Hedrick Jr., MD Objective Remarks GENERAL: Well-nourished, well-developed, obese female in respiratory distress. SKIN: Warm and dry. EYES: No scleral icterus. No injection or drainage. EOMI. HENT: Normocephalic. Atraumatic. NECK: Significant swelling; symmetric. CARDIOVASCULAR: Warm and well perfused. Regular rate and rhythm, no murmurs appreciated. RESPIRATORY: Coarse lung sounds in anterior lung ochoa. GASTROINTESTINAL: Positive bowel sounds. Abdomen nondistended. MUSCULOSKELETAL: Strength grossly within normal limits. NEURO/PSYCH: Awake, alert, and oriented x3. Procedures ECHO 2D COMP with Doppler FINDINGS: LEFT VENTRICLE The left ventricular systolic function is normal with an estimated ejection fraction in the range of 55-60%. There was limited left ventricular wall motion assessment due to poor endocardial visualization. Doppler parameters are consistent with impaired left ventricular relaxation ( grade 1 diastolic dysfunction). RIGHT VENTRICLE The right ventricle was not well visualized. LEFT ATRIUM The left atrium was not well visualized. RIGHT ATRIUM The right atrium is not well visualized. ATRIAL SEPTUM Normal atrial septal thickness AORTA The aortic root and proximal ascending aorta are not well visualized. MITRAL VALVE Grossly normal mitral valve No mitral valve stenosis. Trace mitral valve regurgitation. AORTIC VALVE The aortic valve is not well visualized. No aortic valve regurgitation. No aortic valve stenosis. TRICUSPID VALVE Grossly normal tricuspid valve. There is mild tricuspid valve regurgitation. The estimated pulmonary arterial pressure is 39 mmHg. PULMONARY VALVE The pulmonary valve is not well visualized. VESSELS The inferior vena cava is normal in size. PERICARDIUM There is a moderate pericardial effusion present. No hemodynamically significant echocardiographic features were observed (no pre -tamponade physiology). Medications and IVs Current Medications Medications (Trade) Dose Ordered Sig/Jerrell Route Start Time Stop Time Status Last Admin (Mycostatin Powder) 1 applic Q8HR TOPICAL 08/09/17 14:00 08/12/17 13:36 (NS Flush) 2 ml BID IV FLUSH 08/09/17 21:00 08/13/17 20:19 (NS Flush) 2 ml UNSCH PRN IV FLUSH 08/09/17 12:45 ([place] 5-325 Mg) 1 tab Q4H PRN PO 08/09/17 16:15 08/13/17 17:14 ([place] 7.5-325 Mg) 1 tab Q4H PRN PO 08/09/17 16:15 08/14/17 05:02 (Morphine Inj) 2 mg Q3H PRN IV PUSH 08/09/17 16:15 (Narcan Inj) 0.4 mg UNSCH PRN IV PUSH 08/09/17 16:15 (Melatonin) 5 mg HS PRN PO 08/09/17 16:15 08/13/17 20:19 Cefepime HCl 2000 mg/Sodium Chloride 100 ml @ 200 mls/hr Q12H IV 08/09/17 23:00 08/14/17 10:41 Pharmacy Profile Note 0 ml @ 0 mls/hr UNSCH OTHER 08/09/17 16:30 (Tylenol) 650 mg Q4HR PRN PO 08/09/17 20:30 08/12/17 23:18 (D50w (Vial) Inj) 50 ml UNSCH PRN IV PUSH 08/10/17 06:45 (Glucagon Inj) 1 mg UNSCH PRN OTHER 08/10/17 06:45 (NovoLOG SUPPLEMENTAL SCALE) 1 ACHS SLIDING SCALE SQ 08/10/17 08:00 08/12/17 21:13 (Lovenox Inj) 40 mg Q24H SQ 08/10/17 20:00 08/13/17 20:18 (Pepcid) 20 mg BID PO 08/11/17 21:00 08/14/17 08:17 (Deltasone) 20 mg BID PO 08/12/17 21:00 08/14/17 08:17 Vancomycin HCl 1500 mg/Sodium Chloride 515 ml @ 250 mls/hr Q12H IV 08/12/17 23:00 08/14/17 10:41 (Zofran Odt) 4 mg Q6H PRN PO 08/13/17 08:30 08/13/17 08:53 Miscellaneous Information SPECIFIC LAB TO BE DRAWN:[facility] TROUGH DATE... ONCE ONCE .XX 08/15/17 10:45 08/15/17 10:46 Azithromycin 500 mg/Sodium Chloride 250 ml @ 250 mls/hr Q24H IV 08/13/17 12:00 08/14/17 13:48 (Ativan) 0.5 mg Q6HR PO 08/13/17 18:00 08/14/17 13:48 (Ativan) 0.5 mg BID PRN PO 08/13/17 13:30 08/14/17 03:13 (Xopenex Neb) 1.25 mg Q2HR NEB PRN NEB 08/14/17 01:30 (Xopenex Neb) 1.25 mg Q6HR WHILE AWAKE NEB NEB 08/14/17 08:00 08/14/17 14:04 (NS Flush) 2 ml BID IV FLUSH 08/14/17 21:00 (NS Flush) 2 ml UNSCH PRN IV FLUSH 08/14/17 16:30 (Post-op Orders (for Pharmacy)) STAT ONCE OTHER 08/14/17 16:30 08/14/17 16:31 (Corrina Reynolds MD R1) Urinary Catheter: No (Corrina Reynolds MD R1) Vascular Central Line Catheter: No (Corrina Reynolds MD R1) A/P Assessment and Plan 67 y/o female with a recent diagnosis of metastatic non-small cell lung cancer and metastatic adenopathy, who presents to the ED with shortness of breath. Admitted for evaluation and management of the respiratory distress, under care of oncology for malignant pleural effusions. Palliative chemotherapy has been initiated. History from prior admission as follows: Patient was admitted with respiratory distress, started on antibiotics and Tamiflu. She had a pericardial drain placed with significant improvement in her symptoms and blood pressure. Oncology was consulted given the patient's history of suspected cancer. Patient underwent left-sided thoracentesis with significant improvement. Her pericardial effusion studies showed cells concerning for adenocarcinoma. 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 She remained afebrile throughout the latter half of her hospitalization and blood cultures were negative. Urology had also been consulted for a right staghorn calculi, which they deemed more appropriate for outpatient management given her acute issues. Patient passed her walk test and was deemed stable for discharge per oncology with close follow-up. (Corrina Reynolds MD R1) Attending Attestation Patient seen, examined, and discussed with resident team. I agree with assessment and management as documented and discussed with me. Pt complains of SOB and anxiety. She complains of swelling at her jawline. CT surg consulted for cardiac tamponade. (Elsie Abrams MD) Problem List: (1) Pneumonia ICD Codes: J18.9 - Pneumonia, unspecified organism Status: Acute Plan: Possible nosocomial pneumonia. On admission: * Met SIRS criteria with tachycardia, tachypnea, high WBC count. * Chest x-ray: Right costophrenic angle blunted, hazy opacity in both lung bases most consistent with infiltrates and effusions, moderate cardiomegaly. Cefepime, azithromycin, vancomycin (08/09 - ) for empirical treatment of nosocomial pneumonia. No IV fluids at this time due to pleural effusions. (2) Non-small cell carcinoma of lung ICD Codes: C34.90 - Malignant neoplasm of unspecified part of unspecified bronchus or lung Status: Acute Plan: Patient with recent diagnosis of non-small cell carcinoma of lung with metastasis. Oncology awaiting PDL-1 studies. Patient was started on Carboplatin and Taxol on 08/12. Respiratory distress likely due to malignant pleural effusion. Pericardial effusion also present. Ultrasound-guided thoracentesis ordered for moderate pleural effusions. Right- sided thoracentesis performed 08/10; left-sided thoracentesis performed 08/11. Respiratory status improved temporarily. Patient, however, has been re- accumulating pleural effusion rapidly. Per oncology, she will likely need an indwelling drainage catheter vs. pleurodesis. Given the presence of the malignant pericardial effusion and re-accumulating pleural effusions, tachycardia, tachypnea and subjective dyspnea oncology suspects cardiac tamponade. Since she has already undergone pericardiocentesis, oncology placed consult for CT surgery evaluation for potential pericardial window creation and possible placement of a left-sided pleurex catheter. Medications: * Prednisone 40 mg PO daily. * DuoNeb q6hr with albuterol q2hr as needed. * Pain management with Tylenol, norco, morphine as needed. (3) Bilateral pleural effusion ICD Codes: J90 - Pleural effusion, not elsewhere classified Status: Chronic Plan: * See Plan for Non-small cell carcinoma of lung. (4) Right kidney stone ICD Codes: N20.0 - Calculus of kidney Status: Chronic Plan: Staghorn calculus diagnosed, no current pain or concerns per the patient. Outpatient follow-up with urology was recommended once current conditions have resolved. (5) fen/ppx Status: Chronic Plan: Fluids: PO fluids. Electrolytes: Monitor and replete as needed. Nutrition: Regular diet. DVT prophylaxis: SCDs. Resume chemical prophylaxis after CT surgery eval/ procedure. High risk of the VTE given underlying malignancy. Prophylaxis: IV Pepcid due to recent ICU stay, and steroid addition. (Corrina Reynolds MD R1) Problem Qualifiers (1) Pneumonia: Qualified Codes: J18.1 - Lobar pneumonia, unspecified organism Corrina Reynolds MD R1 Aug 14, 2017 16:49 Elsie Abrams MD Aug 14, 2017 20:49
[2017-08-14] MEDS ORDERED: *RESP: ALBUTEROL 2.5 MG/3 ML NEB (PRN) PERIprocedural Use ONLY NEB ONE (17:17)
--- NOTE | 2017-08-14 17:33 | RADRPT ---
EXAM DATE/TIME: 08/14/2017 17:04 [facility] COMPARISON: CHEST PA & LAT, August 14, 2017, 9:39. CHEST SINGLE AP, August 09, 2017, 9:53. INDICATIONS : S/P thoracotomy. MEDICAL HISTORY : Carcinoma, lung. Recurrent pleural effusion. Thoracentesis. SURGICAL HISTORY : Hysterectomy. section. Percutaneous kidney stone removal. ENCOUNTER: Subsequent ACUITY: 1 week PAIN SCORE: Non-responsive. LOCATION: Bilateral chest FINDINGS: There is indistinctness of the central bronchopulmonary markings extending both the supra-and infrahi lar region, very similar to prior chest x-ray. Horizontal linear opacity along the minor fissure is stable in appearance. There is decreased opacity in the left mid and lower lung and compared to prio r, now with delineation portions of the left hemidiaphragm. The heart is enlarged. Left chest drain age tube tip at the apex. Left subclavian catheter tip at the origin of the superior vena cava. CONCLUSION: Persistent fullness in opacity in the medial one third of both lungs, unchanged from prior. Decrease d left pleural effusion. No evidence of pneumothorax or Darrell Ritchie MD on August 14, 2017 at 17:28 Board Certified Radiologist. This report was verified electronically.
[2017-08-14] MEDS ORDERED: PHENYLEPHRINE HCL 10 MG/ML VIAL ONE (18:06)
[2017-08-14] MEDS ORDERED: TERBUTALINE INJ 1 MG/ML AMP SQ PRN (18:15)
[2017-08-14] MEDS ORDERED: PHENYLEPHRINE 40 MG in D5W 500 ML IV PRN (18:15)
[2017-08-14] MEDS ORDERED: *HYDROmorphone PF 1 MG VIAL PERIprocedural Use ONLY ONE (18:36)
[2017-08-14 19:16] LABS: AUTOMATED NEUTROPHIL # 21.6 TH/MM3 (1.8-7.7); BASOPHIL % 0.1 % (0.0-2.0); HEMATOCRIT 37.9 % (35.0-46.0); HEMOGLOBIN 12.3 GM/DL (11.6-15.3); LYMPH % 0.9 % (9.0-44.0); LYMPHOCYTE # 0.2 TH/MM3 (1.0-4.8); MEAN CELL VOLUME 86.5 FL (80.0-100.0); MEAN CORPUSCULAR HEMOGLOBIN 28.1 PG (27.0-34.0); MEAN CORPUSCULAR HGB CONC 32.5 % (32.0-36.0); MEAN PLATELET VOLUME 9.5 FL (7.0-11.0); MONO % 1.2 % (0.0-8.0); MONOCYTE # 0.3 TH/MM3 (0-0.9); NEUT % 97.8 % (16.0-70.0); PLATELET COUNT 232 TH/MM3 (150-450); RED BLOOD COUNT 4.38 MIL/MM3 (4.00-5.30); RED CELL DISTRIBUTION WIDTH 14.5 % (11.6-17.2); WHITE BLOOD COUNT 22.1 TH/MM3 (4.0-11.0)
[2017-08-14 19:33] LABS: BICARBONATE 26.1 MEQ/L (21.0-32.0); CALCIUM 7.6 MG/DL (8.5-10.1); CREATININE 0.54 MG/DL (0.50-1.00); MAGNESIUM 2.1 MG/DL (1.5-2.5); PHOSPHORUS 2.4 MG/DL (2.5-4.9)
[2017-08-14 19:42] LABS: AMORPHOUS SEDIMENT, URINE MANY; BACTERIA, URINE MOD /hpf; BILIRUBIN, URINE NEG (NEG); BLOOD, URINE LARGE (NEG); GLUCOSE,URINE NEG (NEG); HYALINE CAST, URINE INNUM /lpf (RARE); KETONE, URINE NEG (NEG); MUCUS URINE MANY /lpf (OCC); NITRITE,URINE NEG (NEG); SQUAMOUS EPITHELIAL CELL URINE 53 /hpf (0-5); URINE COLOR YELLOW (YELLW/STRAW); URINE LEUKOCYTE ESTERASE NEG (NEG)
--- NOTE | 2017-08-14 19:59 | PD.CONS ---
[facility] Service Critical Care Medicine Consult Requested By Dr. Estrella Reason for Consult Critical care management of hypotension Primary Care Physician Unknown History of Present Illness 67 yo with recent admission 07/24/17 -08/03/17 for Influenza, respiratory failure. She had bilateral pleural effusions and pericardial effusion and underwent bilateral thoracentesis and pericardial drain with 500 mL of hemorrhagic fluid removed. Biopsy of lymph node and right neck demonstrated moderate to poorly differentiated adenocarcinoma. She has been readmitted 08/09/17 and had rapid reaccumulation of bilateral pleural effusions requiring bilateral thoracentesis. Today she was taken to the OR for anticipated pericardial window and left Pleurx catheter placement. Intraoperatively HÉCTOR performed by Dr. Fleming demonstrated RV wall hypertrophy ( vs infiltration with tumor?) And posterior pericardial effusion that did not appear to be hemodynamically significant. The pericardium was fibrinous and adherent to the myocardium and therefore pericardial window was not performed due to risk of ventricular perforation. Left Pleurx catheter was performed and reportedly had 1500 output. Intraoperatively patient received 2800 crystalloid and EBL was less than 50. She was on Servando-Synephrine intraoperatively. Postoperatively she was hypotensive with blood pressure 77/52 and was started on Servando-Synephrine in PACU. She is presently on Servando-Synephrine 60 mcg/m with mean arterial pressure of 81 (blood pressure 111/61). She is mildly confused but denies any complaints aside from chest tube at the left Pleurx catheter site. Urine output has been 350 over the last hour and a half while in PACU. Review of Systems ROS Limitations: Clinical Condition Respiratory: COMPLAINS OF: Shortness of breath Cardiovascular: COMPLAINS OF: Chest pain Psychiatric: COMPLAINS OF: Confusion Past Family Social History Allergies: Coded Allergies: morphine (Verified Allergy, Intermediate, HIVES, 08/09/17) Past Medical History Endometriosis Kidney stones Past Surgical History Kidney stone removal Staring section 3 Hysterectomy Reported Medications Albuterol 2 puffs inhaled q4-6hr Prednisone taper Family History Brother of leukemia Sister had uterine cancer Mother had diabetes and from complications Father was injured in World War II and had recurrent urinary tract infections and from sepsis. Social History Prior smoker. Quit smoking 45 years ago. No alcohol or illicit drug use Physical Exam Vital Signs Vital Signs Date Time Temp Pulse Resp B/P (MAP) Pulse Ox O2 Delivery O2 Flow Rate FiO2 4/6/18 18:30 106 22 116/63 (80) 93 Nasal Cannula 5 08/14/17 18:22 104 77/52 08/14/17 18:15 103 22 77/52 (60) 91 Nasal Cannula 5 08/14/17 18:10 103 71/47 08/14/17 18:00 103 22 74/47 (56) 91 Nasal Cannula 5 08/14/17 17:45 105 22 71/48 (56) 91 Nasal Cannula 5 08/14/17 17:30 105 22 79/54 (62) 93 Nasal Cannula 5 08/14/17 17:15 109 22 87/53 (64) 95 Nasal Cannula 5 08/14/17 17:03 97.2 111 22 133/59 (83) 93 Simple Mask 6 08/14/17 12:00 97.8 122 22 133/73 (93) 92 08/14/17 10:18 92 Nasal Cannula 4.00 08/14/17 07:00 97.9 118 22 142/65 (90) 92 08/14/17 07:00 122 08/14/17 06:00 114 08/14/17 05:03 98.4 120 24 134/79 (97) 90 08/14/17 05:00 122 08/14/17 04:04 114 08/14/17 04:00 112 08/14/17 03:00 116 08/14/17 02:00 114 08/14/17 01:00 112 08/14/17 00:34 97.9 119 20 153/95 (114) 93 Manual Cuff/Auscultation 08/14/17 00:00 115 08/13/17 23:00 118 08/13/17 22:00 114 08/13/17 21:00 116 08/13/17 20:11 97.9 117 14 145/80 (101) 93 08/13/17 20:05 116 Physical Exam GENERAL: Well-nourished, well-developed patient who is sitting up in PACU alert and conversant. SKIN: Warm and dry. Appears adequately perfused. HEAD: Atraumatic. Normocephalic. EYES: Pupils equal and round. No scleral icterus. No injection or drainage. ENT: No nasal bleeding or discharge. Mucous membranes pink and moist. NECK: Trachea midline. No JVD. CARDIOVASCULAR: Tachycardic, regular with sinus tach on the monitor. No murmurs rubs or gallops appreciated. Subxiphoid incision with Dermabond intact. Left Pleurx catheter in place RESPIRATORY: Mildly tachypneic with no accessory muscle use. Clear to auscultation bilaterally, diminished right base. GASTROINTESTINAL: Abdomen soft, non-tender, nondistended. Bowel sounds present. MUSCULOSKELETAL: Extremities without clubbing, cyanosis, or edema. No obvious deformities. NEUROLOGICAL: Awake and alert, mildly confused and repetitive at times.. No obvious cranial nerve deficits. Motor grossly within normal limits. Normal speech. Laboratory Laboratory Tests Test 08/14/17 05:29 08/14/17 14:17 08/14/17 18:12 08/14/17 18:51 White Blood Count 19.4 22.1 Red Blood Count 4.64 4.38 Hemoglobin 13.2 12.3 Hematocrit 39.8 37.9 Mean Corpuscular Volume 85.8 86.5 Mean Corpuscular Hemoglobin 28.5 28.1 Mean Corpuscular Hemoglobin Concent 33.2 32.5 Red Cell Distribution Width 14.7 14.5 Platelet Count 249 232 Mean Platelet Volume 9.4 9.5 Blood Urea Nitrogen 20 21 Creatinine 0.50 0.54 Random Glucose 139 162 Total Protein 5.9 Albumin 2.4 Calcium Level 8.4 7.6 Alkaline Phosphatase 91 Aspartate Amino Transf (AST/SGOT) 18 Alanine Aminotransferase (ALT/SGPT) 17 Total Bilirubin 1.0 Sodium Level 138 138 Potassium Level 3.6 4.1 Chloride Level 104 103 Carbon Dioxide Level 24.0 26.1 Anion Gap 10 9 Estimat Glomerular Filtration Rate 123 112 Prothrombin Time 11.9 Prothromb Time International Ratio 1.2 Urine Color YELLOW Urine Turbidity HAZY Urine pH 5.0 Urine Specific [place] 1.030 Urine Protein 30 Urine Glucose (UA) NEG Urine Ketones NEG Urine Occult Blood LARGE Urine Nitrite NEG Urine Bilirubin NEG Urine Urobilinogen LESS THAN 2.0 Urine Leukocyte Esterase NEG Urine RBC Urine WBC Urine Squamous Epithelial Cells 53 Urine Amorphous Sediment MANY Urine Bacteria MOD Urine Hyaline Casts INNUM Urine Mucus MANY Microscopic Urinalysis Comment CATH-CULTURE IND Neutrophils (%) (Auto) 97.8 Lymphocytes (%) (Auto) 0.9 Monocytes (%) (Auto) 1.2 Eosinophils (%) (Auto) 0.0 Basophils (%) (Auto) 0.1 Neutrophils # (Auto) 21.6 Lymphocytes # (Auto) 0.2 Monocytes # (Auto) 0.3 Eosinophils # (Auto) 0.0 Basophils # (Auto) 0.0 CBC Comment DIFF FINAL Differential Comment Phosphorus Level 2.4 Magnesium Level 2.1 Lactic Acid Level 4.0 Date/Time Source Procedure Growth Status 08/09/17 09:45 Blood Peripheral Aerobic Blood Culture - Final NO GROWTH IN 5 DAYS Complete 08/09/17 09:45 Blood Peripheral Anaerobic Blood Culture - Final NO GROWTH IN 5 DAYS Complete 08/14/17 18:12 Urine Catheterized Urine Urine Culture Pending Received Result Diagram: 08/14/17185008/14/171850 Assessment and Plan Problem List: (1) Bilateral pleural effusion ICD Code: J90 - Pleural effusion, not elsewhere classified Status: Chronic (2) Non-small cell carcinoma of lung ICD Code: C34.90 - Malignant neoplasm of unspecified part of unspecified bronchus or lung Status: Chronic (3) Hypotension ICD Code: I95.9 - Hypotension, unspecified Status: Resolved Assessment and Plan NEURO: Lortab as needed for pain. Dilaudid as needed for breakthrough pain RESP: Recurrent bilateral pleural effusions Status post left Pleurx catheter with 1500 removed 08/14 Nasal cannula wean as tolerated Continue Xopenex as needed CV: Postoperative hypotension Review intraoperative HÉCTOR image and discussed with Dr. Fleming. RV hypertrophy and LV underfilled so will volume load with 1 L NS bolus and additional as needed. Wean neosynephrine as tolerated. Obtain postop CBC GI: Regular diet FEN/RENAL: Dash in place per monitor intake and output. Monitor electrolytes and replace per ICU electrolyte replacement protocol. ID: On vancomycin, azithromycin, cefepime. HEME: Metastatic adenocarcinoma with lung primary. Started on carboplatin and Taxol 08/12. Hematology following, Dr. Ruiz Obtain postop CBC ENDO: Initiate insulin if needed to maintain glucose less than 185. PROPH: SCDs for DVT prophylaxis. Resume Lovenox 40 mg subcutaneous every 24 hours if CBC stable. Protonix 40 mg by mouth daily for stress ulcer prophylaxis. ACCESS: Left subclavian central venous line placed in OR 08/14/17 #1. Patient confirms she does not want to be intubated. Per palliative care note she is designated alternate code compressions and medications only. Discussed with Dr. Fleming. Discussed with Dr. Barraza. Level 3 Consult Val Swanson MD Aug 14, 2017 19:59
[2017-08-14] MEDS: ENOXAPARIN SODIUM 40 MG/0.4 ML SYRINGE SQ SCH (20:00)
[2017-08-14] MEDS ORDERED: POTASSIUM CHLORIDE 25 MEQ EFFERVESCENT TAB PO PRN (20:15)
[2017-08-14] MEDS ORDERED: POTASSIUM CHLOR 20 MEQ PREMIX 100 ML IV PRN ×2 (20:15)
[2017-08-14] MEDS ORDERED: SODIUM PHOSPHATE INJ 30 MMOL in SODIUM CHLOR 0.9% 250 ML INJ 240 ML IV PRN ×2 (20:15→20:30)
[2017-08-14] MEDS ORDERED: POTASSIUM PHOSPHATE INJ 30 MMOL in SODIUM CHLOR 0.9% 250 ML INJ 250 ML IV PRN (20:15)
[2017-08-14] MEDS ORDERED: MAGNESIUM OXIDE 400 MG TAB PO PRN (20:15)
[2017-08-14] MEDS ORDERED: POTASSIUM PHOSPHATE MONOBASIC 500 MG TAB PO/TUBE PRN (20:15)
[2017-08-14] MEDS ORDERED: MAGNESIUM SULFATE INJ 2 GM in SODIUM CHLORIDE 0.9% INJ 96 ML IV PRN (20:15)
[2017-08-14] MEDS ORDERED: POTASSIUM PHOSPHATE MONOBASIC 500 MG TAB PO PRN (20:15)
[2017-08-14] MEDS ORDERED: POTASSIUM CHLOR 40 MEQ PREMIX 100 ML IV PRN ×2 (20:15)
[2017-08-14] MEDS ORDERED: MAGNESIUM SULFATE INJ 4 GM in SODIUM CHLORIDE 0.9% INJ 92 ML IV PRN (20:15)
[2017-08-15] VITALS (21 sets, daily range): BP systolic 98–139; BP diastolic 57–85; PULSE 92–118; RESP 20–24; TEMP 97.6–99.5; O2SAT 92–97
[2017-08-15] MEDS: LORazepam 0.5 MG TAB PO SCH ×5 (00:19→23:50)
[2017-08-15] MEDS: ACETAMINOPHEN/HYDROcodone 325 MG/7.5 MG TAB PO PRN ×2 (01:21→20:40)
[2017-08-15] MEDS: HYDROmorphone HCL PF 2 MG/ML VIAL IV PRN ×2 (04:16→15:23)
[2017-08-15 05:08] LABS: AUTOMATED NEUTROPHIL # 18.7 TH/MM3 (1.8-7.7); BASOPHIL % 0.2 % (0.0-2.0); HEMATOCRIT 38.1 % (35.0-46.0); HEMOGLOBIN 12.5 GM/DL (11.6-15.3); LYMPH % 1.5 % (9.0-44.0); LYMPHOCYTE # 0.3 TH/MM3 (1.0-4.8); MEAN CELL VOLUME 86.1 FL (80.0-100.0); MEAN CORPUSCULAR HEMOGLOBIN 28.2 PG (27.0-34.0); MEAN CORPUSCULAR HGB CONC 32.8 % (32.0-36.0); MEAN PLATELET VOLUME 9.6 FL (7.0-11.0); MONO % 1.3 % (0.0-8.0); MONOCYTE # 0.2 TH/MM3 (0-0.9); PLATELET COUNT 216 TH/MM3 (150-450); RED BLOOD COUNT 4.43 MIL/MM3 (4.00-5.30); RED CELL DISTRIBUTION WIDTH 14.5 % (11.6-17.2); WHITE BLOOD COUNT 19.3 TH/MM3 (4.0-11.0)
[2017-08-15 05:24] LABS: BICARBONATE 27.9 MEQ/L (21.0-32.0); CALCIUM 7.8 MG/DL (8.5-10.1); CREATININE 0.41 MG/DL (0.50-1.00)
[2017-08-15] MEDS: NYSTATIN 100,000 U/GM PWD 15 GM BTL TOPICAL SCH ×3 (06:00→22:00)
--- NOTE | 2017-08-15 06:38 | RADRPT ---
EXAM DATE/TIME: 08/15/2017 05:51 [place] COMPARISON: CHEST SINGLE AP, August 14, 2017, 17:04. INDICATIONS : Shortness of breath, possible pulmonary disease. MEDICAL HISTORY : Carcinoma, lung. SURGICAL HISTORY : Hysterectomy. section. Thoracentesis Thoracotomy ENCOUNTER: Subsequent ACUITY: 1 week PAIN SCORE: 5/10 LOCATION: Bilateral chest FINDINGS: Single AP view of the chest. Left subclavian central venous catheter remains in place. Patchy right m id to lower lung opacity unchanged. Mild bilateral diffuse interstitial opacity. No evidence of pleur al effusion or pneumothorax. Cardiomediastinal silhouette unchanged. CONCLUSION: No significant interval change. Persistent patchy parenchymal opacity in the right lung. Deejay Packer MD on August 15, 2017 at 6:36 Board Certified Radiologist. This report was verified electronically.
[2017-08-15] MEDS: INSULIN ASPART SUPPLEMENTAL SCALE SQ SCH ×4 (08:00→20:53)
[2017-08-15] MEDS: RESP: LEVALBUTEROL HYDROCHLORIDE 1.25 MG/3 ML NEB (SCH) NEB ×3 (08:00→20:00)
[2017-08-15] MEDS: SODIUM CHLORIDE 0.9% FLUSH 10 ML FLUSH IV FLUSH SCH ×4 (09:00→20:45)
[2017-08-15] MEDS: FAMOTIDINE 20 MG TAB PO SCH ×2 (09:01→20:42)
[2017-08-15] MEDS: predniSONE 20 MG TAB PO SCH ×2 (09:01→20:42)
[2017-08-15] MEDS ORDERED: RESP: LEVALBUTEROL HYDROCHLORIDE 0.63 MG/3 ML NEB (SCH) NEB ONE (09:30)
--- NOTE | 2017-08-15 10:05 | PD.CAR.PN ---
CVT Progress Note Subjective/Hospital Course: Clinically stable BP better. Off of Servando gtt OK to transfer to stepdown from my standpoint Drain PleurX daily Objective: Vital Signs Date Time Temp Pulse Resp B/P (MAP) Pulse Ox O2 Delivery O2 Flow Rate FiO2 08/15/17 08:36 92 Nasal Cannula 6.00 08/15/17 08:00 110 08/15/17 07:00 98.3 111 22 119/79 (92) 94 08/15/17 07:00 111 08/15/17 06:00 110 08/15/17 05:00 113 08/15/17 04:50 18 08/15/17 03:00 98.2 116 22 139/85 (103) 94 08/15/17 03:00 116 08/15/17 02:25 18 08/15/17 02:00 112 08/15/17 00:00 112 08/14/17 23:00 97.9 106 18 142/75 (97) 91 08/14/17 22:58 93 Venturi Mask 6.00 50 08/14/17 22:40 94 Nasal Cannula 6.00 08/14/17 22:00 108 08/14/17 21:30 97.8 106 18 124/77 (93) 93 08/14/17 20:30 106 22 132/71 (91) 93 Nasal Cannula 5 08/14/17 20:00 104 20 122/64 (83) 93 Nasal Cannula 5 08/14/17 19:00 104 18 111/64 (80) 93 Nasal Cannula 5 08/14/17 18:30 106 22 116/63 (80) 93 Nasal Cannula 5 08/14/17 18:22 104 77/52 08/14/17 18:15 103 22 77/52 (60) 91 Nasal Cannula 5 08/14/17 18:10 103 71/47 08/14/17 18:00 103 22 74/47 (56) 91 Nasal Cannula 5 08/14/17 17:45 105 22 71/48 (56) 91 Nasal Cannula 5 08/14/17 17:30 105 22 79/54 (62) 93 Nasal Cannula 5 08/14/17 17:15 109 22 87/53 (64) 95 Nasal Cannula 5 08/14/17 17:03 97.2 111 22 133/59 (83) 93 Simple Mask 6 08/14/17 12:00 97.8 122 22 133/73 (93) 92 08/14/17 10:18 92 Nasal Cannula 4.00 Labs: Laboratory Tests Test 08/15/17 04:27 White Blood Count 19.3 TH/MM3 (4.0-11.0) Red Blood Count 4.43 MIL/MM3 (4.00-5.30) Hemoglobin 12.5 GM/DL (11.6-15.3) Hematocrit 38.1 % (35.0-46.0) Mean Corpuscular Volume 86.1 FL (80.0-100.0) Mean Corpuscular Hemoglobin 28.2 PG (27.0-34.0) Mean Corpuscular Hemoglobin Concent 32.8 % (32.0-36.0) Red Cell Distribution Width 14.5 % (11.6-17.2) Platelet Count 216 TH/MM3 (150-450) Mean Platelet Volume 9.6 FL (7.0-11.0) Neutrophils (%) (Auto) 97.0 % (16.0-70.0) Lymphocytes (%) (Auto) 1.5 % (9.0-44.0) Monocytes (%) (Auto) 1.3 % (0.0-8.0) Eosinophils (%) (Auto) 0.0 % (0.0-4.0) Basophils (%) (Auto) 0.2 % (0.0-2.0) Neutrophils # (Auto) 18.7 TH/MM3 (1.8-7.7) Lymphocytes # (Auto) 0.3 TH/MM3 (1.0-4.8) Monocytes # (Auto) 0.2 TH/MM3 (0-0.9) Eosinophils # (Auto) 0.0 TH/MM3 (0-0.4) Basophils # (Auto) 0.0 TH/MM3 (0-0.2) CBC Comment DIFF FINAL Differential Comment Blood Urea Nitrogen 18 MG/DL (7-18) Creatinine 0.41 MG/DL (0.50-1.00) Random Glucose 122 MG/DL (74-106) Calcium Level 7.8 MG/DL (8.5-10.1) Sodium Level 139 MEQ/L (136-145) Potassium Level 4.1 MEQ/L (3.5-5.1) Chloride Level 102 MEQ/L (98-107) Carbon Dioxide Level 27.9 MEQ/L (21.0-32.0) Anion Gap 9 MEQ/L (5-15) Estimat Glomerular Filtration Rate 154 ML/MIN (>89) Result Diagram: 08/15/17 0427 08/15/17 0427 Abril Mcarthur MD Aug 15, 2017 10:05
[2017-08-15] MEDS ORDERED: PHARMACY ORDERED LAB ONE (10:45)
--- NOTE | 2017-08-15 10:48 | HHI.CCPN ---
Subjective Remarks/Hospital Course subjective: 08/15: subjectively feels better. off phenylephrine. still tachycardic, although this will likely remain due to chronic pericardial effusion and RV hypertrophy. refusing PT. states "maybe Thursday". I stressed she needs PT to get stronger, but she states "you don't know how bad I feel". she does subjectively complain of weakness in her LEs, though objectively her strength appears 5/5 in all extremities. I stressed her weakness may improve with PT. remainder of the ROS negative. Objective Vital Signs Date Time Temp Pulse Resp B/P (MAP) Pulse Ox O2 Delivery O2 Flow Rate FiO2 08/15/17 08:36 92 Nasal Cannula 6.00 08/15/17 08:00 110 08/15/17 07:00 98.3 22 119/79 (92) 08/14/17 22:58 50 Intake and Output 08/15/17 08/15/17 08/16/17 08:00 16:00 00:00 Intake Total 590 ml Output Total 450 ml Balance 140 ml Result Diagram: 08/15/17 0427 08/15/17 0427 Objective Remarks gen: middle-aged female, lying in bed, no acute distress. heent: perrl. mucous membranes moist. neck: no jvd. trachea midline. chest: unlabored. nc o2. receiving albuterol neb currently. equal chest rise. spo2 97% cv: tachycardic rate, regular rhythm. sinus by tele. abd: soft, nontender, nondistended. no guarding. extr: distal pulses 2+. neuro: RASS 0. CAM -. follows commands. TONYA 5/5 in all 4 extremities. sensation grossly intact. A/P Assessment and Plan Assessment: 67yF POD 1 s/p attempted pericardial window for suspected malignant effusion, course complicated by post-operative hypotension requiring vasopressors. now clinically improving. stable for transfer out of ICU from heel [facility] standpoint. will consult hospitalists for ongoing medical management. Agree with palliative consult as her overall prognosis is quite poor for any long-term survival. Active Problems: RV hypertrophy and dysfunction Pericardial effusion metastatic adenocarcinoma sinus tachycardia secondary to pericardial effusion hypotension- resolved. likely secondary to restrictive shock. Plan: - again stressed PT as her best option for strengthening - transfer out of ICU - with RV pathology and effusion, would recommend against treating tachycardia with rate controlling medications - would recommend gentle ivf hydration for any additional episodes of hypotension as this may be the best therapy for her at this time. - ultimately, agree with palliation. Critical care medicine will sign off. Please re-consult as needed. transfer out of ICU. Delebrt Delgado MD Aug 15, 2017 10:48
[2017-08-15] MEDS: VANCOMYCIN INJ 1,500 MG in SODIUM CHLORID 0.9% 500 ML INJ 500 ML IV SCH ×2 (11:17→21:55)
[2017-08-15] MEDS: CEFEPIME INJ 2,000 MG in SODIUM CHLORIDE 0.9% INJ 100 ML IV SCH ×2 (11:18→21:55)
[2017-08-15] MEDS: AZITHROMYCIN INJ 500 MG in SODIUM CHLOR 0.9% 250 ML INJ 250 ML IV SCH (11:35)
--- NOTE | 2017-08-15 13:29 | PD.ONC.PN ---
Subjective Subjective Remarks Afebrile Patient reports her breathing is improved She is noted to have some hematuria that the patient reports has been off and on due to kidney stone No acute complaints from the chemotherapy that she had on 08/12 Objective Data Date Time Temp Pulse Resp B/P (MAP) Pulse Ox O2 Delivery O2 Flow Rate FiO2 08/15/17 08:36 92 Nasal Cannula 6.00 08/15/17 08:00 110 08/15/17 07:00 98.3 111 22 119/79 (92) 94 08/15/17 07:00 111 08/15/17 06:00 110 08/15/17 05:00 113 08/15/17 04:50 18 08/15/17 03:00 98.2 116 22 139/85 (103) 94 08/15/17 03:00 116 08/15/17 02:25 18 08/15/17 02:00 112 08/15/17 00:00 112 08/14/17 23:00 97.9 106 18 142/75 (97) 91 08/14/17 22:58 93 Venturi Mask 6.00 50 08/14/17 22:40 94 Nasal Cannula 6.00 08/14/17 22:00 108 08/14/17 21:30 97.8 106 18 124/77 (93) 93 08/14/17 20:30 106 22 132/71 (91) 93 Nasal Cannula 5 08/14/17 20:00 104 20 122/64 (83) 93 Nasal Cannula 5 08/14/17 19:00 104 18 111/64 (80) 93 Nasal Cannula 5 08/14/17 18:30 106 22 116/63 (80) 93 Nasal Cannula 5 08/14/17 18:22 104 77/52 08/14/17 18:15 103 22 77/52 (60) 91 Nasal Cannula 5 08/14/17 18:10 103 71/47 08/14/17 18:00 103 22 74/47 (56) 91 Nasal Cannula 5 08/14/17 17:45 105 22 71/48 (56) 91 Nasal Cannula 5 18 17:30 105 22 79/54 (62) 93 Nasal Cannula 5 08/14/17 17:15 109 22 87/53 (64) 95 Nasal Cannula 5 08/14/17 17:03 97.2 111 22 133/59 (83) 93 Simple Mask 6 08/15/17 08/15/17 08/15/17 07:00 15:00 23:00 Intake Total 1105 ml Output Total 450 ml Balance 655 ml Result Diagram: 08/15/17 0427 08/15/17 0427 Laboratory Results Laboratory Tests Test 08/14/17 14:17 08/14/17 18:12 08/14/17 18:51 08/15/17 04:27 Prothrombin Time 11.9 SEC Prothromb Time International Ratio 1.2 RATIO Urine Color YELLOW Urine Turbidity HAZY Urine pH 5.0 Urine Specific [place] 1.030 Urine Protein 30 mg/dL Urine Glucose (UA) NEG mg/dL Urine Ketones NEG mg/dL Urine Occult Blood LARGE Urine Nitrite NEG Urine Bilirubin NEG Urine Urobilinogen LESS THAN 2.0 MG/DL Urine Leukocyte Esterase NEG Urine RBC /hpf Urine WBC /hpf Urine Squamous Epithelial Cells 53 /hpf Urine Amorphous Sediment MANY Urine Bacteria MOD /hpf Urine Hyaline Casts INNUM /lpf Urine Mucus MANY /lpf Microscopic Urinalysis Comment CATH-CULTURE IND White Blood Count 22.1 TH/MM3 19.3 TH/MM3 Red Blood Count 4.38 MIL/MM3 4.43 MIL/MM3 Hemoglobin 12.3 GM/DL 12.5 GM/DL Hematocrit 37.9 % 38.1 % Mean Corpuscular Volume 86.5 FL 86.1 FL Mean Corpuscular Hemoglobin 28.1 PG 28.2 PG Mean Corpuscular Hemoglobin Concent 32.5 % 32.8 % Red Cell Distribution Width 14.5 % 14.5 % Platelet Count 232 TH/MM3 216 TH/MM3 Mean Platelet Volume 9.5 FL 9.6 FL Neutrophils (%) (Auto) 97.8 % 97.0 % Lymphocytes (%) (Auto) 0.9 % 1.5 % Monocytes (%) (Auto) 1.2 % 1.3 % Eosinophils (%) (Auto) 0.0 % 0.0 % Basophils (%) (Auto) 0.1 % 0.2 % Neutrophils # (Auto) 21.6 TH/MM3 18.7 TH/MM3 Lymphocytes # (Auto) 0.2 TH/MM3 0.3 TH/MM3 Monocytes # (Auto) 0.3 TH/MM3 0.2 TH/MM3 Eosinophils # (Auto) 0.0 TH/MM3 0.0 TH/MM3 Basophils # (Auto) 0.0 TH/MM3 0.0 TH/MM3 CBC Comment DIFF FINAL DIFF FINAL Differential Comment Blood Urea Nitrogen 21 MG/DL 18 MG/DL Creatinine 0.54 MG/DL 0.41 MG/DL Random Glucose 162 MG/DL 122 MG/DL Calcium Level 7.6 MG/DL 7.8 MG/DL Phosphorus Level 2.4 MG/DL Magnesium Level 2.1 MG/DL Sodium Level 138 MEQ/L 139 MEQ/L Potassium Level 4.1 MEQ/L 4.1 MEQ/L Chloride Level 103 MEQ/L 102 MEQ/L Carbon Dioxide Level 26.1 MEQ/L 27.9 MEQ/L Anion Gap 9 MEQ/L 9 MEQ/L Estimat Glomerular Filtration Rate 112 ML/MIN 154 ML/MIN Lactic Acid Level 4.0 mmol/L Test 08/15/17 10:40 Vancomycin Level Trough 19.1 MCG/ML Culture Results Microbiology Date/Time Source Procedure Growth Status 08/14/17 18:12 Urine Catheterized Urine Urine Culture Pending Received Imaging Studies Last 24 hours Impressions Chest X-Ray 08/15/17 0500 Signed Impressions: Service Date/Time: Tuesday, August 15, 2017 05:51 - CONCLUSION: No significant interval change. Persistent patchy parenchymal opacity in the right lung. Deejay Packer MD Administered Medications Medications (Trade) Dose Ordered Sig/Jerrell Route PRN Reason Start Time Stop Time Status Last Admin Dose Admin Nystatin (Mycostatin Powder) 1 applic Q8HR TOPICAL 08/09/17 14:00 08/15/17 06:00 Sodium Chloride (NS Flush) 2 ml BID IV FLUSH 08/09/17 21:00 08/15/17 09:01 Acetaminophen/ Hydrocodone Bitart ([place] 5-325 Mg) 1 tab Q4H PRN PO PAIN SCALE 3 TO 5 08/09/17 16:15 08/13/17 17:14 Acetaminophen/ Hydrocodone Bitart ([place] 7.5-325 Mg) 1 tab Q4H PRN PO PAIN SCALE 6 TO 10 08/09/17 16:15 08/15/17 01:21 Melatonin (Melatonin) 5 mg HS PRN PO INSOMNIA 08/09/17 16:15 08/13/17 20:19 Cefepime HCl 2000 mg/Sodium Chloride 100 ml @ 200 mls/hr Q12H IV 08/09/17 23:00 08/15/17 11:18 Acetaminophen (Tylenol) 650 mg Q4HR PRN PO PAIN SCALE 1 TO 2 08/09/17 20:30 08/12/17 23:18 Insulin Aspart (NovoLOG SUPPLEMENTAL SCALE) 1 ACHS SLIDING SCALE SQ 08/10/17 08:00 08/12/17 21:13 Enoxaparin Sodium (Lovenox Inj) 40 mg Q24H SQ 08/10/17 20:00 08/13/17 20:18 Famotidine (Pepcid) 20 mg BID PO 08/11/17 21:00 08/15/17 09:01 Prednisone (Deltasone) 20 mg BID PO 08/12/17 21:00 08/15/17 09:01 Vancomycin HCl 1500 mg/Sodium Chloride 515 ml @ 250 mls/hr Q12H IV 08/12/17 23:00 08/15/17 11:17 Ondansetron HCl (Zofran Odt) 4 mg Q6H PRN PO NAUSEA OR VOMITING 08/13/17 08:30 08/13/17 08:53 Azithromycin 500 mg/Sodium Chloride 250 ml @ 250 mls/hr Q24H IV 08/13/17 12:00 08/15/17 11:35 Lorazepam (Ativan) 0.5 mg Q6HR PO 08/13/17 18:00 08/15/17 06:00 Lorazepam (Ativan) 0.5 mg BID PRN PO ANXIETY 08/13/17 13:30 08/14/17 03:13 Levalbuterol HCl (Xopenex Neb) 1.25 mg Q6HR WHILE AWAKE NEB NEB 08/14/17 08:00 08/14/17 22:39 Sodium Chloride (NS Flush) 2 ml BID IV FLUSH 08/14/17 21:00 08/15/17 09:00 Sodium Chloride (NS Flush) 2 ml UNSCH PRN IV FLUSH FLUSH AFTER USING IV ACCESS 08/14/17 16:30 08/15/17 09:02 Phenylephrine HCl 40 mg/Dextrose 500 ml @ 30 mls/hr TITRATE PRN IV Blood Pressure Management 08/14/17 18:15 08/14/17 18:10 Hydromorphone HCl (Dilaudid Pf Inj) 0.2 mg Q3H PRN IV BREAKTHROUGH PAIN 5-10 08/14/17 18:45 08/15/17 04:16 Sodium Phosphate 30 mmol/Sodium Chloride 250 ml @ 42 mls/hr UNSCH PRN IV For Phosphorus < 2.5 mg/dL 08/14/17 20:15 08/14/17 22:09 Objective Remarks GENERAL: Older female resting in bed in no obvious distress. SKIN: Warm and dry. HEAD: Normocephalic. EYES: No injection or drainage. NECK: Supple, trachea midline. CARDIOVASCULAR: Regular rate and rhythm without murmurs. RESPIRATORY: Scattered rhonchi anteriorly. On 6 L nasal cannula. : Hematuria noted to Dash catheter GASTROINTESTINAL: Abdomen soft, non-tender, nondistended. EXTREMITIES: No cyanosis, or edema. MUSCULOSKELETAL: Adequate muscle tone. NEUROLOGICAL: No obvious focal deficit. Awake, alert, and oriented x3. Assessment/Plan Problem List: (1) Non-small cell carcinoma of lung ICD Codes: C34.90 - Malignant neoplasm of unspecified part of unspecified bronchus or lung Status: Acute Plan: --Plan for follow-up as outpatient Hx/Workup: Patient originally presented approximately 11 days ago with shortness of breath was found to have bilateral pleural effusion with pericardial effusion. She was also found to have mediastinal adenopathy, axillary adenopathy as well as right supraclavicular adenopathy. Thoracentesis with fluid cytology was positive for adenocarcinoma. A biopsy of the right supraclavicular lymph node showed moderately to poorly differentiated adenocarcinoma consistent with lung primary. Mutation studies are pending. She was originally supposed to follow-up as outpatient however she presented with progressive shortness of breath. Chest x-ray showed reaccumulated pleural effusions Assessment 67-year-old female with newly diagnosed non-small cell lung cancer admitted for recurrent pleural effusions, also with pericardial effusion. Persistent difficulty breathing and tachycardia. Plan 1. Await mutational studies to see if she would be eligible for a targeted therapy approach to her lung cancer 2. Patient tolerated the Pleurx catheter insertion well. The ICU nurse tells me that she anticipates draining this today 3. Monitor CBC. May need to reconsult Dr. Santana for the recurrent hematuria, however as she just recently had chemotherapy she would likely not be a candidate for any surgical intervention at this time. Attending Statement The exam, history, and the medical decision-making described in the above note were completed with the assistance of the mid-level provider. I reviewed and agree with the findings presented. I attest that I had a [id number] encounter with the patient on the same day, and personally performed and documented my assessment and findings in the medical record. Pt back on oncology floor, family at bedside. c/o pain 6-7/10, wants to be more comfortable. Noted [place] and dilaudid IV for breakthough. Schedule Dilaudid 2mg PO Q8H and continue [place] as oral breakthrough pain meds prn. Lilibeth Ramos Aug 15, 2017 13:29 Kennedi Johns MD Aug 15, 2017 17:20
--- NOTE | 2017-08-15 13:56 | HHI.FPPN ---
Subjective Remarks Patient was seen and evaluated this morning. She reports feeling better because she is able to breath more comfortably. She does, however, state feeling very tired; she looks forward to resting today. Patient denies body aches and pains, nausea, vomiting, diarrhea and constipation. All questions were answered. (Corrina Reynolds MD R1) Objective Vitals Vital Signs Date Time Temp Pulse Resp B/P (MAP) Pulse Ox O2 Delivery O2 Flow Rate FiO2 08/15/17 08:36 92 Nasal Cannula 6.00 08/15/17 08:00 110 08/15/17 07:00 98.3 111 22 119/79 (92) 94 08/15/17 07:00 111 08/15/17 06:00 110 08/15/17 05:00 113 08/15/17 04:50 18 08/15/17 03:00 98.2 116 22 139/85 (103) 94 08/15/17 03:00 116 08/15/17 02:25 18 08/15/17 02:00 112 08/15/17 00:00 112 08/14/17 23:00 97.9 106 18 142/75 (97) 91 08/14/17 22:58 93 Venturi Mask 6.00 50 08/14/17 22:40 94 Nasal Cannula 6.00 08/14/17 22:00 108 08/14/17 21:30 97.8 106 18 124/77 (93) 93 08/14/17 20:30 106 22 132/71 (91) 93 Nasal Cannula 5 08/14/17 20:00 104 20 122/64 (83) 93 Nasal Cannula 5 08/14/17 19:00 104 18 111/64 (80) 93 Nasal Cannula 5 08/14/17 18:30 106 22 116/63 (80) 93 Nasal Cannula 5 08/14/17 18:22 104 77/52 08/14/17 18:15 103 22 77/52 (60) 91 Nasal Cannula 5 08/14/17 18:10 103 71/47 08/14/17 18:00 103 22 74/47 (56) 91 Nasal Cannula 5 08/14/17 17:45 105 22 71/48 (56) 91 Nasal Cannula 5 08/14/17 17:30 105 22 79/54 (62) 93 Nasal Cannula 5 08/14/17 17:15 109 22 87/53 (64) 95 Nasal Cannula 5 08/14/17 17:03 97.2 111 22 133/59 (83) 93 Simple Mask 6 I/O 08/14/17 08/14/17 08/14/17 08/15/17 08/15/17 08/15/17 06:59 14:59 22:59 06:59 14:59 22:59 Intake Total 1095 ml 3650 ml 1105 ml Output Total 550 ml 2100 ml 450 ml Balance 545 ml 1550 ml 655 ml Intake Oral 480 ml 50 ml 240 ml IV Total 615 ml 1000 ml 865 ml Other 2600 ml Output Urine Total 550 ml 0 ml 450 ml Stool Total 0 ml Other 2100 ml (Corrina Reynolds MD R1) Result Diagram: 08/15/17 0427 08/15/17 0427 Imaging Last 72 hours Impressions Chest X-Ray 08/15/17 0500 Signed Impressions: Service Date/Time: Tuesday, August 15, 2017 05:51 - CONCLUSION: No significant interval change. Persistent patchy parenchymal opacity in the right lung. Deejay Packer MD Chest X-Ray 08/14/17 0600 Signed Impressions: Service Date/Time: Monday, August 14, 2017 09:39 - CONCLUSION: 1. Stable exam with combination of pleural fluid and consolidation generating an increased density of the left hemithorax. 2. Tiny right effusion. 3. Significant cardiomegaly. Darrell Hedrick Jr., MD Chest X-Ray 08/14/17 0000 Signed Impressions: Service Date/Time: Monday, August 14, 2017 17:04 - CONCLUSION: Persistent fullness in opacity in the medial one third of both lungs, unchanged from prior. Decreased left pleural effusion. No evidence of pneumothorax or Darrell Ritchie MD Objective Remarks GENERAL: Well-nourished, well-developed, obese female. Laying in bed, breathing comfortably. SKIN: Warm and dry. Extensive bruising noted on right arm, elbow fold. EYES: No scleral icterus. No injection or drainage. Extraocular motion intact. HENT: Normocephalic. Atraumatic. NECK: Significant swelling; symmetric. CARDIOVASCULAR: Warm and well perfused. Tachycardic rate, regular rhythm, no murmurs appreciated. RESPIRATORY: Clear to auscultation of anterior lung ochoa. GASTROINTESTINAL: Positive bowel sounds. Abdomen nondistended. MUSCULOSKELETAL: Strength grossly within normal limits. NEURO/PSYCH: Awake, alert, and oriented x3. Procedures Right-sided thoracentesis performed 08/10. Left-sided thoracentesis performed 08/11. Emergent subxiphoid pericardial window, left Pleur X catheter placement, drainage of pleural effusion performed on 08/14. Medications and IVs Current Medications Medications (Trade) Dose Ordered Sig/Jerrell Route Start Time Stop Time Status Last Admin (Mycostatin Powder) 1 applic Q8HR TOPICAL 08/09/17 14:00 08/15/17 06:00 (NS Flush) 2 ml BID IV FLUSH 08/09/17 21:00 08/15/17 09:01 (NS Flush) 2 ml UNSCH PRN IV FLUSH 08/09/17 12:45 ([place] 5-325 Mg) 1 tab Q4H PRN PO 08/09/17 16:15 08/13/17 17:14 ([place] 7.5-325 Mg) 1 tab Q4H PRN PO 08/09/17 16:15 08/15/17 01:21 (Morphine Inj) 2 mg Q3H PRN IV PUSH 08/09/17 16:15 (Narcan Inj) 0.4 mg UNSCH PRN IV PUSH 08/09/17 16:15 (Melatonin) 5 mg HS PRN PO 08/09/17 16:15 08/13/17 20:19 Cefepime HCl 2000 mg/Sodium Chloride 100 ml @ 200 mls/hr Q12H IV 08/09/17 23:00 08/15/17 11:18 Pharmacy Profile Note 0 ml @ 0 mls/hr UNSCH OTHER 08/09/17 16:30 (Tylenol) 650 mg Q4HR PRN PO 08/09/17 20:30 08/12/17 23:18 (D50w (Vial) Inj) 50 ml UNSCH PRN IV PUSH 08/10/17 06:45 (Glucagon Inj) 1 mg UNSCH PRN OTHER 08/10/17 06:45 (NovoLOG SUPPLEMENTAL SCALE) 1 ACHS SLIDING SCALE SQ 08/10/17 08:00 08/12/17 21:13 (Lovenox Inj) 40 mg Q24H SQ 08/10/17 20:00 08/13/17 20:18 (Pepcid) 20 mg BID PO 08/11/17 21:00 08/15/17 09:01 (Deltasone) 20 mg BID PO 08/12/17 21:00 08/15/17 09:01 Vancomycin HCl 1500 mg/Sodium Chloride 515 ml @ 250 mls/hr Q12H IV 08/12/17 23:00 08/15/17 11:17 (Zofran Odt) 4 mg Q6H PRN PO 08/13/17 08:30 08/13/17 08:53 Azithromycin 500 mg/Sodium Chloride 250 ml @ 250 mls/hr Q24H IV 08/13/17 12:00 08/15/17 11:35 (Ativan) 0.5 mg Q6HR PO 08/13/17 18:00 08/15/17 06:00 (Ativan) 0.5 mg BID PRN PO 08/13/17 13:30 08/14/17 03:13 (Xopenex Neb) 1.25 mg Q2HR NEB PRN NEB 08/14/17 01:30 (Xopenex Neb) 1.25 mg Q6HR WHILE AWAKE NEB NEB 08/14/17 08:00 08/14/17 22:39 (NS Flush) 2 ml BID IV FLUSH 08/14/17 21:00 08/15/17 09:00 (NS Flush) 2 ml UNSCH PRN IV FLUSH 08/14/17 16:30 08/15/17 09:02 Phenylephrine HCl 40 mg/Dextrose 500 ml @ 30 mls/hr TITRATE PRN IV 08/14/17 18:15 08/14/17 18:10 (Brethine Inj) 1 mg UNSCH PRN SQ 08/14/17 18:15 (Dilaudid Pf Inj) 0.2 mg Q3H PRN IV 08/14/17 18:45 08/15/17 04:16 Potassium Chloride 100 ml @ 50 mls/hr Q2H PRN IV 08/14/17 20:15 Potassium Chloride 100 ml @ 50 mls/hr Q2H PRN IV 08/14/17 20:15 (K-Lyte Cl Eff) 50 meq UNSCH PRN PO 08/14/17 20:15 Potassium Chloride 100 ml @ 25 mls/hr UNSCH PRN IV 08/14/17 20:15 Potassium Chloride 100 ml @ 50 mls/hr Q2H PRN IV 08/14/17 20:15 Magnesium Sulfate 4 gm/Sodium Chloride 100 ml @ 50 mls/hr UNSCH PRN IV 08/14/17 20:15 (Mag-Ox) 800 mg UNSCH PRN PO 08/14/17 20:15 Magnesium Sulfate 2 gm/Sodium Chloride 100 ml @ 50 mls/hr UNSCH PRN IV 08/14/17 20:15 (K-Phos) 2,000 mg Q4H PRN PO 08/14/17 20:15 Sodium Phosphate 30 mmol/Sodium Chloride 250 ml @ 42 mls/hr UNSCH PRN IV 08/14/17 20:15 08/14/17 22:09 (K-Phos) 2,000 mg UNSCH PRN PO/TUBE 08/14/17 20:15 Potassium Phosphate 30 mmol/ Sodium Chloride 260 ml @ 42 mls/hr UNSCH PRN IV 08/14/17 20:15 (Protonix) 40 mg DAILY PO 08/16/17 09:00 (Corrina Reynolds MD R1) Urinary Catheter: Yes Dash insert reason: Prolonged Immobilization (Corrina Reynolds MD R1) Vascular Central Line Catheter: No (Corrina Reynolds MD R1) A/P Assessment and Plan 67 y/o female with a recent diagnosis of metastatic non-small cell lung cancer and metastatic adenopathy, who presents to the ED with shortness of breath. Admitted for evaluation and management of the respiratory distress, under care of oncology for malignant pleural effusions. Palliative chemotherapy has been initiated. History from prior admission as follows: Patient was admitted with respiratory distress, started on antibiotics and Tamiflu. She had a pericardial drain placed with significant improvement in her symptoms and blood pressure. Oncology was consulted given the patient's history of suspected cancer. Patient underwent left-sided thoracentesis with significant improvement. Her pericardial effusion studies showed cells concerning for adenocarcinoma. 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 She remained afebrile throughout the latter half of her hospitalization and blood cultures were negative. Urology had also been consulted for a right staghorn calculi, which they deemed more appropriate for outpatient management given her acute issues. Patient passed her walk test and was deemed stable for discharge per oncology with close follow-up. Discharge Planning Pending clinical improvement. (Corrina Reynolds MD R1) Attending Attestation Patient seen and examined, discussed with Dr Reynolds. I agree with assessment and management as documented and discussed with me. Pt reports she feels "loopy" from the procedure and pain medications. She reports SOB, pain, and anxiety are under control. Daughter is at bedside, and we discussed the findings during her pericardial window and Pleur-x catheter placement by Dr Mcarthur. All questions answered to the best of my ability. Blood pressure has improved overnight, and patient off neosynephrine. (Elsie Abrams MD) Problem List: (1) Pneumonia ICD Codes: J18.9 - Pneumonia, unspecified organism Status: Acute Plan: Possible nosocomial pneumonia. On admission: * Met SIRS criteria with tachycardia, tachypnea, high WBC count. * Chest x-ray: Right costophrenic angle blunted, hazy opacity in both lung bases most consistent with infiltrates and effusions, moderate cardiomegaly. Cefepime, azithromycin, vancomycin (08/09 - ) for empirical treatment of nosocomial pneumonia. No IV fluids at this time due to pleural effusions. (2) Non-small cell carcinoma of lung ICD Codes: C34.90 - Malignant neoplasm of unspecified part of unspecified bronchus or lung Status: Acute Plan: Patient with recent diagnosis of non-small cell carcinoma of lung with metastasis. Oncology awaiting mutational studies to determine whether patient is a candidate for targeted therapy. Patient was started on Carboplatin and Taxol on 08/12. Respiratory distress likely due to malignant pleural effusion. Pericardial effusion present per ECHO. No pericardial effusion but moderate pericardial calcification and thickening present per Dr. Mcarthur, CVT surgery. Ultrasound-guided thoracentesis ordered for moderate pleural effusions. Right- sided thoracentesis performed 08/10; left-sided thoracentesis performed 08/11. Respiratory status improved temporarily. Patient, however, has been re- accumulating pleural effusion rapidly. Emergent subxiphoid pericardial window, left Pleur X catheter placement, drainage of pleural effusion performed on 08/14. Medications: * Prednisone 20 mg PO BID. * Levalbuterol 1.26mg q6hr as needed. * Pain management with Tylenol, [place], Dilaudid as needed. (3) Bilateral pleural effusion ICD Codes: J90 - Pleural effusion, not elsewhere classified Status: Chronic Plan: * See Plan for Non-small cell carcinoma of lung. (4) Tachycardia ICD Codes: R00.0 - Tachycardia, unspecified Status: Acute Plan: Sinus tachycardia. Likely secondary to malignant effusion. * See Plan for Non-small cell carcinoma of lung. (5) Hypotension ICD Codes: I95.9 - Hypotension, unspecified Status: Resolved Plan: Hypotensive following CVT surgery. Likely secondary to restrictive shock. * See Plan for Non-small cell carcinoma of lung. * Gentle IV fluid resuscitation with additional episodes. (6) Right kidney stone ICD Codes: N20.0 - Calculus of kidney Status: Chronic Plan: Staghorn calculus diagnosed, no current pain per the patient. Outpatient follow-up with urology was recommended once current conditions have resolved. (7) fen/ppx Status: Chronic Plan: Fluids: PO fluids. Electrolytes: Monitor and replete as needed. Nutrition: Regular diet. DVT prophylaxis: SCDs. Resume chemical prophylaxis after CT surgery eval/ procedure. High risk of the VTE given underlying malignancy. Prophylaxis: IV Pepcid due to ICU stay, and steroid addition. (Corrina Reynolds MD R1) Problem Qualifiers (1) Pneumonia: Qualified Codes: J18.1 - Lobar pneumonia, unspecified organism Corrina Reynolds MD R1 Aug 15, 2017 13:56 Elsie Abrams MD Aug 16, 2017 08:04
[2017-08-15 17:13] LABS: AMORPHOUS SEDIMENT, URINE OCC; BACTERIA, URINE MANY /hpf; BILIRUBIN, URINE NEG (NEG); BLOOD, URINE LARGE (NEG); GLUCOSE,URINE NEG (NEG); KETONE, URINE NEG (NEG); MUCUS URINE MANY /lpf (OCC); NITRITE,URINE NEG (NEG); SQUAMOUS EPITHELIAL CELL URINE 13 /hpf (0-5); URINE LEUKOCYTE ESTERASE NEG (NEG); WHITE BLOOD CELL CLUMPS MANY
[2017-08-15 17:14] LABS: URINE COLOR AMBER (YELLW/STRAW)
[2017-08-15] MEDS: HYDROmorphone HCL 2 MG TAB PO SCH (18:59)
[2017-08-15] MEDS: ENOXAPARIN SODIUM 40 MG/0.4 ML SYRINGE SQ SCH (20:41)
[2017-08-15] MEDS: ACETAMINOPHEN 325 MG TAB PO PRN (21:51)
[2017-08-15] MEDS: MELATONIN 5 MG TAB PO PRN (21:51)
[2017-08-15] MEDS: CLOTRIMAZOLE 10 MG TROCHE BUCCAL SCH (21:51)
[2017-08-16] VITALS (15 sets, daily range): BP systolic 127–145; BP diastolic 68–94; PULSE 108–119; RESP 19–20; TEMP 97.5–98.5; O2SAT 95–100
[2017-08-16] MEDS: HYDROmorphone HCL 2 MG TAB PO SCH ×4 (00:41→20:37)
[2017-08-16] MEDS: NYSTATIN 100,000 U/GM PWD 15 GM BTL TOPICAL SCH ×3 (05:16→20:45)
[2017-08-16] MEDS: LORazepam 0.5 MG TAB PO SCH ×4 (05:16→21:53)
[2017-08-16] MEDS: CLOTRIMAZOLE 10 MG TROCHE BUCCAL SCH ×5 (05:16→20:36)
[2017-08-16 06:12] LABS: AUTOMATED NEUTROPHIL # 20.4 TH/MM3 (1.8-7.7); BASOPHIL % 0.1 % (0.0-2.0); HEMATOCRIT 37.3 % (35.0-46.0); HEMOGLOBIN 12.2 GM/DL (11.6-15.3); LYMPH % 1.1 % (9.0-44.0); LYMPHOCYTE # 0.2 TH/MM3 (1.0-4.8); MEAN CELL VOLUME 85.8 FL (80.0-100.0); MEAN CORPUSCULAR HEMOGLOBIN 28.1 PG (27.0-34.0); MEAN CORPUSCULAR HGB CONC 32.8 % (32.0-36.0); MEAN PLATELET VOLUME 10.1 FL (7.0-11.0); MONO % 0.5 % (0.0-8.0); MONOCYTE # 0.1 TH/MM3 (0-0.9); NEUT % 98.3 % (16.0-70.0); PLATELET COUNT 153 TH/MM3 (150-450); RED BLOOD COUNT 4.35 MIL/MM3 (4.00-5.30); RED CELL DISTRIBUTION WIDTH 14.4 % (11.6-17.2); WHITE BLOOD COUNT 20.7 TH/MM3 (4.0-11.0)
[2017-08-16] MEDS: INSULIN ASPART SUPPLEMENTAL SCALE SQ SCH ×4 (08:00→20:38)
[2017-08-16] MEDS: RESP: LEVALBUTEROL HYDROCHLORIDE 1.25 MG/3 ML NEB (SCH) NEB ×3 (08:00→21:31)
[2017-08-16 08:03] LABS: BICARBONATE 25.9 MEQ/L (21.0-32.0); CALCIUM 8.1 MG/DL (8.5-10.1); CREATININE 0.47 MG/DL (0.50-1.00)
[2017-08-16] MEDS: SODIUM CHLORIDE 0.9% FLUSH 10 ML FLUSH IV FLUSH SCH ×4 (09:00→20:37)
[2017-08-16] MEDS ORDERED: PANTOPRAZOLE SOD 40 MG DELAYED RELEASE TAB PO SCH (09:00)
[2017-08-16] MEDS ORDERED: DOCUSATE SODIUM 50 MG/SENNA 8.6 MG TAB PO PRN (09:15)
[2017-08-16] MEDS: FAMOTIDINE 20 MG TAB PO SCH ×2 (09:39→20:36)
[2017-08-16] MEDS: predniSONE 20 MG TAB PO SCH ×2 (09:39→20:36)
[2017-08-16] MEDS: ACETAMINOPHEN/HYDROcodone 325 MG/7.5 MG TAB PO PRN ×2 (09:39→23:59)
[2017-08-16] MEDS ORDERED: Central Line Short Term Adult 7Fr or larger PRN NS Lock Flush IV FLUSH (11:15)
--- NOTE | 2017-08-16 11:24 | HHI.FPPN ---
Subjective Remarks Patient was seen and evaluated this morning. She states that her breathing is stable as compared to yesterday. She feels tired. She was encouraged to work with PT even if she is limited to moving her extremities up and down while laying in bed. She voiced understanding with regard to the importance to keep moving. She reports constipation. Patient denies body aches and pains, nausea, vomiting and diarrhea. All questions were answered. (Corrina Reynolds MD R1) Objective Vitals Vital Signs Date Time Temp Pulse Resp B/P (MAP) Pulse Ox O2 Delivery O2 Flow Rate FiO2 08/16/17 10:38 95 Nasal Cannula 6.00 08/16/17 08:48 97.8 115 19 135/76 (95) 95 08/16/17 06:00 108 08/16/17 05:12 97.5 112 20 127/68 (87) 96 08/16/17 05:00 110 08/16/17 03:00 110 08/16/17 02:00 110 08/16/17 01:00 114 08/16/17 00:00 119 08/15/17 23:35 97.6 118 24 139/76 (97) 97 08/15/17 23:00 116 08/15/17 22:00 116 08/15/17 21:00 114 08/15/17 20:00 99.5 118 20 128/73 (91) 96 08/15/17 20:00 115 08/15/17 19:00 118 08/15/17 15:00 98.0 112 22 110/57 (74) 93 08/15/17 15:00 111 08/15/17 14:00 112 08/15/17 13:00 93 08/15/17 12:00 92 I/O 08/15/17 08/15/17 08/15/17 08/16/17 08/16/17 08/16/17 07:00 15:00 23:00 07:00 15:00 23:00 Intake Total 1105 ml 1575 ml 615 ml 460 ml Output Total 450 ml 900 ml 600 ml Balance 655 ml 675 ml 615 ml -140 ml Intake Oral 240 ml 625 ml 460 ml IV Total 865 ml 950 ml 615 ml Output Urine Total 450 ml 425 ml 600 ml Stool Total 0 ml Chest Tube Drainage Total 475 ml (Corrina Reynolds MD R1) Result Diagram: 08/16/17 0520 08/16/17 0520 Imaging Last 72 hours Impressions Chest X-Ray 08/15/17 0500 Signed Impressions: Service Date/Time: Tuesday, August 15, 2017 05:51 - CONCLUSION: No significant interval change. Persistent patchy parenchymal opacity in the right lung. Deejay Packer MD Chest X-Ray 08/14/17 0600 Signed Impressions: Service Date/Time: Monday, August 14, 2017 09:39 - CONCLUSION: 1. Stable exam with combination of pleural fluid and consolidation generating an increased density of the left hemithorax. 2. Tiny right effusion. 3. Significant cardiomegaly. Darrell Hedrick Jr., MD Chest X-Ray 08/14/17 0000 Signed Impressions: Service Date/Time: Monday, August 14, 2017 17:04 - CONCLUSION: Persistent fullness in opacity in the medial one third of both lungs, unchanged from prior. Decreased left pleural effusion. No evidence of pneumothorax or Darrell Ritchie MD Objective Remarks GENERAL: Well-nourished, well-developed, obese female. Laying in bed, breathing comfortably. SKIN: Warm and dry. Extensive bruising noted on right arm, elbow fold. HEENT: Normocephalic. Atraumatic. No scleral icterus. No injection or drainage. Extraocular motion intact. NECK: Significant swelling; symmetric. CARDIOVASCULAR: Warm and well perfused. Tachycardic rate, regular rhythm, no murmurs appreciated. RESPIRATORY: Clear to auscultation of anterior lung ochoa. GASTROINTESTINAL: Positive bowel sounds. Abdomen nondistended. MUSCULOSKELETAL: Generalized body weakness. NEURO/PSYCH: Awake, alert, and oriented x3. Procedures Right-sided thoracentesis performed 08/10. Left-sided thoracentesis performed 08/11. Emergent subxiphoid pericardial window, left Pleur X catheter placement, drainage of pleural effusion performed on 08/14. Medications and IVs Current Medications Medications (Trade) Dose Ordered Sig/Jerrell Route Start Time Stop Time Status Last Admin (Mycostatin Powder) 1 applic Q8HR TOPICAL 08/09/17 14:00 08/15/17 14:00 (NS Flush) 2 ml BID IV FLUSH 08/09/17 21:00 08/15/17 20:45 (NS Flush) 2 ml UNSCH PRN IV FLUSH 08/09/17 12:45 ([place] 7.5-325 Mg) 1 tab Q4H PRN PO 08/09/17 16:15 08/16/17 09:39 (Narcan Inj) 0.4 mg UNSCH PRN IV PUSH 08/09/17 16:15 (Melatonin) 5 mg HS PRN PO 08/09/17 16:15 08/15/17 21:51 Cefepime HCl 2000 mg/Sodium Chloride 100 ml @ 200 mls/hr Q12H IV 08/09/17 23:00 08/15/17 21:55 Pharmacy Profile Note 0 ml @ 0 mls/hr UNSCH OTHER 08/09/17 16:30 (Tylenol) 650 mg Q4HR PRN PO 08/09/17 20:30 08/15/17 21:51 (D50w (Vial) Inj) 50 ml UNSCH PRN IV PUSH 08/10/17 06:45 (Glucagon Inj) 1 mg UNSCH PRN OTHER 08/10/17 06:45 (NovoLOG SUPPLEMENTAL SCALE) 1 ACHS SLIDING SCALE SQ 08/10/17 08:00 08/12/17 21:13 (Lovenox Inj) 40 mg Q24H SQ 08/10/17 20:00 08/15/17 20:41 (Pepcid) 20 mg BID PO 08/11/17 21:00 08/16/17 09:39 (Deltasone) 20 mg BID PO 08/12/17 21:00 08/16/17 09:39 Vancomycin HCl 1500 mg/Sodium Chloride 515 ml @ 250 mls/hr Q12H IV 08/12/17 23:00 08/15/17 21:55 (Zofran Odt) 4 mg Q6H PRN PO 08/13/17 08:30 08/13/17 08:53 Azithromycin 500 mg/Sodium Chloride 250 ml @ 250 mls/hr Q24H IV 08/13/17 12:00 08/15/17 11:35 (Ativan) 0.5 mg Q6HR PO 08/13/17 18:00 08/16/17 05:16 (Ativan) 0.5 mg BID PRN PO 08/13/17 13:30 08/14/17 03:13 (Xopenex Neb) 1.25 mg Q2HR NEB PRN NEB 08/14/17 01:30 08/16/17 00:02 (Xopenex Neb) 1.25 mg Q6HR WHILE AWAKE NEB NEB 08/14/17 08:00 08/15/17 14:35 (NS Flush) 2 ml BID IV FLUSH 08/14/17 21:00 08/15/17 20:45 (NS Flush) 2 ml UNSCH PRN IV FLUSH 08/14/17 16:30 08/15/17 09:02 Phenylephrine HCl 40 mg/Dextrose 500 ml @ 30 mls/hr TITRATE PRN IV 08/14/17 18:15 08/14/17 18:10 (Brethine Inj) 1 mg UNSCH PRN SQ 08/14/17 18:15 Potassium Chloride 100 ml @ 50 mls/hr Q2H PRN IV 08/14/17 20:15 Potassium Chloride 100 ml @ 50 mls/hr Q2H PRN IV 08/14/17 20:15 (K-Lyte Cl Eff) 50 meq UNSCH PRN PO 08/14/17 20:15 Potassium Chloride 100 ml @ 25 mls/hr UNSCH PRN IV 08/14/17 20:15 Potassium Chloride 100 ml @ 50 mls/hr Q2H PRN IV 08/14/17 20:15 Magnesium Sulfate 4 gm/Sodium Chloride 100 ml @ 50 mls/hr UNSCH PRN IV 08/14/17 20:15 (Mag-Ox) 800 mg UNSCH PRN PO 08/14/17 20:15 Magnesium Sulfate 2 gm/Sodium Chloride 100 ml @ 50 mls/hr UNSCH PRN IV 08/14/17 20:15 (K-Phos) 2,000 mg Q4H PRN PO 08/14/17 20:15 Sodium Phosphate 30 mmol/Sodium Chloride 250 ml @ 42 mls/hr UNSCH PRN IV 08/14/17 20:15 08/14/17 22:09 (K-Phos) 2,000 mg UNSCH PRN PO/TUBE 08/14/17 20:15 Potassium Phosphate 30 mmol/ Sodium Chloride 260 ml @ 42 mls/hr UNSCH PRN IV 08/14/17 20:15 (Protonix) 40 mg DAILY PO 08/16/17 09:00 08/16/17 09:39 (Mycelex) 10 mg 5 TIMES A DAY BUCCAL 08/15/17 18:00 08/20/17 17:59 08/16/17 09:39 (Dilaudid) 2 mg Q8HR PO 08/15/17 17:15 08/16/17 17:14 08/16/17 00:41 (Danae-Colace) 2 tab BID PRN PO 08/16/17 09:15 (NS Flush) DAILY IV FLUSH 08/17/17 09:00 (NS Flush) UNSCH PRN IV FLUSH 08/16/17 11:15 (Corrina Reynolds MD R1) Urinary Catheter: Yes (Corrina Reynolds MD R1) Vascular Central Line Catheter: No (Corrina Reynolds MD R1) A/P Assessment and Plan 67 y/o female with a recent diagnosis of metastatic non-small cell lung cancer and metastatic adenopathy, who presents to the ED with shortness of breath. Admitted for evaluation and management of the respiratory distress, under care of oncology for malignant pleural effusions. Palliative chemotherapy has been initiated. History from prior admission as follows: Patient was admitted with respiratory distress, started on antibiotics and Tamiflu. She had a pericardial drain placed with significant improvement in her symptoms and blood pressure. Oncology was consulted given the patient's history of suspected cancer. Patient underwent left-sided thoracentesis with significant improvement. Her pericardial effusion studies showed cells concerning for adenocarcinoma. 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 She remained afebrile throughout the latter half of her hospitalization and blood cultures were negative. Urology had also been consulted for a right staghorn calculi, which they deemed more appropriate for outpatient management given her acute issues. Patient passed her walk test and was deemed stable for discharge per oncology with close follow-up. Discharge Planning Pending clinical improvement. (Corrina Reynolds MD R1) Attending Attestation Patient seen and examined, discussed with Dr Reynolds. I agree with assessment and management as documented and discussed with me. Pt reports pain and SOB controlled. She does not want to work with PT, for fear of developing worsening SOB. Appreciate multiple specialists involved in this complicated patient's care. (Elsie Abrams MD) Problem List: (1) Pneumonia ICD Codes: J18.9 - Pneumonia, unspecified organism Status: Acute Plan: Possible nosocomial pneumonia. On admission: * Met SIRS criteria with tachycardia, tachypnea, high WBC count. * Chest x-ray: Right costophrenic angle blunted, hazy opacity in both lung bases most consistent with infiltrates and effusions, moderate cardiomegaly. Cefepime, azithromycin, vancomycin (08/09 - ) for empirical treatment of nosocomial pneumonia. No IV fluids at this time due to pleural effusions. (2) Non-small cell carcinoma of lung ICD Codes: C34.90 - Malignant neoplasm of unspecified part of unspecified bronchus or lung Status: Acute Plan: Patient with recent diagnosis of non-small cell carcinoma of lung with metastasis. Oncology awaiting mutational studies to determine whether patient is a candidate for targeted therapy. Patient was started on Carboplatin and Taxol on 08/12. Respiratory distress likely due to malignant pleural effusion. Pericardial effusion present per ECHO. No pericardial effusion but moderate pericardial calcification and thickening present per Dr. Mcarthur, CVT surgery. Ultrasound-guided thoracentesis ordered for moderate pleural effusions. Right- sided thoracentesis performed 08/10; left-sided thoracentesis performed 08/11. Respiratory status improved temporarily. Patient, however, has been re- accumulating pleural effusion rapidly. Emergent subxiphoid pericardial window, left Pleur X catheter placement, drainage of pleural effusion performed on 08/14. Medications: * Prednisone 20 mg PO BID. * Levalbuterol 1.26mg q6hr as needed. * Pain management with Tylenol, [place], Dilaudid as needed. (3) Bilateral pleural effusion ICD Codes: J90 - Pleural effusion, not elsewhere classified Status: Chronic Plan: * See Plan for Non-small cell carcinoma of lung. (4) Tachycardia ICD Codes: R00.0 - Tachycardia, unspecified Status: Acute Plan: Sinus tachycardia. Likely secondary to malignant effusion. * See Plan for Non-small cell carcinoma of lung. (5) Hypotension ICD Codes: I95.9 - Hypotension, unspecified Status: Resolved Plan: Hypotensive following CVT surgery. Likely secondary to restrictive shock. * See Plan for Non-small cell carcinoma of lung. * Gentle IV fluid resuscitation with additional episodes. (6) Right kidney stone ICD Codes: N20.0 - Calculus of kidney Status: Chronic Plan: Staghorn calculus diagnosed, no current pain per the patient. Outpatient follow-up with urology was recommended once current conditions have resolved. (7) Hematuria ICD Codes: R31.9 - Hematuria, unspecified Status: Acute Plan: UA 08/15: Lexii, cloudy, pH 6, large occult blood, many WBC clumps, negative nitrite, negative leukocyte esterase, many bacteria, many mucus, moderate yeast. Urine culture 08/14: no growth to this point. Urine culture 08/15: pending. Likely due to kidney stones. Will monitor closely. Awaiting culture results before starting antibiotics. (8) fen/ppx Status: Chronic Plan: Fluids: PO fluids. Electrolytes: Monitor and replete as needed. Nutrition: Regular diet. DVT prophylaxis: SCDs. Lovenox. GI prophylaxis: Pepcid. (Corrina Reynolds MD R1) Problem Qualifiers (1) Pneumonia: Qualified Codes: J18.1 - Lobar pneumonia, unspecified organism Corrina Reynolds MD R1 Aug 16, 2017 11:24 Elsie Abrams MD Aug 17, 2017 14:31
[2017-08-16] MEDS: CEFEPIME INJ 2,000 MG in SODIUM CHLORIDE 0.9% INJ 100 ML IV SCH ×2 (12:28→21:54)
[2017-08-16] MEDS: VANCOMYCIN INJ 1,500 MG in SODIUM CHLORID 0.9% 500 ML INJ 500 ML IV SCH ×2 (12:28→21:54)
[2017-08-16] MEDS: SODIUM CHLORIDE 0.9% FLUSH 10 ML FLUSH IV FLUSH PRN (12:29)
--- NOTE | 2017-08-16 13:27 | PD.ONC.PN ---
Subjective Subjective Remarks Afebrile States her pain is little better today Feels sleepy Objective Data Date Time Temp Pulse Resp B/P (MAP) Pulse Ox O2 Delivery O2 Flow Rate FiO2 08/16/17 10:38 95 Nasal Cannula 6.00 08/16/17 08:48 97.8 115 19 135/76 (95) 95 08/16/17 06:00 108 08/16/17 05:12 97.5 112 20 127/68 (87) 96 08/16/17 05:00 110 08/16/17 03:00 110 08/16/17 02:00 110 08/16/17 01:00 114 08/16/17 00:00 119 08/15/17 23:35 97.6 118 24 139/76 (97) 97 08/15/17 23:00 116 08/15/17 22:00 116 08/15/17 21:00 114 08/15/17 20:00 99.5 118 20 128/73 (91) 96 08/15/17 20:00 115 08/15/17 19:00 118 08/15/17 15:00 98.0 112 22 110/57 (74) 93 08/15/17 15:00 111 08/15/17 14:00 112 08/16/17 08/16/17 08/16/17 07:00 15:00 23:00 Intake Total 460 ml Output Total 600 ml Balance -140 ml Result Diagram: 08/16/17 0520 08/16/17 0520 Laboratory Results Laboratory Tests Test 08/15/17 15:00 08/16/17 05:20 Urine Color JOSE CARLOS Urine Turbidity CLOUDY Urine pH 6.0 Urine Specific Simon 1.028 Urine Protein 30 mg/dL Urine Glucose (UA) NEG mg/dL Urine Ketones NEG mg/dL Urine Occult Blood LARGE Urine Nitrite NEG Urine Bilirubin NEG Urine Urobilinogen LESS THAN 2.0 MG/DL Urine Leukocyte Esterase NEG Urine RBC /hpf Urine WBC /hpf Urine WBC Clumps MANY Urine Squamous Epithelial Cells 13 /hpf Urine Amorphous Sediment OCC Urine Bacteria MANY /hpf Urine Mucus MANY /lpf Urine Yeast (Budding) MOD Microscopic Urinalysis Comment CATH-CULTURE IND White Blood Count 20.7 TH/MM3 Red Blood Count 4.35 MIL/MM3 Hemoglobin 12.2 GM/DL Hematocrit 37.3 % Mean Corpuscular Volume 85.8 FL Mean Corpuscular Hemoglobin 28.1 PG Mean Corpuscular Hemoglobin Concent 32.8 % Red Cell Distribution Width 14.4 % Platelet Count 153 TH/MM3 Mean Platelet Volume 10.1 FL Neutrophils (%) (Auto) 98.3 % Lymphocytes (%) (Auto) 1.1 % Monocytes (%) (Auto) 0.5 % Eosinophils (%) (Auto) 0.0 % Basophils (%) (Auto) 0.1 % Neutrophils # (Auto) 20.4 TH/MM3 Lymphocytes # (Auto) 0.2 TH/MM3 Monocytes # (Auto) 0.1 TH/MM3 Eosinophils # (Auto) 0.0 TH/MM3 Basophils # (Auto) 0.0 TH/MM3 CBC Comment DIFF FINAL Differential Comment Blood Urea Nitrogen 21 MG/DL Creatinine 0.47 MG/DL Random Glucose 125 MG/DL Calcium Level 8.1 MG/DL Sodium Level 139 MEQ/L Potassium Level 4.4 MEQ/L Chloride Level 103 MEQ/L Carbon Dioxide Level 25.9 MEQ/L Anion Gap 10 MEQ/L Estimat Glomerular Filtration Rate 132 ML/MIN Culture Results Microbiology Date/Time Source Procedure Growth Status 08/15/17 15:00 Urine Catheterized Urine Urine Culture - Preliminary NO GROWTH IN 24 HOURS. Resulted 08/14/17 18:12 Urine Catheterized Urine Urine Culture - Final NO GROWTH IN 48 HOURS. Complete Administered Medications Medications (Trade) Dose Ordered Sig/Jerrell Route PRN Reason Start Time Stop Time Status Last Admin Dose Admin Nystatin (Mycostatin Powder) 1 applic Q8HR TOPICAL 08/09/17 14:00 08/15/17 14:00 Sodium Chloride (NS Flush) 2 ml BID IV FLUSH 08/09/17 21:00 08/16/17 12:29 Sodium Chloride (NS Flush) 2 ml UNSCH PRN IV FLUSH FLUSH AFTER USING IV ACCESS 08/09/17 12:45 08/16/17 12:29 Acetaminophen/ Hydrocodone Bitart ([place] 7.5-325 Mg) 1 tab Q4H PRN PO breakthrough PAIN 08/09/17 16:15 08/16/17 09:39 Melatonin (Melatonin) 5 mg HS PRN PO INSOMNIA 08/09/17 16:15 08/15/17 21:51 Cefepime HCl 2000 mg/Sodium Chloride 100 ml @ 200 mls/hr Q12H IV 08/09/17 23:00 08/16/17 12:28 Acetaminophen (Tylenol) 650 mg Q4HR PRN PO PAIN SCALE 1 TO 2 08/09/17 20:30 08/15/17 21:51 Insulin Aspart (NovoLOG SUPPLEMENTAL SCALE) 1 ACHS SLIDING SCALE SQ 08/10/17 08:00 08/12/17 21:13 Enoxaparin Sodium (Lovenox Inj) 40 mg Q24H SQ 08/10/17 20:00 08/15/17 20:41 Famotidine (Pepcid) 20 mg BID PO 08/11/17 21:00 08/16/17 09:39 Prednisone (Deltasone) 20 mg BID PO 08/12/17 21:00 08/16/17 09:39 Vancomycin HCl 1500 mg/Sodium Chloride 515 ml @ 250 mls/hr Q12H IV 08/12/17 23:00 08/16/17 12:28 Ondansetron HCl (Zofran Odt) 4 mg Q6H PRN PO NAUSEA OR VOMITING 08/13/17 08:30 08/13/17 08:53 Azithromycin 500 mg/Sodium Chloride 250 ml @ 250 mls/hr Q24H IV 08/13/17 12:00 08/15/17 11:35 Lorazepam (Ativan) 0.5 mg Q6HR PO 08/13/17 18:00 08/16/17 12:30 Lorazepam (Ativan) 0.5 mg BID PRN PO ANXIETY 08/13/17 13:30 08/14/17 03:13 Levalbuterol HCl (Xopenex Neb) 1.25 mg Q2HR NEB PRN NEB SHORTNESS OF BREATH 08/14/17 01:30 08/16/17 00:02 Levalbuterol HCl (Xopenex Neb) 1.25 mg Q6HR WHILE AWAKE NEB NEB 08/14/17 08:00 08/16/17 12:19 Sodium Chloride (NS Flush) 2 ml BID IV FLUSH 08/14/17 21:00 08/16/17 09:00 Sodium Chloride (NS Flush) 2 ml UNSCH PRN IV FLUSH FLUSH AFTER USING IV ACCESS 08/14/17 16:30 08/15/17 09:02 Clotrimazole (Mycelex) 10 mg 5 TIMES A DAY BUCCAL 08/15/17 18:00 08/20/17 17:59 08/16/17 09:39 Hydromorphone HCl (Dilaudid) 2 mg Q8HR PO 08/15/17 17:15 08/16/17 17:14 08/16/17 00:41 Objective Remarks GENERAL: Older female resting in bed in no obvious distress. SKIN: Warm and dry. HEAD: Normocephalic. EYES: No injection or drainage. NECK: Supple, trachea midline. CARDIOVASCULAR: Regular rate and rhythm without murmurs. RESPIRATORY: Scattered rhonchi anteriorly. On 6 L nasal cannula. : Hematuria noted to Dash catheter GASTROINTESTINAL: Abdomen soft, non-tender, nondistended. EXTREMITIES: No cyanosis, or edema. MUSCULOSKELETAL: Adequate muscle tone. NEUROLOGICAL: No obvious focal deficit. Awake, alert, and oriented x3. Assessment/Plan Problem List: (1) Non-small cell carcinoma of lung ICD Codes: C34.90 - Malignant neoplasm of unspecified part of unspecified bronchus or lung Status: Acute Plan: --Plan for follow-up as outpatient Hx/Workup: Patient originally presented approximately 11 days ago with shortness of breath was found to have bilateral pleural effusion with pericardial effusion. She was also found to have mediastinal adenopathy, axillary adenopathy as well as right supraclavicular adenopathy. Thoracentesis with fluid cytology was positive for adenocarcinoma. A biopsy of the right supraclavicular lymph node showed moderately to poorly differentiated adenocarcinoma consistent with lung primary. Mutation studies are pending. She was originally supposed to follow-up as outpatient however she presented with progressive shortness of breath. Chest x-ray showed reaccumulated pleural effusions Assessment 67-year-old female with newly diagnosed non-small cell lung cancer admitted for recurrent pleural effusions, also with pericardial effusion. Persistent difficulty breathing and tachycardia. Plan 1. Monitor output of Pleurx catheter 2. Await results of mutational studies 3. Supportive care 4. Monitor CBC Attending Statement The exam, history, and the medical decision-making described in the above note were completed with the assistance of the mid-level provider. I reviewed and agree with the findings presented. I attest that I had a [id number] encounter with the patient on the same day, and personally performed and documented my assessment and findings in the medical record. PT seen and examined w/ family. Pain regimen with Dilaudid scheduled seem to be effective. Tired post chemo. Continue support. Lilibeth Ramos Aug 16, 2017 13:27 Kennedi Johns MD Aug 16, 2017 17:53
[2017-08-16] MEDS: AZITHROMYCIN INJ 500 MG in SODIUM CHLOR 0.9% 250 ML INJ 250 ML IV SCH (13:40)
[2017-08-16] MEDS: ENOXAPARIN SODIUM 40 MG/0.4 ML SYRINGE SQ SCH (20:36)
[2017-08-17] VITALS (16 sets, daily range): BP systolic 108–145; BP diastolic 72–93; PULSE 108–122; RESP 15–24; TEMP 96.9–98.7; O2SAT 95–98
[2017-08-17] MEDS: CLOTRIMAZOLE 10 MG TROCHE BUCCAL SCH ×5 (05:16→20:52)
[2017-08-17] MEDS: HYDROmorphone HCL 2 MG TAB PO SCH ×3 (05:16→20:50)
[2017-08-17] MEDS: NYSTATIN 100,000 U/GM PWD 15 GM BTL TOPICAL SCH ×3 (05:24→23:30)
[2017-08-17] MEDS: LORazepam 0.5 MG TAB PO SCH ×4 (06:00→23:30)
[2017-08-17 06:31] LABS: AUTOMATED NEUTROPHIL # 18.7 TH/MM3 (1.8-7.7); BASOPHIL # 0.1 TH/MM3 (0-0.2); BASOPHIL % 0.3 % (0.0-2.0); EOSINOPHIL % 0.2 % (0.0-4.0); HEMATOCRIT 37.6 % (35.0-46.0); HEMOGLOBIN 12.3 GM/DL (11.6-15.3); LYMPH % 1.2 % (9.0-44.0); LYMPHOCYTE # 0.2 TH/MM3 (1.0-4.8); MEAN CELL VOLUME 86.6 FL (80.0-100.0); MEAN CORPUSCULAR HEMOGLOBIN 28.3 PG (27.0-34.0); MEAN CORPUSCULAR HGB CONC 32.6 % (32.0-36.0); MEAN PLATELET VOLUME 10.4 FL (7.0-11.0); MONO % 0.6 % (0.0-8.0); MONOCYTE # 0.1 TH/MM3 (0-0.9); NEUT % 97.7 % (16.0-70.0); PLATELET COUNT 133 TH/MM3 (150-450); RED BLOOD COUNT 4.34 MIL/MM3 (4.00-5.30); RED CELL DISTRIBUTION WIDTH 14.2 % (11.6-17.2); WHITE BLOOD COUNT 19.2 TH/MM3 (4.0-11.0)
[2017-08-17 06:42] LABS: ALBUMIN 2.1 GM/DL (3.4-5.0); AST (GOT) 20 U/L (15-37); BLOOD UREA NITROGEN 23 MG/DL (7-18); CALCIUM 7.8 MG/DL (8.5-10.1); CHLORIDE 103 MEQ/L (98-107); CREATININE 0.46 MG/DL (0.50-1.00); GLOMERULAR FILTRATION RATE 135 ML/MIN (>89); GLUCOSE,RANDOM 124 MG/DL (74-106); SODIUM (NA) 136 MEQ/L (136-145)
[2017-08-17 06:43] LABS: ALT (GPT) 16 U/L (10-53)
[2017-08-17 06:45] LABS: ALKALINE PHOSPHATASE 93 U/L (45-117); TOTAL BILIRUBIN ADULT 1.2 MG/DL (0.2-1.0); TOTAL PROTEIN 5.7 GM/DL (6.4-8.2)
[2017-08-17] MEDS: RESP: LEVALBUTEROL HYDROCHLORIDE 1.25 MG/3 ML NEB (SCH) NEB ×3 (07:21→20:00)
--- NOTE | 2017-08-17 08:02 | PD.ONC.PN ---
Subjective Subjective Remarks Patient seen and examined, vital signs, labs, medications, operative notes and imaging studies reviewed. Left sided Pleurx catheter output also reviewed. Subjectively; the patient reports feeling a little better today when compared to the last 2 days. She tells me she has no appetite and has spent most of her time in bed with a past 3 days. She thinks the tumors on the side of her neck are decreasing slightly in size. She tells me she is willing to work with physical therapy, but is apprehensive about the pain on the left chest related to the Pleurx catheter. Objective Data Date Time Temp Pulse Resp B/P (MAP) Pulse Ox O2 Delivery O2 Flow Rate FiO2 08/17/17 07:23 95 Nasal Cannula 5.00 08/17/17 04:00 97.9 114 16 126/74 (91) 96 08/17/17 04:00 110 08/17/17 00:00 98.0 120 22 135/82 (99) 96 08/17/17 00:00 116 08/16/17 21:32 96 Nasal Cannula 6.00 08/16/17 20:00 113 08/16/17 20:00 97.7 118 20 145/94 (111) 100 08/16/17 17:22 98.5 112 20 127/78 (94) 96 08/16/17 16:30 115 08/16/17 12:30 116 08/16/17 10:38 95 Nasal Cannula 6.00 08/16/17 08:48 97.8 115 19 135/76 (95) 95 08/16/17 08:30 111 08/17/17 08/17/17 08/17/17 07:00 15:00 23:00 Output Total 650 ml Balance -650 ml Result Diagram: 08/17/17 0555 08/17/17 0555 Laboratory Results Laboratory Tests Test 08/17/17 05:55 White Blood Count 19.2 TH/MM3 Red Blood Count 4.34 MIL/MM3 Hemoglobin 12.3 GM/DL Hematocrit 37.6 % Mean Corpuscular Volume 86.6 FL Mean Corpuscular Hemoglobin 28.3 PG Mean Corpuscular Hemoglobin Concent 32.6 % Red Cell Distribution Width 14.2 % Platelet Count 133 TH/MM3 Mean Platelet Volume 10.4 FL Neutrophils (%) (Auto) 97.7 % Lymphocytes (%) (Auto) 1.2 % Monocytes (%) (Auto) 0.6 % Eosinophils (%) (Auto) 0.2 % Basophils (%) (Auto) 0.3 % Neutrophils # (Auto) 18.7 TH/MM3 Lymphocytes # (Auto) 0.2 TH/MM3 Monocytes # (Auto) 0.1 TH/MM3 Eosinophils # (Auto) 0.0 TH/MM3 Basophils # (Auto) 0.1 TH/MM3 CBC Comment DIFF FINAL Differential Comment Blood Urea Nitrogen 23 MG/DL Creatinine 0.46 MG/DL Random Glucose 124 MG/DL Total Protein 5.7 GM/DL Albumin 2.1 GM/DL Calcium Level 7.8 MG/DL Alkaline Phosphatase 93 U/L Aspartate Amino Transf (AST/SGOT) 20 U/L Alanine Aminotransferase (ALT/SGPT) 16 U/L Total Bilirubin 1.2 MG/DL Sodium Level 136 MEQ/L Potassium Level 4.8 MEQ/L Chloride Level 103 MEQ/L Carbon Dioxide Level 26.0 MEQ/L Anion Gap 7 MEQ/L Estimat Glomerular Filtration Rate 135 ML/MIN Culture Results Microbiology Date/Time Source Procedure Growth Status 08/15/17 15:00 Urine Catheterized Urine Urine Culture - Preliminary NO GROWTH IN 24 HOURS. Resulted 08/14/17 18:12 Urine Catheterized Urine Urine Culture - Final NO GROWTH IN 48 HOURS. Complete Administered Medications Medications (Trade) Dose Ordered Sig/Jerrell Route PRN Reason Start Time Stop Time Status Last Admin Dose Admin Nystatin (Mycostatin Powder) 1 applic Q8HR TOPICAL 08/09/17 14:00 08/16/17 14:00 Sodium Chloride (NS Flush) 2 ml BID IV FLUSH 08/09/17 21:00 08/16/17 20:36 Sodium Chloride (NS Flush) 2 ml UNSCH PRN IV FLUSH FLUSH AFTER USING IV ACCESS 08/09/17 12:45 08/16/17 12:29 Acetaminophen/ Hydrocodone Bitart ([place] 7.5-325 Mg) 1 tab Q4H PRN PO breakthrough PAIN 08/09/17 16:15 08/16/17 23:59 Melatonin (Melatonin) 5 mg HS PRN PO INSOMNIA 08/09/17 16:15 08/15/17 21:51 Cefepime HCl 2000 mg/Sodium Chloride 100 ml @ 200 mls/hr Q12H IV 08/09/17 23:00 08/16/17 21:54 Acetaminophen (Tylenol) 650 mg Q4HR PRN PO PAIN SCALE 1 TO 2 08/09/17 20:30 08/15/17 21:51 Insulin Aspart (NovoLOG SUPPLEMENTAL SCALE) 1 ACHS SLIDING SCALE SQ 08/10/17 08:00 08/16/17 20:38 Enoxaparin Sodium (Lovenox Inj) 40 mg Q24H SQ 08/10/17 20:00 08/16/17 20:36 Famotidine (Pepcid) 20 mg BID PO 08/11/17 21:00 08/16/17 20:36 Prednisone (Deltasone) 20 mg BID PO 08/12/17 21:00 08/16/17 20:36 Vancomycin HCl 1500 mg/Sodium Chloride 515 ml @ 250 mls/hr Q12H IV 08/12/17 23:00 08/16/17 21:54 Ondansetron HCl (Zofran Odt) 4 mg Q6H PRN PO NAUSEA OR VOMITING 08/13/17 08:30 08/13/17 08:53 Azithromycin 500 mg/Sodium Chloride 250 ml @ 250 mls/hr Q24H IV 08/13/17 12:00 08/16/17 13:40 Lorazepam (Ativan) 0.5 mg Q6HR PO 08/13/17 18:00 08/16/17 21:53 Lorazepam (Ativan) 0.5 mg BID PRN PO ANXIETY 08/13/17 13:30 08/14/17 03:13 Levalbuterol HCl (Xopenex Neb) 1.25 mg Q2HR NEB PRN NEB SHORTNESS OF BREATH 08/14/17 01:30 08/16/17 00:02 Levalbuterol HCl (Xopenex Neb) 1.25 mg Q6HR WHILE AWAKE NEB NEB 08/14/17 08:00 08/17/17 07:21 Sodium Chloride (NS Flush) 2 ml BID IV FLUSH 08/14/17 21:00 08/16/17 20:37 Sodium Chloride (NS Flush) 2 ml UNSCH PRN IV FLUSH FLUSH AFTER USING IV ACCESS 08/14/17 16:30 08/15/17 09:02 Clotrimazole (Mycelex) 10 mg 5 TIMES A DAY BUCCAL 08/15/17 18:00 08/20/17 17:59 08/17/17 05:16 Hydromorphone HCl (Dilaudid) 2 mg Q8H PO 08/16/17 21:00 08/17/17 05:16 Objective Remarks GENERAL: Middle-aged female Laying in bed, she appears to be comfortable, she has an ice pack over her head. She speaks to me in full sentences and is awake and alert. SKIN: Warm and dry. HEAD: Normocephalic. EYES: No scleral icterus. No injection or drainage. NECK: Edema, large bilateral cervical lymph nodes are noted. The pathologically enlarged cervical lymph nodes appear unchanged to me on clinical exam when compared to Thursday. LYMPHATIC: No adenopathy. Bilateral cervical lymphadenopathy, Right supraclavicular lymphadenopathy. CARDIOVASCULAR: Regular, tachycardic. RESPIRATORY: Tachypneic, decreased bibasilar breath sounds, improved aeration over the left base. Left sided Pleurx catheter was placed in the interim. GASTROINTESTINAL: Abdomen soft, non-tender, nondistended. EXTREMITIES: No cyanosis, or edema. MUSCULOSKELETAL: Adequate muscle mass and tone. NEUROLOGICAL: No obvious focal deficit. Awake, alert, and oriented x3. PSYCHIATRIC: Appropriate mood and affect; insight and judgment normal. Appears somewhat anxious. Assessment/Plan Problem List: (1) Non-small cell carcinoma of lung ICD Codes: C34.90 - Malignant neoplasm of unspecified part of unspecified bronchus or lung Status: Acute Plan: --Plan for follow-up as outpatient Hx/Workup: Patient originally presented approximately 11 days ago with shortness of breath was found to have bilateral pleural effusion with pericardial effusion. She was also found to have mediastinal adenopathy, axillary adenopathy as well as right supraclavicular adenopathy. Thoracentesis with fluid cytology was positive for adenocarcinoma. A biopsy of the right supraclavicular lymph node showed moderately to poorly differentiated adenocarcinoma consistent with lung primary. Mutation studies are pending. She was originally supposed to follow-up as outpatient however she presented with progressive shortness of breath. Chest x-ray showed reaccumulated pleural effusions Assessment 67-year-old female with newly diagnosed non-small cell lung cancer admitted for recurrent pleural effusions, also with pericardial effusion. Persistent difficulty breathing and tachycardia. Plan Metastatic non-small cell carcinoma of lung primary with extensive metastases: Status post carboplatin and Taxol on 08/12/2017. Pleurx catheter had to be placed on 08/14/2017 for management reaccumulating malignant pleural effusion. Intraoperatively, her heart and pericardium were evaluated, the patient was noted to have a dense, fibrosed and tightly adherent pericardium to the myocardium. A pericardial window could not be created without jeopardizing the right atrium and perforating it. I've encouraged the patient to eat a little bit better and to participate in physical therapy. I've explained to her that her discharge to a group home facility/ rehabilitation will be facilitated by her eating better and participating physical therapy. The Pleurx catheter will remain in place. This will be periodically drained. The Pleurx catheter may add added benefit of causing auto pleurodesis. Await PDL 1 testing on the tumor sample. Jorge Ruiz MD Aug 17, 2017 08:02
[2017-08-17] MEDS: ACETAMINOPHEN/HYDROcodone 325 MG/7.5 MG TAB PO PRN (08:12)
[2017-08-17] MEDS: predniSONE 20 MG TAB PO SCH (08:12)
[2017-08-17] MEDS: FAMOTIDINE 20 MG TAB PO SCH ×2 (08:12→20:50)
[2017-08-17] MEDS: SODIUM CHLORIDE 0.9% FLUSH 10 ML FLUSH IV FLUSH SCH ×4 (08:13→20:52)
[2017-08-17] MEDS: Central Line Short Term Adult 7Fr or larger Daily NS Lock Flush IV FLUSH SCH (08:13)
[2017-08-17] MEDS: INSULIN ASPART SUPPLEMENTAL SCALE SQ SCH ×4 (08:34→20:49)
--- NOTE | 2017-08-17 10:23 | PD.CAR.PN ---
CVT Progress Note Subjective/Hospital Course: S/P 1. Emergent Subxiphoid Pericardial Window, Left Pleur X Catheter Placement , Drainage of Pleural Effusion. 08/14 on nasal cannula pleurx cath in place nursing to drain daily Objective: GENERAL: A&O x 3 Vital Signs SKIN: Warm and dry. incision intact mid sternal area, pleurx cath in place left lateral chest wall HEAD: Normocephalic. EYES: No scleral icterus. No injection or drainage. NECK: Supple, trachea midline. No JVD or lymphadenopathy. CARDIOVASCULAR: Regular rate and rhythm without murmurs, gallops, or rubs. RESPIRATORY: Breath sounds equal bilaterally. No accessory muscle use. diminished left lower lobe GASTROINTESTINAL: Abdomen soft, non-tender, nondistended. MUSCULOSKELETAL: No cyanosis, or edema. BACK: Nontender without obvious deformity. No CVA tenderness. Date Time Temp Pulse Resp B/P (MAP) Pulse Ox O2 Delivery O2 Flow Rate FiO2 08/17/17 09:36 98.7 114 15 115/93 (100) 96 08/17/17 07:23 95 Nasal Cannula 5.00 08/17/17 04:00 97.9 114 16 126/74 (91) 96 08/17/17 04:00 110 08/17/17 00:00 98.0 120 22 135/82 (99) 96 08/17/17 00:00 116 08/16/17 21:32 96 Nasal Cannula 6.00 08/16/17 20:00 113 08/16/17 20:00 97.7 118 20 145/94 (111) 100 08/16/17 17:22 98.5 112 20 127/78 (94) 96 08/16/17 16:30 115 08/16/17 12:30 116 08/16/17 10:38 95 Nasal Cannula 6.00 Labs: Laboratory Tests Test 08/17/17 05:55 White Blood Count 19.2 TH/MM3 (4.0-11.0) Red Blood Count 4.34 MIL/MM3 (4.00-5.30) Hemoglobin 12.3 GM/DL (11.6-15.3) Hematocrit 37.6 % (35.0-46.0) Mean Corpuscular Volume 86.6 FL (80.0-100.0) Mean Corpuscular Hemoglobin 28.3 PG (27.0-34.0) Mean Corpuscular Hemoglobin Concent 32.6 % (32.0-36.0) Red Cell Distribution Width 14.2 % (11.6-17.2) Platelet Count 133 TH/MM3 (150-450) Mean Platelet Volume 10.4 FL (7.0-11.0) Neutrophils (%) (Auto) 97.7 % (16.0-70.0) Lymphocytes (%) (Auto) 1.2 % (9.0-44.0) Monocytes (%) (Auto) 0.6 % (0.0-8.0) Eosinophils (%) (Auto) 0.2 % (0.0-4.0) Basophils (%) (Auto) 0.3 % (0.0-2.0) Neutrophils # (Auto) 18.7 TH/MM3 (1.8-7.7) Lymphocytes # (Auto) 0.2 TH/MM3 (1.0-4.8) Monocytes # (Auto) 0.1 TH/MM3 (0-0.9) Eosinophils # (Auto) 0.0 TH/MM3 (0-0.4) Basophils # (Auto) 0.1 TH/MM3 (0-0.2) CBC Comment DIFF FINAL Differential Comment Blood Urea Nitrogen 23 MG/DL (7-18) Creatinine 0.46 MG/DL (0.50-1.00) Random Glucose 124 MG/DL (74-106) Total Protein 5.7 GM/DL (6.4-8.2) Albumin 2.1 GM/DL (3.4-5.0) Calcium Level 7.8 MG/DL (8.5-10.1) Alkaline Phosphatase 93 U/L (45-117) Aspartate Amino Transf (AST/SGOT) 20 U/L (15-37) Alanine Aminotransferase (ALT/SGPT) 16 U/L (10-53) Total Bilirubin 1.2 MG/DL (0.2-1.0) Sodium Level 136 MEQ/L (136-145) Potassium Level 4.8 MEQ/L (3.5-5.1) Chloride Level 103 MEQ/L (98-107) Carbon Dioxide Level 26.0 MEQ/L (21.0-32.0) Anion Gap 7 MEQ/L (5-15) Estimat Glomerular Filtration Rate 135 ML/MIN (>89) Result Diagram: 08/17/17 0555 08/17/17 0555 (1) Pericardial effusion with cardiac tamponade Plan: s/p drainage f/u in our office in 2 weeks for wound check will see prn (2) Bilateral pleural effusion Plan: pleurx cath placed to be drained daily Ritu Hawk Aug 17, 2017 10:23
[2017-08-17] MEDS: CEFEPIME INJ 2,000 MG in SODIUM CHLORIDE 0.9% INJ 100 ML IV SCH (11:45)
--- NOTE | 2017-08-17 15:38 | HHI.HCPN ---
Reason for visit a. To assist with evaluation and management of symptoms including: pain, dyspnea, anxiety b. To assist medical decision maker(s) with: better understanding of current medical conditions; weighing benefits/burdens of medical treatment options; making medical treatment decisions. . Subjective/Interval History Patient diagnosed with metastatic non-small cell carcinoma of the lung primary with extensive metastatic disease status post initial palliative chemotherapy on 08/12/2017 - treated with carboplatin and Taxol. A Pleurx catheter was placed on 08/14/2017 for management of reaccumulating malignant pleural effusion which is being drained daily. CT surgery also evaluated the patient for pericardial window but was noted to have a dense, fibrosed and tightly adherent pericardium to the myocardium. Therefore, a pericardial window could not be created without jeopardizing the right atrium. Follow-up visit for symptom management and clarification of medical treatment goals. Patient presents resting with her eyes closed. Respirations slightly labored on 5L via nasal cannula with oxygen saturations in the high 90s. Using accessory muscles. Most recent chest x-ray on 08/15/2017 showed persistent patchy parenchymal opacity in the right lung. Patient arouses easily to verbal stimuli but remains lethargic s/p being medicated for pain and anxiety. Responds to simple questions with 1-2 word answers and follows simple commands. Patient denies dyspnea and/or anxiety on exam; she nods her head when asked if she is painful but does not provide any additional information such as location, pain level or description. Patient is currently on hydromorphone 2mg PO q8 hours and Lorazepam 0.5mg PO q6 hours ATC. PRN Lorazepam and Cushman are available for breakthrough symptoms. 24 hours PRN requirements = Cushman (7.5-325mg) x 2. Per nursing report, the patient has stated she doesn't want further diagnostic procedures or aggressive interventions. Discussed patient with Dr. Ruiz and Dr. Santos. Mutation studies are still pending. Ideally patient would wait for PDL 1 testing on the tumor sample, but transitioning to comfort would also be appropriate if it supports the patient's medical treatment goals. Patient was too dated on exam to have a lengthy discussion regarding aggressive versus comfort focus goals. Palliative care will discuss further with patient tomorrow. . Advance Directives Advance Directive Specifics Documented care wishes: No written advanced directives have been completed at this time. "5 wishes" booklet given to patient/family yesterday 08/12/17 . Objective Vital Signs Date Time Temp Pulse Resp B/P (MAP) Pulse Ox O2 Delivery O2 Flow Rate FiO2 08/17/17 11:48 98.2 108 18 123/75 (91) 98 08/17/17 09:36 98.7 114 15 115/93 (100) 96 08/17/17 07:23 95 Nasal Cannula 5.00 08/17/17 04:00 97.9 114 16 126/74 (91) 96 08/17/17 04:00 110 08/17/17 00:00 98.0 120 22 135/82 (99) 96 08/17/17 00:00 116 08/16/17 21:32 96 Nasal Cannula 6.00 08/16/17 20:00 113 08/16/17 20:00 97.7 118 20 145/94 (111) 100 08/16/17 17:22 98.5 112 20 127/78 (94) 96 08/16/17 16:30 115 Intake & Output 08/17/17 08/17/17 07:00 19:00 Output Total 650 ml 350 ml Balance -650 ml -350 ml Output Urine Total 650 ml Drainage Total 350 ml . Physical Exam CONSTITUTIONAL/GENERAL: This is an adequately nourished patient, in no apparent distress. TUBES/LINES/DRAINS: Pleurx catheter; triple-lumen central left subclavian SKIN: No jaundice, rashes, or lesions. Ecchymoses on upper extremities. Skin temperature appropriate. Not diaphoretic. HEAD: Atraumatic. Normocephalic. EYES: Pupils equal and round and reactive. Extraocular motions intact. No scleral icterus. No injection or drainage. Fundi not examined. ENT: Hearing grossly normal. Nose without bleeding or purulent drainage. Tongue reddened with white patches NECK: Trachea midline. CARDIOVASCULAR: Regular rate and rhythm without murmurs, gallops, or rubs. No JVD. Peripheral pulses symmetric. RESPIRATORY/CHEST: Respirations slightly labored. Breath sounds diminished bilaterally. Using accessory muscles GASTROINTESTINAL: Abdomen soft, non-tender, nondistended. Bowel sounds present. GENITOURINARY: Without palpable bladder distension. MUSCULOSKELETAL: Extremities without clubbing, cyanosis, or edema. No mottling or clubbing. LYMPHATICS: No palpable cervical or supraclavicular adenopathy. NEUROLOGICAL: Lethargic. Arouses to verbal stimuli. Responds to simple questions with 1-2 word answers; follows simple commands PSYCHIATRIC: No anxiety. No apparent hallucinations or other psychotic thought process. . Diagnostic Tests Laboratory Laboratory Tests Test 08/14/17 18:12 08/14/17 18:51 08/15/17 04:27 08/15/17 10:40 Urine Color YELLOW (YELLW/STRAW) Urine Turbidity HAZY (CLEAR) Urine pH 5.0 (5.0-8.5) Urine Specific [place] 1.030 (1.002-1.035) Urine Protein 30 mg/dL (NEG-TRACE) Urine Glucose (UA) NEG mg/dL (NEG) Urine Ketones NEG mg/dL (NEG) Urine Occult Blood LARGE (NEG) Urine Nitrite NEG (NEG) Urine Bilirubin NEG (NEG) Urine Urobilinogen LESS THAN 2.0 MG/DL (LESS Urine Leukocyte Esterase NEG (NEG) Urine RBC /hpf (0-3) Urine WBC /hpf (0-5) Urine Squamous Epithelial Cells 53 /hpf (0-5) Urine Amorphous Sediment MANY Urine Bacteria MOD /hpf (NONE) Urine Hyaline Casts INNUM /lpf (RARE) Urine Mucus MANY /lpf (OCC) Microscopic Urinalysis Comment CATH-CULTURE IND White Blood Count 22.1 TH/MM3 (4.0-11.0) 19.3 TH/MM3 (4.0-11.0) Red Blood Count 4.38 MIL/MM3 (4.00-5.30) 4.43 MIL/MM3 (4.00-5.30) Hemoglobin 12.3 GM/DL (11.6-15.3) 12.5 GM/DL (11.6-15.3) Hematocrit 37.9 % (35.0-46.0) 38.1 % (35.0-46.0) Mean Corpuscular Volume 86.5 FL (80.0-100.0) 86.1 FL (80.0-100.0) Mean Corpuscular Hemoglobin 28.1 PG (27.0-34.0) 28.2 PG (27.0-34.0) Mean Corpuscular Hemoglobin Concent 32.5 % (32.0-36.0) 32.8 % (32.0-36.0) Red Cell Distribution Width 14.5 % (11.6-17.2) 14.5 % (11.6-17.2) Platelet Count 232 TH/MM3 (150-450) 216 TH/MM3 (150-450) Mean Platelet Volume 9.5 FL (7.0-11.0) 9.6 FL (7.0-11.0) Neutrophils (%) (Auto) 97.8 % (16.0-70.0) 97.0 % (16.0-70.0) Lymphocytes (%) (Auto) 0.9 % (9.0-44.0) 1.5 % (9.0-44.0) Monocytes (%) (Auto) 1.2 % (0.0-8.0) 1.3 % (0.0-8.0) Eosinophils (%) (Auto) 0.0 % (0.0-4.0) 0.0 % (0.0-4.0) Basophils (%) (Auto) 0.1 % (0.0-2.0) 0.2 % (0.0-2.0) Neutrophils # (Auto) 21.6 TH/MM3 (1.8-7.7) 18.7 TH/MM3 (1.8-7.7) Lymphocytes # (Auto) 0.2 TH/MM3 (1.0-4.8) 0.3 TH/MM3 (1.0-4.8) Monocytes # (Auto) 0.3 TH/MM3 (0-0.9) 0.2 TH/MM3 (0-0.9) Eosinophils # (Auto) 0.0 TH/MM3 (0-0.4) 0.0 TH/MM3 (0-0.4) Basophils # (Auto) 0.0 TH/MM3 (0-0.2) 0.0 TH/MM3 (0-0.2) CBC Comment DIFF FINAL DIFF FINAL Differential Comment Blood Urea Nitrogen 21 MG/DL (7-18) 18 MG/DL (7-18) Creatinine 0.54 MG/DL (0.50-1.00) 0.41 MG/DL (0.50-1.00) Random Glucose 162 MG/DL (74-106) 122 MG/DL (74-106) Calcium Level 7.6 MG/DL (8.5-10.1) 7.8 MG/DL (8.5-10.1) Phosphorus Level 2.4 MG/DL (2.5-4.9) Magnesium Level 2.1 MG/DL (1.5-2.5) Sodium Level 138 MEQ/L (136-145) 139 MEQ/L (136-145) Potassium Level 4.1 MEQ/L (3.5-5.1) 4.1 MEQ/L (3.5-5.1) Chloride Level 103 MEQ/L (98-107) 102 MEQ/L (98-107) Carbon Dioxide Level 26.1 MEQ/L (21.0-32.0) 27.9 MEQ/L (21.0-32.0) Anion Gap 9 MEQ/L (5-15) 9 MEQ/L (5-15) Estimat Glomerular Filtration Rate 112 ML/MIN (>89) 154 ML/MIN (>89) Lactic Acid Level 4.0 mmol/L (0.4-2.0) Vancomycin Level Trough 19.1 MCG/ML (5.0-10.0) Test 08/15/17 15:00 08/16/17 05:20 08/17/17 05:55 Urine Color JOSE CARLOS (YELLW/STRAW) Urine Turbidity CLOUDY (CLEAR) Urine pH 6.0 (5.0-8.5) Urine Specific [place] 1.028 (1.002-1.035) Urine Protein 30 mg/dL (NEG-TRACE) Urine Glucose (UA) NEG mg/dL (NEG) Urine Ketones NEG mg/dL (NEG) Urine Occult Blood LARGE (NEG) Urine Nitrite NEG (NEG) Urine Bilirubin NEG (NEG) Urine Urobilinogen LESS THAN 2.0 MG/DL (LESS Urine Leukocyte Esterase NEG (NEG) Urine RBC /hpf (0-3) Urine WBC /hpf (0-5) Urine WBC Clumps MANY (NONE) Urine Squamous Epithelial Cells 13 /hpf (0-5) Urine Amorphous Sediment OCC Urine Bacteria MANY /hpf (NONE) Urine Mucus MANY /lpf (OCC) Urine Yeast (Budding) MOD (NONE) Microscopic Urinalysis Comment CATH-CULTURE IND White Blood Count 20.7 TH/MM3 (4.0-11.0) 19.2 TH/MM3 (4.0-11.0) Red Blood Count 4.35 MIL/MM3 (4.00-5.30) 4.34 MIL/MM3 (4.00-5.30) Hemoglobin 12.2 GM/DL (11.6-15.3) 12.3 GM/DL (11.6-15.3) Hematocrit 37.3 % (35.0-46.0) 37.6 % (35.0-46.0) Mean Corpuscular Volume 85.8 FL (80.0-100.0) 86.6 FL (80.0-100.0) Mean Corpuscular Hemoglobin 28.1 PG (27.0-34.0) 28.3 PG (27.0-34.0) Mean Corpuscular Hemoglobin Concent 32.8 % (32.0-36.0) 32.6 % (32.0-36.0) Red Cell Distribution Width 14.4 % (11.6-17.2) 14.2 % (11.6-17.2) Platelet Count 153 TH/MM3 (150-450) 133 TH/MM3 (150-450) Mean Platelet Volume 10.1 FL (7.0-11.0) 10.4 FL (7.0-11.0) Neutrophils (%) (Auto) 98.3 % (16.0-70.0) 97.7 % (16.0-70.0) Lymphocytes (%) (Auto) 1.1 % (9.0-44.0) 1.2 % (9.0-44.0) Monocytes (%) (Auto) 0.5 % (0.0-8.0) 0.6 % (0.0-8.0) Eosinophils (%) (Auto) 0.0 % (0.0-4.0) 0.2 % (0.0-4.0) Basophils (%) (Auto) 0.1 % (0.0-2.0) 0.3 % (0.0-2.0) Neutrophils # (Auto) 20.4 TH/MM3 (1.8-7.7) 18.7 TH/MM3 (1.8-7.7) Lymphocytes # (Auto) 0.2 TH/MM3 (1.0-4.8) 0.2 TH/MM3 (1.0-4.8) Monocytes # (Auto) 0.1 TH/MM3 (0-0.9) 0.1 TH/MM3 (0-0.9) Eosinophils # (Auto) 0.0 TH/MM3 (0-0.4) 0.0 TH/MM3 (0-0.4) Basophils # (Auto) 0.0 TH/MM3 (0-0.2) 0.1 TH/MM3 (0-0.2) CBC Comment DIFF FINAL DIFF FINAL Differential Comment Blood Urea Nitrogen 21 MG/DL (7-18) 23 MG/DL (7-18) Creatinine 0.47 MG/DL (0.50-1.00) 0.46 MG/DL (0.50-1.00) Random Glucose 125 MG/DL (74-106) 124 MG/DL (74-106) Calcium Level 8.1 MG/DL (8.5-10.1) 7.8 MG/DL (8.5-10.1) Sodium Level 139 MEQ/L (136-145) 136 MEQ/L (136-145) Potassium Level 4.4 MEQ/L (3.5-5.1) 4.8 MEQ/L (3.5-5.1) Chloride Level 103 MEQ/L (98-107) 103 MEQ/L (98-107) Carbon Dioxide Level 25.9 MEQ/L (21.0-32.0) 26.0 MEQ/L (21.0-32.0) Anion Gap 10 MEQ/L (5-15) 7 MEQ/L (5-15) Estimat Glomerular Filtration Rate 132 ML/MIN (>89) 135 ML/MIN (>89) Total Protein 5.7 GM/DL (6.4-8.2) Albumin 2.1 GM/DL (3.4-5.0) Alkaline Phosphatase 93 U/L (45-117) Aspartate Amino Transf (AST/SGOT) 20 U/L (15-37) Alanine Aminotransferase (ALT/SGPT) 16 U/L (10-53) Total Bilirubin 1.2 MG/DL (0.2-1.0) . Result Diagram: 08/17/17 0555 08/17/17 0555 Microbiology Microbiology Date/Time Source Procedure Growth Status 08/15/17 15:00 Urine Catheterized Urine Urine Culture - Final NO GROWTH IN 48 HOURS. Complete 08/14/17 18:12 Urine Catheterized Urine Urine Culture - Final NO GROWTH IN 48 HOURS. Complete . Imaging Last 72 hours Impressions Chest X-Ray 08/15/17 0500 Signed Impressions: Service Date/Time: Tuesday, August 15, 2017 05:51 - CONCLUSION: No significant interval change. Persistent patchy parenchymal opacity in the right lung. Deejay Packer MD . Procedures 08/10/17: Right-sided thoracentesis 08/11/17: Left-sided thoracentesis 08/12/17: Palliative chemotherapy treatment initiated with carboplatin and Taxol. 08/14/17: Pleurx catheter placement . Assessment and Plan Disease Oriented Problem List: (1) Pneumonia (2) Right kidney stone (3) fen/ppx (4) Non-small cell carcinoma of lung (5) Recurrent right pleural effusion Symptom Scale: (1) Dyspnea 0-10 Scale: Unable to quantify (2) Pain 0-10 Scale: Unable to quantify (3) Anxiety 0-10 Scale: Unable to quantify Pertinent Non-Medical Issues Psychosocial:Patient is originally from [place]. 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 Patient moved to [place] approximately 15 years ago. Patient is . She has 3 adult children (Queenie, Carlita and Violeta) with him she is very close. She is also a grandmother and a great grandmother. Patient has one brother who from brain cancer. She has 2 brothers and one sister who are alive and well. Spiritual: Mandaen davina Legal: Per [place] statutes, in the absence of written advanced directives healthcare proxy decision making would fall to the patient's 3 adult daughters. Patient confirms that in the event that she were incapacitated or unable to verbalize her medical treatment goals, she would want her 3 daughters (Queenie, Carlita and Violeta) to act has her medical decision makers. Ethical issues impacting care: No known ethical is impacting care at this time. . Important Contacts Queenie Andi, daughter: [phone] or [phone] Deb Gee, daughter: [phone] Violeta Castorena, daughter [phone] Blake Castorena, brother: [phone] Eryn Milan, sister: [phone] . Prognosis Patient recently diagnosed with metastatic non-small cell lung cancer in July,. She was discharged on 08/03/2017 and return to the ED on 08/09/2017 with worsening symptoms and recurrent pleural effusions and pericardial effusions. Plan to initiate palliative systemic chemotherapy with carboplatin/Taxol today . Patient is terminally ill. Currently medical treatment goals are aggressive but when/if the patient wishes to transition to comfort focused care , she would be hospice appropriate. . Code Status: Alternative Code (Compressions and medications only) Plan * ALTERNATE CODE-compressions and medications only. Patient does not desire shock or intubation. * Per [place] statutes, in the absence of written advanced directives healthcare proxy decision making would fall to the patient's 3 adult daughters ( Queenie, Carlita and Violeta). * "5 wishes" booklet given to patient/family yesterday 08/12/17 * Discussed patient with bedside nurse (Mariaelena). Discussed recommended medication changes with Dr. Santos who was in agreement; she requested that palliative care manage patient's symptoms moving forward. * SYMPTOM MANAGEMENT: = Pain: Multifactoral. Patient nods her head when asked if she is painful but does not provide any additional information such as location, pain level or description. Patient is currently on hydromorphone 2mg PO q8 hours and Lorazepam 0.5mg PO q6 hours ATC. PRN Lorazepam and Cushman are available for breakthrough symptoms. 24 hours PRN requirements = Cushman (7.5-325mg) x 2.Contributing factors include recently diagnosed metastatic non-small cell lung cancer, pneumonia, infiltrated IV sites, invasive lines, invasive procedures etc. Palliative care will monitor PRN and make recommendations as indicated. Patient may benefit from long acting medications at some point in the future. = Anxiety: Multifactoral. Contributing factors include newly diagnosed metastatic carcinoma, pain and progressively increased dyspnea. Well managed on scheduled Lorazepam q6 hours. No PRN requirements in the past 24 hours = Dyspnea: Multifactoral. Contributing factors include newly diagnosed metastatic carcinoma, recurrent pleural effusions and pneumonia. Status post Pleurx catheter placement on 08/14/2017 patient remain on scheduled Duonebs, albuterol nebulizers PRN, Solu-Medrol and broad- spectrum antibiotics. Patient tells me Lorazepam helps with her breathing. * Palliative care will follow this patient throughout her hospitalization to establish trust, assist with symptom management and clarification of medical treatment goals. . Attestation To help prompt me to consider important information that might be impacting today's encounter and assessment, information from prior notes written by myself or my colleagues may have been "brought forward" into today's note. My signature on this note, however, is an attestation that I personally performed the exam, history, and/or decision-making noted today, and, unless otherwise indicated, the interactions with patient, family, and staff as well as the review of records all occurred today. I also attest that the listed assessment and stated plan reflect my best clinical judgment today based on the combination of historical information, prior notes, and today's exam/ interactions. When time spent is documented, it refers only to time spent today by the signer, or if indicated, combined time spent today by collaborating physician/nurse practitioner. . Melissa Soliman Aug 17, 2017 15:38
--- NOTE | 2017-08-17 15:54 | HHI.FPPN ---
Subjective Remarks Pt seen and examined bedside this morning. Pt states her SOB has improved since her last procedure. She continues to have hot flashes. She states she is waiting to talk to to see what the plan is going forward. Denies any chest pain. (Caity Gibson MD R2) Objective Vitals Vital Signs Date Time Temp Pulse Resp B/P (MAP) Pulse Ox O2 Delivery O2 Flow Rate FiO2 08/17/17 12:00 112 08/17/17 11:48 98.2 108 18 123/75 (91) 98 08/17/17 09:36 98.7 114 15 115/93 (100) 96 08/17/17 08:00 117 08/17/17 07:23 95 Nasal Cannula 5.00 08/17/17 04:00 97.9 114 16 126/74 (91) 96 08/17/17 04:00 110 08/17/17 00:00 98.0 120 22 135/82 (99) 96 08/17/17 00:00 116 08/16/17 21:32 96 Nasal Cannula 6.00 08/16/17 20:00 113 08/16/17 20:00 97.7 118 20 145/94 (111) 100 08/16/17 17:22 98.5 112 20 127/78 (94) 96 08/16/17 16:30 115 I/O 08/16/17 08/16/17 08/16/17 08/17/17 08/17/17 08/17/17 07:00 15:00 23:00 07:00 15:00 23:00 Intake Total 460 ml 240 ml 100 ml Output Total 600 ml 750 ml 650 ml 350 ml Balance -140 ml -510 ml -650 ml -250 ml Intake Oral 460 ml 240 ml IV Total 100 ml Output Urine Total 600 ml 575 ml 650 ml Drainage Total 175 ml 350 ml (Caity Gibson MD R2) Result Diagram: 08/17/17 0555 08/17/17 05 Objective Remarks GENERAL: Well-nourished, well-developed, obese female. Laying in bed, drowsy and slightly uncomfortable. Not in respiratory distress SKIN: Warm and dry. Extensive bruising noted on right arm, elbow fold. HEENT: Normocephalic. Atraumatic. No scleral icterus. No injection or drainage. Extraocular motion intact. NECK: Significant swelling; symmetric. CARDIOVASCULAR: Warm and well perfused. Tachycardic rate, regular rhythm, no murmurs appreciated. RESPIRATORY: Coarse breath sounds equal bilaterally. Patient is very weak and cannot sit up for posterior auscultation GASTROINTESTINAL: Positive bowel sounds. Abdomen nondistended. MUSCULOSKELETAL: Generalized body weakness. NEURO/PSYCH: Awake, alert, and oriented x3. Procedures Right-sided thoracentesis performed 08/10. Left-sided thoracentesis performed 08/11. Emergent subxiphoid pericardial window, left Pleur X catheter placement, drainage of pleural effusion performed on 08/14. (Caity Gibson MD R2) A/P Assessment and Plan 67 y/o female with a recent diagnosis of metastatic non-small cell lung cancer and metastatic adenopathy, who presents to the ED with shortness of breath. Admitted for evaluation and management of the respiratory distress, under care of oncology for malignant pleural effusions. Status post carboplatin and Taxol on 08/12/2017. Pleurx catheter had to be placed on 08/14/2017 for management reaccumulating malignant pleural effusion. Discharge Planning Pending results of mutation studies tomorrow and possible discharge to hospice (Caity Gibson MD R2) Attending Attestation Patient seen and examined, discussed with resident team. I agree with assessment and management as documented and discussed with me. Pt is seen resting in her room. She denies SOB, chest pain, anxiety. She reports that she no longer wishes to pursue chemotherapy, even if this were an option for her. (Elsie Abrams MD) Problem List: (1) Pneumonia ICD Codes: J18.9 - Pneumonia, unspecified organism Status: Acute Plan: Possible nosocomial pneumonia on admission, s/p abx as below On admission: * Met SIRS criteria with tachycardia, tachypnea, high WBC count. * Chest x-ray: Right costophrenic angle blunted, hazy opacity in both lung bases most consistent with infiltrates and effusions, moderate cardiomegaly. D/C Vanc, Zosyn, Cefepime (08/09 - 08/17) for empirical treatment of nosocomial pneumonia. No IV fluids at this time due to pleural effusions. (2) Non-small cell carcinoma of lung ICD Codes: C34.90 - Malignant neoplasm of unspecified part of unspecified bronchus or lung Status: Acute Plan: Patient with recent diagnosis of non-small cell carcinoma of lung with metastasis. Oncology awaiting mutational studies to determine whether patient is a candidate for targeted therapy. Patient was started on Carboplatin and Taxol on 08/12. Respiratory distress likely due to malignant pleural effusion. Pericardial effusion present per ECHO. No pericardial effusion but moderate pericardial calcification and thickening present per Dr. Mcarthur, CVT surgery. Ultrasound-guided thoracentesis ordered for moderate pleural effusions. Right- sided thoracentesis performed 08/10; left-sided thoracentesis performed 08/11. Respiratory status improved temporarily. Patient, however, has been re- accumulating pleural effusion rapidly. Emergent subxiphoid pericardial window, left Pleur X catheter placement, drainage of pleural effusion performed on 08/14. Medications: * Prednisone 20 mg PO BID, further decreasing to prednisone 20 mg daily * Levalbuterol 1.26mg q6hr as needed. * Pain management with Tylenol, [place], Dilaudid as needed. (3) Bilateral pleural effusion ICD Codes: J90 - Pleural effusion, not elsewhere classified Status: Chronic Plan: * See Plan for Non-small cell carcinoma of lung. (4) Tachycardia ICD Codes: R00.0 - Tachycardia, unspecified Status: Acute Plan: Sinus tachycardia. Likely secondary to malignant effusion. * See Plan for Non-small cell carcinoma of lung. (5) Hypotension ICD Codes: I95.9 - Hypotension, unspecified Status: Resolved Plan: Hypotensive following CVT surgery. Likely secondary to restrictive shock. * See Plan for Non-small cell carcinoma of lung. * Gentle IV fluid resuscitation with additional episodes. (6) Right kidney stone ICD Codes: N20.0 - Calculus of kidney Status: Chronic Plan: Staghorn calculus diagnosed, no current pain per the patient. Outpatient follow-up with urology was recommended once current conditions have resolved. (7) Hematuria ICD Codes: R31.9 - Hematuria, unspecified Status: Acute Plan: UA 08/15: Lexii, cloudy, pH 6, large occult blood, many WBC clumps, negative nitrite, negative leukocyte esterase, many bacteria, many mucus, moderate yeast. Urine culture 08/14: no growth to this point. Urine culture 08/15: pending. Likely due to kidney stones. Will monitor closely. Awaiting culture results before starting antibiotics. (8) fen/ppx Status: Chronic Plan: Fluids: PO fluids. Electrolytes: Monitor and replete as needed. Nutrition: Regular diet. DVT prophylaxis: SCDs. Lovenox. GI prophylaxis: Pepcid. (Caity Gibson MD R2) Problem Qualifiers (1) Pneumonia: Qualified Codes: J18.1 - Lobar pneumonia, unspecified organism Caity Gibson MD R2 Aug 17, 2017 15:54 Elsie Abrams MD Aug 17, 2017 20:00
[2017-08-17] MEDS: NYSTATIN SUSP 500,000 U/5 ML CUP SWISH-SWAL SCH ×2 (18:17→20:50)
[2017-08-17] MEDS ORDERED: MAGNESIUM HYDROXIDE SUSP 30 ML CUP PO PRN (18:30)
[2017-08-17] MEDS: ENOXAPARIN SODIUM 40 MG/0.4 ML SYRINGE SQ SCH (20:51)
[2017-08-18] VITALS (9 sets, daily range): BP systolic 122–154; BP diastolic 64–71; PULSE 110–121; RESP 20–24; TEMP 97.4–98.4; O2SAT 97–98
[2017-08-18] MEDS: CLOTRIMAZOLE 10 MG TROCHE BUCCAL SCH ×2 (05:08→09:27)
[2017-08-18 05:09] LABS: HEMATOCRIT 36.9 % (35.0-46.0); HEMOGLOBIN 12.1 GM/DL (11.6-15.3); MEAN CELL VOLUME 85.6 FL (80.0-100.0); MEAN CORPUSCULAR HGB CONC 32.7 % (32.0-36.0); MEAN PLATELET VOLUME 10.6 FL (7.0-11.0); PLATELET COUNT 107 TH/MM3 (150-450); RED BLOOD COUNT 4.31 MIL/MM3 (4.00-5.30); RED CELL DISTRIBUTION WIDTH 14.2 % (11.6-17.2); WHITE BLOOD COUNT 12.5 TH/MM3 (4.0-11.0)
[2017-08-18] MEDS: NYSTATIN 100,000 U/GM PWD 15 GM BTL TOPICAL SCH (05:09)
[2017-08-18 05:41] LABS: ALT (GPT) 16 U/L (10-53); AST (GOT) 19 U/L (15-37); BICARBONATE 26.4 MEQ/L (21.0-32.0); BLOOD UREA NITROGEN 21 MG/DL (7-18); CALCIUM 8.2 MG/DL (8.5-10.1); CHLORIDE 101 MEQ/L (98-107); CREATININE 0.46 MG/DL (0.50-1.00); GLOMERULAR FILTRATION RATE 135 ML/MIN (>89); GLUCOSE,RANDOM 112 MG/DL (74-106); SODIUM (NA) 137 MEQ/L (136-145)
[2017-08-18 05:43] LABS: ALKALINE PHOSPHATASE 96 U/L (45-117); TOTAL BILIRUBIN ADULT 1.6 MG/DL (0.2-1.0); TOTAL PROTEIN 5.6 GM/DL (6.4-8.2)
[2017-08-18] MEDS: HYDROmorphone HCL 2 MG TAB PO SCH ×2 (05:43→13:06)
[2017-08-18] MEDS: LORazepam 0.5 MG TAB PO SCH ×2 (06:29→13:03)
[2017-08-18] MEDS: INSULIN ASPART SUPPLEMENTAL SCALE SQ SCH (08:00)
--- NOTE | 2017-08-18 08:07 | PD.ONC.PN ---
Subjective Subjective Remarks Patient seen and examined, vital signs, labs and medications reviewed. Overnight events reviewed. Subjectively; patient reports remaining short of breath, she denies pain other than along the left side for chest. She remains and sustained tachycardia and remains on possibly 5-6 L/m oxygen via nasal cannula oxygen supplementation. Objective Data Date Time Temp Pulse Resp B/P (MAP) Pulse Ox O2 Delivery O2 Flow Rate FiO2 08/18/17 06:02 121 08/18/17 05:17 113 08/18/17 04:03 119 08/18/17 03:45 98.4 116 20 122/71 (88) 98 08/18/17 03:01 115 08/18/17 02:06 120 08/18/17 01:01 117 08/18/17 00:01 118 08/17/17 23:44 97.5 119 24 112/72 (85) 96 08/17/17 23:05 115 08/17/17 22:04 119 08/17/17 21:37 97 Nasal Cannula 3.00 08/17/17 21:04 118 08/17/17 20:34 96.9 118 24 108/81 (90) 97 08/17/17 20:04 117 08/17/17 19:04 122 08/17/17 16:01 98.1 110 20 145/84 (104) 98 08/17/17 12:00 112 08/17/17 11:48 98.2 108 18 123/75 (91) 98 08/17/17 09:36 98.7 114 15 115/93 (100) 96 08/18/17 08/18/17 08/18/17 07:00 15:00 23:00 Intake Total 120 ml Output Total 725 ml Balance -605 ml Result Diagram: 08/18/17 0355 08/18/17 0355 Laboratory Results Laboratory Tests Test 08/18/17 03:55 White Blood Count 12.5 TH/MM3 Red Blood Count 4.31 MIL/MM3 Hemoglobin 12.1 GM/DL Hematocrit 36.9 % Mean Corpuscular Volume 85.6 FL Mean Corpuscular Hemoglobin 28.0 PG Mean Corpuscular Hemoglobin Concent 32.7 % Red Cell Distribution Width 14.2 % Platelet Count 107 TH/MM3 Mean Platelet Volume 10.6 FL Blood Urea Nitrogen 21 MG/DL Creatinine 0.46 MG/DL Random Glucose 112 MG/DL Total Protein 5.6 GM/DL Albumin 2.0 GM/DL Calcium Level 8.2 MG/DL Alkaline Phosphatase 96 U/L Aspartate Amino Transf (AST/SGOT) 19 U/L Alanine Aminotransferase (ALT/SGPT) 16 U/L Total Bilirubin 1.6 MG/DL Sodium Level 137 MEQ/L Potassium Level 4.5 MEQ/L Chloride Level 101 MEQ/L Carbon Dioxide Level 26.4 MEQ/L Anion Gap 10 MEQ/L Estimat Glomerular Filtration Rate 135 ML/MIN Culture Results Microbiology Date/Time Source Procedure Growth Status 08/15/17 15:00 Urine Catheterized Urine Urine Culture - Final NO GROWTH IN 48 HOURS. Complete Administered Medications Medications (Trade) Dose Ordered Sig/Jerrell Route PRN Reason Start Time Stop Time Status Last Admin Dose Admin Nystatin (Mycostatin Powder) 1 applic Q8HR TOPICAL 08/09/17 14:00 08/18/17 05:09 Sodium Chloride (NS Flush) 2 ml BID IV FLUSH 08/09/17 21:00 08/17/17 20:51 Sodium Chloride (NS Flush) 2 ml UNSCH PRN IV FLUSH FLUSH AFTER USING IV ACCESS 08/09/17 12:45 08/16/17 12:29 Acetaminophen/ Hydrocodone Bitart (Aber[place]rombie 7.5-325 Mg) 1 tab Q4H PRN PO breakthrough PAIN 08/09/17 16:15 08/17/17 08:12 Melatonin (Melatonin) 5 mg HS PRN PO INSOMNIA 08/09/17 16:15 08/15/17 21:51 Acetaminophen (Tylenol) 650 mg Q4HR PRN PO PAIN SCALE 1 TO 2 08/09/17 20:30 08/15/17 21:51 Insulin Aspart (NovoLOG SUPPLEMENTAL SCALE) 1 ACHS SLIDING SCALE SQ 08/10/17 08:00 08/17/17 08:34 Enoxaparin Sodium (Lovenox Inj) 40 mg Q24H SQ 08/10/17 20:00 08/17/17 20:51 Famotidine (Pepcid) 20 mg BID PO 08/11/17 21:00 08/17/17 20:50 Ondansetron HCl (Zofran Odt) 4 mg Q6H PRN PO NAUSEA OR VOMITING 08/13/17 08:30 08/13/17 08:53 Lorazepam (Ativan) 0.5 mg Q6HR PO 08/13/17 18:00 08/18/17 06:29 Lorazepam (Ativan) 0.5 mg BID PRN PO ANXIETY 08/13/17 13:30 08/14/17 03:13 Levalbuterol HCl (Xopenex Neb) 1.25 mg Q2HR NEB PRN NEB SHORTNESS OF BREATH 08/14/17 01:30 08/16/17 00:02 Sodium Chloride (NS Flush) 2 ml BID IV FLUSH 08/14/17 21:00 08/17/17 20:52 Sodium Chloride (NS Flush) 2 ml UNSCH PRN IV FLUSH FLUSH AFTER USING IV ACCESS 08/14/17 16:30 08/15/17 09:02 Clotrimazole (Mycelex) 10 mg 5 TIMES A DAY BUCCAL 08/15/17 18:00 08/20/17 17:59 08/17/17 08:23 Senna/Docusate Sodium (Danae-Colace) 2 tab BID PRN PO CONSTIPATION 08/16/17 09:15 08/17/17 08:23 Sodium Chloride (NS Flush) DAILY IV FLUSH 08/17/17 09:00 08/17/17 08:13 Hydromorphone HCl (Dilaudid) 2 mg Q8H PO 08/16/17 21:00 08/18/17 05:43 Nystatin (Mycostatin Liq) 5 ml QID SWISH-SWAL 08/17/17 18:00 08/17/17 20:50 Objective Remarks GENERAL: Middle-aged female Laying in bed, she appears to be comfortable, she has an ice pack over her head. She speaks to me in full sentences and is awake and alert. SKIN: Warm and dry. HEAD: Normocephalic. EYES: No scleral icterus. No injection or drainage. NECK: Edema, large bilateral cervical lymph nodes are noted. The pathologically enlarged cervical lymph nodes appear unchanged to me on clinical exam when compared to Thursday. LYMPHATIC: No adenopathy. Bilateral cervical lymphadenopathy, Right supraclavicular lymphadenopathy. CARDIOVASCULAR: Regular, tachycardic. RESPIRATORY: Tachypneic, decreased bibasilar breath sounds, improved aeration over the left base. Left sided Pleurx catheter was placed in the interim. GASTROINTESTINAL: Abdomen soft, non-tender, nondistended. EXTREMITIES: No cyanosis, or edema. MUSCULOSKELETAL: Adequate muscle mass and tone. NEUROLOGICAL: No obvious focal deficit. Awake, alert, and oriented x3. PSYCHIATRIC: Appropriate mood and affect; insight and judgment normal. Appears somewhat anxious. Assessment/Plan Problem List: (1) Non-small cell carcinoma of lung ICD Codes: C34.90 - Malignant neoplasm of unspecified part of unspecified bronchus or lung Status: Acute Plan: --Plan for follow-up as outpatient Hx/Workup: Patient originally presented approximately 11 days ago with shortness of breath was found to have bilateral pleural effusion with pericardial effusion. She was also found to have mediastinal adenopathy, axillary adenopathy as well as right supraclavicular adenopathy. Thoracentesis with fluid cytology was positive for adenocarcinoma. A biopsy of the right supraclavicular lymph node showed moderately to poorly differentiated adenocarcinoma consistent with lung primary. Mutation studies are pending. She was originally supposed to follow-up as outpatient however she presented with progressive shortness of breath. Chest x-ray showed reaccumulated pleural effusions Assessment 67-year-old female with newly diagnosed non-small cell lung cancer admitted for recurrent pleural effusions, also with pericardial effusion. Persistent difficulty breathing and tachycardia. Plan Metastatic non-small cell carcinoma of lung primary with extensive metastases: Status post carboplatin and Taxol on 08/12/2017. Pleurx catheter had to be placed on 08/14/2017 for management reaccumulating malignant pleural effusion, this is being drained almost daily. Intraoperatively, her heart and pericardium were evaluated, the patient was noted to have a dense, fibrosed and tightly adherent pericardium to the myocardium. A pericardial window could not be created without jeopardizing the right atrium and perforating it. The Pleurx catheter will remain in place. This will be periodically drained. The Pleurx catheter may add added benefit of causing auto pleurodesis. Await PDL 1 testing on the tumor sample. Continue ongoing supportive care. Patient met yesterday with the palliative care, it was her own choice to me with palliative care. I did speak to the palliative care nurse practitioner and advised we wait until PDL 1 testing results are available to determine if additional/alternative treatment modalities may be more beneficial to the patient as opposed to cytotoxic chemotherapy. It appears Ms. Castorena is considering palliation seriously at this point. Jorge Ruiz MD Aug 18, 2017 08:07
[2017-08-18] MEDS ORDERED: predniSONE 20 MG TAB PO SCH (09:00)
[2017-08-18] MEDS: SODIUM CHLORIDE 0.9% FLUSH 10 ML FLUSH IV FLUSH SCH ×2 (09:00→09:40)
[2017-08-18] MEDS: Central Line Short Term Adult 7Fr or larger Daily NS Lock Flush IV FLUSH SCH (09:00)
[2017-08-18] MEDS: SODIUM CHLORIDE 0.9% FLUSH 10 ML FLUSH IV FLUSH PRN (09:40)
[2017-08-18] MEDS: FAMOTIDINE 20 MG TAB PO SCH (09:44)
[2017-08-18] MEDS: ACETAMINOPHEN/HYDROcodone 325 MG/7.5 MG TAB PO PRN (09:44)
[2017-08-18] MEDS: NYSTATIN SUSP 500,000 U/5 ML CUP SWISH-SWAL SCH (09:45)
[2017-08-18] MEDS ORDERED: PHARMACY ORDERED LAB ONE (10:45)
--- NOTE | 2017-08-18 11:27 | HHI.DCPOC ---
Discharge Care Plan Diagnosis: (1) Respiratory distress (2) Right kidney stone (3) Pericardial effusion with cardiac tamponade (4) Non-small cell carcinoma of lung Goals to Promote Your Health * To prevent worsening of your condition and complications * To maintain your health at the optimal level Directions to Meet Your Goals Take your medications as prescribed Follow your dietary instruction Follow activity as directed Keep your appointments as scheduled Take your immunizations and boosters as scheduled If your symptoms worsen call your PCP, if no PCP go to Urgent Care Center or Emergency Room Smoking is Dangerous to Your Health. Avoid second hand smoke Call the 24-hour hour crisis hotline for domestic abuse at Corrina Reynolds MD R1 Aug 18, 2017 11:27
--- NOTE | 2017-08-18 11:34 | HHI.HCPN ---
Reason for visit a. To assist with evaluation and management of symptoms including: pain, dyspnea, anxiety b. To assist medical decision maker(s) with: better understanding of current medical conditions; weighing benefits/burdens of medical treatment options; making medical treatment decisions. . Subjective/Interval History Patient diagnosed with metastatic non-small cell carcinoma of the lung primary with extensive metastatic disease status post initial palliative chemotherapy on 08/12/2017 - treated with carboplatin and Taxol. A Pleurx catheter was placed on 08/14/2017 for management of reaccumulating malignant pleural effusion which is being drained daily. CT surgery also evaluated the patient for pericardial window but was noted to have a dense, fibrosed and tightly adherent pericardium to the myocardium. Therefore, a pericardial window could not be created without jeopardizing the right atrium. Follow-up visit for symptom management and clarification of medical treatment goals. Patient seen and examined in room. Daughters at bedside. Patient presents with agonal, labored respirations. Using accessory muscles. Patient arouses briefly to voice. She responds in 1 word answers. Patient nods yes to pain and shortness of breath. She is unable to further quantify or qualify symptoms due to lethargy and confusion. Patient is currently on hydromorphone 2mg PO q8 hours and Lorazepam 0.5mg PO q6 hours ATC. PRN Lorazepam and [place] are available for breakthrough symptoms. Will request nurse premedicates patient prior to DC to [facility]. Per family, the patient does not want further diagnostic procedures or aggressive interventions. Family requests transition to comfort with hospice support. . Family/friend interactions Family meeting with 3 daughters. Patient unable to participate due to lethargy and confusion. Family practice resident and Wanda Hedrick LCSW also present. After medical update, review of clinical changes in patient and discussion regarding patient goals of care. Family desires transition to comfort measures with hospice support. They desire transfer to [facility] when arrangements can be made. . Advance Directives Advance Directive Specifics Documented care wishes: No written advanced directives have been completed at this time. "5 wishes" booklet given to patient/family yesterday 08/12/17 . Significant change in goals: NO CODE. Family meeting with 3 daughters. Patient unable to participate due to lethargy and confusion. Family practice resident and Wanda Hedrick LCSW also present. After medical update, review of clinical changes in patient and discussion regarding patient goals of care. Family desires transition to comfort measures with hospice support. They desire transfer to [facility] when arrangements can be made. . Objective Vital Signs Date Time Temp Pulse Resp B/P (MAP) Pulse Ox O2 Delivery O2 Flow Rate FiO2 08/18/17 09:40 97.4 110 24 154/64 (94) 97 08/18/17 06:02 121 08/18/17 05:17 113 08/18/17 04:03 119 08/18/17 03:45 98.4 116 20 122/71 (88) 98 08/18/17 03:01 115 08/18/17 02:06 120 08/18/17 01:01 117 08/18/17 00:01 118 08/17/17 23:44 97.5 119 24 112/72 (85) 96 08/17/17 23:05 115 08/17/17 22:04 119 08/17/17 21:37 97 Nasal Cannula 3.00 08/17/17 21:04 118 08/17/17 20:34 96.9 118 24 108/81 (90) 97 08/17/17 20:04 117 08/17/17 19:04 122 08/17/17 16:01 98.1 110 20 145/84 (104) 98 08/17/17 12:00 112 08/17/17 11:48 98.2 108 18 123/75 (91) 98 Intake & Output 08/18/17 08/18/17 07:00 19:00 Intake Total 420 ml Output Total 1175 ml Balance -755 ml Intake Oral 420 ml Output Urine Total 1175 ml # Bowel Movements 1 Physical Exam CONSTITUTIONAL/GENERAL: This is an adequately nourished patient, mildly labored respirations at rest. TUBES/LINES/DRAINS: Pleurx catheter; triple-lumen central left subclavian SKIN: Ecchymoses on upper extremities. Skin temperature cool. Not diaphoretic. CARDIOVASCULAR: tachycardic. RESPIRATORY/CHEST: Respirations mildly labored. Diminished breath sounds. Using accessory muscles GASTROINTESTINAL: Abdomen soft, non-tender, nondistended. Bowel sounds present. GENITOURINARY: Without palpable bladder distension. MUSCULOSKELETAL: Extremities without clubbing, cyanosis, or edema. No mottling or clubbing. NEUROLOGICAL: Lethargic. Arouses briefly to verbal stimuli. Responds to simple questions with 1 word answers. PSYCHIATRIC: Lethargic. Confused. . Diagnostic Tests Laboratory Laboratory Tests Test 08/15/17 15:00 08/16/17 05:20 08/17/17 05:55 08/18/17 03:55 Urine Color JOSE CARLOS (YELLW/STRAW) Urine Turbidity CLOUDY (CLEAR) Urine pH 6.0 (5.0-8.5) Urine Specific Casco 1.028 (1.002-1.035) Urine Protein 30 mg/dL (NEG-TRACE) Urine Glucose (UA) NEG mg/dL (NEG) Urine Ketones NEG mg/dL (NEG) Urine Occult Blood LARGE (NEG) Urine Nitrite NEG (NEG) Urine Bilirubin NEG (NEG) Urine Urobilinogen LESS THAN 2.0 MG/DL (LESS Urine Leukocyte Esterase NEG (NEG) Urine RBC /hpf (0-3) Urine WBC /hpf (0-5) Urine WBC Clumps MANY (NONE) Urine Squamous Epithelial Cells 13 /hpf (0-5) Urine Amorphous Sediment OCC Urine Bacteria MANY /hpf (NONE) Urine Mucus MANY /lpf (OCC) Urine Yeast (Budding) MOD (NONE) Microscopic Urinalysis Comment CATH-CULTURE IND White Blood Count 20.7 TH/MM3 (4.0-11.0) 19.2 TH/MM3 (4.0-11.0) 12.5 TH/MM3 (4.0-11.0) Red Blood Count 4.35 MIL/MM3 (4.00-5.30) 4.34 MIL/MM3 (4.00-5.30) 4.31 MIL/MM3 (4.00-5.30) Hemoglobin 12.2 GM/DL (11.6-15.3) 12.3 GM/DL (11.6-15.3) 12.1 GM/DL (11.6-15.3) Hematocrit 37.3 % (35.0-46.0) 37.6 % (35.0-46.0) 36.9 % (35.0-46.0) Mean Corpuscular Volume 85.8 FL (80.0-100.0) 86.6 FL (80.0-100.0) 85.6 FL (80.0-100.0) Mean Corpuscular Hemoglobin 28.1 PG (27.0-34.0) 28.3 PG (27.0-34.0) 28.0 PG (27.0-34.0) Mean Corpuscular Hemoglobin Concent 32.8 % (32.0-36.0) 32.6 % (32.0-36.0) 32.7 % (32.0-36.0) Red Cell Distribution Width 14.4 % (11.6-17.2) 14.2 % (11.6-17.2) 14.2 % (11.6-17.2) Platelet Count 153 TH/MM3 (150-450) 133 TH/MM3 (150-450) 107 TH/MM3 (150-450) Mean Platelet Volume 10.1 FL (7.0-11.0) 10.4 FL (7.0-11.0) 10.6 FL (7.0-11.0) Neutrophils (%) (Auto) 98.3 % (16.0-70.0) 97.7 % (16.0-70.0) Lymphocytes (%) (Auto) 1.1 % (9.0-44.0) 1.2 % (9.0-44.0) Monocytes (%) (Auto) 0.5 % (0.0-8.0) 0.6 % (0.0-8.0) Eosinophils (%) (Auto) 0.0 % (0.0-4.0) 0.2 % (0.0-4.0) Basophils (%) (Auto) 0.1 % (0.0-2.0) 0.3 % (0.0-2.0) Neutrophils # (Auto) 20.4 TH/MM3 (1.8-7.7) 18.7 TH/MM3 (1.8-7.7) Lymphocytes # (Auto) 0.2 TH/MM3 (1.0-4.8) 0.2 TH/MM3 (1.0-4.8) Monocytes # (Auto) 0.1 TH/MM3 (0-0.9) 0.1 TH/MM3 (0-0.9) Eosinophils # (Auto) 0.0 TH/MM3 (0-0.4) 0.0 TH/MM3 (0-0.4) Basophils # (Auto) 0.0 TH/MM3 (0-0.2) 0.1 TH/MM3 (0-0.2) CBC Comment DIFF FINAL DIFF FINAL Differential Comment Blood Urea Nitrogen 21 MG/DL (7-18) 23 MG/DL (7-18) 21 MG/DL (7-18) Creatinine 0.47 MG/DL (0.50-1.00) 0.46 MG/DL (0.50-1.00) 0.46 MG/DL (0.50-1.00) Random Glucose 125 MG/DL (74-106) 124 MG/DL (74-106) 112 MG/DL (74-106) Calcium Level 8.1 MG/DL (8.5-10.1) 7.8 MG/DL (8.5-10.1) 8.2 MG/DL (8.5-10.1) Sodium Level 139 MEQ/L (136-145) 136 MEQ/L (136-145) 137 MEQ/L (136-145) Potassium Level 4.4 MEQ/L (3.5-5.1) 4.8 MEQ/L (3.5-5.1) 4.5 MEQ/L (3.5-5.1) Chloride Level 103 MEQ/L (98-107) 103 MEQ/L (98-107) 101 MEQ/L (98-107) Carbon Dioxide Level 25.9 MEQ/L (21.0-32.0) 26.0 MEQ/L (21.0-32.0) 26.4 MEQ/L (21.0-32.0) Anion Gap 10 MEQ/L (5-15) 7 MEQ/L (5-15) 10 MEQ/L (5-15) Estimat Glomerular Filtration Rate 132 ML/MIN (>89) 135 ML/MIN (>89) 135 ML/MIN (>89) Total Protein 5.7 GM/DL (6.4-8.2) 5.6 GM/DL (6.4-8.2) Albumin 2.1 GM/DL (3.4-5.0) 2.0 GM/DL (3.4-5.0) Alkaline Phosphatase 93 U/L (45-117) 96 U/L (45-117) Aspartate Amino Transf (AST/SGOT) 20 U/L (15-37) 19 U/L (15-37) Alanine Aminotransferase (ALT/SGPT) 16 U/L (10-53) 16 U/L (10-53) Total Bilirubin 1.2 MG/DL (0.2-1.0) 1.6 MG/DL (0.2-1.0) Result Diagram: 08/18/17 0355 08/18/17 0355 Microbiology Microbiology Date/Time Source Procedure Growth Status 08/15/17 15:00 Urine Catheterized Urine Urine Culture - Final NO GROWTH IN 48 HOURS. Complete Imaging Last Impressions Chest X-Ray 08/15/17 0500 Signed Impressions: Service Date/Time: Tuesday, August 15, 2017 05:51 - CONCLUSION: No significant interval change. Persistent patchy parenchymal opacity in the right lung. Deejay Packer MD Thoracentesis Ultrasound 08/11/17 0000 Signed Impressions: Service Date/Time: Friday, August 11, 2017 10:22 - CONCLUSION: Uncomplicated ultrasound guided thoracentesis. Bartolo Lopez MD CT Angiography 08/09/17 0000 Signed Impressions: Service Date/Time: Wednesday, August 09, 2017 11:11 - CONCLUSION: 1. No evidence of pulmonary emboli. 2. Moderate bilateral pleural effusions which are increased from the prior study. 3. Mediastinal adenopathy without significant change. 4. Consolidation in the right anterior lung base. 5. Multiple pulmonary nodules and nodular area of consolidative opacity in the left lower lobe. 6. Prominent lymph nodes in both axillary regions right greater than left. There are postsurgical changes noted on the left. 7. Small pericardial effusion which is decreased from the prior study. Gerson Juárez MD . Procedures 08/10/17: Right-sided thoracentesis 08/11/17: Left-sided thoracentesis 08/12/17: Palliative chemotherapy treatment initiated with carboplatin and Taxol. 08/14/17: Pleurx catheter placement . Assessment and Plan Disease Oriented Problem List: (1) Pneumonia (2) Right kidney stone (3) fen/ppx (4) Non-small cell carcinoma of lung (5) Recurrent right pleural effusion Symptom Scale: (1) Dyspnea 0-10 Scale: Unable to quantify (2) Pain 0-10 Scale: Unable to quantify (3) Anxiety 0-10 Scale: Unable to quantify Pertinent Non-Medical Issues Psychosocial:Patient is originally from [place]. 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 Patient moved to [place] approximately 15 years ago. Patient is . She has 3 adult children (Queenie, Carlita and Violeta) with him she is very close. She is also a grandmother and a great grandmother. Patient has one brother who from brain cancer. She has 2 brothers and one sister who are alive and well. Spiritual: Protestant davina Legal: Per [place] statutes, in the absence of written advanced directives healthcare proxy decision making would fall to the patient's 3 adult daughters. Patient confirms that in the event that she were incapacitated or unable to verbalize her medical treatment goals, she would want her 3 daughters (Carlita Jerome and Violeta) to act has her medical decision makers. Ethical issues impacting care: No known ethical is impacting care at this time. . Important Contacts Queenie Kendrajeanne, daughter: [phone] or [phone] Deb Gee, daughter: [phone] Violeta Castorena, daughter [phone] Blake Castorena, brother: [phone] Eryn Milan, sister: [phone] . Prognosis Patient recently diagnosed with metastatic non-small cell lung cancer in July,. She was discharged on 08/03/2017 and return to the ED on 08/09/2017 with worsening symptoms and recurrent pleural effusions and pericardial effusions. Plan to initiate palliative systemic chemotherapy with carboplatin/Taxol today . Patient is terminally ill. Currently medical treatment goals are aggressive but when/if the patient wishes to transition to comfort focused care , she would be hospice appropriate. . Code Status: No Code Plan * Per [place] statutes, in the absence of written advanced directives healthcare proxy decision making would fall to the patient's 3 adult daughters ( Carlita Jerome and Violeta). * NO CODE * Family meeting with 3 daughters. Patient unable to participate due to lethargy and confusion. Family practice resident and Wanda Hedrick LCSW also present. After medical update, review of clinical changes in patient and discussion regarding patient goals of care. Family desires transition to comfort measures with hospice support. They desire transfer to [facility] when arrangements can be made. * SYMPTOM MANAGEMENT: = Pain: Multifactoral. Patient nods her head when asked if she is painful but does not provide any additional information such as location, pain level or description. Patient is currently on hydromorphone 2mg PO q8 hours and Lorazepam 0.5mg PO q6 hours ATC. PRN Lorazepam and [place] are available for breakthrough symptoms. 24 hours PRN requirements = [place] (7.5-325mg) x 2.Contributing factors include recently diagnosed metastatic non-small cell lung cancer, pneumonia, infiltrated IV sites, invasive lines, invasive procedures etc. Palliative care will monitor PRN and make recommendations as indicated. Patient may benefit from long acting medications at some point in the future. = Anxiety: Multifactoral. Contributing factors include newly diagnosed metastatic carcinoma, pain and progressively increased dyspnea. Well managed on scheduled Lorazepam q6 hours. No PRN requirements in the past 24 hours = Dyspnea: Multifactoral. Contributing factors include newly diagnosed metastatic carcinoma, recurrent pleural effusions and pneumonia. Status post Pleurx catheter placement on 08/14/2017 patient remain on scheduled Duonebs, albuterol nebulizers PRN, Solu-Medrol and broad- spectrum antibiotics. Patient reported Lorazepam helps with her breathing. * Palliative care will follow this patient throughout her hospitalization to establish trust, assist with symptom management and clarification of medical treatment goals. . Attestation To help prompt me to consider important information that might be impacting today's encounter and assessment, information from prior notes written by myself or my colleagues may have been "brought forward" into today's note. My signature on this note, however, is an attestation that I personally performed the exam, history, and/or decision-making noted today, and, unless otherwise indicated, the interactions with patient, family, and staff as well as the review of records all occurred today. I also attest that the listed assessment and stated plan reflect my best clinical judgment today based on the combination of historical information, prior notes, and today's exam/ interactions. When time spent is documented, it refers only to time spent today by the signer, or if indicated, combined time spent today by collaborating physician/nurse practitioner. Sharon Huerta Aug 18, 2017 11:34
--- NOTE | 2017-08-18 13:02 | HHI.FPPN ---
Subjective Remarks Patient seen and examined bedside this morning. Patient appears much more somnolent and 2 daughters at bedside. She appears to be delirious and is rambling that she does not want chest x-rays and she does not want procedures. She does open her eyes on command and is awake and alert and oriented 3. She denies any chest pain or acute change in breathing. No fevers or chills. (Caity Gibson MD R2) Objective Vitals Vital Signs Date Time Temp Pulse Resp B/P (MAP) Pulse Ox O2 Delivery O2 Flow Rate FiO2 08/18/17 09:40 97.4 110 24 154/64 (94) 97 08/18/17 06:02 121 08/18/17 05:17 113 08/18/17 04:03 119 08/18/17 03:45 98.4 116 20 122/71 (88) 98 08/18/17 03:01 115 08/18/17 02:06 120 08/18/17 01:01 117 08/18/17 00:01 118 08/17/17 23:44 97.5 119 24 112/72 (85) 96 08/17/17 23:05 115 08/17/17 22:04 119 08/17/17 21:37 97 Nasal Cannula 3.00 08/17/17 21:04 118 08/17/17 20:34 96.9 118 24 108/81 (90) 97 08/17/17 20:04 117 08/17/17 19:04 122 08/17/17 16:01 98.1 110 20 145/84 (104) 98 I/O 08/17/17 08/17/17 08/17/17 08/18/17 08/18/17 08/18/17 07:00 15:00 23:00 07:00 15:00 23:00 Intake Total 100 ml 300 ml 120 ml Output Total 650 ml 350 ml 450 ml 725 ml 150 ml Balance -650 ml -250 ml -150 ml -605 ml -150 ml Intake Oral 300 ml 120 ml IV Total 100 ml Output Urine Total 650 ml 450 ml 725 ml Drainage Total 350 ml 150 ml # Bowel Movements 1 (Caity Gibson MD R2) Result Diagram: 08/18/17 0355 08/18/17 0355 Objective Remarks GENERAL: Well-nourished, well-developed, obese female. Laying in bed, drowsy and continuously falling asleep during conversation. Periods of shallow breathing alternating with periods of deep, rapid breathing. Pauses interspersed SKIN: Warm and dry. Extensive bruising noted on right arm, elbow fold. HEENT: Normocephalic. Atraumatic. No scleral icterus. No injection or drainage. Extraocular motion intact. NECK: Significant swelling; symmetric. CARDIOVASCULAR: Warm and well perfused. Tachycardic rate, regular rhythm, no murmurs appreciated. RESPIRATORY: Coarse breath sounds equal bilaterally. Patient is very weak and cannot sit up for posterior auscultation GASTROINTESTINAL: Positive bowel sounds. Abdomen nondistended. MUSCULOSKELETAL: Generalized body weakness. NEURO/PSYCH: Awake, alert, and oriented x3. Procedures Right-sided thoracentesis performed 08/10. Left-sided thoracentesis performed 08/11. Emergent subxiphoid pericardial window, left Pleur X catheter placement, drainage of pleural effusion performed on 08/14. (Caity Gibson MD R2) A/P Assessment and Plan 67 y/o female with a recent diagnosis of metastatic non-small cell lung cancer and metastatic adenopathy, who presents to the ED with shortness of breath. Admitted for evaluation and management of the respiratory distress. Status post carboplatin and Taxol on 08/12/2017. Pleurx catheter had to be placed on 2017 for management reaccumulating malignant pleural effusion. Patient with progressive worsening and now decision to move to hospice Discharge Planning Discharged today to hospice (Caity Gibson MD R2) Attending Attestation Patient seen and examined, discussed with resident team. I agree with assessment and management as documented and discussed with me. Pt seen with medicine team. Pt with acute change in status overnight, now more confused and breathing is labored. Suspect patient is nearing the end of life. Family conference scheduled today to discuss hospice with patient and 3 daughters. Discharge to Hospice facility most likely, pending family discussion. (Elsie Abrams MD) Problem List: (1) Pneumonia ICD Codes: J18.9 - Pneumonia, unspecified organism Status: Resolved Plan: Possible nosocomial pneumonia on admission, s/p abx as below On admission: * Met SIRS criteria with tachycardia, tachypnea, high WBC count. * Chest x-ray: Right costophrenic angle blunted, hazy opacity in both lung bases most consistent with infiltrates and effusions, moderate cardiomegaly. D/C Vanc, Zosyn, Cefepime (08/09 - 08/17) for empirical treatment of nosocomial pneumonia. No IV fluids at this time due to pleural effusions. (2) Non-small cell carcinoma of lung ICD Codes: C34.90 - Malignant neoplasm of unspecified part of unspecified bronchus or lung Status: Chronic Plan: Patient with recent diagnosis of non-small cell carcinoma of lung with metastasis. Oncology awaiting mutational studies to determine whether patient is a candidate for targeted therapy. However patient does not want to wait for the studies and consider chemotherapy. Decision to move to hospice Respiratory distress likely due to malignant pleural effusion. Pericardial effusion present per ECHO. No pericardial effusion but moderate pericardial calcification and thickening present per Dr. Mcarthur, CVT surgery. Ultrasound-guided thoracentesis ordered for moderate pleural effusions. Right- sided thoracentesis performed 08/10; left-sided thoracentesis performed 08/11. Respiratory status improved temporarily. Patient, however, has been re- accumulating pleural effusion rapidly. Emergent subxiphoid pericardial window, left Pleur X catheter placement, drainage of pleural effusion performed on 08/14. Medications: * Prednisone 20 mg PO BID, further decreasing to prednisone 20 mg daily * Levalbuterol 1.26mg q6hr as needed. * Pain management with Tylenol, [place], Dilaudid as needed. (3) Bilateral pleural effusion ICD Codes: J90 - Pleural effusion, not elsewhere classified Status: Chronic Plan: * See Plan for Non-small cell carcinoma of lung. (4) Tachycardia ICD Codes: R00.0 - Tachycardia, unspecified Status: Acute Plan: Sinus tachycardia. Likely secondary to malignant effusion. * See Plan for Non-small cell carcinoma of lung. (5) Hypotension ICD Codes: I95.9 - Hypotension, unspecified Status: Resolved Plan: Hypotensive following CVT surgery. Likely secondary to restrictive shock. * See Plan for Non-small cell carcinoma of lung. * Gentle IV fluid resuscitation with additional episodes. (6) Right kidney stone ICD Codes: N20.0 - Calculus of kidney Status: Chronic Plan: [place] calculus diagnosed, no current pain per the patient. Outpatient follow-up with urology was recommended once current conditions have resolved. (7) Hematuria ICD Codes: R31.9 - Hematuria, unspecified Status: Acute Plan: UA 08/15: Lexii, cloudy, pH 6, large occult blood, many WBC clumps, negative nitrite, negative leukocyte esterase, many bacteria, many mucus, moderate yeast. Urine culture 08/14: no growth to this point. Urine culture 08/15: negative Likely due to kidney stones. (8) fen/ppx Status: Chronic Plan: Fluids: PO fluids. Electrolytes: Monitor and replete as needed. Nutrition: Regular diet. DVT prophylaxis: SCDs. Lovenox. GI prophylaxis: Pepcid. (Caity Gibson MD R2) Problem Qualifiers (1) Pneumonia: Qualified Codes: J18.1 - Lobar pneumonia, unspecified organism Caity Gibson MD R2 Aug 18, 2017 13:02 Elsie Abrams MD Aug 19, 2017 12:36
== END 2017-08-18 13:35 | disposition hospice, inpatient (51) | DRG 163 ==
LOC: NEPE 08:57 → NEDA 12:10 → HCIN 14:34 → HCPC 08-14 19:20 → HCVI 08-14 21:35 → HCIN 08-15 16:07
PROVIDERS: ADMIT Family Medicine; ATTEND Family Medicine
PROC: 3E0F7GC Introduction of Other Therapeutic Substance into Respiratory Tract, Via Natural or Artificial Opening (ICD-10-PCS; principal; 2017-08-09)
PROC: 0W993ZZ Drainage of Right Pleural Cavity, Percutaneous Approach (ICD-10-PCS; 2017-08-10)
PROC: 0W9B3ZZ Drainage of Left Pleural Cavity, Percutaneous Approach (ICD-10-PCS; 2017-08-11)
PROC: 3E03305 Introduction of Other Antineoplastic into Peripheral Vein, Percutaneous Approach (ICD-10-PCS; 2017-08-12)
PROC: 0W9D0ZZ Drainage of Pericardial Cavity, Open Approach (ICD-10-PCS; 2017-08-14)
PROC: B246ZZ4 Ultrasonography of Right and Left Heart, Transesophageal (ICD-10-PCS; 2017-08-14)
PROC: B24CZZ4 Ultrasonography of Pericardium, Transesophageal (ICD-10-PCS; 2017-08-14)
PROC: 0W9B30Z Drainage of Left Pleural Cavity with Drainage Device, Percutaneous Approach (ICD-10-PCS; 2017-08-14)
DX: C34.90 Malignant neoplasm of unspecified part of unspecified bronchus or lung (principal); J18.1 Lobar pneumonia, unspecified organism; I31.4 Cardiac tamponade; J91.0 Malignant pleural effusion; C77.9 Secondary and unspecified malignant neoplasm of lymph node, unspecified; R13.10 Dysphagia, unspecified; I07.1 Rheumatic tricuspid insufficiency; R00.0 Tachycardia, unspecified; R06.03 Acute respiratory distress; Z80.6 Family history of leukemia; Z87.891 Personal history of nicotine dependence; Z83.3 Family history of diabetes mellitus; Z80.49 Family history of malignant neoplasm of other genital organs; Z80.8 Family history of malignant neoplasm of other organs or systems; Z90.710 Acquired absence of both cervix and uterus; Z51.5 Encounter for palliative care; Y95 Nosocomial condition; N20.0 Calculus of kidney; F41.0 Panic disorder [episodic paroxysmal anxiety]; I95.81 Postprocedural hypotension; H53.2 Diplopia; K59.00 Constipation, unspecified; N95.1 Menopausal and female climacteric states
CPT/HCPCS: 32555; 36600; 71045; 71046; 71275; 76937; 80048; 80053; 80202; 81001; 82550; 82805; 82948; 83605; 83735; 84100; 84484; 85025; 85027; 85610; 85730; 86850; 86900; 86901; 87040; 87086; 93005; 93306; 94150; 94618; 94640; 94664; 96361; 96365; C1729; C9290; J0131; J0330; J0456; J0690; J0692; J1100; J1170; J1626; J1650; J1815; J2060; J2370; J2405; J2920; J3370; J7030; J7040; J7050; J7060; J7120; J7512; J7613; J7614; J9045; J9267; Q9967